=== PATIENT | female | born 1935 | race Caucasian/White ===

== ENCOUNTER → 2016-11-03 | Outpatient (CLI) | payer BC ==
[~2016-11-03] MED LIST: ACP20 PO; DILT240C75 PO; GABA-113 PO; LOSA100T33 PO; METO50TA16 PO; SIMV20TA2 PO
[2016-11-03 12:51] LABS: ESTIMATED AVERAGE GLUCOSE 140 mg/dl; HA1C FLAG Normal (Normal)
[2016-11-03 12:55] LABS: ALT/SGPT 29 U/L (12-78); AST/SGOT 15 U/L (15-37); BLOOD UREA NITROGEN 17 mg/dl (7-18); BUN/CREATININE RATIO 15.1 (10-20); CALCIUM 9.7 mg/dl (8.5-10.1); CARBON DIOXIDE 27 mmol/L (21-32); CHLORIDE 105 mmol/L (98-107); CHOLESTEROL 131 mg/dl (0-200); GLUCOSE 100 mg/dl (70-99); POTASSIUM 3.6 mmol/L (3.5-5.1); SODIUM 142 mmol/L (136-145)
[2016-11-03 13:06] LABS: ALB/GLOB RATIO 0.9 (0.9-2); ALKALINE PHOSPHATASE 82 U/L (45-117); CHOLESTEROL/HDL RATIO 3.4; HDL CHOLESTEROL 39 mg/dl; LDL CHOLESTEROL CALCULATED 65 mg/dl; TRIGLYCERIDES 135 mg/dl (0-150); VERY LOW DENSITY LIPOPROT CALC 27 mg/dl
[2016-11-03 14:31] LABS: RATIO 14.1 mcg/mg (0-30.0)
== END | disposition home or self-care (01) ==
LOC: C.LABBFT 08:14
PROVIDERS: ATTEND Internal Medicine
DX: E11.29 Type 2 diabetes mellitus with other diabetic kidney complication (principal)

== ENCOUNTER → 2017-01-29 | Outpatient (CLI) | payer BC ==
[~2017-01-29] MED LIST changes: +LOSA100T26 PO; -LOSA100T33 PO
[2017-01-29 17:38] LABS: BASO % 0.1 %; BASO ABS # 0.01 K/uL (0-0.2); COMPLETE YES; EOS % 3.3 %; HEMATOCRIT 40.9 % (37-47); IG% 0.1 %; LYMPH % 37.1 %; LYMPH ABS # 3.41 K/uL (1.2-3.4); MEAN CELL VOLUME 86.1 fL (80-100); MEAN CORPUSCULAR HEMOGLOBIN 28.8 pg (25-34); MEAN CORPUSCULAR HGB CONC 33.5 g/dl (32-36); MEAN PLATELET VOLUME 10.5 fL (7.4-10.4); NEUT % 50.4 %; PLATELET COUNT 251 K/uL (130-400); RED BLOOD COUNT 4.75 M/uL (4.2-5.4); WHITE BLOOD COUNT 9.19 K/uL (4.8-10.8)
[2017-01-29 17:52] LABS: FERRITIN 115.1 ng/ml (8.0-388.0)
== END | disposition home or self-care (01) ==
LOC: C.LABBFT 15:24
PROVIDERS: ATTEND Physician Assistant Medical
DX: L65.9 Nonscarring hair loss, unspecified (principal)

== ENCOUNTER → 2017-02-14 | Outpatient (CLI) | payer BC ==
--- NOTE | 2017-02-14 13:16 | MAMMOGRAPHY REPORT ---
BILATERAL DIGITAL SCREENING MAMMOGRAM WITH CAD: 02/14/2017 CLINICAL HISTORY: Routine screening. Patient has no complaints. TECHNIQUE: Current study was also evaluated with a Computer Aided Detection (CAD) system. Bilateral CC and MLO views were obtained. COMPARISON: Comparison is made to exams dated: 02/08/2016 mammogram, 02/05/2015 mammogram, 02/03/2014 m ammogram, 01/29/2013 mammogram, 01/24/2012 mammogram, and 01/23/2011 mammogram - [facility] enter. BREAST COMPOSITION: The tissue of both breasts is almost entirely fatty. FINDINGS: No suspicious masses, calcifications, or areas of architectural distortion are noted in ei ther breast. There has been no significant interval change compared to prior exams. Scattered bilater al benign-appearing calcifications are not significantly changed. IMPRESSION: ACR BI-RADS CATEGORY 2: BENIGN There is no mammographic evidence of malignancy. A 1 year screening mammogram is recommended. The pa tient will receive written notification of the results. Approximately 10% of breast cancers are not detected with mammography. A negative mammographic report should not delay biopsy if a clinically suggestive mass is present. Georgia Freed M.D. ah/:02/14/2017 12:36:13 Insurance Agency Owner: Kavita PAREDES(Kit)(), [facility] letter sent: Normal 1/2 BI-RADS Code: ACR BI-RADS Category 2: Benign
== END | disposition home or self-care (01) ==
LOC: C.MAMM 09:46
PROVIDERS: ATTEND Internal Medicine
DX: Z12.31 Encounter for screening mammogram for malignant neoplasm of breast (principal)

== ENCOUNTER → 2017-05-16 | Outpatient (CLI) | payer BC ==
[~2017-05-16] MED LIST changes: -LOSA100T26 PO; +LOSA100T33 PO
[2017-05-16 12:29] LABS: HEMATOCRIT 40.8 % (37-47); HEMOGLOBIN 13.5 g/dL (12.0-16.0); MEAN CELL VOLUME 86.8 fL (80-100); MEAN CORPUSCULAR HEMOGLOBIN 28.7 pg (25-34); MEAN CORPUSCULAR HGB CONC 33.1 g/dl (32-36); MEAN PLATELET VOLUME 10.3 fL (7.4-10.4); PLATELET COUNT 255 K/uL (130-400); RED CELL DISTRIBUTION WIDTH CV 14.4 % (11.5-14.5); RED CELL DISTRIBUTION WIDTH SD 45.6 fL (36.4-46.3); WHITE BLOOD COUNT 8.17 K/uL (4.8-10.8)
[2017-05-16 13:07] LABS: HEMOGLOBIN A1C 6.2 % (4.5-5.6)
[2017-05-16 14:11] LABS: ALBUMIN 3.4 gm/dl (3.4-5.0); ALT/SGPT 24 U/L (12-78); AST/SGOT 13 U/L (15-37); BLOOD UREA NITROGEN 21 mg/dl (7-18); CALCIUM 9.2 mg/dl (8.5-10.1); CARBON DIOXIDE 28 mmol/L (21-32); CHOLESTEROL 136 mg/dl (0-200); CREATININE 1.04 mg/dl (0.60-1.20); GLUCOSE 96 mg/dl (70-99); POTASSIUM 3.8 mmol/L (3.5-5.1); SODIUM 138 mmol/L (136-145); TOTAL PROTEIN 7.4 gm/dl (6.4-8.2)
[2017-05-16 14:31] LABS: ALKALINE PHOSPHATASE 75 U/L (45-117); LDL CHOLESTEROL CALCULATED 61 mg/dl
== END | disposition home or self-care (01) ==
LOC: C.LABBFT 08:17
PROVIDERS: ATTEND Internal Medicine
DX: E11.29 Type 2 diabetes mellitus with other diabetic kidney complication (principal)

== ENCOUNTER → 2017-08-20 | Outpatient (CLI) | payer BC | END | disposition home or self-care (01) | LOC: C.LABBFT 11:22 | PROVIDERS: ATTEND Nurse Practitioner | DX: R39.9 Unspecified symptoms and signs involving the genitourinary system (principal) ==

== ENCOUNTER → 2017-11-22 | Outpatient (CLI) | payer BC | END | disposition home or self-care (01) | LOC: C.LABSPEC 17:48 | PROVIDERS: ATTEND Obstetrics & Gynecology | DX: N95.0 Postmenopausal bleeding (principal); N84.0 Polyp of corpus uteri ==

== ENCOUNTER → 2017-11-28 | Outpatient (CLI) | payer BC ==
[2017-11-28 13:06] LABS: ALBUMIN 3.3 gm/dl (3.4-5.0); ALKALINE PHOSPHATASE 77 U/L (45-117); ALT/SGPT 26 U/L (12-78); AST/SGOT 15 U/L (15-37); BLOOD UREA NITROGEN 29 mg/dl (7-18); CALCIUM 8.8 mg/dl (8.5-10.1); CARBON DIOXIDE 27 mmol/L (21-32); CHOLESTEROL 200 mg/dl (0-200); CREATININE 1.12 mg/dl (0.60-1.20); GLUCOSE 101 mg/dl (70-99); LDL CHOLESTEROL CALCULATED 113 mg/dl; POTASSIUM 3.7 mmol/L (3.5-5.1); SODIUM 139 mmol/L (136-145); TOTAL PROTEIN 7.1 gm/dl (6.4-8.2)
[2017-11-28 13:14] LABS: HEMOGLOBIN A1C 6.4 % (4.5-5.6)
== END | disposition home or self-care (01) ==
LOC: C.LABBFT 09:15
PROVIDERS: ATTEND Internal Medicine
DX: E11.29 Type 2 diabetes mellitus with other diabetic kidney complication (principal)

== ENCOUNTER → 2017-12-07 | Outpatient (CLI) | payer BC ==
[2017-12-07 13:03] LABS: CREATININE RANDOM URINE 64.9 mg/dl
== END | disposition home or self-care (01) ==
LOC: C.LABBFT 09:29
PROVIDERS: ATTEND Internal Medicine
DX: E11.29 Type 2 diabetes mellitus with other diabetic kidney complication (principal)

== ENCOUNTER 2019-12-24 09:03 | Inpatient (IN) ==
--- NOTE | 2019-12-24 09:38 | Emergency Department Note ---
History of Present Illness General Chief complaint: Abnormal Labs/Diagnostic Testing Stated complaint: SENT BY DR Casie ARRIAGA ABNORMAL Time Seen by Provider: 12/24/19 09:09 Source: patient Mode of arrival: ambulatory Limitations: no limitations History of Present Illness This patient was sent over from the surgery center after presenting there for her cataract surgery and complaining that she has felt dizzy and has some shortness of breath off and on for couple days. She said a few days ago her heart rate was higher than normal and her blood pressure was lower than normal but she says she felt fine okay she has had some mild increase shortness of breath. 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 She is had no blood or melena stool no chest pain. No lower extremity pain or swelling she has gained about 6 pounds recently. Denies any focal numbness or weakness denies any fall or trauma or headache. No blood or melena in her stool. No fever or chills. No exposure to COVID and she was COVID negative on Sunday when tested for preop she has no history of thyroid disease. Home Medications Home Medications Medication Instructions Recorded Confirmed Type albuterol sulfate 90 mcg/actuation 1 puffs INH Q6H PRN #18 gm 01/03/19 12/24/19 Rx aerosol inhaler lancets #100 ea 01/03/19 09/25/19 Rx metoprolol tartrate 100 mg tablet 100 mg PO BID #180 tab 05/05/19 12/24/19 Rx alendronate 70 mg tablet 70 mg PO WEEKLY #12 tab 05/19/19 12/24/19 Rx atorvastatin 10 mg tablet 10 mg PO HS #90 tab 05/19/19 12/24/19 Rx blood sugar diagnostic #100 ea 08/29/19 09/25/19 Rx apixaban 5 mg tablet 5 mg PO BID #60 tab 09/25/19 12/24/19 Rx diltiazem HCl 240 mg PO QAM 11/27/19 12/24/19 History hydrochlorothiazide 25 mg PO QAM 11/27/19 12/24/19 History losartan 100 mg PO QAM 11/27/19 12/24/19 History rabeprazole 20 mg PO QAM 11/27/19 12/24/19 History gabapentin 300 mg capsule 300 mg PO TID #270 cap 12/24/19 Rx Allergies Allergy/AdvReac Type Severity Reaction Status Date / Time latex Allergy Mild REDNESS, Verified 12/24/19 09:30 RASH Sulfa (Sulfonamide AdvReac Intermediate MAKES HER Verified 12/24/19 09:30 Antibiotics) SICKER Past Med/Surg History Medical History (Updated 12/24/19 @ 15:16 by Ramesh Gregory MD) Controlled type 2 diabetes mellitus with microalbuminuria Deep vein thrombosis (02/2019) Feb 2019 after long car ride (provoked) Diverticulitis of colon GERD (gastroesophageal reflux disease) Greater trochanteric bursitis of right hip Hypercholesteremia Hypertension Lumbar spondylosis Osteoporosis Pulmonary embolism (02/2019) HISTORY OF Surgical History (Updated 12/24/19 @ 13:35 by Power Gonzalez) H/O cataract extraction left - Dr Collazo, 2019 H/O repair of rotator cuff LEFT History of appendectomy History of cardiac cath MORE THAN 5 YEARS AGO--WAS NEGATIVE ([facility]) History of cataract surgery LEFT History of cholecystectomy History of colonoscopy History of esophagogastroduodenoscopy (EGD) Family History Mother , age 42 from breast ca Breast cancer Son Deep vein thrombosis Father , age 52 from acute IA Myocardial infarction Asthma Other Coronary heart disease Denies family history of Ovarian cancer Prostate cancer Colorectal cancer Social History (Updated 12/24/19 @ 13:37 by Power Gonzalez) Smoking Status: Former smoker Age Started Using Tobacco: 23; Age Quit Using Tobacco: 50; packs per day: 1; Second Hand Exposure: No; Do You Dip or Chew Tobacco: No; Tobacco Cessation Education Requested by Patient: No Hx Alcohol Use: No Hx Substance Use: No Preferred Language: Syriac Communication Ability: Effective Visual Impairment: No Limitations Hearing Ability: Normal Audience Coordinator Required: No Beliefs That Will Affect Care: None marital status: marital status details: lives in [place] Current Living Situation: Spouse Current Living Situation Comment: LIVES WITH current occupational status: retired current occupation: worked at [employer] as a nurse How many Children do You have: 7 How many Children do You have Comment: 6 sons, 1 daughter Other Information That Helps Us Care for You: No Feels Safe at Home: Yes Safety Concerns: Feels Safe At This Time Seatbelt Use: always Sunscreen Use: Yes Review of Systems A total of 10 systems reviewed and were otherwise negative Physical Exam Vital Signs Vital Signs - 24 hr 12/24/19 09:07 12/24/19 09:22 12/24/19 09:31 Temperature 36.7 C Temperature Source Oral Pulse Rate 68 76 Pulse Rate from SpO2 Sensor 85 Respiratory Rate 18 15 Respiratory Effort / Characteristics Short of Breath Blood Pressure 135/79 131/87 Blood Pressure Mean 97 113 Blood Pressure Position Sitting Pulse Oximetry 95 94 92 Oxygen Delivery Method Room Air Room Air Room Air Sepsis Recent Fever Within 48 Hours No Sepsis New/Unexplained Change in Mental Status No Sepsis Action Taken by Nursing No Action Required 12/24/19 10:00 12/24/19 10:30 12/24/19 11:00 Temperature Temperature Source Pulse Rate 69 67 74 Pulse Rate from SpO2 Sensor 65 64 66 Respiratory Rate 21 13 20 Respiratory Effort / Characteristics Blood Pressure 156/83 H 136/82 161/89 H Blood Pressure Mean 108 94 103 Blood Pressure Position Pulse Oximetry 95 93 95 Oxygen Delivery Method Room Air Room Air Sepsis Recent Fever Within 48 Hours Sepsis New/Unexplained Change in Mental Status Sepsis Action Taken by Nursing 12/24/19 11:38 12/24/19 12:00 12/24/19 12:30 Temperature Temperature Source Pulse Rate 80 73 71 Pulse Rate from SpO2 Sensor Respiratory Rate 11 L 14 Respiratory Effort / Characteristics Blood Pressure Blood Pressure Mean Blood Pressure Position Pulse Oximetry Oxygen Delivery Method Sepsis Recent Fever Within 48 Hours Sepsis New/Unexplained Change in Mental Status Sepsis Action Taken by Nursing 12/24/19 13:00 12/24/19 13:01 12/24/19 13:30 Temperature Temperature Source Pulse Rate 79 73 85 Pulse Rate from SpO2 Sensor Respiratory Rate 23 13 16 Respiratory Effort / Characteristics Blood Pressure 145/82 H Blood Pressure Mean 95 Blood Pressure Position Pulse Oximetry 95 Oxygen Delivery Method Sepsis Recent Fever Within 48 Hours Sepsis New/Unexplained Change in Mental Status Sepsis Action Taken by Nursing 12/24/19 13:32 12/24/19 14:00 12/24/19 14:30 Temperature Temperature Source Pulse Rate 92 H 83 93 H Pulse Rate from SpO2 Sensor Respiratory Rate 16 21 13 Respiratory Effort / Characteristics Blood Pressure 171/82 H Blood Pressure Mean 100 Blood Pressure Position Pulse Oximetry Oxygen Delivery Method Sepsis Recent Fever Within 48 Hours Sepsis New/Unexplained Change in Mental Status Sepsis Action Taken by Nursing 12/24/19 14:31 Temperature Temperature Source Pulse Rate 103 H Pulse Rate from SpO2 Sensor Respiratory Rate 13 Respiratory Effort / Characteristics Blood Pressure 173/96 H Blood Pressure Mean 99 Blood Pressure Position Pulse Oximetry Oxygen Delivery Method Sepsis Recent Fever Within 48 Hours Sepsis New/Unexplained Change in Mental Status Sepsis Action Taken by Nursing General: Well developed well nourished not ill-appearing older female who appears mildly short of breath at times but in no acute distress. Normal speech HEENT: Normal cephalic atraumatic. Pupils are equal round and reactive to light. Extraocular movements are intact. Oropharynx is pink with moist mucous membranes. No swelling of the mouth lips or tongue. Neck: Supple with a midline trachea. No meningeal signs or stiffness, no JVD or bruits. No Stridor. Chest: Clear to auscultation bilaterally. No wheezes or rhonchi. No increased work of breathing. Heart: Regular rate and rhythm without murmurs or gallops. Abdomen: Soft nontender, nondistended without rebound guarding or rigidity. Extremities: No cyanosis clubbing or edema. No calf tenderness or assymetry Spine/Back. Non tender to palpation. No CVA tenderness Skin: Good turgor without rashes. Neurologic exam: Cranial nerves two through 12 are intact. Motor and sensation are intact and symmetrical throughout. Course Administered Medications Discontinued Medications Furosemide (Furosemide 40 Mg/4 Ml Vial) 20 mg IV NOW STA Stop: 12/24/19 14:43 Last Admin: 12/24/19 14:52 Dose: 20 mg Documented by: [id number] Furosemide (Furosemide 40 Mg/4 Ml Vial) Confirm Administered Dose 40 mg IV .STK- MED ONE Stop: 12/24/19 14:38 Last Admin: 12/24/19 14:52 Dose: Not Given Documented by: [id number] Ioversol (Optiray 320 125ml) 120 ml IV ONCE ONE Stop: 12/24/19 11:35 Last Admin: 12/24/19 11:34 Dose: 120 ml Documented by: [id number] Medical Decision Making Differential Diagnosis Arrhythmia, PE, CHF, cardiac disease, electrolyte or metabolic abnormality Medical Records Attestation: I reviewed the patient's medical records. Home Medications Current Medication List: was personally reviewed by tx Laboratory Data Attestation: I reviewed the patient's lab results. Result diagrams: 12/24/19 09:25 12/24/19 09:25 Lab Results 12/24/19 12/24/19 12/24/19 Range/Units 09:25 09:25 09:25 WBC 15.20 H (4.8-10.8) K/uL RBC 4.60 (4.2-5.4) M/uL Hgb 12.3 (12.0-16.0) g/dL Hct 38.3 (37-47) % MCV 83.3 (80-100) fL MCH 26.7 (25-34) pg MCHC 32.1 (32-36) g/dL RDW Std Deviation 46.4 H (36.4-46.3) fL RDW Coeff of Thomas 15.4 H (11.5-14.5) % Plt Count 383 (130-400) K/uL MPV 9.8 (7.4-10.4) fL Immature Gran % (Auto) 0.2 % Neut % (Auto) 77.7 % Lymph % (Auto) 17.0 % Braxton % (Auto) 5.0 % Eos % (Auto) 0.0 % Baso % (Auto) 0.1 % Neut # (Auto) 11.81 H (1.4-6.5) K/uL Lymph # (Auto) 2.59 (1.2-3.4) K/uL Braxton # (Auto) 0.76 H (0.11-0.59) K/uL Eos # (Auto) 0.00 (0-0.5) K/uL Baso # (Auto) 0.01 (0-0.2) K/uL Immature Gran # (Auto) 0.03 H (0.00-0.02) K/uL PT 11.1 (9.0-12.0) Seconds INR 1.1 (0.9-1.1) APTT 28.2 (21.0-31.0) Seconds PTT Ratio 1.0 Sodium 138 (136-145) mmol/L Potassium 4.3 (3.5-5.1) mmol/L Chloride 106 (98-107) mmol/L Carbon Dioxide 24 (21-32) mmol/L Anion Gap 8.0 (3-11) BUN 42 H (7-18) mg/dl Creatinine 1.48 H (0.6-1.2) mg/dl Est Cr Clr Drug Dosing 32.7 ml/min Est GFR ( Amer) 37.8 Est GFR (Non-Af Amer) 32.6 BUN/Creatinine Ratio 28.5 H (10-20) Glucose 127 H (70-99) mg/dl Calcium 9.4 (8.5-10.1) mg/dl Total Bilirubin 0.6 (0.2-1) mg/dl AST 11 L (15-37) U/L ALT 23 (12-78) U/L Alkaline Phosphatase 72 (45-117) U/L Troponin I < 0.015 (0-0.045) ng/ml NT-Pro-B Natriuret Pep 2274 H (0-1800) pg/ml Total Protein 7.4 (6.4-8.2) gm/dl Albumin 3.4 (3.4-5.0) gm/dl Globulin 4.0 (2.5-4.0) gm/dl Albumin/Globulin Ratio 0.9 (0.9-2) Lipase 145 (73-393) U/L Imaging Data Attestation: I personally reviewed and interpreted this imaging study as follows: Radiologist's Impression: XR chest 1V portable HISTORY: Atypical Chest Pain COMPARISON: None. FINDINGS: Cardiac silhouette is mildly enlarged. There is mild diffuse interstitial thickening. This is likely chronic. No pleural effusions. No pneumothorax. No focal lung consolidations to suggest pneumonia. No evidence for pulmonary edema. IMPRESSION: Cardiomegaly with mild diffuse interstitial thickening. This is likely chronic. ECG Data Attestation: I personally reviewed and interpreted this ECG as follows: Indication: + SOB/dyspnea Rate (beats per minute): 80 Rhythm: + atrial fibrillation ECG Intervals/blocks: + Right Bundle branch block, + Normal QRS and + Normal QT ECG [place]: + Normal ECG Findings: + Other (Nonspecific T wave abnormalities, nonspecific ST abnormality) Comparison ECG Date: from (12/24/19 820 AM (Pre-op EKG), no change) Change: no significant change Blood Pressure Blood Pressure Findings: Elevated blood pressure Blood Pressure Disposition: elevated BP felt to be situational MDM Narrative This patient comes in after being noted to be an apparent new onset A. fib in the surgery center. she was sent here she has had some mild dizziness and shortness of breath. She has a history of PE and is on a blood thinner. IV access established and blood work was obtained. EKG, chest x-ray, multiple blood testing was obtained. She was reassessed frequently. EKG does show what appears to be A. fib with rate controlled. When I compare to the one that was done preop there is no change however when I compare to the old one it is new. Chest x-ray shows some mild increased interstitial thickening she may have a degree of CHF. She has no acute electrolyte or metabolic abnormalities otherwise with the exception of a mildly elevated BUN and creatinine. She does have an elevated white count but no fever. CTA of the chest was obtained given her history of PE there is no evidence of PE. I do think she needs to be admitted/observed for further cardiac evaluation and work-up Continuous cardiac monitoring: An order was placed in the EMR. The patient was placed on a continuous monitor and storage bin tender and was noted to be in atrial fibrillation with a rate of 80 there is irregularity on the monitor. Impression & Plan Atrial fibrillation, new onset, Dizziness, SOB (shortness of breath), Acute renal insufficiency Discharge Plan Visit Data Chief Complaint: Abnormal Labs/Diagnostic Testing Stated Complaint: SENT BY DR Casie ARRIAGA ABNORMAL ED Provider: Ramesh Gregory Discharge Problem: Atrial fibrillation, new onset, Dizziness, SOB (shortness of breath), Acute renal insufficiency Patient Disposition: Admitted As Inpatient Discharge Instructions Interventions: ED Discharge Assessment Last Done: 12/24/19 14:57
[2019-12-24 09:45] LABS: Basophils # (auto) 0.01 K/uL (0-0.2); Basophils % (auto) 0.1 %; Hematocrit (blood only) 38.3 % (37-47); Hemoglobin 12.3 g/dL (12.0-16.0); Immature Granulocytes # (auto) 0.03 K/uL (0.00-0.02); Immature Granulocytes % (auto) 0.2 %; Lymphocytes # (auto) 2.59 K/uL (1.2-3.4); Mean Corpuscular Hemoglobin 26.7 pg (25-34); Mean Corpuscular Hgb Conc 32.1 g/dL (32-36); Mean Corpuscular Volume 83.3 fL (80-100); Mean Platelet Volume 9.8 fL (7.4-10.4); Monocytes # (auto) 0.76 K/uL (0.11-0.59); Neutrophils # (auto) 11.81 K/uL (1.4-6.5); Neutrophils % (auto) 77.7 %; Platelet Count 383 K/uL (130-400); RDW Coefficient of Variation 15.4 % (11.5-14.5); RDW Standard Deviation 46.4 fL (36.4-46.3)
[2019-12-24 10:00] LABS: INR 1.1 (0.9-1.1); Partial Thromboplastin Time 28.2 Seconds (21.0-31.0); Prothrombin Time 11.1 Seconds (9.0-12.0)
--- NOTE | 2019-12-24 10:00 | XRay Report ---
XR chest 1V portable HISTORY: Atypical Chest Pain COMPARISON: None. FINDINGS: Cardiac silhouette is mildly enlarged. There is mild diffuse interstitial thickening. This is likely chronic. No pleural effusions. No pneumothorax. No focal lung consolidations to suggest pne umonia. No evidence for pulmonary edema. IMPRESSION: Cardiomegaly with mild diffuse interstitial thickening. This is likely chronic. ACT 112: Negative or not required by law. Electronically signed by: Ross Luz M.D. 12/24/2019 9:58 AM
[2019-12-24 10:04] LABS: Alanine Aminotransferase 23 U/L (12-78); Albumin Level 3.4 gm/dl (3.4-5.0); Aspartate Aminotransferase 11 U/L (15-37); BUN Creatinine Ratio 28.5 (10-20); Blood Urea Nitrogen 42 mg/dl (7-18); Calcium 9.4 mg/dl (8.5-10.1); Carbon Dioxide 24 mmol/L (21-32); Chloride 106 mmol/L (98-107); Creatinine Clr Calc Pharmacy 32.7 ml/min; Est GFR (African American) 37.8; Est GFR (Non-African American) 32.6; Glucose 127 mg/dl (70-99); Lipase 145 U/L (73-393); Potassium 4.3 mmol/L (3.5-5.1); Sodium 138 mmol/L (136-145)
[2019-12-24 10:08] LABS: Albumin Globulin Ratio 0.9 (0.9-2); Alkaline Phosphatase 72 U/L (45-117); Bilirubin,Total 0.6 mg/dl (0.2-1); NT Pro B Type Natriuretic Pept 2274 pg/ml (0-1800); Total Protein 7.4 gm/dl (6.4-8.2); Troponin I < 0.015 ng/ml (0-0.045)
[2019-12-24] MEDS ORDERED: OPTIRAY 320 125ml IV ONE (11:34)
--- NOTE | 2019-12-24 11:58 | CT Scan Report ---
CT angio chest PE protocol CT DOSE: 930.41 mGy.cm HISTORY: Chest pain. Dyspnea. PE TECHNIQUE: Multiaxial CT images of the chest were performed following the intravenous administration of contrast to evaluate the pulmonary arteries. Maximal intensity projection images were also obtaine d. A dose lowering technique was utilized adhering to the principles of ALARA. COMPARISON STUDY: 02/19/2019 FINDINGS: The pulmonary vasculature enhances appropriately. There are no major filling defects. Thoracic aorta shows mild ectasia but is negative for aneurysm. Lungs demonstrate mild generalized interstitial prominence with no well-defined focal infiltrative pr ocess. There are focal atelectatic changes posterior aspect right pulmonary apex. There is underlying component of emphysematous change. IMPRESSION: 1. No evidence for pulmonary embolus. 2. Interstitial prominence primarily in the mid to lower lung regions suggesting nonspecific pneumoni tis. 3. ACT 112: Negative or not required by law. The above report was generated using voice recognition software. It may contain grammatical, syntax or spelling errors. Electronically signed by: iLang Ortiz M.D. 12/24/2019 11:56 AM
--- NOTE | 2019-12-24 13:21 | History & Physical Report ---
Date of Service December 24, 2019 Assessment & Plan (1) Atrial fibrillation: New-onset, perhaps 3-4 days ago based on her home HR readings (usually runs 50-60 BPM; then increased to 80s/90s a few days ago). Her rates are controlled, at least at rest, due to ongoing use of CCB and BB. She is also already on eliquis 5mg BID due to prior h/o DVT with PE in 2019. TSH wnl. Mag/K wnl. Obtain echo to r/o valvular disease, check EF, etc. Consider cardiology consult. Adjust CCB dose if more rate control needed. Will need to check HRs w/ walking before discharge. Troponin noted to be normal. (2) Acute CHF: Suspect volume overload in setting of new-onset a.fib. She has had notable weight gain recently. "pneumonitis" seen on CT chest today is likely edema. Recent COVID-19 testing negative. She has no symptoms of an infectious process. Lasix 20mg IV x 1 and follow response. Hold HCTZ. Suspect will need additional lasix tomorrow. Echo to check LV function. (3) Deep vein thrombosis: history of - 2019 eliquis BID (4) Pulmonary embolism: history of - 2019 eliquis BID (5) Controlled type 2 diabetes mellitus with microalbuminuria: 12/18/19 - HbA1C 6.8% diet controlled random glucose 127 today DM diet (6) Hypertension: cont all meds except HCTZ for now (7) Hypercholesteremia: cont statin (8) Morbid obesity with BMI of 40.0-44.9, adult: BMI 41 (9) Leukocytosis: suspect this is due to steroid injection she received for right hip bursitis on Sunday of this week no signs/symptoms of infectious process at this time follow (10) Greater trochanteric bursitis of right hip: s/p steroid injection on 12/22/[address] Person (11) DVT prophylaxis: eliquis if rates are controlled at rest & with activity tomorrow, and if volume status is acceptable, could consider d/c home tomorrow with outpatient cardiology f/u History of Present Illness Chief Complaint: new-onset a.fib; high HR; low BP Primary Care Provider: Rashad Parsons MD 84yo female with history of DVT and PE on eliquis who presented today for elective right cataract surgery by Dr Collazo at [facility]. Upon checking in at the surgical center she told the staff that she had noted "high" HRs over the last 3 days. Typically she runs about 50-60 BPM but had noted rates in the 80s and 90s at home. Her blood pressures were "low" - typically systolics run about 140, but had noted systolics in the low 100s over the last few days. She also reported to the staff at the surgical center that she has had dyspnea recently. While doing housework recently she was very short of breath. No orthopnea or PND. No LE edema. She has gained weight of late -- she has had 5-10 pounds in the last month. She noted worsening abdominal girth recently as well. Had negative COVID-19 testing on 12/19/19. No fevers or chills. Some cough - dry. Had palpitations several days ago but nothing since. Patient DID take her metoprolol and diltiazem this morning. Lastly, patient had steroid injection of right hip on SUNDAY of this week for bursitis by Dr Person. Allergies Allergy/AdvReac Type Severity Reaction Status Date / Time latex Allergy Mild REDNESS, Verified 12/24/19 09:30 RASH Sulfa (Sulfonamide AdvReac Intermediate MAKES HER Verified 12/24/19 09:30 Antibiotics) SICKER Home Medications Home Medications Medication Instructions Recorded Confirmed Type albuterol sulfate 90 mcg/actuation 1 puffs INH Q6H PRN #18 gm 01/03/19 12/24/19 Rx aerosol inhaler lancets #100 ea 01/03/19 09/25/19 Rx metoprolol tartrate 100 mg tablet 100 mg PO BID #180 tab 05/05/19 12/24/19 Rx alendronate 70 mg tablet 70 mg PO WEEKLY #12 tab 05/19/19 12/24/19 Rx atorvastatin 10 mg tablet 10 mg PO HS #90 tab 05/19/19 12/24/19 Rx blood sugar diagnostic #100 ea 08/29/19 09/25/19 Rx apixaban 5 mg tablet 5 mg PO BID #60 tab 09/25/19 12/24/19 Rx diltiazem HCl 240 mg PO QAM 11/27/19 12/24/19 History hydrochlorothiazide 25 mg PO QAM 11/27/19 12/24/19 History losartan 100 mg PO QAM 11/27/19 12/24/19 History rabeprazole 20 mg PO QAM 11/27/19 12/24/19 History gabapentin 300 mg capsule 300 mg PO TID #270 cap 12/24/19 Rx Past Med/Surg History Medical History (Updated 12/25/19 @ 00:03 by Power Gonzalez) Controlled type 2 diabetes mellitus with microalbuminuria Deep vein thrombosis (02/2019) Feb 2019 after long car ride (provoked) Diverticulitis of colon GERD (gastroesophageal reflux disease) Greater trochanteric bursitis of right hip Hypercholesteremia Hypertension Lumbar spondylosis Osteoporosis Pulmonary embolism (02/2019) HISTORY OF Surgical History (Updated 12/24/19 @ 13:35 by Power Gonzalez) H/O cataract extraction left - Dr Collazo, 2019 H/O repair of rotator cuff LEFT History of appendectomy History of cardiac cath MORE THAN 5 YEARS AGO--WAS NEGATIVE ([facility]) History of cataract surgery LEFT History of cholecystectomy History of colonoscopy History of esophagogastroduodenoscopy (EGD) Family History Mother , age 42 from breast ca Breast cancer Son Deep vein thrombosis Father , age 52 from acute [place] Myocardial infarction Asthma Other Coronary heart disease Denies family history of Ovarian cancer Prostate cancer Colorectal cancer Social History (Updated 12/24/19 @ 13:37 by Power Gonzalez) Smoking Status: Former smoker Age Started Using Tobacco: 23; Age Quit Using Tobacco: 50; packs per day: 1; Second Hand Exposure: No; Do You Dip or Chew Tobacco: No; Tobacco Cessation Education Requested by Patient: No Hx Alcohol Use: No Hx Substance Use: No Preferred Language: Indonesian Communication Ability: Effective Visual Impairment: No Limitations Hearing Ability: Normal Retail Administrative Assistant Required: No Beliefs That Will Affect Care: None marital status: marital status details: lives in [place] Current Living Situation: Spouse Current Living Situation Comment: LIVES WITH current occupational status: retired current occupation: worked at [employer] as a nurse How many Children do You have: 7 How many Children do You have Comment: 6 sons, 1 daughter Other Information That Helps Us Care for You: No Feels Safe at Home: Yes Safety Concerns: Feels Safe At This Time Seatbelt Use: always Sunscreen Use: Yes Review of Systems Constitutional: + weight gain; no fever, no chills and no anorexia Eyes: cataract extraction - Left - recent; improved vision w/ such Ear, Nose, Mouth, Throat: no sore throat no loss of taste or smell Respiratory: + cough; no sputum production Cardiovascular: no chest pain, no orthopnea, no paroxysmal nocturnal dyspnea and no edema Gastrointestinal: no abdominal pain, no vomiting and no diarrhea/loose stools Genitourinary: no dysuria Musculoskeletal: + back pain (chronic ) and + joint pain (hips, etc) Integumentary: no rash Neurologic: no loss of sensation Psychiatric: no depression Endocrine: diet-controlled DM -- 120s or less Hematologic / Lymphatic: no easy bleeding and no easy bruising Physical Exam Constitutional: + morbidly obese; no acute distress and no altered mental status Eyes: PERRL (lens implant L; cataract shadow R) ENMT: external ear and nose normal, oropharynx normal Neck: trachea midline, no thyromegaly Respiratory: no respiratory distress Auscultation: + diminished lung sounds (bases) and + rales (fine, bases); no wheezes Cardiovascular: Rate/Rhythm: regular rate and + irregularly irregular Heart Sounds: normal S1 and normal S2; no murmur Vessels: posterior tibial pulses present and dorsalis pedis pulses present; no JVD (difficult to assess due to neck size) Extremities: no edema Gastrointestinal (Abdomen): normal bowel sounds, soft, nontender, no hepatosplenomegaly Musculoskeletal: no cyanosis or clubbing, extremities motor strength 5/5 Skin: no rashes, warm and dry Neurologic: deep tendon reflexes 2+ bilaterally and moves all extremities Psychiatric: A+Ox3, euthymic affect Lymphatic: no cervical lymphadenopathy Results & Data Results & Data ([facility]) Vital Signs (Past 12 Hours) Vital Signs Temp Pulse Resp BP Pulse Ox 12/24/19 13:01 73 13 145/82 H 95 12/24/19 13:00 79 23 12/24/19 12:30 71 14 12/24/19 12:00 73 11 L 12/24/19 11:38 80 12/24/19 11:00 74 20 161/89 H 95 12/24/19 10:30 67 13 136/82 93 12/24/19 10:00 69 21 156/83 H 95 12/24/19 09:31 76 15 131/87 92 12/24/19 09:22 94 12/24/19 09:07 36.7 C 68 18 135/79 95 Laboratory Results Laboratory Results - last 24 hr 12/24/19 12/24/19 12/24/19 09:25 09:25 09:25 WBC 15.20 H RBC 4.60 Hgb 12.3 Hct 38.3 MCV 83.3 MCH 26.7 MCHC 32.1 RDW Std Deviation 46.4 H RDW Coeff of Thomas 15.4 H Plt Count 383 MPV 9.8 Immature Gran % (Auto) 0.2 Neut % (Auto) 77.7 Lymph % (Auto) 17.0 [place] % (Auto) 5.0 Eos % (Auto) 0.0 Baso % (Auto) 0.1 Neut # (Auto) 11.81 H Lymph # (Auto) 2.59 [place] # (Auto) 0.76 H Eos # (Auto) 0.00 Baso # (Auto) 0.01 Immature Gran # (Auto) 0.03 H PT 11.1 INR 1.1 APTT 28.2 PTT Ratio 1.0 Sodium 138 Potassium 4.3 Chloride 106 Carbon Dioxide 24 Anion Gap 8.0 BUN 42 H Creatinine 1.48 H Est Cr Clr Drug Dosing 32.7 Est GFR ( Amer) 37.8 Est GFR (Non-Af Amer) 32.6 BUN/Creatinine Ratio 28.5 H Glucose 127 H Calcium 9.4 Phosphorus Magnesium Total Bilirubin 0.6 AST 11 L ALT 23 Alkaline Phosphatase 72 Troponin I < 0.015 NT-Pro-B Natriuret Pep 2274 H Total Protein 7.4 Albumin 3.4 Globulin 4.0 Albumin/Globulin Ratio 0.9 Lipase 145 Specimen Hemolysis 12/24/19 22:09 WBC RBC Hgb Hct MCV MCH MCHC RDW Std Deviation RDW Coeff of Thomas Plt Count MPV Immature Gran % (Auto) Neut % (Auto) Lymph % (Auto) [place] % (Auto) Eos % (Auto) Baso % (Auto) Neut # (Auto) Lymph # (Auto) [place] # (Auto) Eos # (Auto) Baso # (Auto) Immature Gran # (Auto) PT INR APTT PTT Ratio Sodium Potassium Chloride Carbon Dioxide Anion Gap BUN Creatinine Est Cr Clr Drug Dosing Est GFR ( Amer) Est GFR (Non-Af Amer) BUN/Creatinine Ratio Glucose Calcium Phosphorus 4.3 Magnesium 2.0 Total Bilirubin AST ALT Alkaline Phosphatase Troponin I < 0.015 NT-Pro-B Natriuret Pep Total Protein Albumin Globulin Albumin/Globulin Ratio Lipase Specimen Hemolysis Diagnostic Findings 1. cxr - IMPRESSION: Cardiomegaly with mild diffuse interstitial thickening. This is likely chronic. 2. CTA chest - IMPRESSION: 1. No evidence for pulmonary embolus. 2. Interstitial prominence primarily in the mid to lower lung regions suggesting nonspecific pneumonitis. 3. EKG - my reading - a.fib, rate <100, RBBB; anterior T wave inversions Code Status & VTE Plan Code Status DNR/DNI VTE Prophylaxis Plan VTE Prophylaxis will be ordered: Yes PG Care Time/CCT Total # of Minutes Spent Total Time Spent with Patient: Total time spent is greater than 50% in coordination of care (as documented) at patient's floor/unit and/or counseling patient: Coding Level of Care Code 56631 OBS Care - Level 3 Diagnoses Atrial fibrillation I48.91 Atrial fibrillation type: unspecified Acute CHF I50.9 Deep vein thrombosis I82.442 Affected thrombotic vein of extremity: tibial Chronicity: acute DVT location: lower extremity Laterality: left Pulmonary embolism I26.99 Controlled type 2 diabetes mellitus with microalbuminuria E11.29; R80.9 Hypertension I10 Hypercholesteremia E78.00 Morbid obesity with BMI of 40.0-44.9, adult E66.01; Z68.41 Leukocytosis D72.829 Greater trochanteric bursitis of right hip M70.61 DVT prophylaxis Z29.9 (1) Deep vein thrombosis Affected thrombotic vein of extremity: tibial Chronicity: acute DVT location: lower extremity Laterality: left Qualified Code(s): I82.442 - Acute embolism and thrombosis of left tibial vein (2) Atrial fibrillation Atrial fibrillation type: unspecified Qualified Code(s): I48.91 - Unspecified atrial fibrillation
[2019-12-24] MEDS ORDERED: FUROSEMIDE 40 MG/4 ML VIAL IV ONE (14:37)
[2019-12-24] MEDS ORDERED: FUROSEMIDE 40 MG/4 ML VIAL IV STA (14:42)
[2019-12-24] MEDS ORDERED: ONDANSETRON INJ 2 MG/ML 2 ML VIAL IV PRN (15:24)
[2019-12-24] MEDS ORDERED: ALBUTEROL HFA 8 GM INHALER INH PRN (15:24)
[2019-12-24] MEDS: LOSARTAN POTASSIUM 50 MG TAB PO SCH (16:38)
[2019-12-24] MEDS: GABAPENTIN 300 MG CAP PO SCH ×2 (16:38→20:30)
[2019-12-24] MEDS: APIXABAN 5 MG TABLET PO SCH ×2 (16:39→20:30)
[2019-12-24] MEDS: METOPROLOL TARTRATE 100 MG TAB PO SCH (20:29)
[2019-12-24] MEDS: ATORVASTATIN 10 MG TAB PO SCH (20:30)
[2019-12-24 22:45] LABS: Phosphorus 4.3 mg/dl (2.5-4.9); Troponin I < 0.015 ng/ml (0-0.045)
--- NOTE | 2019-12-25 01:24 | Communication Note ---
Date of Service: December 25, 2019 Tamie Hunt was complaining of chest pain moving into her arm, it was partially reproducible on exam and ECG was reassuring. Will order troponins q6h
[2019-12-25 04:41] LABS: BUN Creatinine Ratio 33.5 (10-20); Blood Urea Nitrogen 42 mg/dl (7-18); Calcium 8.5 mg/dl (8.5-10.1); Carbon Dioxide 26 mmol/L (21-32); Chloride 107 mmol/L (98-107); Creatinine Clr Calc Pharmacy 38.4 ml/min; Est GFR (African American) 45.9; Est GFR (Non-African American) 39.6; Glucose 113 mg/dl (70-99); Potassium 3.9 mmol/L (3.5-5.1); Sodium 140 mmol/L (136-145)
[2019-12-25 04:46] LABS: Troponin I < 0.015 ng/ml (0-0.045)
--- NOTE | 2019-12-25 06:18 | Electrocardiogram Report ---
Test Reason : Blood Pressure : / mmHG Vent. Rate : 083 BPM Atrial Rate : 076 BPM P-R Int : 000 ms QRS Dur : 132 ms QT Int : 384 ms P-R-T Axes : 000 045 -16 degrees QTc Int : 451 ms Poor data quality, interpretation may be adversely affected Atrial fibrillation Non-specific intra-ventricular conduction block T wave abnormality, consider anterior ischemia Possible Septal infarct Abnormal ECG When compared with ECG of 20-MAY-2010 15:10, Atrial fibrillation has replaced Sinus rhythm QRS duration has increased Confirmed by Carlos A Carl ([id number]) on 12/25/2019 6:18:09 AM Referred By: REFERRED SELF Confirmed By:Carlos A Carl
--- NOTE | 2019-12-25 06:19 | Electrocardiogram Report ---
Test Reason : Blood Pressure : / mmHG Vent. Rate : 080 BPM Atrial Rate : 077 BPM P-R Int : 000 ms QRS Dur : 134 ms QT Int : 386 ms P-R-T Axes : 000 057 -04 degrees QTc Int : 445 ms Poor data quality, interpretation may be adversely affected Atrial fibrillation Right bundle branch block Nonspecific T wave abnormality Abnormal ECG When compared with ECG of 24-DEC-2019 08:21, Septal infarct is no longer Present Confirmed by Carlos A Carl ([id number]) on 12/25/2019 6:19:30 AM Referred By: REFERRED SELF Confirmed By:Carlos A Carl
[2019-12-25] MEDS: METOPROLOL TARTRATE 100 MG TAB PO SCH ×2 (08:35→20:11)
[2019-12-25] MEDS: PANTOprazole 40 MG TAB PO SCH (08:35)
[2019-12-25] MEDS: LOSARTAN POTASSIUM 50 MG TAB PO SCH (08:36)
[2019-12-25] MEDS: GABAPENTIN 300 MG CAP PO SCH ×3 (08:37→20:11)
[2019-12-25] MEDS ORDERED: dilTIAZem HCL 240 MG CAPCR PO SCH (09:00)
[2019-12-25] MEDS: APIXABAN 5 MG TABLET PO SCH ×2 (09:15→20:11)
[2019-12-25] MEDS ORDERED: PERFLUTREN LIPID MICROSPHERE (DEFINITY) IV ONE (10:22)
--- NOTE | 2019-12-25 11:56 | Medical Student Progress Note ---
Date of Service December 25, 2019 Assessment & Plan (1) Atrial fibrillation, new onset: - New onset occurred approx 3-4 days ago. normal home HR readings are in the 50-60 range and increased to 80-90. - Her rates are mostly controlled due to CC ela and BB. -continue current regimen of dilitiazem 240 mg and metoprolol tartrate 100mg. -She is already on Eliquis 5mg due to prior DVT/ PE - TSH wnl -mag wnl Obtain echo to r/o valvular disease, check EF (2) DVT prophylaxis: -Anticoagulated with 5mg Eliquis (3) Acute CHF: - CHF exacerbation likely secondary to AFib - Treated with IV lasix with significant improvement in symptoms -Hold HCTZ - Restrict fluid intake to 1500 ml a day - Echo performed to check EF - (4) Pulmonary embolism: -HX of PE 2018 -CTA did not show any evidence of PE --Anticoagulated with 5mg Eliquis Admission and Anticipated Discharge Date Admission Date: December 24, 2019 Supervising Attestation This is a medical student note. Subjective 84 year old female with hx of morbid obesity, DVT and PE on eloquis presented to ED with 3 days of tachycardia, increased SOB and hypotension. She has also gained 5-10 pounds over the last month. She noticed that she was getting more SOB when completing house hold chores over the last few days. She also noticed that her heart rate was elevated into the 90's which was a significant increase from her baseline of 60. She was scheduled for cataract surgery yesterday and her heart rate was elevated. She was sent to the ED and was found to be in afib. She was treated with IV lasix. This helped improve her symptoms of SOB. Today she states that she is feeling better. She has some SOB but this is not much different from her base line. She denies any chest pain, palpations, PND, lower extremity edema or dizziness. Review of Systems Review of Systems: All systems reviewed & are unremarkable except as noted in HPI & below Physical Exam Eyes: PERRL, conjunctivae normal, anicteric sclerae Respiratory: normal respiratory effort, lungs clear to auscultation Cardiovascular: Rate/Rhythm: + irregularly irregular Heart Sounds: normal S1 and normal S2; no murmur Vessels: dorsalis pedis pulses present; no JVD Extremities: no edema Gastrointestinal (Abdomen): normal bowel sounds, soft, nontender, no hepatosplenomegaly Skin: no rashes, warm and dry Neurologic: PERRL, EOMI, accommodation nl, no face palsy, no dysarthria CN's II-XI intact bilaterally Results & Data ([facility]) Vital Signs (Past 12 Hours) Vital Signs Temp Pulse Pulse Resp BP Pulse Ox 12/25/19 11:13 36.7 C 102 H 16 131/97 95 12/25/19 08:00 110 H 12/25/19 07:17 36.4 C L 103 H 16 146/93 H 90 12/25/19 03:37 36.5 C 74 16 125/78 93
--- NOTE | 2019-12-25 15:19 | XCELERA ---
[id number]
[2019-12-25] MEDS: dilTIAZem HCl 60 MG TAB PO SCH (20:11)
[2019-12-25] MEDS: ATORVASTATIN 10 MG TAB PO SCH (20:12)
--- NOTE | 2019-12-25 21:35 | Hospitalist Progress Note ---
Date of Service December 25, 2019 Assessment & Plan (1) Atrial fibrillation: New-onset, perhaps 3-4 days ago based on her home HR readings (usually runs 50-60 BPM; then increased to 80s/90s a few days ago). Her rates are controlled, at least at rest, due to ongoing use of CCB and BB. She is also already on eliquis 5mg BID due to prior h/o DVT with PE in 2019. Awaiting echocardiogram. Awaiting input from cardio. Troponin noted to be normal. (2) Acute CHF: Suspect volume overload in setting of new-onset a.fib. She has had notable weight gain recently. "pneumonitis" seen on CT chest today is likely edema. Recent COVID-19 testing negative. She has no symptoms of an infectious process. responded to lasix. Echo to check LV function. (3) Deep vein thrombosis: history of - 2019 eliquis BID (4) Pulmonary embolism: history of - 2019 eliquis BID (5) Controlled type 2 diabetes mellitus with microalbuminuria: 12/18/19 - HbA1C 6.8% diet controlled random glucose 127 today DM diet (6) Hypertension: cont all meds except HCTZ for now (7) Hypercholesteremia: cont statin (8) Morbid obesity with BMI of 40.0-44.9, adult: BMI 41 (9) Leukocytosis: suspect this is due to steroid injection she received for right hip bursitis on Sunday of this week no signs/symptoms of infectious process at this time follow (10) Greater trochanteric bursitis of right hip: s/p steroid injection on 12/22/[address] Person (11) DVT prophylaxis: eliquis will montor for another 24 hours. Admission and Anticipated Discharge Date Admission Date: December 24, 2019 Subjective Patient reports feeling slightly better. She is still short of breath. Review of Systems Review of Systems: All systems reviewed & are unremarkable except as noted in HPI & below Physical Exam Physical Exam: Constitutional: + morbidly obese; no acute distress and no altered mental status Eyes: PERRL (lens implant L; cataract shadow R) ENMT: external ear and nose normal, oropharynx normal Neck: trachea midline, no thyromegaly Respiratory: no respiratory distress Auscultation: + diminished lung sounds (bases) and + rales (fine, bases); no wheezes Cardiovascular: Rate/Rhythm: regular rate and + irregularly irregular Heart Sounds: normal S1 and normal S2; no murmur Vessels: posterior tibial pulses present and dorsalis pedis pulses present; no JVD (difficult to assess due to neck size) Extremities: no edema Gastrointestinal (Abdomen): normal bowel sounds, soft, nontender, no hepatosplenomegaly Musculoskeletal: no cyanosis or clubbing, extremities motor strength 5/5 Skin: no rashes, warm and dry Neurologic: deep tendon reflexes 2+ bilaterally and moves all extremities Psychiatric: A+Ox3, euthymic affect Lymphatic: no cervical lymphadenopathy Results & Data Results & Data ([facility]) Vital Signs (Past 12 Hours) Vital Signs Temp Pulse Pulse Pulse Resp BP Pulse Ox 12/25/19 19:56 36.4 C L 101 H 16 114/79 93 12/25/19 16:00 89 12/25/19 15:50 36.3 C L 76 18 110/76 91 12/25/19 11:13 36.7 C 102 H 16 131/97 95 PG Care Time/CCT Total # of Minutes Spent Total Time Spent with Patient: Total time spent is greater than 50% in coordination of care (as documented) at patient's floor/unit and/or counseling patient: Coding Level of Care Code 48824 Subseq Obs Care Lvl 3 Diagnoses Atrial fibrillation I48.91 Atrial fibrillation type: unspecified Acute CHF I50.9 Deep vein thrombosis I82.442 Affected thrombotic vein of extremity: tibial Chronicity: acute DVT location: lower extremity Laterality: left Pulmonary embolism I26.99 Controlled type 2 diabetes mellitus with microalbuminuria E11.29; R80.9 Hypertension I10 Hypercholesteremia E78.00 Morbid obesity with BMI of 40.0-44.9, adult E66.01; Z68.41 Leukocytosis D72.829 Greater trochanteric bursitis of right hip M70.61 DVT prophylaxis Z29.9 Time Spent (min) 35 (1) Deep vein thrombosis Affected thrombotic vein of extremity: tibial Chronicity: acute DVT location: lower extremity Laterality: left Qualified Code(s): I82.442 - Acute embolism and thrombosis of left tibial vein (2) Atrial fibrillation Atrial fibrillation type: unspecified Qualified Code(s): I48.91 - Unspecified atrial fibrillation
--- NOTE | 2019-12-25 22:00 | Cardiology Consultation ---
Date of Consultation December 25, 2019 Assessment & Plan (1) Atrial fibrillation: (2) Cardiomyopathy: (3) SOB (shortness of breath): (4) Hypertension: ASSESSMENT/PLAN: 1. Atrial fibrillation: We discussed the diagnosis. On telemetry, her heart rate tends to still be elevated. Will increase diltiazem to a total dose of 360 mg daily while giving short-acting diltiazem this evening. Continue beta- ela. She does not appear to be significantly symptomatic. Remain on anticoagulation for stroke risk reduction which she had been on chronically for DVT/ PE. Continue rate control strategy. 2. Cardiomyopathy: Mildly reduced LV systolic function with RV systolic dysfunction as well. Likely related to tachycardia. Rate control strategy as above. She does appear to be mildly hypervolemic but apparently has improved after initial diuresis according to records. Can repeat echo as an outpatient to reassess after adequate heart rate control. 3. Shortness of breath: Could be related to AFib with rapid ventricular response but she also was reportedly more hypervolemic on presentation, likely related to her atrial fibrillation with rapid ventricular response. Lab suggested azotemia after initial diuresis however (Lasix 20 mg IV). 4. Hypertension: Blood pressure has been normotensive to hypertensive. Diltiazem adjusted as above. 5. Disposition: Cardiology will continue to follow. Thank you for allowing me to participate in the care of your patient. Please c all for any other questions or concerns. Sincerely, Otilio Carl M.D. History of Present Illness Reason for Consultation: new onset Afib Requesting Physician: Star Horton Attending Physician: Star Horton History of Present Illness Ms. Hunt is a pleasant 84-year-old female with a history significant for type 2 diabetes, DVT/pulmonary embolism (2019) on anticoagulation therapy, hypertension, and dyslipidemia. She was admitted to [facility] on 12/24/2019 with newly diagnosed atrial fibrillation. For the past few weeks she has noted increased fatigue with intermittent dyspnea with exertion described as mild. She had not noted any palpitations, chest pain, syncope, or near-syncope. She denies bleeding such as melena, hematochezia, or hematuria. She denies a history of CHF, TIA, or stroke. She checks her blood pressure at home, including her pulse rate. Her pulse is typically 50-60 on her home cuff but she noted that it had been increased to 80- 90s over the past 4 days or so. When she presented to have her right cataract surgery, she was noted to be in atrial fibrillation and was referred here for further evaluation. She denies angina. She does have left axillary rib pain and left shoulder pain following rotator cuff surgery. This pain has been reproducible with movement of her left upper extremity. She denies shortness of breath at rest. She believes that she has gained 5-10 lb over the past month, stating that she has been "over eating. " She denies edema. She has been taking metoprolol 100 mg twice daily at home and diltiazem 240 mg daily. She did not take Eliquis yesterday morning in anticipation of cataract surgery but otherwise has been compliant. Review of systems: As above. Review of systems otherwise negative/ unremarkable. Family history: Mother with breast cancer. Father with PA at the age of 52. Social history: She quit smoking in the past. No alcohol. No drugs. Lives at home with her . She has 7 children. She was unaccompanied. Allergies Allergy/AdvReac Type Severity Reaction Status Date / Time latex Allergy Mild REDNESS, Verified 12/24/19 09:30 RASH Sulfa (Sulfonamide AdvReac Intermediate MAKES HER Verified 12/24/19 09:30 Antibiotics) SICKER Home Medications Home Medications Medication Instructions Recorded Confirmed Type albuterol sulfate 90 mcg/actuation 1 puffs INH Q6H PRN #18 gm 01/03/19 12/24/19 Rx aerosol inhaler lancets #100 ea 01/03/19 09/25/19 Rx metoprolol tartrate 100 mg tablet 100 mg PO BID #180 tab 05/05/19 12/24/19 Rx alendronate 70 mg tablet 70 mg PO WEEKLY #12 tab 05/19/19 12/24/19 Rx atorvastatin 10 mg tablet 10 mg PO HS #90 tab 05/19/19 12/24/19 Rx blood sugar diagnostic #100 ea 08/29/19 09/25/19 Rx apixaban 5 mg tablet 5 mg PO BID #60 tab 09/25/19 12/24/19 Rx diltiazem HCl 240 mg PO QAM 11/27/19 12/24/19 History hydrochlorothiazide 25 mg PO QAM 11/27/19 12/24/19 History losartan 100 mg PO QAM 11/27/19 12/24/19 History rabeprazole 20 mg PO QAM 11/27/19 12/24/19 History gabapentin 300 mg capsule 300 mg PO TID #270 cap 12/24/19 Rx Patient History Medical History (Updated 12/25/19 @ 21:52 by Carlos A Carl MD) Controlled type 2 diabetes mellitus with microalbuminuria Deep vein thrombosis (02/2019) Feb 2019 after long car ride (provoked) Diverticulitis of colon GERD (gastroesophageal reflux disease) Greater trochanteric bursitis of right hip Hypercholesteremia Hypertension Lumbar spondylosis Osteoporosis Pulmonary embolism (02/2019) HISTORY OF Surgical History H/O cataract extraction left - Dr Collazo, 2019 H/O repair of rotator cuff LEFT History of appendectomy History of cardiac cath MORE THAN 5 YEARS AGO--WAS NEGATIVE ([facility]) History of cataract surgery LEFT History of cholecystectomy History of colonoscopy History of esophagogastroduodenoscopy (EGD) Family History Mother , age 42 from breast ca Breast cancer Son Deep vein thrombosis Father , age 52 from acute PA Myocardial infarction Asthma Other Coronary heart disease Denies family history of Ovarian cancer Prostate cancer Colorectal cancer Social History (Updated 12/24/19 @ 13:37 by Power Gonzalez) Smoking Status: Former smoker Age Started Using Tobacco: 23; Age Quit Using Tobacco: 50; packs per day: 1; Second Hand Exposure: No; Do You Dip or Chew Tobacco: No; Tobacco Cessation Education Requested by Patient: No Hx Alcohol Use: No Hx Substance Use: No Preferred Language: Belarusian Communication Ability: Effective Visual Impairment: No Limitations Hearing Ability: Normal Molder Punch Required: No Beliefs That Will Affect Care: None marital status: marital status details: lives in [place] Current Living Situation: Spouse Current Living Situation Comment: LIVES WITH current occupational status: retired current occupation: worked at [employer] as a nurse How many Children do You have: 7 How many Children do You have Comment: 6 sons, 1 daughter Other Information That Helps Us Care for You: No Feels Safe at Home: Yes Safety Concerns: Feels Safe At This Time Seatbelt Use: always Sunscreen Use: Yes Physical Exam Physical Exam: Gen.: No acute distress. Alert and oriented. HEENT: Anicteric sclera. Neck: No appreciable JVD sitting upright. No bruits. Normal carotid upstrokes bilaterally. Cardiac: PMI was nonpalpable. No ventricular heave. Irregularly irregular. Normal S1-S2. No murmurs, rubs, or gallops. Pulmonary: Clear to auscultation bilaterally without wheezes, rales, or rhonchi. Abdomen: Soft, nontender, nondistended, with normoactive bowel sounds. No bruits noted. Extremities: 2+ radial pulses bilaterally. 2+ posterior tibialis pulses bilaterally. 1+ bilateral pedal edema. Otherwise, trace bilateral lower extremity edema. No cyanosis. Psychiatric: Affect appears appropriate. Chest: Left lateral axillary area is tender to palpation, reproducing her discomfort described in HPI. Results & Data ([facility]) Vital Signs (Past 12 Hours) Vital Signs Temp Pulse Pulse Pulse Resp BP Pulse Ox 12/25/19 19:56 36.4 C L 101 H 16 114/79 93 12/25/19 16:00 89 12/25/19 15:50 36.3 C L 76 18 110/76 91 12/25/19 11:13 36.7 C 102 H 16 131/97 95 Intake & Output 12/23/19 12/24/19 12/25/19 12/26/19 06:59 06:59 06:59 06:59 Intake Total 780 / 780 Balance 780 / 780 Weight 99.2 kg Laboratory Results Laboratory Results - last 24 hr 12/24/19 12/25/19 12/25/19 22:09 04:02 09:56 Sodium 140 Potassium 3.9 Chloride 107 Carbon Dioxide 26 Anion Gap 7.0 BUN 42 H Creatinine 1.26 H Est Cr Clr Drug Dosing 38.4 Est GFR ( Amer) 45.9 Est GFR (Non-Af Amer) 39.6 BUN/Creatinine Ratio 33.5 H Glucose 113 H Calcium 8.5 Phosphorus 4.3 Magnesium 2.0 Troponin I < 0.015 < 0.015 < 0.015 Specimen Hemolysis Diagnostic Findings Telemetry personally reviewed: Atrial fibrillation. Heart rate overall was rapid but has improved. Echo 12/25/2019: Mildly reduced LV systolic function. EF 45-50%. Mild global hypokinesis. Moderate LVH. Moderately reduced RV systolic function. Moderate left atrial dilation. No significant valvular abnormalities. Normal RVSP. ECG personally reviewed: ECG 12/24/2027 8:21 a.m.: AFib at 83 bpm. Nonspecific IVCB ECG 12/23/2028 5:00 p.m.: AFib 80 bpm. RBBB. Nonspecific T-wave abnormality. CTA chest 12/24/2019: No PE. Interstitial prominence suggesting nonspecific pneumonitis. Medications Administered Current Inpatient Medications Acetaminophen (Acetaminophen 325 Mg Tab) 650 mg PO Q4H PRN PRN Reason: Pain or Fever Stop: 01/23/20 15:23 Albuterol (Albuterol Hfa 8 Gm Inhaler) 1 puffs INH Q6H PRN PRN Reason: shortness of breath or wheezin Stop: 01/23/20 15:23 Apixaban (Apixaban 5 Mg Tablet) 5 mg PO BID [facility] Stop: 01/23/20 20:59 Last Admin: 12/25/19 20:11 Dose: 5 mg Documented by: Atorvastatin Calcium (Atorvastatin 10 Mg Tab) 10 mg PO HS [facility] Stop: 01/23/20 20:59 Last Admin: 12/25/19 20:12 Dose: 10 mg Documented by: Diltiazem HCl (Diltiazem Hcl 60 Mg Tab) 60 mg PO Q6H [facility] Stop: 12/26/19 18:59 Last Admin: 12/25/19 20:11 Dose: 60 mg Documented by: Diltiazem HCl (Diltiazem Hcl 180 Mg Capcr) 360 mg PO QAM [facility] Stop: 01/25/20 08:59 Gabapentin (Gabapentin 300 Mg Cap) 300 mg PO TID [facility] Stop: 01/23/20 15:23 Last Admin: 12/25/19 20:11 Dose: 300 mg Documented by: Losartan Potassium (Losartan Potassium 50 Mg Tab) 100 mg PO QAM [facility] Stop: 01/23/20 15:23 Last Admin: 12/25/19 08:36 Dose: 100 mg Documented by: Metoprolol Tartrate (Metoprolol Tartrate 100 Mg Tab) 100 mg PO BID [facility] Stop: 01/23/20 20:59 Last Admin: 12/25/19 20:11 Dose: 100 mg Documented by: Ondansetron HCl (Ondansetron Inj 2 Mg/Ml 2 Ml Vial) 4 mg IV Q6H PRN PRN Reason: Nausea Stop: 01/23/20 15:23 Pantoprazole Sodium (Pantoprazole 40 Mg Tab) 40 mg PO QAM [facility] Stop: 01/24/20 08:59 Last Admin: 12/25/19 08:35 Dose: 40 mg Documented by: PG Care Time/CCT Total # of Minutes Spent Total Time Spent with Patient: Total time spent is greater than 50% in coordination of care (as documented) at patient's floor/unit and/or counseling patient: Coding Level of Care Code 74649 Initial Inpt Care Lvl 3 Diagnoses Atrial fibrillation I48.91 Atrial fibrillation type: unspecified Cardiomyopathy I42.9 SOB (shortness of breath) R06.02 Hypertension I10 (1) Atrial fibrillation Atrial fibrillation type: unspecified Qualified Code(s): I48.91 - Unspecified atrial fibrillation
[2019-12-26] MEDS: dilTIAZem HCl 60 MG TAB PO SCH ×3 (01:01→13:13)
[2019-12-26 08:46] LABS: Hematocrit (blood only) 39.4 % (37-47); Hemoglobin 12.9 g/dL (12.0-16.0); Mean Corpuscular Hemoglobin 26.9 pg (25-34); Mean Corpuscular Hgb Conc 32.7 g/dL (32-36); Mean Corpuscular Volume 82.3 fL (80-100); Mean Platelet Volume 9.5 fL (7.4-10.4); Platelet Count 370 K/uL (130-400); RDW Coefficient of Variation 15.3 % (11.5-14.5); RDW Standard Deviation 45.8 fL (36.4-46.3); Red Blood Count 4.79 M/uL (4.2-5.4)
[2019-12-26] MEDS: GABAPENTIN 300 MG CAP PO SCH ×3 (09:09→21:06)
[2019-12-26] MEDS: METOPROLOL TARTRATE 100 MG TAB PO SCH ×2 (09:09→21:06)
[2019-12-26] MEDS: APIXABAN 5 MG TABLET PO SCH ×2 (09:10→21:05)
[2019-12-26] MEDS: dilTIAZem HCL 180 MG CAPCR PO SCH (09:10)
[2019-12-26] MEDS: LOSARTAN POTASSIUM 50 MG TAB PO SCH (09:10)
[2019-12-26] MEDS: PANTOprazole 40 MG TAB PO SCH (09:10)
[2019-12-26 09:11] LABS: BUN Creatinine Ratio 32.1 (10-20); Calcium 8.9 mg/dl (8.5-10.1); Creatinine Clr Calc Pharmacy 29.3 ml/min; Est GFR (African American) 33.2; Est GFR (Non-African American) 28.6; Potassium 3.6 mmol/L (3.5-5.1)
--- NOTE | 2019-12-26 10:52 | Cardiology Progress Note ---
Date of Service December 26, 2019 Assessment & Plan (1) Atrial fibrillation: (2) Cardiomyopathy: (3) SOB (shortness of breath): (4) Hypertension: ASSESSMENT/PLAN: 1. Atrial fibrillation: Heart rate better controlled on increased diltiazem. Continue diltiazem 360 mg daily. Continue beta-ela at home dose. She does not appear to be significantly symptomatic. Remain on anticoagulation for stroke risk reduction which she had been on chronically for DVT/ PE. Continue rate control strategy. 2. Cardiomyopathy: Mildly reduced LV systolic function with RV systolic dysfunction as well. Likely related to tachycardia. Rate control strategy as above. She appears euvolemic and labs would suggest azotemia. Would not give any further diuretics. Will repeat echo as an outpatient. 3. Shortness of breath: Could be related to AFib with rapid ventricular response but she also was reportedly more hypervolemic on presentation, likely related to her atrial fibrillation with rapid ventricular response. Monitor renal function closely as she has developed azotemia following 1 dose of Lasix 20 mg IV on admission. She is now asymptomatic. 4. Hypertension: Blood pressure acceptable. Continue current regimen. 5. Acute renal insufficiency: Possibly due to initial diuresis. As per primary service. 6. Disposition: Ffollow up with Cardiology as an outpatient in approximately 2 weeks. Cardiology office will help facilitate this appointment. Okay for discharge from a cardiology standpoint but will defer further renal evaluation to the primary service. Admission and Anticipated Discharge Date Admission Date: December 24, 2019 Subjective She denies chest pain, shortness of breath, syncope, near-syncope, palpitations, or bleeding. She tolerated adjustment in her diltiazem dose. On telemetry, her heart rate has improved. She has not yet ambulated in the hallway. Review of systems: As above. Physical Exam Physical Exam: Gen.: No acute distress. Alert and oriented. HEENT: Anicteric sclera. Neck: No appreciable JVD sitting upright. Cardiac: PMI was nonpalpable. No ventricular heave. Irregularly irregular with normal heart rate. Normal S1-S2. No murmurs, rubs, or gallops. Pulmonary: Clear to auscultation bilaterally without wheezes, rales, or rhonchi. Abdomen: Soft, nontender, nondistended, with normoactive bowel sounds. No bruits noted. Extremities: 2+ radial pulses bilaterally. 2+ posterior tibialis pulses bilaterally. Trace bilateral pedal edema. No cyanosis. Psychiatric: Affect appears appropriate. Results & Data ([facility]) Vital Signs (Past 12 Hours) Vital Signs Temp Pulse Pulse Pulse Resp BP Pulse Ox 12/26/19 07:51 36.4 C L 74 16 118/76 91 12/26/19 06:10 65 107/66 12/26/19 01:09 71 106/67 12/26/19 00:30 81 12/25/19 23:39 36.4 C L 64 18 99/67 L 90 Intake & Output 12/24/19 12/25/19 12/26/19 12/27/19 06:59 06:59 06:59 06:59 Intake Total 1120 / 1120 Output Total 575 / 575 Balance 545 / 545 Weight 99.2 kg 101.4 kg Laboratory Results Laboratory Results - last 24 hr 12/26/19 12/26/19 12/26/19 07:29 08:34 08:34 WBC 11.40 H RBC 4.79 Hgb 12.9 Hct 39.4 MCV 82.3 MCH 26.9 MCHC 32.7 RDW Std Deviation 45.8 RDW Coeff of Thomas 15.3 H Plt Count 370 MPV 9.5 Sodium 139 Potassium 3.6 Chloride 105 Carbon Dioxide 26 Anion Gap 8.0 BUN 53 H Creatinine 1.65 H D Est Cr Clr Drug Dosing 29.3 Est GFR ( Amer) 33.2 Est GFR (Non-Af Amer) 28.6 BUN/Creatinine Ratio 32.1 H Glucose 124 H POC Glucose 115 H Calcium 8.9 NT-Pro-B Natriuret Pep 936 Diagnostic Findings telemetry personally reviewed: Atrial fibrillation well controlled without significant pauses. Medications Administered Current Inpatient Medications Acetaminophen (Acetaminophen 325 Mg Tab) 650 mg PO Q4H PRN PRN Reason: Pain or Fever Stop: 01/23/20 15:23 Albuterol (Albuterol Hfa 8 Gm Inhaler) 1 puffs INH Q6H PRN PRN Reason: shortness of breath or wheezin Stop: 01/23/20 15:23 Apixaban (Apixaban 5 Mg Tablet) 5 mg PO BID [facility] Stop: 01/23/20 20:59 Last Admin: 12/26/19 09:10 Dose: 5 mg Documented by: Atorvastatin Calcium (Atorvastatin 10 Mg Tab) 10 mg PO HS [facility] Stop: 01/23/20 20:59 Last Admin: 12/25/19 20:12 Dose: 10 mg Documented by: Diltiazem HCl (Diltiazem Hcl 60 Mg Tab) 60 mg PO Q6H [facility] Stop: 12/26/19 18:59 Last Admin: 12/26/19 06:10 Dose: 60 mg Documented by: Diltiazem HCl (Diltiazem Hcl 180 Mg Capcr) 360 mg PO QAM [facility] Stop: 01/25/20 08:59 Last Admin: 12/26/19 09:10 Dose: 360 mg Documented by: Gabapentin (Gabapentin 300 Mg Cap) 300 mg PO TID [facility] Stop: 01/23/20 15:23 Last Admin: 12/26/19 09:09 Dose: 300 mg Documented by: Losartan Potassium (Losartan Potassium 50 Mg Tab) 100 mg PO QAM [facility] Stop: 01/23/20 15:23 Last Admin: 12/26/19 09:10 Dose: 100 mg Documented by: Metoprolol Tartrate (Metoprolol Tartrate 100 Mg Tab) 100 mg PO BID [facility] Stop: 01/23/20 20:59 Last Admin: 12/26/19 09:09 Dose: 100 mg Documented by: Ondansetron HCl (Ondansetron Inj 2 Mg/Ml 2 Ml Vial) 4 mg IV Q6H PRN PRN Reason: Nausea Stop: 01/23/20 15:23 Pantoprazole Sodium (Pantoprazole 40 Mg Tab) [facility] Stop: 01/24/20 08:59 Last Admin: 12/26/19 09:10 Dose: 40 mg Documented by: PG Care Time/CCT Total # of Minutes Spent Total Time Spent with Patient: Total time spent is greater than 50% in coordination of care (as documented) at patient's floor/unit and/or counseling patient: Coding Level of Care Code 97779 Subseq Hosp Care Lvl 3 Diagnoses Atrial fibrillation I48.91 Atrial fibrillation type: unspecified Cardiomyopathy I42.9 SOB (shortness of breath) R06.02 Hypertension I10 (1) Atrial fibrillation Atrial fibrillation type: unspecified Qualified Code(s): I48.91 - Unspecified atrial fibrillation
[2019-12-26] MEDS: ATORVASTATIN 10 MG TAB PO SCH (21:05)
[2019-12-26] MEDS: ACETAMINOPHEN 325 MG TAB PO PRN (22:35)
--- NOTE | 2019-12-27 06:09 | Hospitalist Progress Note ---
Date of Service December 26, 2019 Assessment & Plan (1) Atrial fibrillation: New-onset, perhaps 3-4 days ago based on her home HR readings (usually runs 50-60 BPM; then increased to 80s/90s a few days ago). Her rates are controlled, at least at rest, due to ongoing use of CCB and BB. Patient long acting cardizem was increased to 320 mg. Patient was still on the short acting cardizem yesterday which caused her to be somewhat bradcardic. This was stopped and will monitor her HR. She is also already on eliquis 5mg BID due to prior h/o DVT with PE in 2019. Echo did show decreased EF about 45% will need to f./u with HF clinic Troponin noted to be normal. (2) Acute CHF: Acutre systolic Congestive heart failure Suspect volume overload in setting of new-onset a.fib. She has had notable weight gain recently. "pneumonitis" seen on CT chest today is likely edema. Recent COVID-19 testing negative. She has no symptoms of an infectious process. responded to lasix. Echo to check LV function. (3) Deep vein thrombosis: history of - 2019 eliquis BID (4) Pulmonary embolism: history of - 2019 eliquis BID (5) Controlled type 2 diabetes mellitus with microalbuminuria: 12/18/19 - HbA1C 6.8% diet controlled DM diet (6) Hypertension: cont all meds except HCTZ for now (7) Hypercholesteremia: cont statin (8) Morbid obesity with BMI of 40.0-44.9, adult: BMI 41 (9) Leukocytosis: suspect this is due to steroid injection she received for right hip bursitis on Sunday of this week no signs/symptoms of infectious process at this time follow (10) Greater trochanteric bursitis of right hip: s/p steroid injection on 12/22/[address] Person (11) DVT prophylaxis: eliquis will montor for another 24 hours. (12) Acute kidney failure: creatinine increased to 1.6, may be due to intial diuretic. dispo: will monitor for another day. hoping creatinine improves and then patient can be discharged. Also anticipate her bradycardia should improve as well given short acting cardizem improves too Admission and Anticipated Discharge Date Admission Date: December 26, 2019 Subjective Patient is feelingbetter today. Sh reports her shortnes of breath has improved.She is asking for a wheel walker script. Review of Systems Review of Systems: All systems reviewed & are unremarkable except as noted in HPI & below Physical Exam Physical Exam: Constitutional: + morbidly obese; no acute distress and no altered mental status Eyes: PERRL (lens implant L; cataract shadow R) ENMT: external ear and nose normal, oropharynx normal Neck: trachea midline, no thyromegaly Respiratory: no respiratory distress Auscultation: improved breath sounds. no wheezes Cardiovascular: Rate/Rhythm: regular rate and + irregularly irregular Heart Sounds: normal S1 and normal S2; no murmur Vessels: posterior tibial pulses present and dorsalis pedis pulses present; no JVD (difficult to assess due to neck size) Extremities: no edema Gastrointestinal (Abdomen): normal bowel sounds, soft, nontender, no hepatosplenomegaly Musculoskeletal: no cyanosis or clubbing, extremities motor strength 5/5 Skin: no rashes, warm and dry Neurologic: deep tendon reflexes 2+ bilaterally and moves all extremities Psychiatric: A+Ox3, euthymic affect Lymphatic: no cervical lymphadenopathy Results & Data Results & Data ([facility]) Vital Signs (Past 12 Hours) Vital Signs Temp Pulse Pulse Resp BP Pulse Ox 12/27/19 04:00 36.5 C 77 18 101/54 L 91 12/27/19 02:28 56 L 12/26/19 23:55 36.3 C L 46 L 20 109/55 L 91 12/26/19 19:00 36.4 C L 57 L 18 110/60 94 PG Care Time/CCT Total # of Minutes Spent Total Time Spent with Patient: Total time spent is greater than 50% in coordination of care (as documented) at patient's floor/unit and/or counseling patient: Coding Level of Care Code 66817 Subseq Hosp Care Lvl 3 Diagnoses Atrial fibrillation I48.91 Atrial fibrillation type: unspecified Acute CHF I50.9 Deep vein thrombosis I82.442 Affected thrombotic vein of extremity: tibial Chronicity: acute DVT location: lower extremity Laterality: left Pulmonary embolism I26.99 Controlled type 2 diabetes mellitus with microalbuminuria E11.29; R80.9 Hypertension I10 Hypercholesteremia E78.00 Morbid obesity with BMI of 40.0-44.9, adult E66.01; Z68.41 Leukocytosis D72.829 Greater trochanteric bursitis of right hip M70.61 DVT prophylaxis Z29.9 Acute kidney failure N17.9 Time Spent (min) 35 (1) Atrial fibrillation Atrial fibrillation type: unspecified Qualified Code(s): I48.91 - Unspecified atrial fibrillation (2) Deep vein thrombosis Affected thrombotic vein of extremity: tibial Chronicity: acute DVT location: lower extremity Laterality: left Qualified Code(s): I82.442 - Acute embolism and thrombosis of left tibial vein
[2019-12-27 07:14] LABS: Creatinine Clr Calc Pharmacy 27.5 ml/min; Est GFR (African American) 30.7; Est GFR (Non-African American) 26.5
[2019-12-27] MEDS: dilTIAZem HCL 180 MG CAPCR PO SCH (08:38)
[2019-12-27] MEDS: METOPROLOL TARTRATE 100 MG TAB PO SCH (08:38)
[2019-12-27] MEDS: LOSARTAN POTASSIUM 50 MG TAB PO SCH (08:38)
[2019-12-27] MEDS: APIXABAN 5 MG TABLET PO SCH ×2 (08:38→20:04)
[2019-12-27] MEDS: GABAPENTIN 300 MG CAP PO SCH ×3 (08:39→20:04)
[2019-12-27] MEDS: PANTOprazole 40 MG TAB PO SCH (08:39)
--- NOTE | 2019-12-27 13:50 | Hospitalist Progress Note ---
Date of Service December 27, 2019 Assessment & Plan (1) Acute kidney failure: Creatinine increased to 1.6 on 12/25; may be due to intial diuretic. - Holding diuretic today. - Monitor (2) Atrial fibrillation: New-onset, perhaps 3-4 days ago based on her home HR readings (usually runs 50-60 BPM; then increased to 80s/90s a few days ago). Echo on 12/25/2019 showed EF 45%, thought tachycardia-related. - Continue diltiazem CD 360 mg PO daily & metoprolol 100 mg PO BID for rate control - On apixaban for anticoagulation (3) Acute CHF: Thought for acute systolic CHF initially, but possibly not related to ca rdiomyopathy and just fast heart rate. - Only required Lasix 20 mg IV x 1 dose, then became azotemic. - Discussed with cardiology on 12/26 who feel CHF unlikely and will not need CHF clinic. 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 - Continue anticoagulation (5) Controlled type 2 diabetes mellitus with microalbuminuria: HbA1C was 6.8% on 12/18/2019. Diet-controlled at home. - DM diet - Sliding scale insulin -> Sugars good in last 24 hours. (6) Hypertension: BP 135/90. Yesterday, BP as low as 95/65. - Lowered losartan to 50 mg - Continue calcium channel ela and beta-ela for rate-control - Hold HCTZ (7) Hypercholesteremia: - Cont statin (8) Leukocytosis: Suspect this is due to steroid injection she received for right hip bursitis on Sunday of this week. No signs/symptoms of infectious process at this time. - Follow (9) Greater trochanteric bursitis of right hip: S/p steroid injection on 12/22/[address] Person. (10) DVT prophylaxis: Eliquis for afib Admission and Anticipated Discharge Date Admission Date: December 26, 2019 Subjective Overall feels well. Still a little dyspneic on exertion compared to her baseline. Reports no fevers/chills, chest pain, shortness of breath at rest, abdominal pain, nausea, or vomiting. Physical Exam Constitutional: WD/WN, vitals as above Eyes: EOM intact bilaterally; no conjunctival abnormality ENMT: external ear and nose normal, oropharynx normal Neck: trachea midline, no thyromegaly normal visual inspection Respiratory: normal respiratory effort, lungs clear to auscultation no respiratory distress Cardiovascular: Rate/Rhythm: regular rate and + irregularly irregular Heart Sounds: normal S1 and normal S2 Vessels: no JVD Extremities: no edema Gastrointestinal (Abdomen): Inspection/Auscultation: abdomen normal to inspection; abdomen not distended Musculoskeletal: no cyanosis or clubbing, extremities motor strength 5/5 Skin: no rashes, warm and dry Neurologic: moves all extremities and awake Psychiatric: Orientation: alert, oriented to person and cooperative Results & Data Results & Data ([facility]) Vital Signs (Past 12 Hours) Vital Signs Temp Pulse Pulse Resp BP Pulse Ox 12/27/19 11:26 36.8 C 110 H 20 135/87 95 12/27/19 07:29 100 H 12/27/19 07:16 36.4 C L 83 18 118/64 91 12/27/19 04:00 36.5 C 77 18 101/54 L 91 12/27/19 02:28 56 L PG Care Time/CCT Total # of Minutes Spent Total Time Spent with Patient: Total time spent is greater than 50% in coordination of care (as documented) at patient's floor/unit and/or counseling patient: Coding Level of Care Code 60424 Subseq Hosp Care Lvl 2 Diagnoses Acute kidney failure N17.9 Atrial fibrillation I48.91 Atrial fibrillation type: unspecified Acute CHF I50.9 Deep vein thrombosis I82.442 Affected thrombotic vein of extremity: tibial Chronicity: acute DVT location: lower extremity Laterality: left Controlled type 2 diabetes mellitus with microalbuminuria E11.29; R80.9 Hypertension I10 Hypercholesteremia E78.00 Leukocytosis D72.829 Greater trochanteric bursitis of right hip M70.61 DVT prophylaxis Z29.9 (1) Atrial fibrillation Atrial fibrillation type: unspecified Qualified Code(s): I48.91 - Unspecified atrial fibrillation (2) Deep vein thrombosis Affected thrombotic vein of extremity: tibial Chronicity: acute DVT location: lower extremity Laterality: left Qualified Code(s): I82.442 - Acute embolism and thrombosis of left tibial vein
--- NOTE | 2019-12-27 17:04 | Cardiology Progress Note ---
Date of Service December 27, 2019 Assessment & Plan (1) Atrial fibrillation: (2) Cardiomyopathy: (3) SOB (shortness of breath): (4) Hypertension: ASSESSMENT/PLAN: 1. Atrial fibrillation: She is bradycardic today on current regimen and was tachycardic this morning after holding metoprolol last evening. Will reduce diltiazem to 300 mg daily (home dose was 240 mg), while reducing this evening's dose of metoprolol to 50 mg so as not to cause more significant bradycardia overnight. Tomorrow morning, will resume 100 mg twice daily of metoprolol. No specific symptoms from atrial fibrillation but a bit lightheaded today while bradycardic. Remain on anticoagulation for stroke risk reduction which she had been on chronically for DVT/ PE. Continue rate control strategy. 2. Cardiomyopathy: Mildly reduced LV systolic function with RV systolic dysfunction as well. Likely related to tachycardia. Rate control strategy as above. She appears euvolemic and labs would suggest azotemia. Would not give any further diuretics. Will repeat echo as an outpatient. 3. Shortness of breath: Resolved. Received 1 dose of Lasix 20 mg IV on presentation and now labs suggest azotemia since then. She does have edema but this may be related to her calcium channel ela versus venous insufficiency as she is not short of breath and labs suggest azotemia. 4. Hypertension: Mildly hypotensive at times. Losartan reduced. Reducing diltiazem as above. 5. Acute renal insufficiency: Possibly due to initial diuresis. As per primary service. 6. Disposition: Follow up with Cardiology as an outpatient in approximately 2 weeks. Cardiology office will help facilitate this appointment. Plan of care discussed with Dr. Gleason of the primary hospitalist service. Admission and Anticipated Discharge Date Admission Date: December 26, 2019 Subjective She denies shortness of breath, chest pain, syncope, near-syncope, palpitations, or worsening edema. She denies bleeding. She has been on a fluid restriction. She walked in the hallway with physical therapy and states that she did well. She has had some intermittent lightheadedness when standing up today however. Earlier this morning, on telemetry that she was tachycardic. When reviewing her med rec, her evening dose of metoprolol 100 mg was held due to a heart rate of 57 bpm. This morning, she received her medications and she is now currently bradycardic with heart rate in the 50s with 3.1 second pause earlier this afternoon. Review of systems: As above. Physical Exam Physical Exam: Gen.: No acute distress. Alert and oriented. HEENT: Anicteric sclera. Neck: No appreciable JVD sitting upright. Cardiac: PMI was nonpalpable. No ventricular heave. Irregularly irregular in the 50s. Normal S1-S2. No murmurs, rubs, or gallops. Pulmonary: Clear to auscultation bilaterally without wheezes, rales, or rhonchi. Abdomen: Soft, nontender, nondistended, with normoactive bowel sounds. No bruits noted. Extremities: 2+ radial pulses bilaterally. 2+ posterior tibialis pulses bilaterally. 1 + bilateral lower extremity edema. No cyanosis. Psychiatric: Affect appears appropriate. Results & Data ([facility]) Vital Signs (Past 12 Hours) Vital Signs Temp Pulse Pulse Resp BP Pulse Ox 12/27/19 15:24 36.4 C L 59 L 18 92/57 L 93 12/27/19 11:26 36.8 C 110 H 20 135/87 95 12/27/19 07:29 100 H 12/27/19 07:16 36.4 C L 83 18 118/64 91 Intake & Output 12/25/19 12/26/19 12/27/19 12/28/19 06:59 06:59 06:59 06:59 Intake Total 1120 / 1120 980 / 980 Output Total 575 / 575 600 / 600 Balance 545 / 545 380 / 380 Weight 99.2 kg 101.4 kg 101.3 kg Laboratory Results Laboratory Results - last 24 hr 12/26/19 12/27/19 12/27/19 20:50 06:08 07:26 Creatinine 1.76 H Est Cr Clr Drug Dosing 27.5 Est GFR ( Amer) 30.7 Est GFR (Non-Af Amer) 26.5 POC Glucose 131 H 118 H 12/27/19 12/27/19 11:45 16:38 Creatinine Est Cr Clr Drug Dosing Est GFR ( Amer) Est GFR (Non-Af Amer) POC Glucose 128 H 171 H Diagnostic Findings telemetry personally reviewed: Atrial fibrillation with rapid ventricular response during the morning hours and now bradycardic in the afternoon. Medications Administered Current Inpatient Medications Acetaminophen (Acetaminophen 325 Mg Tab) 650 mg PO Q4H PRN PRN Reason: Pain or Fever Stop: 01/23/20 15:23 Last Admin: 12/26/19 22:35 Dose: 650 mg Documented by: Albuterol (Albuterol Hfa 8 Gm Inhaler) 1 puffs INH Q6H PRN PRN Reason: shortness of breath or wheezin Stop: 01/23/20 15:23 Apixaban (Apixaban 5 Mg Tablet) 5 mg PO BID [facility] Stop: 01/23/20 20:59 Last Admin: 12/27/19 08:38 Dose: 5 mg Documented by: Atorvastatin Calcium (Atorvastatin 10 Mg Tab) 10 mg PO HS [facility] Stop: 01/23/20 20:59 Last Admin: 12/26/19 21:05 Dose: 10 mg Documented by: Diltiazem HCl (Diltiazem Hcl 180 Mg Capcr) 360 mg PO QAM [facility] Stop: 01/25/20 08:59 Last Admin: 12/27/19 08:38 Dose: 360 mg Documented by: Gabapentin (Gabapentin 300 Mg Cap) 300 mg PO TID [facility] Stop: 01/23/20 15:23 Last Admin: 12/27/19 14:45 Dose: 300 mg Documented by: Losartan Potassium (Losartan Potassium 50 Mg Tab) 50 mg PO QAM [facility] Stop: 01/26/20 08:59 Last Admin: 12/27/19 08:38 Dose: 50 mg Documented by: Metoprolol Tartrate (Metoprolol Tartrate 100 Mg Tab) 100 mg PO BID [facility] Stop: 01/23/20 20:59 Last Admin: 12/27/19 08:38 Dose: 100 mg Documented by: Ondansetron HCl (Ondansetron Inj 2 Mg/Ml 2 Ml Vial) 4 mg IV Q6H PRN PRN Reason: Nausea Stop: 01/23/20 15:23 Pantoprazole Sodium (Pantoprazole 40 Mg Tab) 40 mg PO QAM [facility] Stop: 01/24/20 08:59 Last Admin: 12/27/19 08:39 Dose: 40 mg Documented by: PG Care Time/CCT Total # of Minutes Spent Total Time Spent with Patient: Total time spent is greater than 50% in coordination of care (as documented) at patient's floor/unit and/or counseling patient: Coding Level of Care Code 04321 Subseq Hosp Care Lvl 3 Diagnoses Atrial fibrillation I48.91 Atrial fibrillation type: unspecified Cardiomyopathy I42.9 SOB (shortness of breath) R06.02 Hypertension I10 (1) Atrial fibrillation Atrial fibrillation type: unspecified Qualified Code(s): I48.91 - Unspecified atrial fibrillation
[2019-12-27] MEDS: ATORVASTATIN 10 MG TAB PO SCH (20:04)
[2019-12-27] MEDS ORDERED: METOPROLOL TARTRATE 50 MG TAB PO SCH (21:00)
[2019-12-28 06:37] LABS: Hematocrit (blood only) 37.4 % (37-47); Hemoglobin 12.2 g/dL (12.0-16.0); Mean Corpuscular Hemoglobin 27.1 pg (25-34); Mean Corpuscular Hgb Conc 32.6 g/dL (32-36); Mean Corpuscular Volume 82.9 fL (80-100); Mean Platelet Volume 9.8 fL (7.4-10.4); Platelet Count 337 K/uL (130-400); RDW Coefficient of Variation 15.3 % (11.5-14.5); Red Blood Count 4.51 M/uL (4.2-5.4); White Blood Count 10.41 K/uL (4.8-10.8)
[2019-12-28 07:16] LABS: BUN Creatinine Ratio 40.3 (10-20); Calcium 8.1 mg/dl (8.5-10.1); Creatinine Clr Calc Pharmacy 33.4 ml/min; Est GFR (African American) 38.8; Est GFR (Non-African American) 33.5; Magnesium 2.3 mg/dl (1.8-2.4); Potassium 3.8 mmol/L (3.5-5.1)
[2019-12-28] MEDS: LOSARTAN POTASSIUM 50 MG TAB PO SCH (08:24)
[2019-12-28] MEDS: dilTIAZem HCL 300 MG CAPCR PO SCH (08:24)
[2019-12-28] MEDS: APIXABAN 5 MG TABLET PO SCH ×2 (08:24→20:26)
[2019-12-28] MEDS: METOPROLOL TARTRATE 100 MG TAB PO SCH ×2 (08:25→20:26)
[2019-12-28] MEDS: GABAPENTIN 300 MG CAP PO SCH ×3 (08:25→20:26)
[2019-12-28] MEDS: PANTOprazole 40 MG TAB PO SCH (08:25)
--- NOTE | 2019-12-28 11:49 | Cardiology Progress Note ---
Date of Service December 28, 2019 Assessment & Plan (1) Atrial fibrillation: (2) Tachy-mynor syndrome: (3) Cardiomyopathy: (4) SOB (shortness of breath): (5) Hypertension: ASSESSMENT/PLAN: 1. 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 With a minor adjustment to her diltiazem on presentation, she became bradycardic yesterday with lightheadedness. With reduction in her rate-controlling medications, she is once again tachycardic. We discussed potential for pacemaker placement. She is agreeable with deemed appropriate by electrophysiology. Will request electrophysiology to see her tomorrow. Remain on anticoagulation for stroke risk reduction which she had been on chronically for DVT/ PE. Continue rate control strategy. 2. Cardiomyopathy: Mildly reduced LV systolic function with RV systolic dysfunction as well. Likely related to tachycardia. Rate control strategy as above. She appears euvolemic and labs suggested azotemia after Lasix 20 mg IV on presentation. Renal function improving. Will repeat echo as an outpatient 3. Shortness of breath: Resolved. Received 1 dose of Lasix 20 mg IV on presentation and now labs suggest azotemia since then. She does have edema but this may be related to her calcium channel ela versus venous insufficiency as she is not short of breath and labs suggest azotemia. 4. Hypertension: Losartan was reduced due to intermittent hypotension. Blood pressure appropriate. 5. Acute renal insufficiency: Possibly due to initial diuresis. As per primary service. Renal function improving. 6. Disposition: Request that electrophysiology evaluate her tomorrow for c onsideration of pacemaker for tachy-mynor syndrome. Plan of care discussed with Dr. Gleason primary hospitalist service. Admission and Anticipated Discharge Date Admission Date: December 26, 2019 Subjective She feels better today. Lightheadedness has resolved after her bradycardia improved. She denies syncope, palpitations, chest pain, shortness of breath, or bleeding. Review of systems: As above. Physical Exam Physical Exam: Gen.: No acute distress. Alert and oriented. HEENT: Anicteric sclera. Neck: No appreciable JVD sitting upright. Cardiac: PMI was nonpalpable. No ventricular heave. Irregularly irregular and mildly tachycardic. Normal S1-S2. No murmurs, rubs, or gallops. Pulmonary: Clear to auscultation bilaterally without wheezes, rales, or rhonchi. Abdomen: Soft, nontender, nondistended, with normoactive bowel sounds. No bruits noted. Extremities: 2+ radial pulses bilaterally. 2+ posterior tibialis pulses bilaterally. 1 + bilateral lower extremity edema. No cyanosis. Psychiatric: Affect appears appropriate. Results & Data ([facility]) Vital Signs (Past 12 Hours) Vital Signs Temp Pulse Pulse Resp BP Pulse Ox 12/28/19 11:14 36.3 C L 96 H 18 124/84 95 12/28/19 07:35 89 12/28/19 07:16 36.7 C 103 H 20 122/73 90 12/28/19 03:43 35.4 C L 78 19 116/74 91 12/28/19 01:41 57 L Intake & Output 12/26/19 12/27/19 12/28/19 12/29/19 06:59 06:59 06:59 06:59 Intake Total 1120 / 1120 980 / 980 440 / 440 Output Total 575 / 575 600 / 600 Balance 545 / 545 380 / 380 440 / 440 Weight 101.4 kg 101.3 kg 101.7 kg Laboratory Results Laboratory Results - last 24 hr 12/27/19 12/27/19 12/27/19 11:45 16:38 20:12 WBC RBC Hgb Hct MCV MCH MCHC RDW Std Deviation RDW Coeff of Thomas Plt Count MPV Sodium Potassium Chloride Carbon Dioxide Anion Gap BUN Creatinine Est Cr Clr Drug Dosing Est GFR ( Amer) Est GFR (Non-Af Amer) BUN/Creatinine Ratio Glucose POC Glucose 128 H 171 H 118 H Calcium Magnesium 12/28/19 12/28/19 12/28/19 05:53 05:53 07:26 WBC 10.41 RBC 4.51 Hgb 12.2 Hct 37.4 MCV 82.9 MCH 27.1 MCHC 32.6 RDW Std Deviation 46.0 RDW Coeff of Thomas 15.3 H Plt Count 337 MPV 9.8 Sodium 141 Potassium 3.8 Chloride 109 H Carbon Dioxide 23 Anion Gap 9.0 BUN 58 H Creatinine 1.45 H D Est Cr Clr Drug Dosing 33.4 Est GFR ( Amer) 38.8 Est GFR (Non-Af Amer) 33.5 BUN/Creatinine Ratio 40.3 H Glucose 96 POC Glucose 111 H Calcium 8.1 L Magnesium 2.3 12/28/19 11:38 WBC RBC Hgb Hct MCV MCH MCHC RDW Std Deviation RDW Coeff of Thomas Plt Count MPV Sodium Potassium Chloride Carbon Dioxide Anion Gap BUN Creatinine Est Cr Clr Drug Dosing Est GFR ( Amer) Est GFR (Non-Af Amer) BUN/Creatinine Ratio Glucose POC Glucose 106 H Calcium Magnesium Diagnostic Findings Telemetry personally reviewed: She was mostly bradycardic throughout the afternoon yesterday and after her medications were adjusted, she has been mostly tachycardic while in atrial fibrillation. Medications Administered Current Inpatient Medications Acetaminophen (Acetaminophen 325 Mg Tab) 650 mg PO Q4H PRN PRN Reason: Pain or Fever Stop: 01/23/20 15:23 Last Admin: 12/26/19 22:35 Dose: 650 mg Documented by: Albuterol (Albuterol Hfa 8 Gm Inhaler) 1 puffs INH Q6H PRN PRN Reason: shortness of breath or wheezin Stop: 01/23/20 15:23 Apixaban (Apixaban 5 Mg Tablet) 5 mg PO BID [facility] Stop: 01/23/20 20:59 Last Admin: 12/28/19 08:24 Dose: 5 mg Documented by: Atorvastatin Calcium (Atorvastatin 10 Mg Tab) 10 mg PO HS [facility] Stop: 01/23/20 20:59 Last Admin: 12/27/19 20:04 Dose: 10 mg Documented by: Diltiazem HCl (Diltiazem Hcl 300 Mg Capcr) 300 mg PO QAM [facility] Stop: 01/27/20 08:59 Last Admin: 12/28/19 08:24 Dose: 300 mg Documented by: Gabapentin (Gabapentin 300 Mg Cap) 300 mg PO TID [facility] Stop: 01/23/20 15:23 Last Admin: 12/28/19 08:25 Dose: 300 mg Documented by: Losartan Potassium (Losartan Potassium 50 Mg Tab) 50 mg PO QAM [facility] Stop: 01/26/20 08:59 Last Admin: 12/28/19 08:24 Dose: 50 mg Documented by: Metoprolol Tartrate (Metoprolol Tartrate 100 Mg Tab) 100 mg PO BID [facility] Stop: 01/23/20 20:59 Last Admin: 12/28/19 08:25 Dose: 100 mg Documented by: Ondansetron HCl (Ondansetron Inj 2 Mg/Ml 2 Ml Vial) 4 mg IV Q6H PRN PRN Reason: Nausea Stop: 01/23/20 15:23 Pantoprazole Sodium (Pantoprazole 40 Mg Tab) 40 mg PO QAM [facility] Stop: 01/24/20 08:59 Last Admin: 12/28/19 08:25 Dose: 40 mg Documented by: PG Care Time/CCT Total # of Minutes Spent Total Time Spent with Patient: Total time spent is greater than 50% in coordination of care (as documented) at patient's floor/unit and/or counseling patient: Coding Level of Care Code 58533 Subseq Hosp Care Lvl 3 Diagnoses Atrial fibrillation I48.91 Atrial fibrillation type: unspecified Tachy-mynor syndrome I49.5 Cardiomyopathy I42.9 SOB (shortness of breath) R06.02 Hypertension I10 (1) Atrial fibrillation Atrial fibrillation type: unspecified Qualified Code(s): I48.91 - Unspecified atrial fibrillation
--- NOTE | 2019-12-28 15:27 | Hospitalist Progress Note ---
Date of Service December 28, 2019 Assessment & Plan (1) Atrial fibrillation: New-onset, perhaps 3-4 days ago based on her home HR readings (usually runs 50-60 BPM; then increased to 80s/90s a few days ago). Echo on 12/25/2019 showed EF 45%, thought tachycardia-related. - Continue diltiazem & metoprolol - Now with tachy-mynor because she dropped to 50s with 3s pause and symptoms. Otherwise goes up to 90s. - EP consulted for tomorrow consideration of pacemaker. - On apixaban for anticoagulation (2) Acute kidney failure: Creatinine increased to 1.6 on 12/25; may be due to intial diuretic. - Holding diuretics - Monitor -> Improving today to 1.45. (3) Acute CHF: Thought for acute systolic CHF initially, but possibly not related to cardiomyopathy and just fast heart rate. - Only required Lasix 20 mg IV x 1 dose, then became azotemic. - Discussed with cardiology on 12/26 who feel CHF unlikely and will not need CHF clinic. 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 - Continue anticoagulation (5) Controlled type 2 diabetes mellitus with microalbuminuria: HbA1C was 6.8% on 12/18/2019. Diet-controlled at home. - DM diet - Sliding scale insulin -> Sugars satisfactory in last 24 hours. (6) Hypertension: BP 125/85. Yesterday, BP as low as 95/65. - Lowered losartan to 50 mg - Continue calcium channel ela and beta-ela for rate-control - Hold HCTZ (7) Hypercholesteremia: - Continue statin (8) Leukocytosis: Suspect this is due to steroid injection she received for right hip bursitis on Sunday of this week. No signs/symptoms of infectious process at this time. - Follow -> Improving (9) Greater trochanteric bursitis of right hip: S/p steroid injection on 12/22/[address] Person. (10) DVT prophylaxis: Eliquis for afib Admission and Anticipated Discharge Date Admission Date: December 26, 2019 Subjective Feels better today overall today with faster HR. Reports no fevers/chills, chest pain, shortness of breath, abdominal pain, nausea, or vomiting. Physical Exam Constitutional: WD/WN, vitals as above Eyes: EOM intact bilaterally; no conjunctival abnormality ENMT: external ear and nose normal, oropharynx normal Neck: trachea midline, no thyromegaly normal visual inspection Respiratory: normal respiratory effort, lungs clear to auscultation no respiratory distress Cardiovascular: Rate/Rhythm: regular rate and + irregularly irregular Heart Sounds: normal S1 and normal S2 Vessels: no JVD Extremities: no edema Gastrointestinal (Abdomen): Inspection/Auscultation: abdomen normal to inspection; abdomen not distended Musculoskeletal: no cyanosis or clubbing, extremities motor strength 5/5 Skin: no rashes, warm and dry Neurologic: moves all extremities and awake Psychiatric: Orientation: alert, oriented to person and cooperative Results & Data Results & Data ([facility]) Vital Signs (Past 12 Hours) Vital Signs Temp Pulse Pulse Resp BP Pulse Ox 12/28/19 11:14 36.3 C L 96 H 18 124/84 95 12/28/19 07:35 89 12/28/19 07:16 36.7 C 103 H 20 122/73 90 12/28/19 03:43 35.4 C L 78 19 116/74 91 PG Care Time/CCT Total # of Minutes Spent Total Time Spent with Patient: Total time spent is greater than 50% in coordination of care (as documented) at patient's floor/unit and/or counseling patient: Coding Level of Care Code 80240 Subseq Hosp Care Lvl 3 Diagnoses Atrial fibrillation I48.91 Atrial fibrillation type: unspecified Acute kidney failure N17.9 Acute CHF I50.9 Deep vein thrombosis I82.442 Affected thrombotic vein of extremity: tibial Chronicity: acute DVT location: lower extremity Laterality: left Controlled type 2 diabetes mellitus with microalbuminuria E11.29; R80.9 Hypertension I10 Hypercholesteremia E78.00 Leukocytosis D72.829 Greater trochanteric bursitis of right hip M70.61 DVT prophylaxis Z29.9 (1) Atrial fibrillation Atrial fibrillation type: unspecified Qualified Code(s): I48.91 - Unspecified atrial fibrillation (2) Deep vein thrombosis Affected thrombotic vein of extremity: tibial Chronicity: acute DVT location: lower extremity Laterality: left Qualified Code(s): I82.442 - Acute embolism and thrombosis of left tibial vein
[2019-12-28] MEDS: ATORVASTATIN 10 MG TAB PO SCH (20:26)
[2019-12-29 07:18] LABS: Hemoglobin 11.7 g/dL (12.0-16.0); Mean Corpuscular Hemoglobin 27.1 pg (25-34); Mean Corpuscular Hgb Conc 32.5 g/dL (32-36); Mean Corpuscular Volume 83.5 fL (80-100); Mean Platelet Volume 9.7 fL (7.4-10.4); Platelet Count 325 K/uL (130-400); RDW Coefficient of Variation 15.4 % (11.5-14.5); Red Blood Count 4.31 M/uL (4.2-5.4); White Blood Count 11.39 K/uL (4.8-10.8)
[2019-12-29 07:37] LABS: BUN Creatinine Ratio 36.9 (10-20); Calcium 8.2 mg/dl (8.5-10.1); Creatinine Clr Calc Pharmacy 37.5 ml/min; Est GFR (African American) 44.7; Est GFR (Non-African American) 38.5; Magnesium 2.3 mg/dl (1.8-2.4)
--- NOTE | 2019-12-29 09:14 | Cardiology Progress Note ---
Date of Service December 29, 2019 Assessment & Plan (1) Atrial fibrillation: I believe she does have tachybradycardia syndrome, however at the moment her heart rate is reasonably well controlled on her current medical regimen. It is a minor change from admission, perhaps addressing her other issues has improved her heart rate. At the moment I believe pacemaker implantation for tachybradycardia syndrome is optional but may simplify long-term management, especially in view of her history of slow heart rate on her current regimen for blood pressure control. We do not know the duration of the atrial fibrillation but it was probably long enough that we should not try conversion now. We probably will want to do that in the future however. We cannot do the pacemaker today as she took Eliquis last evening, I am going to tentatively schedule it for tomorrow afternoon however I want to review things tomorrow morning on her current medical regimen and will make a final decision. We may opt to leave her on her current regimen and not implant a pacemaker. 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 We may be able to control with medications or we may need a pacemaker plus medications. That is not clear as yet. (3) Cardiomyopathy: She has a mild cardiomyopathy, if we leave her on the metoprolol we may want to switch to metoprolol succinate although I would not do that just yet since we may still be adjusting her medications. Part of the reduction in her ejection fraction is likely the rapid heart rate on presentation and this may recover. (4) SOB (shortness of breath): She is currently not short of breath, she did receive diuresis although it is not clear if she was in heart failure but her shortness of breath is much improved and may have been related to her heart rate. (5) Hypertension: Over the last 24 hours her blood pressure has been quite well controlled, perhaps slightly low at times. She has not had symptoms of hypotension over the last 24 hours. Admission and Anticipated Discharge Date Admission Date: December 26, 2019 Subjective This is a 84-year-old woman who has a history of diabetes and pulmonary embolism in 2019 for which she was on anticoagulation. She also has hypertension and hyperlipidemia. She presented on December 24, 2019 in atrial fibrillation, she describes several weeks of fatigue and dyspnea on exertion but not palpitations. Her atrial fibrillation therefore is of unknown duration. Of note she had been off of her anticoagulation for short time due to cataract surgery. She tells me that she has a long history of a slow heart rate, probably medication related, but is not clear that she has had symptoms of it in the past. Echocardiography on December 25, 2019 showed a mildly reduced left ventricular ejection fraction of 45 to 50% in a global manner as well as concentric left ventricular hypertrophy. She did have moderate left atrial dilatation. On June 30, 2013 her LV function was normal. She is reported to be on diltiazem 240 mg daily at home as well as the Toprol tartrate 100 mg twice daily and Eliquis 5 mg twice daily. The initial approach was rate control, on diltiazem 240 mg daily her heart rate was fast (this was her home medication), on 360 mg daily she had pauses of about 3 seconds. She is now on Diltiazem CD 300 mg daily, Toprol tartrate 100 mg twice daily and apixaban 5 mg twice a day although that is on hold for possible pacemaker implantation. Today she is feeling better, she notes that when she walks around now she does not have the shortness of breath she had on presentation. He does not have lightheadedness or dizziness, and overall feels quite well. Physical Exam Physical Exam: Constitutional: Alert, cooperative and in no distress. HEENT: Unremarkable Neck: No jugular venous distention, carotid pulses are irregular but otherwise normal and equal bilaterally without bruits. Pulmonary: Clear to auscultation bilaterally. Cardiac: Irregular rhythm with no murmur, gallop or rub. Abdomen: Soft, nontender with normal bowel sounds. Extremities: No edema. Distal pulses intact. Neurologic: No focal findings. Gait is steady. Skin: No rash, ecchymoses or petechiae. Results & Data ([facility]) Vital Signs (Past 12 Hours) Vital Signs Temp Pulse Pulse Resp BP Pulse Ox 12/29/19 08:41 36.7 C 81 18 114/68 98 12/29/19 03:41 36.6 C 86 19 103/61 91 12/29/19 01:20 70 12/28/19 23:18 36.6 C 122 H 19 97/62 L 90 Laboratory Results CBC 12/29/19 Range/Units 06:52 WBC 11.39 H (4.8-10.8) K/uL RBC 4.31 (4.2-5.4) M/uL Hgb 11.7 L (12.0-16.0) g/dL Hct 36.0 L (37-47) % Plt Count 325 (130-400) K/uL Comprehensive Metabolic Panel 12/29/19 Range/Units 06:52 Sodium 142 (136-145) mmol/L Potassium 4.0 (3.5-5.1) mmol/L Chloride 111 H (98-107) mmol/L Carbon Dioxide 24 (21-32) mmol/L BUN 48 H (7-18) mg/dl Creatinine 1.29 H (0.6-1.2) mg/dl Glucose 100 H (70-99) mg/dl Calcium 8.2 L (8.5-10.1) mg/dl Intake and Output 12/28/19 12/29/19 12/29/19 22:59 06:59 14:59 Intake Total 240 / 1160 240 / 1160 Balance 240 / 1160 240 / 1160 Intake: Oral 240 / 1160 240 / 1160 Other: Weight 101.7 kg Diagnostic Findings Telemetry: Review of telemetry shows atrial fibrillation throughout. Rate over the last 24 hours has been relatively well controlled without significant bradycardia or tachycardia. PG Care Time/CCT Total # of Minutes Spent Total Time Spent with Patient: Total time spent is greater than 50% in coordination of care (as documented) at patient's floor/unit and/or counseling patient: Coding Level of Care Code 67374 Subseq Hosp Care Lvl 3 Diagnoses Atrial fibrillation I48.91 Atrial fibrillation type: unspecified Tachy-mynor syndrome I49.5 Cardiomyopathy I42.9 SOB (shortness of breath) R06.02 Hypertension I10 (1) Atrial fibrillation Atrial fibrillation type: unspecified Qualified Code(s): I48.91 - Unspecified atrial fibrillation
[2019-12-29] MEDS: LOSARTAN POTASSIUM 50 MG TAB PO SCH (10:05)
[2019-12-29] MEDS: dilTIAZem HCL 300 MG CAPCR PO SCH (10:05)
[2019-12-29] MEDS: GABAPENTIN 300 MG CAP PO SCH ×3 (10:06→20:08)
[2019-12-29] MEDS: METOPROLOL TARTRATE 100 MG TAB PO SCH ×2 (10:06→20:12)
[2019-12-29] MEDS: PANTOprazole 40 MG TAB PO SCH (10:06)
[2019-12-29] MEDS: ACETAMINOPHEN 325 MG TAB PO PRN (12:57)
--- NOTE | 2019-12-29 14:41 | Hospitalist Progress Note ---
Date of Service December 29, 2019 Assessment & Plan (1) Atrial fibrillation: New-onset, perhaps 3-4 days ago based on her home HR readings (usually runs 50-60 BPM; then increased to 80s/90s a few days ago). Echo on 12/25/2019 showed EF 45%, thought tachycardia-related. - Continue diltiazem & metoprolol - Now with possible tachy-mynor because she dropped to 50s with 3s pause and symptoms. Otherwise goes up to 90s. - EP consulted for consideration of pacemaker -> Plan to monitor another 24 hours and go from there. - Holding apixaban for anticoagulation in case we want pacemaker. (2) Acute kidney failure: Creatinine increased to 1.6 on 12/25; may be due to intial diuretic. - Holding diuretics - Monitor -> Improving today to 1.3. (3) Acute CHF: Thought for acute systolic CHF initially, but possibly not related to cardiomyopathy and just fast heart rate. - Only required Lasix 20 mg IV x 1 dose, then became azotemic. - Discussed with cardiology on 12/26 who feel CHF unlikely and will not need CHF clinic. - Over last few days with NO diuresis, she is still euvolemic. DO NOT think she had CHF. 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 - Continue anticoagulation as able (5) Controlled type 2 diabetes mellitus with microalbuminuria: HbA1C was 6.8% on 12/18/2019. Diet-controlled at home. - DM diet - Sliding scale insulin -> Sugars mildly high in last 24 hours. (6) Hypertension: BP 115/70. Yesterday, BP as low as 95/65 yesterday with current regimen. - Lowered losartan to 50 mg - Continue calcium channel ela and beta-ela for rate-control - Hold HCTZ (7) Hypercholesteremia: - Continue statin (8) Leukocytosis: Suspect this is due to steroid injection she received for right hip bursitis on Sunday of this week. No signs/symptoms of infectious process at this time. - Follow -> Improving (9) Greater trochanteric bursitis of right hip: S/p steroid injection on 12/22/[address] Person. (10) DVT prophylaxis: Eliquis for afib Admission and Anticipated Discharge Date Admission Date: December 26, 2019 Subjective Feels well today. No shortness of breath. No chest pain. Reports no fevers/chills, chest pain, shortness of breath, abdominal pain, nausea, or vomiting. Physical Exam Constitutional: WD/WN, vitals as above Eyes: EOM intact bilaterally; no conjunctival abnormality ENMT: external ear and nose normal, oropharynx normal Neck: trachea midline, no thyromegaly normal visual inspection Respiratory: normal respiratory effort, lungs clear to auscultation no respiratory distress Cardiovascular: Rate/Rhythm: regular rate and + irregularly irregular Heart Sounds: normal S1 and normal S2 Vessels: no JVD Extremities: no edema Gastrointestinal (Abdomen): Inspection/Auscultation: abdomen normal to inspection; abdomen not distended Musculoskeletal: no cyanosis or clubbing, extremities motor strength 5/5 Skin: no rashes, warm and dry Neurologic: moves all extremities and awake Psychiatric: Orientation: alert, oriented to person and cooperative Results & Data Results & Data ([facility]) Vital Signs (Past 12 Hours) Vital Signs Temp Pulse Resp BP Pulse Ox 12/29/19 08:41 36.7 C 81 18 114/68 98 12/29/19 03:41 36.6 C 86 19 103/61 91 PG Care Time/CCT Total # of Minutes Spent Total Time Spent with Patient: Total time spent is greater than 50% in coordination of care (as documented) at patient's floor/unit and/or counseling patient: Coding Level of Care Code 61413 Subseq Hosp Care Lvl 2 Diagnoses Atrial fibrillation I48.91 Atrial fibrillation type: unspecified Acute kidney failure N17.9 Acute CHF I50.9 Deep vein thrombosis I82.442 Affected thrombotic vein of extremity: tibial Chronicity: acute DVT location: lower extremity Laterality: left Controlled type 2 diabetes mellitus with microalbuminuria E11.29; R80.9 Hypertension I10 Hypercholesteremia E78.00 Leukocytosis D72.829 Greater trochanteric bursitis of right hip M70.61 DVT prophylaxis Z29.9 (1) Atrial fibrillation Atrial fibrillation type: unspecified Qualified Code(s): I48.91 - Unspecified atrial fibrillation (2) Deep vein thrombosis Affected thrombotic vein of extremity: tibial Chronicity: acute DVT location: lower extremity Laterality: left Qualified Code(s): I82.442 - Acute embolism and thrombosis of left tibial vein
[2019-12-29] MEDS: ATORVASTATIN 10 MG TAB PO SCH (20:09)
[2019-12-30 06:40] LABS: Hematocrit (blood only) 35.1 % (37-47); Hemoglobin 11.2 g/dL (12.0-16.0); Mean Corpuscular Hemoglobin 26.8 pg (25-34); Mean Corpuscular Hgb Conc 31.9 g/dL (32-36); Mean Platelet Volume 9.3 fL (7.4-10.4); Platelet Count 312 K/uL (130-400); RDW Coefficient of Variation 15.7 % (11.5-14.5); RDW Standard Deviation 47.6 fL (36.4-46.3); Red Blood Count 4.18 M/uL (4.2-5.4); White Blood Count 10.06 K/uL (4.8-10.8)
[2019-12-30 07:08] LABS: BUN Creatinine Ratio 29.9 (10-20); Calcium 8.2 mg/dl (8.5-10.1); Creatinine Clr Calc Pharmacy 35.1 ml/min; Est GFR (African American) 41.2; Est GFR (Non-African American) 35.5; Magnesium 2.2 mg/dl (1.8-2.4); Potassium 4.2 mmol/L (3.5-5.1)
[2019-12-30] MEDS: PANTOprazole 40 MG TAB PO SCH (08:20)
[2019-12-30] MEDS: LOSARTAN POTASSIUM 50 MG TAB PO SCH (08:21)
[2019-12-30] MEDS: GABAPENTIN 300 MG CAP PO SCH ×2 (08:21→13:48)
[2019-12-30] MEDS: dilTIAZem HCL 300 MG CAPCR PO SCH (08:21)
[2019-12-30] MEDS: METOPROLOL TARTRATE 100 MG TAB PO SCH (08:22)
--- NOTE | 2019-12-30 11:38 | Cardiology Progress Note ---
Date of Service December 30, 2019 Assessment & Plan (1) Atrial fibrillation: I believe she does have tachybradycardia syndrome, however at the moment her heart rate is quite well controlled on her current medical regimen. It is a minor change from admission, perhaps addressing her other issues has improved her heart rate. At the moment I believe pacemaker implantation for tachybradycardia syndrome is not clearly indicated although itmay simplify long- term management, especially in view of her history of slow heart rate on her outpatient regimen for blood pressure control. It is possible that when she converts to sinus rhythm (either spontaneously or if we perform cardioversion) that she will have symptomatic bradycardia but that has not been documented in the past and I hesitate to put in a pacemaker speculating that that will be the case. We do not know the duration of the atrial fibrillation on presentation but it seems it was at least a few days but the history is not clear. We were holding off on cardioversion in part because we thought she was off anticoagulation but it seems that perhaps she just missed 1 dose on further discussion today. My approach remains to see how she does over the next several weeks, she may spontaneously convert to sinus rhythm, if not I think we should perform cardioversion. Following cardioversion I would like to monitor her heart rate to see whether she does have indication for a pacemaker at that point (for sinus bradycardia). I am not going to implant a pacemaker today and I will restart her Eliquis. I will make sure that we have her scheduled for an office visit in 2 weeks and I told her to make sure she calls if she feels poorly either in atrial fibrillation or with conversion to sinus rhythm. It should be safe for her to go home, she had a minimal change in her cardiac medications. 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 We may be able to control with medications or we may need a pacemaker plus medications. That is not clear as yet. (3) Cardiomyopathy: She has a mild cardiomyopathy, if we leave her on the metoprolol we may want to switch to metoprolol succinate although I would not do that just yet since we may still be adjusting her medications. Part of the reduction in her e jection fraction is likely the rapid heart rate on presentation and this may recover. I will plan on repeating her echocardiogram as a limited study for left ventricular function once we have her back in sinus rhythm. (4) SOB (shortness of breath): She is currently not short of breath, she did receive diuresis although it is not clear if she was in heart failure but her shortness of breath is much improved and may have been related to her heart rate. (5) Hypertension: Over the last 24 hours her blood pressure has been quite well controlled, perhaps slightly low at times. She has possibly had symptoms when her blood pressure was especially low, that may become problematic because having a pacemaker in place will not alter our need for rate controlling medications and she may still have hypotension. The only option here would be to somehow eliminate rate controlling medications, that would require AV saul ablation and obviously makes things more complicated. We can address that in the future but we may want to keep it in mind and choosing what type of lead placement to use. We could also consider adding digoxin and cutting back on either the metoprolol or the diltiazem in the future. Admission and Anticipated Discharge Date Admission Date: December 26, 2019 Subjective This is a 84-year-old woman who has a history of diabetes and pulmonary embolism in 2019 for which she was on anticoagulation. She also has hypertension and hyperlipidemia. She presented on December 24, 2019 in atrial fibrillation, she describes several weeks of fatigue and dyspnea on exertion but not palpitations. Her atrial fibrillation therefore is of unknown duration. Of note she had been off of her anticoagulation for short time due to cataract surgery, I thought she had been off for some time however on further discussion today it appears she just missed 1 dose on the morning of cataract surgery which was the day she came into the emergency room and was started on intravenous heparin. She tells me that she has a long history of a slow heart rate, probably medication related, but is not clear that she has had symptoms of it in the past. It does not sound as though she ever wore a 24-hour monitor. Echocardiography on December 25, 2019 showed a mildly reduced left ventricular ejection fraction of 45 to 50% in a global manner as well as concentric left ventricular hypertrophy. She did have moderate left atrial dilatation. On June 30, 2013 her LV function was normal. She is reported to be on diltiazem 240 mg daily at home as well as the metoprolol tartrate 100 mg twice daily and Eliquis 5 mg twice daily. The initial approach was rate control, on diltiazem 240 mg daily her heart rate was fast (this was her home medication), on 360 mg daily she had pauses of about 3 seconds during atrial fibrillation. She is now on Diltiazem CD 300 mg daily, metoprolol tartrate 100 mg twice daily and apixaban 5 mg twice a day although that is on hold for possible pacemaker implantation. Yesterday she told me she was feeling better than she normally did at home, today she is not sure although she is feeling better than when she initially presented to the hospital. She tells me she still does not quite feel right. She has not been very active but has walked around the room without undue difficulty. She notes that her blood pressure has been a little bit low and when they told her it was low she noted she was not feeling quite right either in a nonspecific way. Physical Exam Physical Exam: Constitutional: Alert, cooperative and in no distress. HEENT: Unremarkable Neck: No jugular venous distention, carotid pulses are irregular but otherwise normal and equal bilaterally without bruits. Pulmonary: Clear to auscultation bilaterally. Cardiac: Irregular rhythm with no murmur, gallop or rub. Abdomen: Soft, nontender with normal bowel sounds. Extremities: No edema. Distal pulses intact. Neurologic: No focal findings. Gait is steady. Skin: No rash, ecchymoses or petechiae. Results & Data ([facility]) Vital Signs (Past 12 Hours) Vital Signs Temp Pulse Pulse Resp BP BP Pulse Ox 12/30/19 09:05 75 12/30/19 07:33 36.4 C L 102 H 20 133/79 93 12/30/19 04:40 36.6 C 82 18 124/72 91 12/29/19 23:47 121/67 117/72 12/29/19 23:45 36.7 C 75 20 87/53 L 94 Laboratory Results CBC 12/30/19 Range/Units 06:14 WBC 10.06 (4.8-10.8) K/uL RBC 4.18 L (4.2-5.4) M/uL Hgb 11.2 L (12.0-16.0) g/dL Hct 35.1 L (37-47) % Plt Count 312 (130-400) K/uL Comprehensive Metabolic Panel 12/30/19 Range/Units 06:14 Sodium 142 (136-145) mmol/L Potassium 4.2 (3.5-5.1) mmol/L Chloride 111 H (98-107) mmol/L Carbon Dioxide 25 (21-32) mmol/L BUN 41 H (7-18) mg/dl Creatinine 1.38 H (0.6-1.2) mg/dl Glucose 94 (70-99) mg/dl Calcium 8.2 L (8.5-10.1) mg/dl Intake and Output 12/29/19 12/30/19 12/30/19 22:59 06:59 14:59 Intake Total 670 / 910 0 / 0 Balance 670 / 670 0 Intake: Oral 670 / 910 0 Other: # Unmeasured Voids 1 Weight 101.8 kg Diagnostic Findings Review of telemetry: Her heart rate has been very well controlled over the last day, it will drop a little below 50 occasionally at night, it will go up a little over 100 occasionally during the day but this is appropriate and overall her heart rate seems well controlled on her current medications. PG Care Time/CCT Total # of Minutes Spent Total Time Spent with Patient: Total time spent is greater than 50% in coordination of care (as documented) at patient's floor/unit and/or counseling patient: Coding Level of Care Code 43392 Subseq Hosp Care Lvl 3 Diagnoses Atrial fibrillation I48.91 Atrial fibrillation type: unspecified Tachy-mynor syndrome I49.5 Cardiomyopathy I42.9 SOB (shortness of breath) R06.02 Hypertension I10 (1) Atrial fibrillation Atrial fibrillation type: unspecified Qualified Code(s): I48.91 - Unspecified atrial fibrillation
--- NOTE | 2019-12-30 18:17 | Discharge Summary ---
Date of Service December 30, 2019 Admission HPI Per Admitting Provider 84yo female with history of DVT and PE on eliquis who presented today for elective right cataract surgery by Dr Collazo at [facility]. Upon checking in at the surgical center she told the staff that she had noted "high" HRs over the last 3 days. Typically she runs about 50-60 BPM but had noted rates in the 80s and 90s at home. Her blood pressures were "low" - typically systolics run about 140, but had noted systolics in the low 100s over the last few days. She also reported to the staff at the surgical center that she has had dyspnea recently. While doing housework recently she was very short of breath. No orthopnea or PND. No LE edema. She has gained weight of late -- she has had 5-10 pounds in the last month. She noted worsening abdominal girth recently as well. Had negative COVID-19 testing on 12/19/19. No fevers or chills. Some cough - dry. Had palpitations several days ago but nothing since. Patient DID take her metoprolol and diltiazem this morning. Lastly, patient had steroid injection of right hip on SUNDAY of this week for bursitis by Dr Person. Principal Diagnosis New onset atrial fibrillation Discharge Exam Constitutional WD/WN, vitals as above Eyes EOM intact bilaterally; no conjunctival abnormality ENMT external ear and nose normal, oropharynx normal Neck trachea midline, no thyromegaly normal visual inspection Respiratory normal respiratory effort, lungs clear to auscultation no respiratory distress Cardiovascular Rate/Rhythm: regular rate and + irregularly irregular Heart Sounds: normal S1 and normal S2 Vessels: no JVD Extremities: no edema Gastrointestinal (Abdomen) Inspection/Auscultation: abdomen normal to inspection; abdomen not distended Musculoskeletal no cyanosis or clubbing, extremities motor strength 5/5 Skin no rashes, warm and dry Neurologic moves all extremities and awake Psychiatric Orientation: alert, oriented to person and cooperative Discharge Data Allergies Allergy/AdvReac Type Severity Reaction Status Date / Time latex Allergy Mild REDNESS, Verified 12/24/19 09:30 RASH Sulfa (Sulfonamide AdvReac Intermediate MAKES HER Verified 12/24/19 09:30 Antibiotics) SICKER Consultations 12/24/19 12:32 ED Decision to Admit Stat 12/25/19 09:40 Consult Cardiology Routine Ordered Studies 12/24/19 10:52 CT angio chest PE protocol Stat Hospital Course (1) Atrial fibrillation: New-onset, perhaps 3-4 days ago based on her home HR readings (usually runs 50-60 BPM; then increased to 80s/90s a few days ago). Echo on 12/25/2019 showed EF 45%, thought tachycardia-related. - Continue diltiazem CD 300 mg daily & metoprolol 100 mg PO BID - With some elements of tachy-mynor -> Plan for possible pacemaker eventually. - Will follow up with Dr. Casper as outpatient. - Restarted apixaban for anticoagulation (2) Acute kidney failure: Creatinine increased to 1.6 on 12/25; may be due to intial diuretic. - Holding diuretics - Monitor -> Improving today to 1.3. (3) Acute CHF: Thought for acute systolic CHF initially, but possibly not related to cardiomyopathy and just fast heart rate. - Only required Lasix 20 mg IV x 1 dose, then became azotemic. - Discussed with cardiology on 12/26 who feel CHF unlikely and will not need CHF clinic. - Over last few days with NO diuresis, she is still euvolemic. DO NOT think she had CHF. 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 - Continue anticoagulation (5) Controlled type 2 diabetes mellitus with microalbuminuria: HbA1C was 6.8% on 12/18/2019. Diet-controlled at home. - DM diet - Sliding scale insulin -> Sugars mildly high in last 24 hours. (6) Hypertension: BP 115/70. Yesterday, BP as low as 95/65 yesterday with current regimen. - Lowered losartan to 50 mg - Continue calcium channel ela and beta-ela for rate-control as above - Hold HCTZ on discharge. (7) Hypercholesteremia: - Continue statin (8) Leukocytosis: Suspect this is due to steroid injection she received for right hip bursitis on Sunday of this week. No signs/symptoms of infectious process at this time. - Follow -> Improving (9) Greater trochanteric bursitis of right hip: S/p steroid injection on 12/22/[address] Person. (10) DVT prophylaxis: Eliquis for afib Total Time Total Time Spent Total Time Spent (In Minutes): 35 Discharge Plan Discharge Items Patient Disposition: Home - Home Health Services Reason For Visit: NEW ONSET AFIB,ACUTE CHF Discharge Diagnosis: New onset atrial fibrillation Activity: Resume your previous activity Non-emergency contact: Primary Care Provider and Engraver Machine Call non-emergency contact if: your symptoms worsen Follow-up/Referrals: Gonsalo Casper MD [Physician] - 01/26/20 3:00 pm Rashad Parsons III, MD [Primary Care Provider] - Diet: Heart Healthy Addtl Attending Provider Instructions: You were admitted to the hospital with a fast heart rate called atrial fibrillation. This condition can cause your heart to run quite fast, and we did have some trouble finding a good medication regimen for you in the hospital. Ultimately, we did get a regimen that seems to keep your heart rate in a good range. Your blood pressure has been good here with just a few lower readings in the evenings. Please watch your heart rate and blood pressure at home. We did adjust your medications to help keep your blood pressure under control without going too low. 1) Please take the slightly higher dose of diltiazem. This is 300 mg in the mornings. First dose on 12/31/2019 in the morning. 2) Please take the LOWER dose of losartan. This is 25 mg. Please take this IN THE EVENING. First dose on 12/31/2019 in the evening. 3) Please stop the hydrochlorothiazide. 4) The metoprolol STAYS THE SAME and at the same dose. One tablet in the morning and one at night. Doing one in the morning and one at night will hopefully help keep your heart rate and blood pressure in good ranges. If you feel like your heart is going too fast or too slow (below 60 beats per minute or above 100 beats per minute) or if your blood pressure drops too low (below 90/50 or low, but with symptoms of dizziness or lightheadedness), please call Dr. Casper's office to adjust your medications. Pending Studies at Discharge: No Stand-Alone Forms: My Tessella, Smoking Cessation Medications and DC Order Prescriptions: New diltiazem HCl 300 mg capsule,extended release 24hr 300 mg PO DAILY Qty: 30 RF: 0 losartan 25 mg tablet 25 mg PO HS Qty: 30 RF: 0 Continued metoprolol tartrate 100 mg tablet 100 mg PO BID Qty: 180 RF: 3 (DME) OneTouch Ultra Blue Test Strip Strip See Dose Instructions .ROUTE .MEDSUPPLY Qty: 100 RF: 3 gabapentin 300 mg capsule 300 mg PO TID Qty: 270 RF: 3 albuterol sulfate [Proventil HFA] 90 mcg/actuation HFA aerosol inhaler 1 puffs INH Q6H PRN (Reason: shortness of breath or wheezing) Qty: 18 RF: 1 (DME) lancets [OneTouch UltraSoft Lancets] misc See Dose Instructions .ROUTE .MEDSUPPLY Qty: 100 RF: 5 atorvastatin 10 mg tablet 10 mg PO HS Qty: 90 RF: 3 alendronate 70 mg tablet 70 mg PO WEEKLY Qty: 12 RF: 3 Eliquis 5 mg tablet 5 mg PO BID Qty: 60 RF: 5 betamethasone acet,sod phos 6 mg/mL suspension 12 mg IA ONCE Qty: 2 RF: 0 rabeprazole 20 mg tablet,delayed release (DR/EC) 20 mg PO QAM RF: 0 Discontinued diltiazem HCl 240 mg capsule,extended release 24hr 240 mg PO QAM RF: 0 hydrochlorothiazide 25 mg tablet 25 mg PO QAM RF: 0 losartan 100 mg tablet 100 mg PO QAM RF: 0 Discharge Orders: Discharge Order (Routine); Ordered 12/30/19 Ordered By: Osorio Gleason Admission Data Admit Date/Time: 12/26/19 16:55 Attending Provider: Osorio Gleason Admit Provider: Power Gonzalez Primary Care Provider: Rashad Parsons III Other Providers: Carlos A Carl ; Osorio Gleason Other Interventions: Discharge Summary Assessment (RN) Last Done: 12/30/19 15:02 Coding Level of Care Code D/C Day Management >30 mins Diagnoses Atrial fibrillation I48.91 Atrial fibrillation type: unspecified Acute kidney failure N17.9 Acute CHF I50.9 Deep vein thrombosis I82.442 Affected thrombotic vein of extremity: tibial Chronicity: acute DVT location: lower extremity Laterality: left Controlled type 2 diabetes mellitus with microalbuminuria E11.29; R80.9 Hypertension I10 Hypercholesteremia E78.00 Leukocytosis D72.829 Greater trochanteric bursitis of right hip M70.61 DVT prophylaxis Z29.9
== END 2019-12-30 15:44 | disposition home or self-care (01) | DRG 291 ==
LOC: 2N 09:03 → ED 09:03 → SUATTDRO 13:58 → 2N 14:57 → SUATTDRO 12-26 16:55

== ENCOUNTER 2020-01-02 05:40 | Inpatient (IN) ==
[2020-01-02] MEDS ORDERED: ALBUT/IPRATROP 3MG/0.5MG NEB 3 ML VIAL INH STA (06:10)
[2020-01-02 06:19] LABS: Basophils # (auto) 0.03 K/uL (0-0.2); Basophils % (auto) 0.2 %; Eosinophils # (auto) 0.23 K/uL (0-0.5); Eosinophils % (auto) 1.5 %; Hematocrit (blood only) 36.2 % (37-47); Hemoglobin 11.4 g/dL (12.0-16.0); Immature Granulocytes # (auto) 0.05 K/uL (0.00-0.02); Immature Granulocytes % (auto) 0.3 %; Lymphocytes % (auto) 16.9 %; Mean Corpuscular Hemoglobin 27.1 pg (25-34); Mean Corpuscular Hgb Conc 31.5 g/dL (32-36); Mean Platelet Volume 9.6 fL (7.4-10.4); Monocytes # (auto) 1.53 K/uL (0.11-0.59); Neutrophils % (auto) 71.1 %; Platelet Count 298 K/uL (130-400); RDW Standard Deviation 49.8 fL (36.4-46.3); Red Blood Count 4.21 M/uL (4.2-5.4); White Blood Count 15.34 K/uL (4.8-10.8)
--- NOTE | 2020-01-02 06:30 | Emergency Department Note ---
Impression & Plan Hypoxia, CHF (congestive heart failure) ED Provider Note NAME: HAYDE DOVE AGE: 84 SEX: F ARRIVES VIA: Ambulance INFORMANT: [Patient] ED PROVIDER(S): Indira Ahumada DO CHIEF COMPLAINT: Shortness of breath PLAN: [facility] Condition: [Good] MEDICAL DECISION MAKING: This is an 84-year-old female patient who presents to the emergency department with increasing shortness of breath. The patient was just discharged from the hospital 3 days ago after an episode of atrial fibrillation. Tonight, she got up to go to the bathroom had a significantly hard time breathing. The patient has had difficulty sleeping since discharge and has been having intermittent episodes of epigastric pain and chest pain. Triage Nursing notes reviewed and agree them. [Prior medical records reviewed] Vital Signs: reviewed and remarkable for hypertension Differential diagnosis: CHF, pneumonia, PE, ER treatment provided: P.o. Tylenol IV Lasix Diagnostics interpreted by me: ECG: Normal sinus rhythm at a rate of 76 with a right bundle branch block. No ST segment elevation or signs of ischemia. No ectopy. Cardiac Monitoring: Normal sinus rhythm at a rate of 73 Laboratory studies: [See below] Imaging studies: As per my interpretation Chest x-ray: Cardiomegaly and mild congestive heart failure HPI: 84/F arrives for evaluation of shortness of breath. Patient was having difficulty sleeping throughout the night. She got up to go to the bathroom and noted that her breathing drastically worsened. She sat back down on the bed and could not catch her breath. She then had epigastric discomfort and chest pain. ROS: See above HPI for pertinent positives & negatives. A total of [10] systems reviewed and were otherwise negative. PAST MEDICAL HISTORY:[See Below] PAST SURGICAL HISTORY:[See Below] FAMILY HISTORY:[See Below] SOCIAL HISTORY:[See Below] HOME MEDICATIONS:See list ALLERGIES:See list VITALS:[See Below] PHYSICAL EXAMINATION: HEENT: Head - normocephalic and atraumatic Pupils are equal, round, and reactive to light. Extraocular eye muscles are intact, and sclera are anicteric. Nose - moist nasal mucosa without discharge. Mouth - moist buccal mucosa. Oropharynx is nonerythematous and there is no tonsillar exudate or edema noted. Neck: Supple; no JVD or cervical lymphadenopathy Heart: Regular rate and rhythm. There is a normal S1 and S2 with no murmurs, clicks, or gallops appreciated. Lungs: Diminished breath sounds at both bases with rales and wheezes. Abdomen: Soft, completely nontender, nondistended, with good bowel sounds. There are no palpable pulsatile masses or hepatosplenomegaly. There is no gua rding, rigidity, or rebound noted. Extremities: 2+ pitting edema . There are easily palpable peripheral pulses. Skin: Pale, warm and dry with good turgor and no rashes. ED COURSE: Times/Reassessments: 06: The patient was evaluated in room C9. A complete history and physical was performed. Laboratory studies were drawn as above. An order was placed for continuous cardiac monitoring. The patient was in a normal sinus rhythm at 78. A twelve-lead EKG was obtained. Previous electronic medical records were reviewed. A portable chest x-ray was performed. The patient complained of a headache and was given a gram of oral Tylenol. It was noted that the patient gained approximately 6 kg over the past 3 days. This in conjunction with the evidence of congestive heart failure on chest x-ray as well as the peripheral edema, the patient was given 40 mg of IV Lasix. [facility] and [facility] will evaluate for further management. Procedures: IV Lasix Oral Tylenol I have personally spent greater than 30 minutes of critical care time in the direct management of this patient. This includes bedside care, interpretation of diagnostic studies, and testing, discussion with consultants, patient, and family members, and other required patient management activities. This 30 minutes is in excess of all separately billable procedures. Indira Ahumada DO Past Med/Surg History Medical History (Updated 01/02/20 @ 08:20 by Indira Ahumada DO) Controlled type 2 diabetes mellitus with microalbuminuria Deep vein thrombosis (02/2019) Feb 2019 after long car ride (provoked) Diverticulitis of colon GERD (gastroesophageal reflux disease) Greater trochanteric bursitis of right hip Hypercholesteremia Hypertension Lumbar spondylosis Osteoporosis Pulmonary embolism (02/2019) HISTORY OF Surgical History H/O cataract extraction left - Dr Collazo, 2019 H/O repair of rotator cuff LEFT History of appendectomy History of cardiac cath MORE THAN 5 YEARS AGO--WAS NEGATIVE ([facility]) History of cataract surgery LEFT History of cholecystectomy History of colonoscopy History of esophagogastroduodenoscopy (EGD) Family History Mother , age 42 from breast ca Breast cancer Son Deep vein thrombosis Father , age 52 from acute NM Myocardial infarction Asthma Other Coronary heart disease Denies family history of Ovarian cancer Prostate cancer Colorectal cancer Social History (Updated 12/24/19 @ 13:37 by Power Gonzalez) Smoking Status: Former smoker Age Started Using Tobacco: 23; Age Quit Using Tobacco: 50; packs per day: 1; Second Hand Exposure: No; Hx Alcohol Use: No Hx Substance Use: No Preferred Language: Portuguese Communication Ability: Effective Visual Impairment: No Limitations Hearing Ability: Normal Linoleum Printer Required: No Beliefs That Will Affect Care: None marital status: marital status details: lives in [place] Current Living Situation: Spouse Current Living Situation Comment: LIVES WITH current occupational status: retired current occupation: worked at [employer] as a nurse How many Children do You have: 7 How many Children do You have Comment: 6 sons, 1 daughter Feels Safe at Home: Yes Seatbelt Use: always Sunscreen Use: Yes Allergies Allergies Allergy/AdvReac Type Severity Reaction Status Date / Time latex Allergy Mild REDNESS, Verified 01/02/20 06:17 RASH Sulfa (Sulfonamide AdvReac Intermediate MAKES HER Verified 01/02/20 06:17 Antibiotics) SICKER Home Meds Home Medications Medication Instructions Recorded Confirmed rabeprazole 20 mg PO QAM 11/27/19 01/02/20 Previous Rx's Medication Instructions Recorded albuterol sulfate 90 mcg/actuation 1 puffs INH Q6H PRN #18 gm 01/03/19 aerosol inhaler lancets #100 ea 01/03/19 metoprolol tartrate 100 mg tablet 100 mg PO BID #180 tab 05/05/19 alendronate 70 mg tablet 70 mg PO WEEKLY #12 tab 05/19/19 atorvastatin 10 mg tablet 10 mg PO HS #90 tab 05/19/19 blood sugar diagnostic #100 ea 08/29/19 apixaban 5 mg tablet 5 mg PO BID #60 tab 09/25/19 gabapentin 300 mg capsule 300 mg PO TID #270 cap 12/24/19 diltiazem HCl 300 mg PO DAILY #30 cap 12/30/19 losartan 25 mg PO HS #30 tab 12/30/19 Results & Data (ED) Vital Signs Vital Signs - 24 hr 01/02/20 05:47 01/02/20 06:23 01/02/20 07:00 Temperature 36.8 C Temperature Source Oral Pulse Rate 74 72 Pulse Rate [Apical] 73 Pulse Rate from SpO2 Sensor 72 Respiratory Rate 22 20 18 Respiratory Effort / Characteristics Non-Labored Spontaneous Non-Labored Spontaneous Respiratory Pattern Regular Blood Pressure 188/78 H Blood Pressure Mean 114 Blood Pressure Position Sitting Pulse Oximetry 95 95 94 Oxygen Delivery Method Nasal Cannula Nasal Cannula Nasal Cannula Oxygen Flow Rate 3 3 3 Fraction of Inspired Oxygen 95 Sepsis Recent Fever Within 48 Hours No Sepsis New/Unexplained Change in Mental Status N/A Sepsis Action Taken by Nursing No Action Required 01/02/20 07:30 01/02/20 07:34 01/02/20 07:48 Temperature Temperature Source Pulse Rate 77 78 Pulse Rate [Apical] Pulse Rate from SpO2 Sensor 77 77 Respiratory Rate 19 16 Respiratory Effort / Characteristics Respiratory Pattern Blood Pressure 156/71 H Blood Pressure Mean 103 Blood Pressure Position Pulse Oximetry 95 94 94 Oxygen Delivery Method Nasal Cannula Nasal Cannula Nasal Cannula Oxygen Flow Rate 3 3 3 Fraction of Inspired Oxygen Sepsis Recent Fever Within 48 Hours Sepsis New/Unexplained Change in Mental Status Sepsis Action Taken by Nursing Laboratory Data Result diagrams: 01/02/20 05:55 01/02/20 05:55 Lab Results 01/02/20 01/02/20 01/02/20 Range/Units 05:55 05:55 05:55 WBC 15.34 H (4.8-10.8) K/uL RBC 4.21 (4.2-5.4) M/uL Hgb 11.4 L (12.0-16.0) g/dL Hct 36.2 L (37-47) % MCV 86.0 (80-100) fL MCH 27.1 (25-34) pg MCHC 31.5 L (32-36) g/dL RDW Std Deviation 49.8 H (36.4-46.3) fL RDW Coeff of Thomas 16.0 H (11.5-14.5) % Plt Count 298 (130-400) K/uL MPV 9.6 (7.4-10.4) fL Immature Gran % (Auto) 0.3 % Neut % (Auto) 71.1 % Lymph % (Auto) 16.9 % Schoolcraft % (Auto) 10.0 % Eos % (Auto) 1.5 % Baso % (Auto) 0.2 % Neut # (Auto) 10.90 H (1.4-6.5) K/uL Lymph # (Auto) 2.60 (1.2-3.4) K/uL Schoolcraft # (Auto) 1.53 H (0.11-0.59) K/uL Eos # (Auto) 0.23 (0-0.5) K/uL Baso # (Auto) 0.03 (0-0.2) K/uL Immature Gran # (Auto) 0.05 H (0.00-0.02) K/uL PT Cancelled INR Cancelled APTT Cancelled PTT Ratio Cancelled Sodium 142 (136-145) mmol/L Potassium 4.8 (3.5-5.1) mmol/L Chloride 111 H (98-107) mmol/L Carbon Dioxide 26 (21-32) mmol/L Anion Gap 5.0 (3-11) BUN 22 H (7-18) mg/dl Creatinine 1.26 H (0.6-1.2) mg/dl Est Cr Clr Drug Dosing 39.5 ml/min Est GFR ( Amer) 45.9 Est GFR (Non-Af Amer) 39.6 BUN/Creatinine Ratio 17.6 (10-20) Glucose 115 H (70-99) mg/dl Calcium 8.8 (8.5-10.1) mg/dl Total Bilirubin 0.6 (0.2-1) mg/dl AST 18 (15-37) U/L ALT 33 (12-78) U/L Alkaline Phosphatase 88 (45-117) U/L Troponin I < 0.015 (0-0.045) ng/ml Total Protein 6.9 (6.4-8.2) gm/dl Albumin 3.0 L (3.4-5.0) gm/dl Globulin 3.9 (2.5-4.0) gm/dl Albumin/Globulin Ratio 0.8 L (0.9-2) Procalcitonin 01/02/20 01/02/20 Range/Units 05:55 07:02 WBC (4.8-10.8) K/uL RBC (4.2-5.4) M/uL Hgb (12.0-16.0) g/dL Hct (37-47) % MCV (80-100) fL MCH (25-34) pg MCHC (32-36) g/dL RDW Std Deviation (36.4-46.3) fL RDW Coeff of Thomas (11.5-14.5) % Plt Count (130-400) K/uL MPV (7.4-10.4) fL Immature Gran % (Auto) % Neut % (Auto) % Lymph % (Auto) % Schoolcraft % (Auto) % Eos % (Auto) % Baso % (Auto) % Neut # (Auto) (1.4-6.5) K/uL Lymph # (Auto) (1.2-3.4) K/uL Schoolcraft # (Auto) (0.11-0.59) K/uL Eos # (Auto) (0-0.5) K/uL Baso # (Auto) (0-0.2) K/uL Immature Gran # (Auto) (0.00-0.02) K/uL PT Cancelled INR Cancelled APTT Cancelled PTT Ratio Cancelled Sodium (136-145) mmol/L Potassium (3.5-5.1) mmol/L Chloride (98-107) mmol/L Carbon Dioxide (21-32) mmol/L Anion Gap (3-11) BUN (7-18) mg/dl Creatinine (0.6-1.2) mg/dl Est Cr Clr Drug Dosing ml/min Est GFR ( Amer) Est GFR (Non-Af Amer) BUN/Creatinine Ratio (10-20) Glucose (70-99) mg/dl Calcium (8.5-10.1) mg/dl Total Bilirubin (0.2-1) mg/dl AST (15-37) U/L ALT (12-78) U/L Alkaline Phosphatase (45-117) U/L Troponin I (0-0.045) ng/ml Total Protein (6.4-8.2) gm/dl Albumin (3.4-5.0) gm/dl Globulin (2.5-4.0) gm/dl Albumin/Globulin Ratio (0.9-2) Procalcitonin Cancelled Administered Medications Discontinued Medications Acetaminophen (Acetaminophen 500 Mg Tab) 1,000 mg PO NOW STA Stop: 01/02/20 07:05 Last Admin: 01/02/20 07:22 Dose: 1,000 mg Documented by: [id number] Albuterol (Albut/Ipratrop 3mg/0.5mg Neb 3 Ml Vial) 3 ml INH NOW STA Stop: 01/02/20 06:11 Last Admin: 01/02/20 06:20 Dose: 3 ml Documented by: [id number] Furosemide (Furosemide 40 Mg/4 Ml Vial) 40 mg IV NOW STA Stop: 01/02/20 07:23 Last Admin: 01/02/20 07:32 Dose: 40 mg Documented by: [id number] Discharge Plan Visit Data Chief Complaint: Shortness of Breath/Dyspnea Stated Complaint: Shortness of Breath ED Provider: Indira Ahumaad Discharge Problem: Hypoxia, CHF (congestive heart failure) Forms Stand Alone Forms: [facility] Prescriptions Prescriptions: No Action metoprolol tartrate 100 mg tablet 100 mg PO BID Qty: 180 RF: 3 (DME) OneTouch Ultra Blue Test Strip Strip See Dose Instructions .ROUTE .MEDSUPPLY Qty: 100 RF: 3 gabapentin 300 mg capsule 300 mg PO TID Qty: 270 RF: 3 albuterol sulfate [Proventil HFA] 90 mcg/actuation HFA aerosol inhaler 1 puffs INH Q6H PRN (Reason: shortness of breath or wheezing) Qty: 18 RF: 1 (DME) lancets [OneTouch UltraSoft Lancets] misc See Dose Instructions .ROUTE .MEDSUPPLY Qty: 100 RF: 5 atorvastatin 10 mg tablet 10 mg PO HS Qty: 90 RF: 3 alendronate 70 mg tablet 70 mg PO WEEKLY Qty: 12 RF: 3 Eliquis 5 mg tablet 5 mg PO BID Qty: 60 RF: 5 rabeprazole 20 mg tablet,delayed release (DR/EC) 20 mg PO QAM RF: 0 diltiazem HCl 300 mg capsule,extended release 24hr 300 mg PO DAILY Qty: 30 RF: 0 losartan 25 mg tablet 25 mg PO HS Qty: 30 RF: 0 Discharge Problem: CHF (congestive heart failure) Qualifiers: Heart failure type: unspecified Heart failure chronicity: acute Qualified Code(s): I50.9 - Heart failure, unspecified
[2020-01-02 06:36] LABS: Alanine Aminotransferase 33 U/L (12-78); Aspartate Aminotransferase 18 U/L (15-37); BUN Creatinine Ratio 17.6 (10-20); Blood Urea Nitrogen 22 mg/dl (7-18); Calcium 8.8 mg/dl (8.5-10.1); Carbon Dioxide 26 mmol/L (21-32); Chloride 111 mmol/L (98-107); Creatinine Clr Calc Pharmacy 39.5 ml/min; Est GFR (African American) 45.9; Est GFR (Non-African American) 39.6; Glucose 115 mg/dl (70-99); Potassium 4.8 mmol/L (3.5-5.1); Sodium 142 mmol/L (136-145)
[2020-01-02 06:40] LABS: Albumin Globulin Ratio 0.8 (0.9-2); Alkaline Phosphatase 88 U/L (45-117); Bilirubin,Total 0.6 mg/dl (0.2-1); Globulin 3.9 gm/dl (2.5-4.0); Total Protein 6.9 gm/dl (6.4-8.2); Troponin I < 0.015 ng/ml (0-0.045)
[2020-01-02] MEDS ORDERED: ACETAMINOPHEN 500 MG TAB PO STA (07:04)
[2020-01-02] MEDS ORDERED: FUROSEMIDE 40 MG/4 ML VIAL IV STA (07:22)
--- NOTE | 2020-01-02 07:54 | XRay Report ---
XR chest 1V portable CLINICAL HISTORY: Dyspnea COMPARISON STUDY: 12/24/2019 FINDINGS: The heart is enlarged. There is radiographic evidence of mild pulmonary vascular congestion /fluid overload. There is no lobar consolidation.[ IMPRESSION: Cardiomegaly and radiographic evidence of mild pulmonary vascular congestion/fluid overlo ad. ACT 112: Negative or not required by law. Electronically signed by: Artem Bang M.D. 01/02/2020 7:53 AM
[2020-01-02 08:42] LABS: Partial Thromboplastin Ratio 1.1; Partial Thromboplastin Time 30.5 Seconds (21.0-31.0); Prothrombin Time 10.7 Seconds (9.0-12.0)
[2020-01-02] MEDS: GABAPENTIN 300 MG CAP PO SCH ×3 (09:38→21:49)
[2020-01-02] MEDS: PANTOprazole 40 MG TAB PO SCH (09:38)
[2020-01-02] MEDS: APIXABAN 5 MG TABLET PO SCH ×2 (09:38→21:49)
[2020-01-02 12:52] LABS: Appearance Urine Clear (Clear); Bilirubin Urine Negative (Negative); Blood Urine Negative (Negative); Color Urine Yellow; Glucose Urine UA Negative (Negative); Ketones Urine Negative (Negative); Leukocyte Esterase Urine Negative (Negative); Nitrite Urine Negative (Negative); Protein Urine Negative (Negative); Urobilinogen Urine Negative (Negative)
--- NOTE | 2020-01-02 14:51 | Electrocardiogram Report ---
Test Reason : Blood Pressure : / mmHG Vent. Rate : 076 BPM Atrial Rate : 076 BPM P-R Int : 162 ms QRS Dur : 140 ms QT Int : 452 ms P-R-T Axes : 067 062 028 degrees QTc Int : 508 ms Poor data quality, interpretation may be adversely affected Normal sinus rhythm Right bundle branch block Abnormal ECG When compared with ECG of 24-DEC-2019 22:28, Sinus rhythm has replaced Atrial fibrillation Confirmed by Richard Dubois ([id number]) on 01/02/2020 2:51:41 PM Referred By: REFERRED SELF Confirmed By:Richard Dubois
[2020-01-02] MEDS ORDERED: ACETAMINOPHEN 500 MG TAB PO PRN (21:32)
--- NOTE | 2020-01-02 21:45 | Hospitalist Progress Note ---
Date of Service January 02, 2020 Assessment & Plan (1) CHF (congestive heart failure): Acute Systolic CHF It appears this is likely the main cause as she has been off diuretics. - Patient received one dose of IV lasix, will monitor. -Will likely need to monitor her weight at home clsoer, her diet, and place on oral lasix. (2) Cardiomyopathy: As stated above (3) Morbid obesity with BMI of 40.0-44.9, adult: recommend lifestyle changes (4) Hypertension: will hold alyce inhibitor and diltiazem in acute CHF. will restart likely tomorrow (5) Hypercholesteremia: resyme home meds (6) Controlled type 2 diabetes mellitus with microalbuminuria: HbA1C was 6.8% on 12/18/2019. Diet-controlled at home. - DM diet - Sliding scale insulin -> Sugars mildly high in last 24 hours. (7) Atrial fibrillation: New-onset, perhaps 3-4 days ago based on her home HR readings (usually runs 50-60 BPM; then increased to 80s/90s a few days ago). Echo on 12/25/2019 showed EF 45%, thought tachycardia-related. - Continue diltiazem CD 300 mg daily & metoprolol 100 mg PO BID - With some elements of tachy-mynor -> Plan for possible pacemaker eventually. - Will follow up with Dr. Casper as outpatient. - Restarted apixaban for anticoagulation (8) Leukocytosis: May be reactive - Follow -> Improving (9) DVT prophylaxis: Deep vein thrombosis: History of DVT and PE in 2019. - Continue anticoagulation Admission and Anticipated Discharge Date Admission Date: January 02, 2020 Subjective 84yo female with history of DVT and PE on eliquis who was recently discharged for new onset atrial fibrillation. There was question in the last admission if patient was having CHF, however due to developing azotemia, and not requiring diuretics for a few days, it was determined that diuretics were held. She reports that he weight has increased abot 1- punds since discharge. reports that this AM she felt SOB when she was lying in bed. Due to her SOB, she decided to come back to the ER. Patient did not take her BP meds this AM. Review of Systems Review of Systems: Constitutional: + weight gain; no fever, no chills and no anorexia Eyes: cataract extraction - Left - recent; improved vision w/ such Ear, Nose, Mouth, Throat: no sore throat no loss of taste or smell Respiratory: no sputum production Cardiovascular: no chest pain, no orthopnea, no paroxysmal nocturnal dyspnea and no edema Gastrointestinal: no abdominal pain, no vomiting and no diarrhea/loose stools Genitourinary: no dysuria Musculoskeletal: + back pain (chronic ) and + joint pain (hips, etc) Integumentary: no rash Neurologic: no loss of sensation Psychiatric: no depression Endocrine: diet-controlled DM -- 120s or less Hematologic / Lymphatic: no easy bleeding and no easy bruising Physical Exam Physical Exam: Constitutional: + morbidly obese; no acute distress and no altered mental status Eyes: PERRL (lens implant L; cataract shadow R) ENMT: external ear and nose normal, oropharynx normal Neck: trachea midline, no thyromegaly Respiratory: no respiratory distress Auscultation: + diminished lung sounds (bases) and + rales (fine, bases); no wheezes Cardiovascular: Rate/Rhythm: regular rate Heart Sounds: normal S1 and normal S2; no murmur Vessels: posterior tibial pulses present and dorsalis pedis pulses present; no JVD (difficult to assess due to neck size) Extremities: no edema Gastrointestinal (Abdomen): normal bowel sounds, soft, nontender, no hepatosplenomegaly Musculoskeletal: no cyanosis or clubbing, extremities motor strength 5/5 Skin: no rashes, warm and dry Neurologic: deep tendon reflexes 2+ bilaterally and moves all extremities Psychiatric: A+Ox3, euthymic affect Lymphatic: no cervical lymphadenopathy Results & Data Results & Data ([facility]) Vital Signs (Past 12 Hours) Vital Signs Temp Pulse Resp BP Pulse Ox 01/02/20 19:50 36.6 C 74 20 163/85 H 91 01/02/20 15:44 36.6 C 66 18 149/84 H 91 PG Care Time/CCT Total # of Minutes Spent Total Time Spent with Patient: Total time spent is greater than 50% in coordination of care (as documented) at patient's floor/unit and/or counseling patient: Coding Level of Care Code 66910 Subseq Hosp Care Lvl 3 Diagnoses CHF (congestive heart failure) I50.9 Heart failure chronicity: acute Heart failure type: unspecified Cardiomyopathy I42.9 Morbid obesity with BMI of 40.0-44.9, adult E66.01; Z68.41 Hypertension I10 Hypercholesteremia E78.00 Controlled type 2 diabetes mellitus with microalbuminuria E11.29; R80.9 Atrial fibrillation I48.91 Atrial fibrillation type: unspecified Leukocytosis D72.829 DVT prophylaxis Z29.9 Time Spent (min) 50 (1) CHF (congestive heart failure) Heart failure chronicity: acute Heart failure type: unspecified Qualified Code(s): I50.9 - Heart failure, unspecified (2) Atrial fibrillation Atrial fibrillation type: unspecified Qualified Code(s): I48.91 - Unspecified atrial fibrillation
[2020-01-02] MEDS: ATORVASTATIN 10 MG TAB PO SCH (21:49)
[2020-01-03] MEDS: APIXABAN 5 MG TABLET PO SCH ×2 (09:10→20:34)
[2020-01-03] MEDS: PANTOprazole 40 MG TAB PO SCH (09:10)
[2020-01-03] MEDS: GABAPENTIN 300 MG CAP PO SCH ×3 (09:10→20:35)
[2020-01-03 10:51] LABS: Hematocrit (blood only) 35.2 % (37-47); Hemoglobin 11.3 g/dL (12.0-16.0); Mean Corpuscular Hemoglobin 27.8 pg (25-34); Mean Corpuscular Hgb Conc 32.1 g/dL (32-36); Mean Corpuscular Volume 86.5 fL (80-100); Mean Platelet Volume 9.7 fL (7.4-10.4); Platelet Count 263 K/uL (130-400); RDW Coefficient of Variation 15.8 % (11.5-14.5); RDW Standard Deviation 49.6 fL (36.4-46.3); Red Blood Count 4.07 M/uL (4.2-5.4); White Blood Count 7.03 K/uL (4.8-10.8)
[2020-01-03] MEDS ORDERED: ALENDRONATE SODIUM 70 MG TAB PO ONE (11:00)
[2020-01-03 11:13] LABS: BUN Creatinine Ratio 17.7 (10-20); Calcium 8.7 mg/dl (8.5-10.1); Creatinine Clr Calc Pharmacy 38.7 ml/min; Est GFR (African American) 45.9; Est GFR (Non-African American) 39.6
[2020-01-03] MEDS ORDERED: METOPROLOL TARTRATE 100 MG TAB PO ONE (12:00)
[2020-01-03] MEDS: dilTIAZem HCL 300 MG CAPCR PO SCH (12:18)
--- NOTE | 2020-01-03 12:19 | Cardiology Consultation ---
Date of Consultation January 03, 2020 Assessment & Plan (1) Atrial fibrillation, new onset: She presented with atrial fibrillation last admission, the duration was not clear but evidently she has paroxysmal atrial fibrillation since she converted spontaneously to sinus rhythm, possibly being in it for around a week although that is not clear. She really was not aware of the rhythm either when it started or ended. She may have had at other times. Currently her rate is good in sinus rhythm on her current regimen, at the time of discharge last visit on her current regimen during atrial fibrillation her rate was adequately controlled. I would continue these medications. (2) SOB (shortness of breath): She presented in what seems to be congestive heart failure, her weight was elevated, she does have some kidney disease and her diuretics were held. She will probably need a diuretic and she does drink a lot of water. I do not think further evaluation is necessary however I do want to get an echocardiogram. (3) Cardiomyopathy: She had a mild cardiomyopathy on evaluation when she was in atrial fibrillation. I had intended to repeat that at some point, now that she is in sinus rhythm I would like to do that and I will order a limited echo. We should make sure that her ejection fraction has improved or at least stabilized, hopefully it has not decreased. (4) Anticoagulant long-term use: She was on Eliquis for history of DVT, that will work as well with the same dose for atrial fibrillation and she should continue it. History of Present Illness Reason for Consultation: Shortness of breath Attending Physician: Star Horton History of Present Illness This is an 84-year-old woman who has a history of diabetes mellitus, dyslipidemia and long-term anticoagulation due to DVT and pulmonary embolism in 2019. She presented December 24, 2019 with atrial fibrillation of uncertain duration, she was having some difficulty with fatigue and dyspnea on exertion however her presentation was prompted by having cataract surgery which was canceled when she was observed to be in atrial fibrillation. She had missed 1 dose of Eliquis on the morning of admission. We had evaluated her for possible pacemaker implantation due to the fact that she clearly has sick sinus syndrome, with heart rates quite low and pauses of 3 seconds when she was on metoprolol 100 mg twice a day and diltiazem 360 mg daily, at home she was on metoprolol 100 mg twice a day and diltiazem 240 mg daily but presented with a somewhat rapid heart rate during atrial fibrillation. With 360 mg of diltiazem being too much and 240 mg being too little she was treated with metoprolol 100 mg twice a day and diltiazem 300 mg daily. For several days in the hospital this seemed to give appropriate heart rate control. She was discharged with anticipation of seeing her in the office in several weeks to see whether cardioversion would be necessary. She presents now having woken up at night being very short of breath. She believes she converted back to sinus rhythm on the second day after going home although it is not clear, she does not have palpitations but she tells me that she felt well that day and she did come in in sinus rhythm here. She has not had lightheadedness or dizziness, she had no presyncope and has noted she does not get palpitations. She feels better now after initial diuresis. Allergies Allergy/AdvReac Type Severity Reaction Status Date / Time latex Allergy Mild REDNESS, Verified 01/02/20 06:17 RASH Sulfa (Sulfonamide AdvReac Intermediate MAKES HER Verified 01/02/20 06:17 Antibiotics) SICKER Home Medications Home Medications Medication Instructions Recorded Confirmed Type albuterol sulfate 90 mcg/actuation 1 puffs INH Q6H PRN #18 gm 01/03/19 01/02/20 Rx aerosol inhaler lancets #100 ea 01/03/19 09/25/19 Rx metoprolol tartrate 100 mg tablet 100 mg PO BID #180 tab 05/05/19 01/02/20 Rx alendronate 70 mg tablet 70 mg PO WEEKLY #12 tab 05/19/19 01/02/20 Rx atorvastatin 10 mg tablet 10 mg PO HS #90 tab 05/19/19 01/02/20 Rx blood sugar diagnostic #100 ea 08/29/19 09/25/19 Rx apixaban 5 mg tablet 5 mg PO BID #60 tab 09/25/19 01/02/20 Rx rabeprazole 20 mg PO QAM 11/27/19 01/02/20 History gabapentin 300 mg capsule 300 mg PO TID #270 cap 12/24/19 01/02/20 Rx diltiazem HCl 300 mg PO DAILY #30 cap 12/30/19 01/02/20 Rx losartan 25 mg PO HS #30 tab 12/30/19 01/02/20 Rx Patient History Medical History Controlled type 2 diabetes mellitus with microalbuminuria Deep vein thrombosis (02/2019) Feb 2019 after long car ride (provoked) Diverticulitis of colon GERD (gastroesophageal reflux disease) Greater trochanteric bursitis of right hip Hypercholesteremia Hypertension Lumbar spondylosis Osteoporosis Pulmonary embolism (02/2019) HISTORY OF Surgical History H/O cataract extraction left - Dr Collazo, 2019 H/O repair of rotator cuff LEFT History of appendectomy History of cardiac cath MORE THAN 5 YEARS AGO--WAS NEGATIVE ([facility]) History of cataract surgery LEFT History of cholecystectomy History of colonoscopy History of esophagogastroduodenoscopy (EGD) Family History Mother , age 42 from breast ca Breast cancer Son Deep vein thrombosis Father , age 52 from acute [place] Myocardial infarction Asthma Other Coronary heart disease Denies family history of Ovarian cancer Prostate cancer Colorectal cancer Social History Smoking Status: Former smoker Age Started Using Tobacco: 23; Age Quit Using Tobacco: 50; packs per day: 1; Second Hand Exposure: No; Do You Dip or Chew Tobacco: No; Tobacco Cessation Education Requested by Patient: No Hx Alcohol Use: No Hx Substance Use: No Preferred Language: [place]rugu[place] Communication Ability: Effective Visual Impairment: No Limitations Hearing Ability: Normal [employer] Required: No Beliefs That Will Affect Care: None marital status: marital status details: lives in [place] Current Living Situation: Spouse Current Living Situation Comment: LIVES WITH current occupational status: retired current occupation: worked at [employer] as a nurse How many Children do You have: 7 How many Children do You have Comment: 6 sons, 1 daughter Other Information That Helps Us Care for You: No Feels Safe at Home: Yes Safety Concerns: Feels Safe At This Time Seatbelt Use: always Sunscreen Use: Yes Review of Systems Review of Systems: All systems reviewed & are unremarkable except as noted in HPI & below Physical Exam Physical Exam: Constitutional: Alert, cooperative and in no distress. HEENT: Unremarkable Neck: No jugular venous distention, carotid pulses are normal and equal bilaterally without bruits. Pulmonary: Clear to auscultation bilaterally. Cardiac: Regular rhythm with no murmur, gallop or rub. Abdomen: Soft, nontender with normal bowel sounds. Extremities: No edema. Distal pulses intact. Neurologic: No focal findings. Gait is steady. Skin: No rash, ecchymoses or petechiae. Results & Data ([facility]) Vital Signs (Past 12 Hours) Vital Signs Temp Pulse Pulse Resp BP Pulse Ox 01/03/20 10:45 36.9 C 96 H 19 130/61 91 01/03/20 08:12 79 01/03/20 07:13 36.6 C 83 18 163/84 H 90 01/03/20 03:45 74 01/03/20 03:28 36.8 C 92 H 18 123/68 91 Laboratory Results CBC 01/03/20 Range/Units 10:40 WBC 7.03 (4.8-10.8) K/uL RBC 4.07 L (4.2-5.4) M/uL Hgb 11.3 L (12.0-16.0) g/dL Hct 35.2 L (37-47) % Plt Count 263 (130-400) K/uL Comprehensive Metabolic Panel 01/03/20 01/03/20 Range/Units 10:40 11:29 Sodium 139 (136-145) mmol/L Potassium 3.7 D (3.5-5.1) mmol/L Chloride 107 (98-107) mmol/L Carbon Dioxide 28 (21-32) mmol/L BUN 22 H (7-18) mg/dl Creatinine 1.26 H (0.6-1.2) mg/dl Glucose 241 H (70-99) mg/dl Calcium 8.7 (8.5-10.1) mg/dl Intake and Output 01/02/20 01/03/20 01/03/20 22:59 06:59 14:59 Intake Total 540 / 740 200 / 740 Output Total 700 / 1100 400 / 1100 Balance -160 / -360 -200 / -360 Intake: Oral 540 / 740 200 / 740 Output: Urine 700 / 1100 400 / 1100 Other: Weight 102.9 kg Diagnostic Findings Telemetry: Sinus rhythm rate typically 70-80, no atrial fibrillation PG Care Time/CCT Total # of Minutes Spent Total Time Spent with Patient: Total time spent is greater than 50% in coordination of care (as documented) at patient's floor/unit and/or counseling patient: Coding Level of Care Code 53740 Initial Inpt Care Lvl 3 Diagnoses Atrial fibrillation, new onset I48.91 SOB (shortness of breath) R06.02 Cardiomyopathy I42.9 Anticoagulant long-term use Z79.01
[2020-01-03] MEDS: POTASSIUM CHLORIDE 20 MEQ TABCR PO SCH ×2 (12:27→20:35)
[2020-01-03] MEDS ORDERED: FUROSEMIDE 40 MG in SYRINGE 0 ML IV ONE (12:30)
[2020-01-03] MEDS: ATORVASTATIN 10 MG TAB PO SCH (20:34)
--- NOTE | 2020-01-03 22:07 | Hospitalist Progress Note ---
Date of Service January 03, 2020 Assessment & Plan (1) CHF (congestive heart failure): Acute Systolic CHF It appears this is likely the main cause as she has been off diuretics. - Patient received one dose of IV lasix, will monitor. -Will likely need to monitor her weight at home, it is not quite at her baseline from discharge. Once she is home will place on oral lasix. - (2) Cardiomyopathy: As stated above (3) Morbid obesity with BMI of 40.0-44.9, adult: recommend lifestyle changes (4) Hypertension: will hold alyce inhibitor and diltiazem in acute CHF. will restart likely tomorrow (5) Hypercholesteremia: resyme home meds (6) Controlled type 2 diabetes mellitus with microalbuminuria: HbA1C was 6.8% on 12/18/2019. Diet-controlled at home. - DM diet - Sliding scale insulin -> Sugars mildly high in last 24 hours. (7) Atrial fibrillation: New-onset, perhaps 3-4 days ago based on her home HR readings (usually runs 50-60 BPM; then increased to 80s/90s a few days ago). Echo on 12/25/2019 showed EF 45%, thought tachycardia-related. - Continue diltiazem CD 300 mg daily & metoprolol 100 mg PO BID - With some elements of tachy-mynor -> Plan for possible pacemaker eventually. - Will follow up with Dr. Casper as outpatient. - Restarted apixaban for anticoagulation (8) Leukocytosis: May be reactive - Follow -> Improving (9) DVT prophylaxis: Deep vein thrombosis: History of DVT and PE in 2019. - Continue anticoagulation (10) Hypokalemia: low normal, will replace as given another dose of lasix. Admission and Anticipated Discharge Date Admission Date: January 02, 2020 Subjective 84 yo female reports feeling better. She has no new complaints. Her breathing has improved, but she is not at baseline. Review of Systems Review of Systems: All systems reviewed & are unremarkable except as noted in HPI & below Physical Exam Physical Exam: Constitutional: + morbidly obese; no acute distress and no altered mental status Eyes: PERRL (lens implant L; cataract shadow R) ENMT: external ear and nose normal, oropharynx normal Neck: trachea midline, no thyromegaly Respiratory: no respiratory distress Auscultation: + diminished lung sounds (bases) and + rales (fine, bases); no wheezes Cardiovascular: Rate/Rhythm: regular rate Heart Sounds: normal S1 and normal S2; no murmur Vessels: posterior tibial pulses present and dorsalis pedis pulses present; no JVD (difficult to assess due to neck size) Extremities: no edema Gastrointestinal (Abdomen): normal bowel sounds, soft, nontender, no hepatosplenomegaly Musculoskeletal: no cyanosis or clubbing, extremities motor strength 5/5 Skin: no rashes, warm and dry Neurologic: deep tendon reflexes 2+ bilaterally and moves all extremities Psychiatric: A+Ox3, euthymic affect Lymphatic: no cervical lymphadenopathy Results & Data Results & Data ([facility]) Vital Signs (Past 12 Hours) Vital Signs Temp Pulse Pulse Pulse Resp BP Pulse Ox 01/03/20 19:07 36.8 C 61 17 145/79 H 91 01/03/20 15:39 36.5 C 64 19 143/80 H 93 01/03/20 14:51 65 01/03/20 10:45 36.9 C 96 H 19 130/61 91 PG Care Time/CCT Total # of Minutes Spent Total Time Spent with Patient: Total time spent is greater than 50% in coordination of care (as documented) at patient's floor/unit and/or counseling patient: Coding Level of Care Code 09551 Subseq Hosp Care Lvl 3 Diagnoses CHF (congestive heart failure) I50.9 Heart failure chronicity: acute Heart failure type: unspecified Cardiomyopathy I42.9 Morbid obesity with BMI of 40.0-44.9, adult E66.01; Z68.41 Hypertension I10 Hypercholesteremia E78.00 Controlled type 2 diabetes mellitus with microalbuminuria E11.29; R80.9 Atrial fibrillation I48.91 Atrial fibrillation type: unspecified Leukocytosis D72.829 DVT prophylaxis Z29.9 Hypokalemia E87.6 Time Spent (min) 35 (1) CHF (congestive heart failure) Heart failure chronicity: acute Heart failure type: unspecified Qualified Code(s): I50.9 - Heart failure, unspecified (2) Atrial fibrillation Atrial fibrillation type: unspecified Qualified Code(s): I48.91 - Unspecified atrial fibrillation
[2020-01-04] MEDS: PANTOprazole 40 MG TAB PO SCH (08:44)
[2020-01-04] MEDS: APIXABAN 5 MG TABLET PO SCH ×2 (08:44→20:42)
[2020-01-04] MEDS: dilTIAZem HCL 300 MG CAPCR PO SCH (08:44)
[2020-01-04] MEDS: POTASSIUM CHLORIDE 20 MEQ TABCR PO SCH (08:44)
[2020-01-04] MEDS: GABAPENTIN 300 MG CAP PO SCH ×3 (08:44→20:42)
[2020-01-04 08:52] LABS: BUN Creatinine Ratio 20.6 (10-20); Calcium 8.7 mg/dl (8.5-10.1); Creatinine Clr Calc Pharmacy 41.9 ml/min; Est GFR (African American) 50.8; Est GFR (Non-African American) 43.8; Potassium 4.6 mmol/L (3.5-5.1)
--- NOTE | 2020-01-04 10:35 | XCELERA ---
[id number]
[2020-01-04] MEDS ORDERED: FUROSEMIDE 40 MG in SYRINGE 0 ML IV ONE ×2 (13:30→13:45)
--- NOTE | 2020-01-04 14:39 | Cardiology Progress Note ---
Date of Service January 04, 2020 Assessment & Plan (1) Atrial fibrillation, new onset: She presented with atrial fibrillation last admission, the duration was not clear but evidently she has paroxysmal atrial fibrillation since she converted spontaneously to sinus rhythm, possibly being in it for around a week although that is not clear. She really was not aware of the rhythm either when it started or ended. She may have had it at other times. Currently her rate is good in sinus rhythm on her current regimen, at the time of discharge last visit on her current regimen during atrial fibrillation her rate was adequately controlled. I would continue these medications. (2) SOB (shortness of breath): She presented in what seems to be congestive heart failure, her weight was elevated, she does have some kidney disease and her diuretics were held. She will probably need a diuretic and she does drink a lot of water. I do not think further evaluation is necessary, it does not represent worsening of her left ventricular function although she could have some diastolic dysfunction. (3) Cardiomyopathy: She had a mild cardiomyopathy on evaluation when she was in atrial fibrillation. I had intended to repeat that at some point, now that she is in sinus rhythm her left ventricular function is measured as normal. I would continue her current medical regimen but not adjusted for left ventricular dysfunction observed in the past. (4) Anticoagulant long-term use: She was on Eliquis for history of DVT, that will work as well with the same dose for atrial fibrillation and she should continue it. Admission and Anticipated Discharge Date Admission Date: January 02, 2020 Subjective She is feeling much better today, no significant shortness of breath. No palpitations. Physical Exam Physical Exam: Constitutional: Alert, cooperative and in no distress. HEENT: Unremarkable Neck: No jugular venous distention, carotid pulses are normal and equal bilaterally without bruits. Pulmonary: Clear to auscultation bilaterally. Cardiac: Regular rhythm with no murmur, gallop or rub. Abdomen: Soft, nontender with normal bowel sounds. Extremities: No edema. Distal pulses intact. Neurologic: No focal findings. Gait is steady. Skin: No rash, ecchymoses or petechiae. Results & Data ([facility]) Vital Signs (Past 12 Hours) Vital Signs Temp Pulse Pulse Resp BP Pulse Ox 01/04/20 12:08 36.5 C 60 18 163/76 H 94 01/04/20 07:55 36.4 C L 66 16 164/72 H 92 01/04/20 07:54 54 L 01/04/20 03:53 36.4 C L 58 L 146/34 H 96 Laboratory Results Comprehensive Metabolic Panel 01/04/20 Range/Units 07:36 Sodium 141 (136-145) mmol/L Potassium 4.6 D (3.5-5.1) mmol/L Chloride 105 (98-107) mmol/L Carbon Dioxide 32 (21-32) mmol/L BUN 24 H (7-18) mg/dl Creatinine 1.16 (0.6-1.2) mg/dl Glucose 92 (70-99) mg/dl Calcium 8.7 (8.5-10.1) mg/dl Intake and Output 01/03/20 01/04/20 01/04/20 22:59 06:59 14:59 Intake Total 360 / 1290 200 / 1290 Output Total 999 Balance -640 / -710 -200 / -710 Intake: Oral 360 / 1290 200 / 1290 Output: Urine 999 Other: Weight 102.1 kg Diagnostic Findings Telemetry: Sinus rhythm, rate 50-60, PVCs PG Care Time/CCT Total # of Minutes Spent Total Time Spent with Patient: Total time spent is greater than 50% in coordination of care (as documented) at patient's floor/unit and/or counseling patient: Coding Level of Care Code 01338 Subseq Hosp Care Lvl 2 Diagnoses Atrial fibrillation, new onset I48.91 SOB (shortness of breath) R06.02 Cardiomyopathy I42.9 Anticoagulant long-term use Z79.01
[2020-01-04] MEDS ORDERED: POLYETHYLENE (MIRALAX) 17 GM PACK PO PRN (15:01)
[2020-01-04] MEDS: ATORVASTATIN 10 MG TAB PO SCH (20:42)
--- NOTE | 2020-01-04 22:42 | Hospitalist Progress Note ---
Date of Service January 04, 2020 Assessment & Plan (1) CHF (congestive heart failure): Acute Systolic CHF It appears this is likely the main cause as she has been off diuretics. - Patient has required a dose of lasix each day. Will given an additonal dose of lasix, she is not quite at her dry weight as of yet. -Will likely need to monitor her weight at home, it is not quite at her baseline from discharge. Once she is home will place on oral lasix. - (2) Cardiomyopathy: As stated above (3) Morbid obesity with BMI of 40.0-44.9, adult: recommend lifestyle changes (4) Hypertension: restarted her diltiazem. (5) Hypercholesteremia: resyme home meds (6) Controlled type 2 diabetes mellitus with microalbuminuria: HbA1C was 6.8% on 12/18/2019. Diet-controlled at home. - DM diet - Sliding scale insulin -> Sugars mildly high in last 24 hours. (7) Atrial fibrillation: New-onset, perhaps 3-4 days ago based on her home HR readings (usually runs 50-60 BPM; then increased to 80s/90s a few days ago). Echo on 12/25/2019 showed EF 45%, thought tachycardia-related. - Continue diltiazem CD 300 mg daily & metoprolol 100 mg PO BID - With some elements of tachy-mynor -> Plan for possible pacemaker eventually. - Will follow up with Dr. Casper as outpatient. - Restarted apixaban for anticoagulation (8) Leukocytosis: May be reactive - Follow -> Improving (9) DVT prophylaxis: Deep vein thrombosis: History of DVT and PE in 2019. - Continue anticoagulation (10) Hypokalemia: low normal, will replace as given another dose of lasix. Admission and Anticipated Discharge Date Admission Date: January 02, 2020 Subjective 84 YO female reports feeling better. She is not quite at baseline as of yet. She reports she does not wear oxygen at night. Overnight, she has been having hypoxic events and required 2 liter nasal cannula overnight. Review of Systems Review of Systems: Constitutional: + weight gain on admssion, this is improving; no fever, no chills and no anorexia Eyes: cataract extraction - Left - recent; improved vision w/ such Ear, Nose, Mouth, Throat: no sore throat no loss of taste or smell Respiratory: no sputum production Cardiovascular: no chest pain, no orthopnea, no paroxysmal nocturnal dyspnea and no edema Gastrointestinal: no abdominal pain, no vomiting and no diarrhea/loose stools Genitourinary: no dysuria Musculoskeletal: + back pain (chronic ) and + joint pain (hips, etc) Integumentary: no rash Neurologic: no loss of sensation Psychiatric: no depression Endocrine: diet-controlled DM -- 120s or less Hematologic / Lymphatic: no easy bleeding and no easy bruising Physical Exam Physical Exam: Constitutional: + morbidly obese; no acute distress and no altered mental status Eyes: PERRL (lens implant L; cataract shadow R) ENMT: external ear and nose normal, oropharynx normal Neck: trachea midline, no thyromegaly Respiratory: no respiratory distress Auscultation: + diminished lung sounds (bases) and + rales (fine, bases); no wheezes Cardiovascular: Rate/Rhythm: regular rate Heart Sounds: normal S1 and normal S2; no murmur Vessels: posterior tibial pulses present and dorsalis pedis pulses present; no JVD (difficult to assess due to neck size) Extremities: no edema Gastrointestinal (Abdomen): normal bowel sounds, soft, nontender, no hepatosplenomegaly Musculoskeletal: no cyanosis or clubbing, extremities motor strength 5/5 Skin: no rashes, warm and dry Neurologic: deep tendon reflexes 2+ bilaterally and moves all extremities Psychiatric: A+Ox3, euthymic affect Lymphatic: no cervical lymphadenopathy Results & Data Results & Data ([facility]) Vital Signs (Past 12 Hours) Vital Signs Temp Pulse Pulse Pulse Resp BP Pulse Ox 01/04/20 21:12 75 01/04/20 19:52 36.7 C 66 18 137/78 92 01/04/20 16:14 36.7 C 65 18 138/76 90 01/04/20 14:58 57 L 01/04/20 12:08 36.5 C 60 18 163/76 H 94 Pulse Ox 01/04/20 21:12 94 01/04/20 19:52 01/04/20 16:14 01/04/20 14:58 01/04/20 12:08 PG Care Time/CCT Total # of Minutes Spent Total Time Spent with Patient: Total time spent is greater than 50% in coordination of care (as documented) at patient's floor/unit and/or counseling patient: Coding Level of Care Code 97290 Subseq Hosp Care Lvl 2 Diagnoses CHF (congestive heart failure) I50.9 Heart failure chronicity: acute Heart failure type: unspecified Cardiomyopathy I42.9 Morbid obesity with BMI of 40.0-44.9, adult E66.01; Z68.41 Hypertension I10 Hypercholesteremia E78.00 Controlled type 2 diabetes mellitus with microalbuminuria E11.29; R80.9 Atrial fibrillation I48.91 Atrial fibrillation type: unspecified Leukocytosis D72.829 DVT prophylaxis Z29.9 Hypokalemia E87.6 Time Spent (min) 25 (1) CHF (congestive heart failure) Heart failure chronicity: acute Heart failure type: unspecified Qualified Code(s): I50.9 - Heart failure, unspecified (2) Atrial fibrillation Atrial fibrillation type: unspecified Qualified Code(s): I48.91 - Unspecified atrial fibrillation
[2020-01-05] MEDS: dilTIAZem HCL 300 MG CAPCR PO SCH (08:16)
[2020-01-05] MEDS: PANTOprazole 40 MG TAB PO SCH (08:16)
[2020-01-05] MEDS: APIXABAN 5 MG TABLET PO SCH (08:16)
[2020-01-05] MEDS: GABAPENTIN 300 MG CAP PO SCH ×2 (08:16→14:42)
--- NOTE | 2020-01-05 09:46 | Heart Failure Consultation ---
Date of Consultation January 05, 2020 Assessment & Plan (1) Acute diastolic (congestive) heart failure: Patient has been referred to the heart failure program by the hospitalist service. Patient presented with weight gain and shortness of breath. She is feeling improved symptomatically. She has been treated with IV Lasix and has had a good response. She is net negative 2.3 L and weight is down more than 10 lb. She is sitting at the bedside today and has no complaints. She has been in sin us rhythm with adequate rate control since admission. Kidney function has improved with diuretics. Patient was previously on HCTZ which was stopped and is likely the cause of her current decompensation. We discussed the nature of heart failure and the goals of the program. She is agreeable to participation. Will plan to follow at least for the transition phase (30 days) and determine if she would benefit from further involvement pending her clinical course. Would recommend discharge on oral diuretics, Lasix 40 mg daily to start. Plan to repeat BMP/magnesium later this week. Follow up has been established for 01/07 at 1400. Patient aware. - Daily standing weights. Notify heart failure program of 2+ lb weight gain overnight or 5+ lb in 1 week. Dry weight 222 lb for now. - Low sodium diet, less than 2,000 mg daily. - Follow up 01/07 as scheduled with labs prior. - Care coordination following. History of Present Illness Attending Physician: Star Horton Allergies Allergy/AdvReac Type Severity Reaction Status Date / Time latex Allergy Mild REDNESS, Verified 01/02/20 06:17 RASH Sulfa (Sulfonamide AdvReac Intermediate MAKES HER Verified 01/02/20 06:17 Antibiotics) SICKER Home Medications Home Medications Medication Instructions Recorded Confirmed Type albuterol sulfate 90 mcg/actuation 1 puffs INH Q6H PRN #18 gm 01/03/19 01/02/20 Rx aerosol inhaler lancets #100 ea 01/03/19 09/25/19 Rx metoprolol tartrate 100 mg tablet 100 mg PO BID #180 tab 05/05/19 01/02/20 Rx alendronate 70 mg tablet 70 mg PO WEEKLY #12 tab 05/19/19 01/02/20 Rx atorvastatin 10 mg tablet 10 mg PO HS #90 tab 05/19/19 01/02/20 Rx blood sugar diagnostic #100 ea 08/29/19 09/25/19 Rx apixaban 5 mg tablet 5 mg PO BID #60 tab 09/25/19 01/02/20 Rx rabeprazole 20 mg PO QAM 11/27/19 01/02/20 History gabapentin 300 mg capsule 300 mg PO TID #270 cap 12/24/19 01/02/20 Rx diltiazem HCl 300 mg PO DAILY #30 cap 12/30/19 01/02/20 Rx losartan 25 mg PO HS #30 tab 12/30/19 01/02/20 Rx Patient History Medical History Controlled type 2 diabetes mellitus with microalbuminuria Deep vein thrombosis (02/2019) Feb 2019 after long car ride (provoked) Diverticulitis of colon GERD (gastroesophageal reflux disease) Greater trochanteric bursitis of right hip Hypercholesteremia Hypertension Lumbar spondylosis Osteoporosis Pulmonary embolism (02/2019) HISTORY OF Surgical History H/O cataract extraction left - Dr Collazo, 2019 H/O repair of rotator cuff LEFT History of appendectomy History of cardiac cath MORE THAN 5 YEARS AGO--WAS NEGATIVE ([facility]) History of cataract surgery LEFT History of cholecystectomy History of colonoscopy History of esophagogastroduodenoscopy (EGD) Family History Mother , age 42 from breast ca Breast cancer Son Deep vein thrombosis Father , age 52 from acute [place] Myocardial infarction Asthma Other Coronary heart disease Denies family history of Ovarian cancer Prostate cancer Colorectal cancer Social History Smoking Status: Former smoker Age Started Using Tobacco: 23; Age Quit Using Tobacco: 50; packs per day: 1; Second Hand Exposure: No; Do You Dip or Chew Tobacco: No; Tobacco Cessation Education Requested by Patient: No Hx Alcohol Use: No Hx Substance Use: No Preferred Language: Spanish Communication Ability: Effective Visual Impairment: No Limitations Hearing Ability: Normal 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 Beliefs That Will Affect Care: None marital status: marital status details: lives in [place] Current Living Situation: Spouse Current Living Situation Comment: LIVES WITH current occupational status: retired current occupation: worked at [employer] as a nurse How many Children do You have: 7 How many Children do You have Comment: 6 sons, 1 daughter Other Information That Helps Us Care for You: No Feels Safe at Home: Yes Safety Concerns: Feels Safe At This Time Seatbelt Use: always Sunscreen Use: Yes Results & Data ([facility]) Vital Signs (Past 12 Hours) Vital Signs Temp Pulse Pulse Pulse Pulse Resp BP 01/05/20 08:00 73 01/05/20 07:08 97.7 F 61 16 01/05/20 03:53 61 01/05/20 02:39 97.9 F 71 16 01/05/20 00:00 58 L 01/04/20 23:20 68 67 01/04/20 23:07 97.7 F 70 16 128/69 01/04/20 22:30 65 BP Pulse Ox Pulse Ox Pulse Ox 01/05/20 08:00 01/05/20 07:08 144/76 H 91 01/05/20 03:53 97 01/05/20 02:39 152/81 H 95 01/05/20 00:00 01/04/20 23:20 92 75 L 01/04/20 23:07 91 01/04/20 22:30 88 L Coding Level of Care Code None Diagnoses Acute diastolic (congestive) heart failure I50.31
[2020-01-05 10:52] LABS: BUN Creatinine Ratio 22.4 (10-20); Calcium 8.6 mg/dl (8.5-10.1); Creatinine Clr Calc Pharmacy 43.1 ml/min; Est GFR (Non-African American) 45.7; Potassium 3.8 mmol/L (3.5-5.1)
[2020-01-05] MEDS ORDERED: FUROSEMIDE 40 MG TAB PO ONE (13:41)
--- NOTE | 2020-01-08 13:33 | History & Physical Report ---
Date of Service January 02, 2020 Assessment & Plan (1) CHF (congestive heart failure): Acute Systolic CHF It appears this is likely the main cause as she has been off diuretics. - Patient received one dose of IV lasix, will monitor. -Will likely need to monitor her weight at home clsoer, her diet, and place on oral lasix. (2) Cardiomyopathy: As stated above (3) Morbid obesity with BMI of 40.0-44.9, adult: recommend lifestyle changes (4) Hypertension: WILL HOLD her diltiazem as she is in CHF (5) Hypercholesteremia: resume home meds (6) Controlled type 2 diabetes mellitus with microalbuminuria: HbA1C was 6.8% on 12/18/2019. Diet-controlled at home. - DM diet - Sliding scale insulin -> Sugars mildly high in last 24 hours. (7) Atrial fibrillation: New-onset, perhaps 3-4 days ago based on her home HR readings (usually runs 50-60 BPM; then increased to 80s/90s a few days ago). Echo on 12/25/2019 showed EF 45%, thought tachycardia-related. - Continue diltiazem CD 300 mg daily & metoprolol 100 mg PO BID - With some elements of tachy-mynor -> Plan for possible pacemaker eventually. - Will follow up with Dr. Casper as outpatient. - Restarted apixaban for anticoagulation (8) Leukocytosis: May be reactive - willmonitor (9) DVT prophylaxis: Deep vein thrombosis: History of DVT and PE in 2019. - Continue anticoagulation (10) Hypokalemia: low normal, will replace as given another dose of lasix. Admission and Anticipated Discharge Date Admission Date: January 02, 2020 History of Present Illness . Chief Complaint: SOB Primary Care Provider: Rashad Parsons MD 84yo female with history of DVT and PE on eliquis who was recently discharged for new onset atrial fibrillation. There was question in the last admission if patient was having CHF, however due to developing azotemia, and not requiring diuretics for a few days, it was determined that diuretics were held. She reports that he weight has increased abot 1- punds since discharge. reports that this AM she felt SOB when she was lying in bed. Due to her SOB, she decided to come back to the ER. Patient did not take her BP meds this AM. Allergies Allergy/AdvReac Type Severity Reaction Status Date / Time latex Allergy Mild REDNESS, Verified 01/08/20 13:12 RASH Sulfa (Sulfonamide AdvReac Intermediate MAKES HER Verified 01/08/20 13:12 Antibiotics) SICKER Home Medications Home Medications Medication Instructions Recorded Confirmed Type albuterol sulfate 90 mcg/actuation 1 puffs INH Q6H PRN #18 gm 01/03/19 01/08/20 Rx aerosol inhaler lancets #100 ea 01/03/19 01/08/20 Rx alendronate 70 mg tablet 70 mg PO WEEKLY #12 tab 05/19/19 01/08/20 Rx atorvastatin 10 mg tablet 10 mg PO HS #90 tab 05/19/19 01/08/20 Rx blood sugar diagnostic #100 ea 08/29/19 01/08/20 Rx apixaban 5 mg tablet 5 mg PO BID #60 tab 09/25/19 01/08/20 Rx rabeprazole 20 mg PO QAM 11/27/19 01/08/20 History gabapentin 300 mg capsule 300 mg PO TID #270 cap 12/24/19 01/08/20 Rx diltiazem HCl 300 mg PO DAILY #30 cap 12/30/19 01/08/20 Rx losartan 25 mg PO HS #30 tab 12/30/19 01/08/20 Rx furosemide 40 mg PO DAILY #30 tab 01/05/20 01/08/20 Rx metoprolol tartrate 100 mg PO HS #30 tab 01/05/20 01/08/20 Rx Past Med/Surg History Medical History Controlled type 2 diabetes mellitus with microalbuminuria Deep vein thrombosis (02/2019) Feb 2019 after long car ride (provoked) Diverticulitis of colon GERD (gastroesophageal reflux disease) Greater trochanteric bursitis of right hip Hypercholesteremia Hypertension Hypoxia Lumbar spondylosis Osteoporosis Pulmonary embolism (02/2019) HISTORY OF Surgical History H/O cataract extraction left - Dr Collazo, 2019 H/O repair of rotator cuff LEFT History of appendectomy History of cardiac cath MORE THAN 5 YEARS AGO--WAS NEGATIVE ([facility]) History of cataract surgery LEFT History of cholecystectomy History of colonoscopy History of esophagogastroduodenoscopy (EGD) Family History Mother , age 42 from breast ca Breast cancer Son Deep vein thrombosis Father , age 52 from acute [place] Myocardial infarction Asthma Other Coronary heart disease Denies family history of Ovarian cancer Prostate cancer Colorectal cancer Social History Smoking Status: Former smoker Age Started Using Tobacco: 23; Age Quit Using Tobacco: 50; packs per day: 1; Second Hand Exposure: No; Hx Alcohol Use: No Hx Substance Use: No Preferred Language: Lithuanian Communication Ability: Effective Visual Impairment: No Limitations Hearing Ability: Normal Law Professor Required: No Beliefs That Will Affect Care: None marital status: marital status details: lives in [place] Current Living Situation: Spouse Current Living Situation Comment: LIVES WITH current occupational status: 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 Children do You have: 7 How many Children do You have Comment: 6 sons, 1 daughter Feels Safe at Home: Yes Seatbelt Use: always Sunscreen Use: Yes Review of Systems Review of Systems: Constitutional: + weight gain,no fever, no chills and no anorexia Eyes: cataract extraction - Left - recent; improved vision w/ such Ear, Nose, Mouth, Throat: no sore throat no loss of taste or smell Respiratory: no sputum production Cardiovascular: no chest pain, no orthopnea, no paroxysmal nocturnal dyspnea and no edema Gastrointestinal: no abdominal pain, no vomiting and no diarrhea/loose stools Genitourinary: no dysuria Musculoskeletal: + back pain (chronic ) and + joint pain (hips, etc) Integumentary: no rash Neurologic: no loss of sensation Psychiatric: no depression Endocrine: diet-controlled DM -- 120s or less Hematologic / Lymphatic: no easy bleeding and no easy bruising Physical Exam Physical Exam: Constitutional: + morbidly obese; no acute distress and no altered mental status Eyes: PERRL (lens implant L; cataract shadow R) ENMT: external ear and nose normal, oropharynx normal Neck: trachea midline, no thyromegaly Respiratory: no respiratory distress Auscultation: + diminished lung sounds (bases) and + rales (fine, bases); no wheezes Cardiovascular: Rate/Rhythm: regular rate Heart Sounds: normal S1 and normal S2; no murmur Vessels: posterior tibial pulses present and dorsalis pedis pulses present; no JVD (difficult to assess due to neck size) Extremities: no edema Gastrointestinal (Abdomen): normal bowel sounds, soft, nontender, no hepatosp lenomegaly Musculoskeletal: no cyanosis or clubbing, extremities motor strength 5/5 Skin: no rashes, warm and dry Neurologic: deep tendon reflexes 2+ bilaterally and moves all extremities Psychiatric: A+Ox3, euthymic affect Lymphatic: no cervical lymphadenopathy PG Care Time/CCT Total # of Minutes Spent Total Time Spent with Patient: Total time spent is greater than 50% in coordination of care (as documented) at patient's floor/unit and/or counseling patient: Coding Level of Care Code 24925 Initial Inpt Care Lvl 3 Diagnoses CHF (congestive heart failure) I50.9 Heart failure chronicity: acute Heart failure type: unspecified Cardiomyopathy I42.9 Morbid obesity with BMI of 40.0-44.9, adult E66.01; Z68.41 Hypertension I10 Hypercholesteremia E78.00 Controlled type 2 diabetes mellitus with microalbuminuria E11.29; R80.9 Atrial fibrillation I48.91 Atrial fibrillation type: unspecified Leukocytosis D72.829 DVT prophylaxis Z29.9 Hypokalemia E87.6 Time Spent (min) 50 (1) CHF (congestive heart failure) Heart failure chronicity: acute Heart failure type: unspecified Qualified Code(s): I50.9 - Heart failure, unspecified (2) Atrial fibrillation Atrial fibrillation type: unspecified Qualified Code(s): I48.91 - Unspecified atrial fibrillation
--- NOTE | 2020-01-08 13:36 | Discharge Summary ---
Date of Service January 05, 2020 Admission HPI Per Admitting Provider 84yo female with history of DVT and PE on eliquis who was recently discharged for new onset atrial fibrillation. There was question in the last admission if patient was having CHF, however due to developing azotemia, and not requiring diuretics for a few days, it was determined that diuretics were held. She reports that he weight has increased abot 1- punds since discharge. Sh reports that this AM she felt SOB when she was lying in bed. Due to her SOB, she decided to come back to the ER. Patient did not take her BP meds this AM. Principal Diagnosis Acute diastolic CHF Discharge Exam Constitutional: + morbidly obese; no acute distress and no altered mental status Eyes: PERRL (lens implant L; cataract shadow R) ENMT: external ear and nose normal, oropharynx normal Neck: trachea midline, no thyromegaly Respiratory: no respiratory distress Auscultation: + diminished lung sounds (bases) and + rales (fine, bases); no wheezes Cardiovascular: Rate/Rhythm: regular rate Heart Sounds: normal S1 and normal S2; no murmur Vessels: posterior tibial pulses present and dorsalis pedis pulses present; no JVD (difficult to assess due to neck size) Extremities: no edema Gastrointestinal (Abdomen): normal bowel sounds, soft, nontender, no hepatosplenomegaly Musculoskeletal: no cyanosis or clubbing, extremities motor strength 5/5 Skin: no rashes, warm and dry Neurologic: deep tendon reflexes 2+ bilaterally and moves all extremities Psychiatric: A+Ox3, euthymic affect Lymphatic: no cervical lymphadenopath Discharge Data Allergies Allergy/AdvReac Type Severity Reaction Status Date / Time latex Allergy Mild REDNESS, Verified 01/08/20 13:12 RASH Sulfa (Sulfonamide AdvReac Intermediate MAKES HER Verified 01/08/20 13:12 Antibiotics) SICKER Consultations 01/02/20 08:14 ED Decision to Admit Stat 01/03/20 12:10 Consult Cardiology Routine Hospital Course (1) CHF (congestive heart failure): Acute Diastolic CHF Echo improved. Creatinine function improved on diuretics It appears this is likely the main cause as she has been off diuretics. - Patient has required a dose of lasix each day. Will need to fu with CHF clinic -Will need to monitor her weight at home, will place on oral lasix for discharge. - (2) Cardiomyopathy: As stated above (3) Morbid obesity with BMI of 40.0-44.9, adult: recommend lifestyle changes (4) Hypertension: restarted her diltiazem. (5) Hypercholesteremia: resyme home meds (6) Controlled type 2 diabetes mellitus with microalbuminuria: HbA1C was 6.8% on 12/18/2019. Diet-controlled at home. - DM diet - Sliding scale insulin -> Sugars mildly high in last 24 hours. (7) Atrial fibrillation: New-onset, perhaps 3-4 days ago based on her home HR readings (usually runs 50-60 BPM; then increased to 80s/90s a few days ago). Echo on 12/25/2019 showed EF 45%, thought tachycardia-related. - Continue diltiazem CD 300 mg daily & metoprolol 100 mg PO BID - With some elements of tachy-mynor -> Plan for possible pacemaker eventually. - Will follow up with Dr. Casper as outpatient. - Restarted apixaban for anticoagulation (8) Leukocytosis: May be reactive - Follow -> Improving CKD Stage 3 will monitor as outpatient (9) DVT prophylaxis: Deep vein thrombosis: History of DVT and PE in 2019. - Continue anticoagulation (10) Hypokalemia: replaced Total Time Total Time Spent Total Time Spent (In Minutes): 32 Total Time Includes: Examination of the Patient, Discharge Planning and Medication Reconciliation Discharge Plan Discharge Items Patient Disposition: Home - Self-Care Reason For Visit: PULMONARY EDEMA,POSSIBLE CHF Discharge Diagnosis: Diastolic CHF Activity: Resume your previous activity Non-emergency contact: Primary Care Provider Call non-emergency contact if: you have any medication questions Follow-up/Referrals: Rashad Parsons III, MD [Primary Care Provider] - 01/08/20 1:30 pm Regina Alexander PA-C [Physician Munitions Factory Worker] - 01/08/20 2:00 pm (Congestive Heart Failure Program Appointment Information Early follow up is essential to managing your heart failure. An appointment has been scheduled for you with the [facility] within 7 days of discharge. Anticipate this visit to be 30-60 minutes long. Please expect a orthodontic band maker phone call from one of our nurses approximately 48 hours from discharge. They will also be placing an order for lab work to be completed 1-2 days prior to your heart failure follow up appointment. Please be sure to have this done so we can go over the results when you come in. Office Location The cardiology office building is located in front of the hospital at [address] Bring the following with you to your follow-up doctor appointments: Please bring your daily weight log any discharge paperwork all of your medication bottles with you to this visit. ) Diet: Low Sodium (2gm) Addtl Attending Provider Instructions: You will be starting on furosemide which si adiuretic. And we will check your blood work in about 5-7 days to reassess Addtl Screw Machine Adjuster Automatic Provider Instructions: Call your Primary Care doctor if any of the following symptoms or problems start or get worse: * Shortness of breath or difficulty breathing * Wake up at night short of breath * Chest pain * Cough * Swelling of your hands, feet, or legs * More fatigued or tired with your normal activity * Palpitations - sudden fast heart beats WEIGHT * Weigh yourself every morning after using the bathroom. * Use the same scale. * Wear the same amount of clothing. * Write your weight down on a chart. * Call your Primary Care doctor if you gain more than 2-3 pounds in 1-2 days. MEDICATIONS * Use this discharge instruction sheet for medication instructions. * Take your medications at the time your doctor ordered. * Do not skip a dose of your medicines. * If you miss a dose of medicine, take it as soon as possible, but DO NOT DOUBLE A DOSE. * Read your medicine information when you get home. * Know all of the side effects of your medicine. If in doubt, ask your pharmacist * Call your Primary Care doctor's office if you have any side effects. * Be sure all of your doctors know what medicine and herbs you take (including cold, flu, and herbal medicine). Take the following with you to your follow-up doctor appointments: * Weight Chart * Medication List * List of questions Do not drink excessive alcohol, beer or wine. Pending Studies at Discharge: No Stand-Alone Forms: [employer], Smoking Cessation Medications and DC Order Prescriptions: New metoprolol tartrate 100 mg tablet 100 mg PO HS Qty: 30 RF: 0 furosemide 40 mg tablet 40 mg PO DAILY Qty: 30 RF: 0 Continued (DME) OneTouch Ultra Blue Test Strip Strip See Dose Instructions .ROUTE .MEDSUPPLY Qty: 100 RF: 3 gabapentin 300 mg capsule 300 mg PO TID Qty: 270 RF: 3 albuterol sulfate [Proventil HFA] 90 mcg/actuation HFA aerosol inhaler 1 puffs INH Q6H PRN (Reason: shortness of breath or wheezing) Qty: 18 RF: 1 (DME) lancets [OneTouch UltraSoft Lancets] misc See Dose Instructions .ROUTE .MEDSUPPLY Qty: 100 RF: 5 atorvastatin 10 mg tablet 10 mg PO HS Qty: 90 RF: 3 alendronate 70 mg tablet 70 mg PO WEEKLY Qty: 12 RF: 3 Eliquis 5 mg tablet 5 mg PO BID Qty: 60 RF: 5 rabeprazole 20 mg tablet,delayed release (DR/EC) 20 mg PO QAM RF: 0 diltiazem HCl 300 mg capsule,extended release 24hr 300 mg PO DAILY Qty: 30 RF: 0 losartan 25 mg tablet 25 mg PO HS Qty: 30 RF: 0 Discontinued metoprolol tartrate 100 mg tablet 100 mg PO BID Qty: 180 RF: 3 Discharge Orders: Discharge Order (Routine); Ordered 01/05/20 Ordered By: Star Stratton/Other Patient Handouts: Heart Failure Meds, What Is Heart Failure, Heart Failure Signs of Flare-Up, Heart Failure: Tracking Your Weight, Using Oxygen Safely, Metoprolol tablets, Furosemide tablets Admission Data Admit Date/Time: 01/02/20 07:58 Attending Provider: Star Horton Admit Provider: Star Horton Primary Care Provider: Rashad Parsons III Other Providers: Gonsalo Casper Other Interventions: Discharge Summary Assessment (RN) Last Done: 01/05/20 14:34 Coding Level of Care Code D/C Day Management >30 mins Diagnoses CHF (congestive heart failure) I50.9 Heart failure chronicity: acute Heart failure type: unspecified Cardiomyopathy I42.9 Morbid obesity with BMI of 40.0-44.9, adult E66.01; Z68.41 Hypertension I10 Hypercholesteremia E78.00 Controlled type 2 diabetes mellitus with microalbuminuria E11.29; R80.9 Atrial fibrillation I48.91 Atrial fibrillation type: unspecified Leukocytosis D72.829 DVT prophylaxis Z29.9 Hypokalemia E87.6 Time Spent (min) 32
== END 2020-01-05 15:30 | disposition home or self-care (01) | DRG 291 ==
LOC: ED 05:40 → 2S 07:58

== ENCOUNTER 2021-01-24 06:27 | Observation (INO) ==
[2021-01-24] MEDS ORDERED: LIDOCAINE 1% LOCAL 20 ML VIAL ONE (06:56)
[2021-01-24] MEDS ORDERED: WATER, STERILE FOR INJ 10 ML VIAL ONE (06:57)
[2021-01-24] MEDS ORDERED: VANCOMYCIN HCL 1000MG/20ML VIAL ONE (06:57)
--- NOTE | 2021-01-24 07:59 | History & Physical Bridge Note ---
Date of Service January 24, 2021 History & Physical Bridge Note I have examined the patient, reviewed the History & Physical and in the interval since the performance of the History & Physical I have noted the following changes of clinical significance: no changes noted.
--- NOTE | 2021-01-24 07:59 | Pre Anesthesia Assessment ---
Date of Service January 24, 2021 Pre Sedation Assessment Vital Signs Temp Pulse Resp BP Pulse Ox 01/24/21 06:53 36.9 C 52 L 20 165/58 H 92 Cardiovascular RRR, no murmur, no edema Respiratory normal respiratory effort, lungs clear to auscultation Pre-Sedation Airway Assessment Smoking Status: Former smoker Hx Sleep Apnea: No Short, Thick Neck: Yes Thyromental Distance: > or= 3.5 Finger Breadths Oral Cavity: + Dentures Mallampati Class: II ASA: ASA3 NPO Status Date of Last Intake of Fluids: 01/24/21 Time of Last Intake of Fluids: 06:00 Date of Last Intake of Solid Food: 01/23/21 Time of Last Intake of Solid Foods: 18:30 Procedure Planning Contraindications for Sedation: none Current Medications Reviewed: Yes Notes The planned sedation has been discussed with the patient. Informed Consent was obtained. I have identified the patient, determined the appropriateness of sedation and have assessed the patient immediately prior to the procedure. All medicine(s) and interventions are by my order.
[2021-01-24] MEDS ORDERED: fentaNYL citrate 100 MCG/2 ML VIAL ONE (08:04)
[2021-01-24] MEDS ORDERED: MIDAZOLAM HCL 5 MG/ML 1 ML VIAL ONE (08:04)
[2021-01-24] MEDS ORDERED: BACITRACIN OINT 0.9 GM PKT ONE (08:35)
--- NOTE | 2021-01-24 09:32 | Electrophysiology Report ---
Date of Service January 24, 2021 Electrophysiology Procedure Electrophysiology Procedure Report Preoperative diagnosis: Sick sinus syndrome Postoperative diagnosis: Same Procedure: Dual-chamber pacemaker implantation Surgeon: Gonsalo Casper MD Estimated blood loss: 20 cc Complications: None Disposition: [place] recovery Procedure details: After obtaining informed consent for the procedure, the patient was brought to the laboratory and prepped and draped in the standard s terile manner. The left prepectoral region was anesthetized with 1% lidocaine local anesthetic and left axillary venipuncture was performed by percutaneous technique and a guidewire placed through the left subclavian vein into the superior vena cava. The area was further infiltrated with 1% lidocaine local anesthetic and a 5 cm incision was made parallel to the left clavicle and 2 cm below it and carried down to the anterior pectoralis fascia. A pacemaker pocket was formed by blunt dissection anterior to the pectoralis fascia and a vancomycin-soaked sponge was placed in the pocket. An 8 [place] Medtronic lead introducer was placed over the guidewire into the left subclavian vein, the dilator and guidewire were removed and a bipolar active fixation steroid tipped ventricular lead was advanced through the introducer into the superior vena cava. A guidewire was placed through the introducer and the introducer was stripped from the lead and guidewire. Another 8 [place] Medtronic lead introducer was placed over the guidewire into the left subclavian vein, the dilator and guidewire were removed and a bipolar active fixation steroid tipped atrial lead was advanced through the introducer into the superior vena cava. A guidewire was placed back through the introducer and the introducer was stripped from the lead and guidewire. Using a curved stylette the ventricular lead was advanced through the right ventricular outflow tract into the pulmonary artery and then using a straight stylette was positioned in the right ventricular apex. Measurements were not good in the apex therefore the lead was moved to the mid interventricular septum. The screw was extended fixing the lead in position. Pacing and sensing thresholds were evaluated in bipolar configuration and are recorded on the implant data sheet. Diaphragmatic pacing was evaluated at maximum output as noted on the data sheet. Using a curved stylette the atrial lead was positioned in the region of the atrial appendage and the screw extended fixing the lead in position. Pacing and sensing thresholds were evaluated in bipolar configuration and are recorded on the implant data sheet. Diaphragmatic pacing was evaluated at maximum output as noted on the data sheet. Once the leads were in position they were attached to the anterior pectoralis fascia using 2 sutures of 2-0 silk around each lead collar. The vancomycin s oaked sponge was removed from the pocket, hemostasis was obtained, the pacemaker was attached to the leads and placed in the pocket with the leads coiled beneath it. The incision was closed with a running double subcutaneous closure of 3-0 Vicryl absorbable suture, followed by running subcuticular skin closure of 4-0 Vicryl absorbable suture. Bacitracin ointment was placed on the incision and a dressing applied. [facility] Electrophysiology codes Indication for Procedure (1) Tachy-mynor syndrome: Pacing Procedure 1: Pacin Insert/Replace Pacer A & V PG Moderate Sedation Codes Moderate Sedation Codes Procedure 1: Sedation/Anesthesia: 17048 Mod Sedation by the same physician;Init15 Min Child Age 5 & Up Procedure 2: Sedation/Anesthesia: 37005 Mod Sedation by the same physician; Ea [id number] Minutes
[2021-01-24] MEDS ORDERED: ACETAMINOPHEN W/CODEINE #3 1 TAB PO PRN (09:56)
[2021-01-24] MEDS ORDERED: ACETAMINOPHEN W/CODEINE #3 1 TAB ONE (10:12)
--- NOTE | 2021-01-24 11:41 | Post Anesthesia Assessment ---
Date of Service January 24, 2021 Post Sedation Assessment Vital Signs Temp Pulse Resp BP Pulse Ox 01/24/21 11:30 60 20 132/71 93 01/24/21 11:15 60 20 127/64 93 01/24/21 11:00 60 20 123/82 93 01/24/21 10:55 60 20 129/76 93 01/24/21 10:40 60 20 141/74 H 93 01/24/21 10:25 60 20 155/71 H 90 01/24/21 10:10 60 20 168/80 H 90 01/24/21 09:55 60 20 154/83 H 90 01/24/21 09:40 60 20 166/81 H 88 L 01/24/21 06:53 36.9 C 52 L 20 165/58 H 92 Recovery Score Activity: Moves 4 extremities Respiration: Deep Breath/Cough Circulation: +/-20% PreAnes Value Consciousness: Fully Awake Oxygen Saturation: O2 needed for >90% Post Anesthesia Score: 9 Discharge Sedation Level of Care: Fast Track Phase II Post Sedation Plan On clinical assessment, the patient appears to have tolerated the sedation without complications. Patient is recovering as anticipated. Patient will continue to be monitored by nursing and may be discharged when sedation discharge criteria are met per below protocol. Upon Completions of procedure up to 15 minutes continue every 5 minute vital signs and the P.A.R. score; then discharge to a Phase I or Fast Track to Phase II per the following guidelines: * Discharge Patient to appropriate Phase II area if PAR is 8 or greater or return to pre- procedure baseline. The post - procedure orders will be as dir ected. * If PAR score is less than 8 or not return to pre-procedure baseline then patient will follow Phase I monitoring till PAR is reached for Phase II. The Phase I may be done in procedure room or may call to secure a Phase I area. * If naloxone or flumazenil are used for reversal, hold in Phase I for continued monitoring from when last reversal dose was given for a minimum of 60 minutes or longer pending the nurse and/or physician discretion of patient condition before discharge to Phase II. Please call the Sedation Physician to re-evaluate and complete post-note for discharge to Phase II area. Do NOT discharge from procedure sedation or Phase 1 until post- sedation evaluation note is complete by procedure /sedation MD Sedation Discharge Instructions to be given to the patient at discharge to home.
--- NOTE | 2021-01-24 14:08 | XRay Report ---
XR chest 2V PA/lateral CLINICAL HISTORY: Pacemaker insertion. COMPARISON STUDY: Chest CT December 23, 2020. Chest radiograph January 02, 2020. FINDINGS: There is no pneumothorax following placement of a dual-lead left subclavian pacemaker. Lead tips project over the expected location of the right atrial appendage and the right ventricle. Cardi omegaly is unchanged. There is no evidence for pulmonary edema. Minimal left basilar opacity favors a telectasis. IMPRESSION: No pneumothorax following placement of a dual-lead left subclavian pacemaker. ACT 112: Negative or not required by law. Electronically signed by: Travis Strauss M.D. 01/24/2021 2:06 PM
--- NOTE | 2021-01-24 14:49 | XCELERA ---
[id number] \\[id number]
[2021-01-24] MEDS: GABAPENTIN 300 MG CAP PO SCH ×2 (15:47→20:11)
--- NOTE | 2021-01-24 15:55 | Electrocardiogram Report ---
Test Reason : Blood Pressure : / mmHG Vent. Rate : 060 BPM Atrial Rate : 060 BPM P-R Int : 194 ms QRS Dur : 130 ms QT Int : 486 ms P-R-T Axes : 100 037 009 degrees QTc Int : 486 ms Atrial-paced rhythm Right bundle branch block Abnormal ECG When compared with ECG of 02-JAN-2020 05:47, Electronic atrial pacemaker has replaced Sinus rhythm Confirmed by Richard Dubois ([id number]) on 01/24/2021 3:54:29 PM Referred By: Gonsalo Casper Confirmed By:Richard Dubois
[2021-01-24] MEDS: ALBUTEROL HFA 8 GM INHALER INH SCH (16:30)
[2021-01-24] MEDS: METOPROLOL TARTRATE 100 MG TAB PO SCH (20:10)
[2021-01-24] MEDS ORDERED: ATORVASTATIN 10 MG TAB PO SCH (21:00)
[2021-01-25] MEDS: ALBUTEROL HFA 8 GM INHALER INH SCH ×3 (00:42→10:35)
[2021-01-25] MEDS: GABAPENTIN 300 MG CAP PO SCH (08:16)
[2021-01-25] MEDS: METOPROLOL TARTRATE 100 MG TAB PO SCH (08:17)
[2021-01-25] MEDS ORDERED: LOSARTAN POTASSIUM 25 MG TAB PO SCH (09:00)
[2021-01-25] MEDS ORDERED: FUROSEMIDE 40 MG TAB PO SCH (09:00)
[2021-01-25] MEDS ORDERED: dilTIAZem HCL 300 MG CAPCR PO SCH (09:00)
[2021-01-25] MEDS ORDERED: PANTOprazole 40 MG TAB PO SCH (09:00)
--- NOTE | 2021-01-25 09:37 | XCELERA ---
[id number] \\[id number]
--- NOTE | 2021-01-25 10:23 | Cardiology Progress Note ---
Date of Service January 25, 2021 Assessment & Plan (1) Status post placement of cardiac pacemaker: Plan: Postop day #1, the patient is doing well, no symptoms to suggest pericarditis, no change in minor pericardial effusion which may be normal or not. Lead position is good and she has no pneumothorax. She is stable for discharge. Admission and Anticipated Discharge Date Admission Date: January 24, 2021 Subjective She is feeling well today, she had some chest discomfort in the midsternal location following her pacemaker so we did an echo postoperatively which showed a small pericardial effusion which could have been normal but could have been a small leak from a perforation although during the procedure there was no evidence of perforation but it could be missed. I therefore kept her overnight, this morning she has no more chest discomfort (only minor incisional discomfort) and her echocardiogram does not show any increase in her effusion. She has no other complaints such as shortness of breath. Physical Exam Physical Exam: The incision is clean dry, no significant bleeding, no ecchymosis. Expected tenderness. Lungs are clear Cardiac rhythm is regular with no rub Results & Data ([facility]) Vital Signs (Past 12 Hours) Vital Signs Temp Pulse Resp BP Pulse Ox 01/25/21 07:20 36.7 C 60 18 146/75 H 91 01/25/21 07:19 67 16 91 01/25/21 03:33 36.8 C 60 18 129/80 96 01/24/21 23:04 36.6 C 59 L 18 120/67 93 Laboratory Results Intake and Output 01/24/21 01/25/21 01/25/21 22:59 06:59 14:59 Intake Total 250 / 250 Balance 250 / 250 Intake: Oral 250 / 250 Other: # Unmeasured Voids 1 Diagnostic Findings Telemetry: Atrial pacing appropriately Postop electrocardiogram: Appropriate atrial pacing, no ST elevation Chest x-ray: Good lead position, no pneumothorax Pacemaker evaluation: Excellent function. PG Care Time/CCT Total # of Minutes Spent Total Time Spent with Patient: Total time spent is greater than 50% in coordination of care (as documented) at patient's floor/unit and/or counseling patient: Coding Level of Care Code 24375 Post Operative Follow-Up Diagnoses Status post placement of cardiac pacemaker Z95.0 CPT Codes Dual Lead Pacemaker System - 32788 ([id number])
== END 2021-01-25 11:38 | disposition home or self-care (01) ==
LOC: 2S 06:27 → EP 06:27

== ENCOUNTER 2022-03-24 18:16 | Inpatient (IN) ==
[2022-03-24] MEDS ORDERED: ALBUT/IPRATROP 3MG/0.5MG NEB 3 ML VIAL INH STA (18:42)
[2022-03-24] MEDS ORDERED: dexAMETHasone**PF** 10 MG/ML VIAL IV ONE (18:44)
--- NOTE | 2022-03-24 18:46 | Emergency Department Note ---
Impression & Plan COVID-19, CHF (congestive heart failure), Hypoxia, Hypomagnesemia ED Provider Note Provider: Ramesh Carreon MD DATE OF SERVICE: 03/24/2022 CHIEF COMPLAINT: Shortness of breath HISTORY OF PRESENT ILLNESS: Patient is a 86-year-old female history of atrial fibrillation, type 2 diabetes, anemia, CHF, and hypertension presenting here today due to cough and worsening shortness of breath the last 2 to 3 days. Had an EGD and colonoscopy on Sunday she states went well. The next day developed worsening shortness of breath and cough. Daughter has been sick and tested positive for COVID at home of the patient herself has not taken a COVID test. Denies significant chest pain or fainting or falls. Patient states decreased intake and appetite. Denies significant leg swelling. Patient states she had a difficult therapeutic rehab due to worsening shortness of breath. REVIEW OF SYSTEMS: A total of 10 review of systems was obtained and negative except as stated above in the HPI. PAST MEDICAL HISTORY: As noted above MEDICATIONS: Reviewed her medications includes Eliquis SOCIAL HISTORY: Lives at home with , distant former smoker PHYSICAL EXAM: GENERAL: alert and oriented in no acute distress on stretcher Head: normocephalic and atraumatic EYES: No injection, discharge or icterus. NECK: Trachea midline. LUNGS: Airway patent. No retractions with mild tachypnea. Some scattered rhonchi in the lungs with faint wheezing. HEART: Regular rate and rhythm. No chest wall tenderness ABDOMEN: Soft and non-tender, without guarding or rebound. SKIN: Acyanotic, warm, dry, without rashes EXTREMITIES: Without swelling, tenderness or deformity NEUROLOGICAL: No focal deficits. No aphasia. No facial droop or slurred speech. EK bpm sinus rhythm with occasional PVC. No acute ST segment elevation with nonspecific anterior T wave changes and a right bundle branch block. QTc 471. CONTINUOUS CARDIAC MONITORING: was ordered and showed a heart rate of 70s-90s bpm in normal sinus rhythm Patient's laboratory studies and imaging reviewed. Differential includes Reactive airway disease, pneumonia, pneumothorax, COPD, CHF, infections, cardiac ischemia, pulmonary embolism, musculoskeletal, gastrointestinal, as well as other pathologies. IMPRESSION/MEDICAL DECISION MAKING: Patient with recent COVID exposure. Previously vaccinated. Hypoxia now not normally on oxygen during the day. Basic blood work and chest x-ray obtained. Low suspicion for VTE/PE given her anticoagulated status with Eliquis and she states compliance. EKG and troponin sent but seems atypical for acute ACS believe pulmonary primary. Question some component of pneumonia/COPD/COVID contributing. Given DuoNeb and some steroid initially to help. Oxygen supplementation given. Blood work fairly reassuring. Chest x-ray per radiology questions some slight pulmonary edema. On Lasix at home does appear horribly overloaded given a small amount of additional Lasix. COVID test is positive. Again this is likely the etiology. Discussed with her and her son at bedside and hospitalist contacted further care here at the hospital. Minimal improvement after nebulizer. Given some IV magnesium supplementation as this level is somewhat low on testing here. Patient had a coughing fit and rachel aturated and increased her to 6 L nasal cannula oxygen. Mucinex ordered. Still with some hypoxia and later increased oxygen to a mask at 8L. DIAGNOSIS: Hypoxia, COVID-19, CHF DISPOSITION: Hospitalist will evaluate Patient was agreeable with this plan. Critical Care I have personally spent 31 minutes of critical care time in the direct management of this patient. This includes bedside care, interpretation of diagnostic studies, and testing, discussion with consultants, patient, and family members, and other required patient management activities. These 31 berenice tito is in excess of all separately billable procedures. Past Med/Surg History Medical History Anemia Arthritis Atrial fibrillation [place] [facility] [place] Borderline diabetes Congestive heart failure Deep vein thrombosis (02/2019) Feb 2019 after long car ride (provoked) GERD (gastroesophageal reflux disease) Hx of diverticulitis of colon Hypercholesteremia Hypertension Lumbar spondylosis Osteoporosis Pulmonary embolism (02/2019) 2019 after dvt>reason for eliquis Urinary leakage Surgical History H/O repair of rotator cuff LEFT History of appendectomy History of cardiac cath MORE THAN 7 YEARS AGO--WAS NEGATIVE ([facility]) History of cataract surgery LEFT/RT History of cholecystectomy History of colonoscopy History of esophagogastroduodenoscopy (EGD) History of permanent cardiac pacemaker placement done 01/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 Denton/Neocutis History of tooth extraction Family History Mother , age 42 from breast ca Breast cancer Son Deep vein thrombosis Father , age 52 from acute [place] Myocardial infarction Asthma Other Coronary heart disease No family history of adverse response to anesthesia Denies family history of Ovarian cancer Prostate cancer Colorectal cancer Social History Smoking Status: Never smoker Tobacco Type: Cigarettes Age Started Using Tobacco: 23; Age Quit Using Tobacco: 50; packs per day: 1; Second Hand Exposure: No; Hx Alcohol Use: No Hx Substance Use: No Preferred Language: Syriac Communication Ability: Effective Visual Impairment: No Limitations Hearing Ability: Hard of Hearing Envelope Press Operator Required: No Beliefs That Will Affect Care: None marital status: marital status details: lives in [place] Current Living Situation: Spouse Current Living Situation Comment: LIVES WITH current occupational status: retired current occupation: worked at [employer] as a nurse How many Children do You have: 7 How many Children do You have Comment: 6 sons, 1 daughter Feels Safe at Home: Yes Childhood Exposure to Second-Hand Smoke: No Dental Care, Regularly: No Physical Activity Frequency: Does not Exercise Seatbelt Use: always Sunscreen Use: Yes Assistive Devices: Denture - Upper, Denture - Lower, Glasses and Walker Allergies Allergies Allergy/AdvReac Type Severity Reaction Status Date / Time latex Allergy Mild REDNESS, Verified 03/24/22 20:15 RASH Sulfa (Sulfonamide AdvReac Intermediate MAKES HER Verified 03/24/22 20:15 Antibiotics) SICKER Home Meds Home Medications Medication Instructions Recorded Confirmed furosemide 40 mg tablet 40 mg PO DAILY 03/24/22 03/24/22 Previous Rx's Medication Instructions Recorded lancets (OneTouch UltraSoft #100 ea 01/03/19 Lancets) blood sugar diagnostic (OneTouch #100 ea 08/29/19 Ultra Blue Test Strip) Abbie Ricks #1 ea 01/21/20 metoprolol tartrate 100 mg tablet 100 mg PO BID #180 tabs 04/11/21 gabapentin 300 mg capsule 300 mg PO TID #270 caps 05/30/21 potassium chloride 10 mEq 10 meq PO DAILY #90 tabs 08/10/21 tablet,extended release rabeprazole 20 mg tablet,delayed 20 mg PO QAM #90 tabs 08/30/21 release atorvastatin 10 mg tablet 10 mg PO HS #90 tabs 12/14/21 losartan 25 mg tablet 25 mg PO DAILY #90 tabs 12/26/21 apixaban 5 mg tablet (Eliquis) 5 mg PO BID #60 tabs 01/03/22 albuterol sulfate 90 mcg/actuation 1 inh inhalation QID #18 grams 01/09/22 aerosol inhaler (Ventolin HFA) diltiazem HCl 300 mg 300 mg PO DAILY #90 caps 01/23/22 capsule,extended release 24 hr Results & Data (ED) Vital Signs Vital Signs - 24 hr 03/24/22 18:20 03/24/22 18:20 03/24/22 18:20 Temperature 37.0 C Temperature Source Oral Pulse Rate 84 Pulse Rate [Apical] Respiratory Rate 28 H Respiratory Effort / Characteristics Short of Breath Short of Breath Respiratory Depth Deep Respiratory Pattern Tachypnea Blood Pressure [Right Arm] Blood Pressure Mean [Right Arm] Pulse Oximetry 99 Oxygen Delivery Method Nasal Cannula Nasal Cannula Nasal Cannula Oxygen Flow Rate 4 4 Sepsis Recent Fever Within 48 Hours Yes Sepsis New/Unexplained Change in Mental Status No Sepsis Action Taken by Nursing No Action Required 03/24/22 18:28 03/24/22 19:06 03/24/22 19:06 Temperature Temperature Source Pulse Rate Pulse Rate [Apical] 82 Respiratory Rate 28 H Respiratory Effort / Characteristics Respiratory Depth Respiratory Pattern Blood Pressure [Right Arm] 185/68 H Blood Pressure Mean [Right Arm] 107 Pulse Oximetry 97 98 Oxygen Delivery Method Nasal Cannula Nasal Cannula Nasal Cannula Oxygen Flow Rate 4 4 4 Sepsis Recent Fever Within 48 Hours Sepsis New/Unexplained Change in Mental Status Sepsis Action Taken by Nursing 03/24/22 20:24 Temperature Temperature Source Pulse Rate Pulse Rate [Apical] 82 Respiratory Rate 28 H Respiratory Effort / Characteristics Short of Breath Respiratory Depth Respiratory Pattern Blood Pressure [Right Arm] 157/56 H Blood Pressure Mean [Right Arm] 89 Pulse Oximetry 92 Oxygen Delivery Method Oxymask Oxygen Flow Rate 8 Sepsis Recent Fever Within 48 Hours Sepsis New/Unexplained Change in Mental Status Sepsis Action Taken by Nursing Laboratory Data Result diagrams: 03/24/22 18:35 03/24/22 18:35 Lab Results 03/24/22 03/24/22 03/24/22 Range/Units 18:35 18:35 18:35 WBC 10.53 (4.8-10.8) K/ul RBC 4.07 (3.93-5.22) M/uL Hgb 8.8 L (12.0-16.0) g/dl Hct 29.9 L (34.1-44.9) % MCV 73.5 L (80.0-100.0) fL MCH 21.6 L (25.0-34.0) pg MCHC 29.4 L (32.0-36.0) g/dL RDW Std Deviation 48.3 H (36.4-46.3) fL RDW Coeff of Thomas 18.3 H (11.5-14.5) % Plt Count 257 (130-400) K/uL MPV 10.3 (9.4-12.3) fL Immature Gran % (Auto) 0.3 % Neut % (Auto) 62.3 % Lymph % (Auto) 21.1 % Gooding % (Auto) 14.5 % Eos % (Auto) 1.5 % Baso % (Auto) 0.3 % Neut # (Auto) 6.56 H (1.4-6.5) K/uL Lymph # (Auto) 2.22 (1.2-3.4) K/uL Gooding # (Auto) 1.53 H (0.24-0.82) K/uL Eos # (Auto) 0.16 (0-0.50) K/uL Baso # (Auto) 0.03 (0-0.2) K/uL Immature Gran # (Auto) 0.03 H (0.00-0.02) K/uL Absolute Nucleated RBC 0.03 H (0-0) K/uL Nucleated RBC % (auto) 0.3 % ESR (0-30) mm/hr PT 10.9 (9.0-12.0) Seconds INR 1.0 (0.9-1.1) Sodium 137 (136-145) mmol/L Potassium 4.1 (3.5-5.1) mmol/L Chloride 100 (98-107) mmol/L Carbon Dioxide 30 (21-32) mmol/L Anion Gap 7 (3-11) BUN 22 (6-23) mg/dl Creatinine 1.32 H (0.6-1.2) mg/dl Est Cr Clr Drug Dosing Not Reportable Est GFR ( Amer) 42.8 ml/min Est GFR (Non-Af Amer) 37.0 ml/min BUN/Creatinine Ratio 16.7 (10-20) Glucose 99 (70-99(Fasting)) mg/dl Calcium 8.6 (8.5-10.1) mg/dl Magnesium 1.6 L (1.7-2.4) mg/dl Total Bilirubin 0.6 (0.2-1.0) mg/dl AST 12 L (13-39) U/L ALT 8 (7-52) U/L Alkaline Phosphatase 80 (34-104) U/L Troponin I High Sens 15.0 H (0-14) pg/ml C-Reactive Protein (0-0.5) mg/dl Total Protein 7.2 (6.0-8.3) gm/dl Albumin 3.7 (3.4-5.0) gm/dl Globulin 3.5 (2.5-4.0) gm/dl Albumin/Globulin Ratio 1.1 (0.9-2) Procalcitonin (0-0.5) ng/ml SARS-CoV-2, RNA, NAAT (NEGATIVE) 03/24/22 03/24/22 03/24/22 Range/Units 18:35 18:35 18:35 WBC (4.8-10.8) K/ul RBC (3.93-5.22) M/uL Hgb (12.0-16.0) g/dl Hct (34.1-44.9) % MCV (80.0-100.0) fL MCH (25.0-34.0) pg MCHC (32.0-36.0) g/dL RDW Std Deviation (36.4-46.3) fL RDW Coeff of Thomas (11.5-14.5) % Plt Count (130-400) K/uL MPV (9.4-12.3) fL Immature Gran % (Auto) % Neut % (Auto) % Lymph % (Auto) % Gooding % (Auto) % Eos % (Auto) % Baso % (Auto) % Neut # (Auto) (1.4-6.5) K/uL Lymph # (Auto) (1.2-3.4) K/uL Gooding # (Auto) (0.24-0.82) K/uL Eos # (Auto) (0-0.50) K/uL Baso # (Auto) (0-0.2) K/uL Immature Gran # (Auto) (0.00-0.02) K/uL Absolute Nucleated RBC (0-0) K/uL Nucleated RBC % (auto) % ESR 98 H (0-30) mm/hr PT (9.0-12.0) Seconds INR (0.9-1.1) Sodium (136-145) mmol/L Potassium (3.5-5.1) mmol/L Chloride (98-107) mmol/L Carbon Dioxide (21-32) mmol/L Anion Gap (3-11) BUN (6-23) mg/dl Creatinine (0.6-1.2) mg/dl Est Cr Clr Drug Dosing Est GFR ( Amer) ml/min Est GFR (Non-Af Amer) ml/min BUN/Creatinine Ratio (10-20) Glucose (70-99(Fasting)) mg/dl Calcium (8.5-10.1) mg/dl Magnesium (1.7-2.4) mg/dl Total Bilirubin (0.2-1.0) mg/dl AST (13-39) U/L ALT (7-52) U/L Alkaline Phosphatase (34-104) U/L Troponin I High Sens (0-14) pg/ml C-Reactive Protein 4.21 H (0-0.5) mg/dl Total Protein (6.0-8.3) gm/dl Albumin (3.4-5.0) gm/dl Globulin (2.5-4.0) gm/dl Albumin/Globulin Ratio (0.9-2) Procalcitonin 0.11 (0-0.5) ng/ml SARS-CoV-2, RNA, NAAT (NEGATIVE) 03/24/22 Range/Units 18:45 WBC (4.8-10.8) K/ul RBC (3.93-5.22) M/uL Hgb (12.0-16.0) g/dl Hct (34.1-44.9) % MCV (80.0-100.0) fL MCH (25.0-34.0) pg MCHC (32.0-36.0) g/dL RDW Std Deviation (36.4-46.3) fL RDW Coeff of Thomas (11.5-14.5) % Plt Count (130-400) K/uL MPV (9.4-12.3) fL Immature Gran % (Auto) % Neut % (Auto) % Lymph % (Auto) % Gooding % (Auto) % Eos % (Auto) % Baso % (Auto) % Neut # (Auto) (1.4-6.5) K/uL Lymph # (Auto) (1.2-3.4) K/uL Gooding # (Auto) (0.24-0.82) K/uL Eos # (Auto) (0-0.50) K/uL Baso # (Auto) (0-0.2) K/uL Immature Gran # (Auto) (0.00-0.02) K/uL Absolute Nucleated RBC (0-0) K/uL Nucleated RBC % (auto) % ESR (0-30) mm/hr PT (9.0-12.0) Seconds INR (0.9-1.1) Sodium (136-145) mmol/L Potassium (3.5-5.1) mmol/L Chloride (98-107) mmol/L Carbon Dioxide (21-32) mmol/L Anion Gap (3-11) BUN (6-23) mg/dl Creatinine (0.6-1.2) mg/dl Est Cr Clr Drug Dosing Est GFR ( Amer) ml/min Est GFR (Non-Af Amer) ml/min BUN/Creatinine Ratio (10-20) Glucose (70-99(Fasting)) mg/dl Calcium (8.5-10.1) mg/dl Magnesium (1.7-2.4) mg/dl Total Bilirubin (0.2-1.0) mg/dl AST (13-39) U/L ALT (7-52) U/L Alkaline Phosphatase (34-104) U/L Troponin I High Sens (0-14) pg/ml C-Reactive Protein (0-0.5) mg/dl Total Protein (6.0-8.3) gm/dl Albumin (3.4-5.0) gm/dl Globulin (2.5-4.0) gm/dl Albumin/Globulin Ratio (0.9-2) Procalcitonin (0-0.5) ng/ml SARS-CoV-2, RNA, NAAT POSITIVE A* (NEGATIVE) Administered Medications Discontinued Medications Albuterol (Albut/Ipratrop 3mg/0.5mg Neb 3 Ml Vial) 3 ml INH NOW STA Stop: 03/24/22 18:43 Last Admin: 03/24/22 19:10 Dose: 3 ml Documented By: ANA CRISTINA Dexamethasone Sodium Phosphate (DexamethasonePf 10 Mg/Ml Vial) 6 mg IV NOW ONE Stop: 03/24/22 18:45 Last Admin: 03/24/22 19:10 Dose: 6 mg Documented By: ANA CRISTINA Furosemide (Furosemide Inj 20 Mg/2 Ml Vial) 20 mg IV ONE ONE Stop: 03/24/22 19:38 Last Admin: 03/24/22 19:54 Dose: 20 mg Documented By: ANA CRISTINA Guaifenesin (Guaifenesin 600 Mg Tabcr) 1,200 mg PO Q12 STA Stop: 03/24/22 20:11 Last Admin: 03/24/22 20:22 Dose: 1,200 mg Documented By: ANA CRISTINA Magnesium Sulfate/Dextrose (Magnesium Sulfate / D5w) 1 gm in 100 mls @ 200 mls/hr IV Q30M ROCIO Stop: 03/24/22 20:35 Last Infusion: 03/24/22 20:57 Dose: 0 mls/hr Documented By: ANA CRISTINA Admin: 03/24/22 20:21 Dose: 200 mls/hr Documented By: ANA CRISTINA Infusion: 03/24/22 20:21 Dose: 200 mls/hr Documented By: ANA CRISTINA Admin: 03/24/22 19:53 Dose: 200 mls/hr Documented By: ANA CRISTINA Imaging Data Radiologist's Impression: Chest X-Ray 03/24/22 18:42 XR chest 1V portable CLINICAL HISTORY: Dyspnea TECHNIQUE: Single frontal radiograph of the chest was obtained. Comparison: Comparison is made to chest radiograph 01/24/2021 FINDINGS: Dual lead pacemaker is seen. Cardiomegaly is noted. Prominence and cephalization of the vasculature is seen. No evidence of pleural effusion or pneumothorax. IMPRESSION: Cardiomegaly and mild pulmonary edema. ACT 112: Negative or not required by law. Electronically signed by: Akash Poe M.D. 03/24/2022 7:34 PM Discharge Plan Visit Data Chief Complaint: Shortness of Breath/Dyspnea Stated Complaint: breathing difficutly, covid exposure ED Provider: Ramesh Carreon Discharge Problem: COVID-19, CHF (congestive heart failure), Hypoxia, Hypomagnesemia Patient Disposition: Being Evaluated by Hospitalist Forms Stand Alone Forms: My [facility] Prescriptions Prescriptions: No Action (DME) OneTouch Ultra Blue Test Strip Strip See Dose Instructions .ROUTE .MEDSUPPLY Qty: 100 3RF Rx Instructions: check glucose once daily as directed (DME) Wheeled Walker Misc See Rx Instructions .ROUTE .MEDSUPPLY Qty: 1 0RF Rx Instructions: As directed Rollator 4 wheels with brakes and seat metoprolol tartrate 100 mg tablet 100 mg PO BID Qty: 180 3RF gabapentin 300 mg capsule 300 mg PO TID Qty: 270 3RF rabeprazole 20 mg tablet,delayed release (DR/EC) 20 mg PO QAM Qty: 90 3RF atorvastatin 10 mg tablet 10 mg PO HS Qty: 90 3RF Label Comments: qam losartan 25 mg tablet 25 mg PO DAILY Qty: 90 3RF Label Comments: qpm Eliquis 5 mg tablet 5 mg PO BID Qty: 60 11RF albuterol sulfate [Ventolin HFA] 90 mcg/actuation HFA aerosol inhaler 1 inh inhalation QID Qty: 18 2RF diltiazem HCl 300 mg capsule,extended release 24hr 300 mg PO DAILY Qty: 90 3RF (DME) lancets [OneTouch UltraSoft Lancets] misc See Dose Instructions .ROUTE .MEDSUPPLY Qty: 100 5RF Dose Instruction: As directed Rx Instructions: use to check blood glucose once daily as directed potassium chloride 10 mEq tablet extended release 10 meq PO DAILY Qty: 90 3RF Label Comments: qam furosemide 40 mg tablet 40 mg PO DAILY Label Comments: qam Rx Instructions: 40 mg orally take 1 tablet daily and can take 1 additional tablet as needed for shortness of breath; Referrals Referrals: Rosio Deutsch CRNP [Primary Care Provider] -
[2022-03-24 19:06] LABS: Basophils # (auto) 0.03 K/uL (0-0.2); Basophils % (auto) 0.3 %; Eosinophils # (auto) 0.16 K/uL (0-0.50); Eosinophils % (auto) 1.5 %; Hematocrit (blood only) 29.9 % (34.1-44.9); Hemoglobin 8.8 g/dl (12.0-16.0); Immature Granulocytes # (auto) 0.03 K/uL (0.00-0.02); Immature Granulocytes % (auto) 0.3 %; Lymphocytes # (auto) 2.22 K/uL (1.2-3.4); Lymphocytes % (auto) 21.1 %; Mean Corpuscular Hemoglobin 21.6 pg (25.0-34.0); Mean Corpuscular Hgb Conc 29.4 g/dL (32.0-36.0); Mean Corpuscular Volume 73.5 fL (80.0-100.0); Mean Platelet Volume 10.3 fL (9.4-12.3); Monocytes # (auto) 1.53 K/uL (0.24-0.82); Monocytes % (auto) 14.5 %; Neutrophils # (auto) 6.56 K/uL (1.4-6.5); Neutrophils % (auto) 62.3 %; Nucleated RBC # (auto) 0.03 K/uL (0-0); Nucleated RBC % (auto) 0.3 %; Platelet Count 257 K/uL (130-400); RDW Coefficient of Variation 18.3 % (11.5-14.5); RDW Standard Deviation 48.3 fL (36.4-46.3); Red Blood Count 4.07 M/uL (3.93-5.22); White Blood Count 10.53 K/ul (4.8-10.8)
[2022-03-24 19:16] LABS: Prothrombin Time 10.9 Seconds (9.0-12.0)
[2022-03-24 19:22] LABS: Alanine Aminotransferase 8 U/L (7-52); Albumin Globulin Ratio 1.1 (0.9-2); Albumin Level 3.7 gm/dl (3.4-5.0); Alkaline Phosphatase 80 U/L (34-104); Anion Gap 7 (3-11); Aspartate Aminotransferase 12 U/L (13-39); BUN Creatinine Ratio 16.7 (10-20); Bilirubin,Total 0.6 mg/dl (0.2-1.0); Blood Urea Nitrogen 22 mg/dl (6-23); Calcium 8.6 mg/dl (8.5-10.1); Carbon Dioxide 30 mmol/L (21-32); Chloride 100 mmol/L (98-107); Est GFR (African American) 42.8 ml/min; Globulin 3.5 gm/dl (2.5-4.0); Glucose 99 mg/dl (70-99(Fasting)); Magnesium 1.6 mg/dl (1.7-2.4); Potassium 4.1 mmol/L (3.5-5.1); Sodium 137 mmol/L (136-145); Total Protein 7.2 gm/dl (6.0-8.3)
--- NOTE | 2022-03-24 19:36 | XRay Report ---
XR chest 1V portable CLINICAL HISTORY: Dyspnea TECHNIQUE: Single frontal radiograph of the chest was obtained. Comparison: Comparison is made to chest radiograph 01/24/2021 FINDINGS: Dual lead pacemaker is seen. Cardiomegaly is noted. Prominence and cephalization of the vasculature i s seen. No evidence of pleural effusion or pneumothorax. IMPRESSION: Cardiomegaly and mild pulmonary edema. ACT 112: Negative or not required by law. Electronically signed by: Akash Poe M.D. 03/24/2022 7:34 PM
[2022-03-24] MEDS ORDERED: FUROSEMIDE INJ 20 MG/2 ML VIAL IV ONE (19:37)
[2022-03-24] MEDS: MAGNESIUM SULFATE / D5W 1 GM/100 ML BAG IV SCH ×2 (19:53→20:21)
--- NOTE | 2022-03-24 20:03 | History & Physical Report ---
Date of Service March 24, 2022 Assessment & Plan (1) COVID-19: Plan: - Day #3 of symptoms, fever/chills, shortness of breath, cough at home. - Known sick contacts within the family that she has been around. - CXR: Cardiomegaly and mild pulmonary edema. - W/o leukocytosis, procal, ESR, CRP pending. - Fully vaccinated. - Given her oxygen requirement, she would qualify for dexamethasone and remdesivir, however given her DEVON, will hold off on remdesivir and treat with dexamethasone alone. Should her renal function improved, could offer remdesivir later on during hospitalization. - Isolation precautions. - Supportive care: DuoNebs, incentive spirometry ordered. Tylenol for pain and fevers. Mucinex. (2) Acute renal insufficiency: Plan: - Cr 1.32, baseline < 1.2. - Suspect DEVON is more so related to being volume depleted in setting of COVID illness rather than volume overloaded per her report of stable weights at home, decreased intake. - Hold off on further IV diuresis, will hold morning diuretic. - Renally dose meds, avoid NSAIDs/nephrotoxins. (3) CHF (congestive heart failure): Plan: - Echo 01/2021: Left ventricular systolic function normal, no WMA, moderate LVH, EF 60-65%. - NUCLEAR RADIOLOGIST--> Lasix 40 mg daily, with additional 40 gm dose on Mondays for 80 mg total. No missed doses. - Patient weighs herself daily, has not gained any weight over the past week. Reports decreased oral intake due to not feeling well for the past few days. - Chest x-ray indicative of pulmonary edema, however on presentation patient ap pears euvolemic if not hypovolemic, given her increased creatinine, suspect she may be slightly volume depleted - Holding a.m. dose of Lasix tomorrow, will give gentle IVF x 1 L overnight. (4) Hypomagnesemia: Plan: - 1.6, repleted with 2 gm in ED. (5) Anemia: Plan: - Hgb 8.8, down from 9.5 on 02/08. - PCP has been tracking this, patient has not had any dark BMs or bright red blood per rectum with bowel movements. - Iron studies 02/07: ferritin 6.4 (L), iron 27 (L) - Full iron studies with a.m. labs. - EGD/colonoscopy 03/21: * A single 4 mm sessile polyp removed, multiple small and large mouth diverticula in sigmoid and descending colon, nonbleeding internal hemorrhoids. * Normal esophagus, few large inflammatory pedunculated polyps with no bleeding or stigmata of recent bleeding found in gastric body, biopsies taken, duodenal bulb and second portion duodenum normal, biopsies taken. - Continue to monitor. (6) Controlled type 2 diabetes mellitus with microalbuminuria: Plan: - Diet/lifestyle controlled. - A1c 7% 01/31/22. - DM diet. (7) Atrial fibrillation: Plan: - Continue Eliquis, metoprolol, diltiazem. 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 (8) Hypertension: Plan: - Hold losartan for DEVON, continuing diltiazem and metoprolol as above for a fib. Plan - Admit to med telemetry with isolation precautions. - SCDs, Eliquis for VTE ppx. -DNR/DNI History of Present Illness Chief Complaint: Shortness of breath, cough, chills x3 days Primary Care Provider: JUSTINE Dao Tamie Hunt is an 86-year-old female with a past medical history significant for A. fib, heart failure, DM 2, hypertension, hyperlipidemia, anemia, and osteoporosis who is presenting today with shortness of breath. On 03/21 she had EGD and colonoscopy on 03/21 for her downtrending hemoglobin, states that she had a procedure well without complications. That night when she got home she had a sore throat which she attributed to the procedure, however the next day she developed fever and chills, shortness of breath, and cough. Her daughter, who she had close contact with tested positive for COVID recently. Patient herself is fully vaccinated against COVID-19. She has had decreased oral intake over the last few days and has been chronically fatigued and just generally weak. No chest pain or palpitations. She has been compliant with all her medications. She does wear 1 L of oxygen at night, otherwise does not require oxygen at home. Family member checked her oxygen prior to arrival in the ED and states it was as low as 82% on room air. Upon presentation, vital signs within normal limits she is with an SPO2 >95% on 4 L NC, unsure how saturations were upon arrival prior to oxygen. She is COVID- positive. Lab significant for hemoglobin of 8.8, slightly down from 9.51-month ago. Creatinine is mildly up at 1.32, baseline seems to be 11.1. Mag mildly low 1.6, trop minimally elevated at 15. Chest x-ray showed cardiomegaly and mild pulmonary edema, no superimposed pneumonia. In the ED she received breathing treatment, IV steroids, 20 mg of Lasix, Mucinex and 2 g magnesium. Currently feeling slightly better but then prior to arrival. Allergies Allergy/AdvReac Type Severity Reaction Status Date / Time latex Allergy Mild REDNESS, Verified 03/24/22 20:15 RASH Sulfa (Sulfonamide AdvReac Intermediate MAKES HER Verified 03/24/22 20:15 Antibiotics) SICKER Home Medications Medication Instructions Recorded Confirmed Type lancets (AgendizeTouch UltraSoft #100 ea 01/03/19 02/08/22 Rx Lancets) blood sugar diagnostic (OneTouch #100 ea 08/29/19 02/08/22 Rx Ultra Blue Test Strip) Wheeled Walker #1 ea 01/21/20 02/08/22 Rx metoprolol tartrate 100 mg tablet 100 mg PO BID #180 tabs 04/11/21 03/24/22 Rx gabapentin 300 mg capsule 300 mg PO TID #270 caps 05/30/21 03/24/22 Rx potassium chloride 10 mEq 10 meq PO DAILY #90 tabs 08/10/21 03/24/22 Rx tablet,extended release rabeprazole 20 mg tablet,delayed 20 mg PO QAM #90 tabs 08/30/21 03/24/22 Rx release atorvastatin 10 mg tablet 10 mg PO HS #90 tabs 12/14/21 03/24/22 Rx losartan 25 mg tablet 25 mg PO DAILY #90 tabs 12/26/21 03/24/22 Rx apixaban 5 mg tablet (Eliquis) 5 mg PO BID #60 tabs 01/03/22 03/24/22 Rx albuterol sulfate 90 mcg/actuation 1 inh inhalation QID #18 grams 01/09/22 03/24/22 Rx aerosol inhaler (Ventolin HFA) diltiazem HCl 300 mg 300 mg PO DAILY #90 caps 01/23/22 03/24/22 Rx capsule,extended release 24 hr furosemide 40 mg tablet 40 mg PO DAILY 03/24/22 03/24/22 History Past Med/Surg History Medical History Anemia Arthritis Atrial fibrillation FOLLOWED BY [facility] [place] CARDS Borderline diabetes Congestive heart failure Deep vein thrombosis (02/2019) Feb 2019 after long car ride (provoked) GERD (gastroesophageal reflux disease) Hx of diverticulitis of colon Hypercholesteremia Hypertension Lumbar spondylosis Osteoporosis Pulmonary embolism (02/2019) 2019 after dvt>reason for eliquis Urinary leakage Surgical History H/O repair of rotator cuff LEFT History of appendectomy History of cardiac cath MORE THAN 7 YEARS AGO--WAS NEGATIVE ([facility]) History of cataract surgery LEFT/RT History of cholecystectomy History of colonoscopy History of esophagogastroduodenoscopy (EGD) History of permanent cardiac pacemaker placement done 01/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 Denton/Datameer device History of tooth extraction Family History Mother , age 42 from breast ca Breast cancer Son Deep vein thrombosis Father , age 52 from acute [place] Myocardial infarction Asthma Other Coronary heart disease No family history of adverse response to anesthesia Denies family history of Ovarian cancer Prostate cancer Colorectal cancer Social History Smoking Status: Former smoker Tobacco Type: Cigarettes Age Started Using Tobacco: 23; Age Quit Using Tobacco: 50; packs per day: 1; Smoking End Date: ; Second Hand Exposure: No; Tobacco Cessation Education Requested by Patient: No Hx Alcohol Use: No Hx Substance Use: No Preferred Language: Sinhala Communication Ability: Effective Visual Impairment: No Limitations Hearing Ability: Hard of Hearing Geriatric Assistant Required: No Beliefs That Will Affect Care: None marital status: marital status details: lives in [place] Current Living Situation: Spouse Current Living Situation Comment: Lives in a home w/ current occupational status: retired current occupation: worked at [employer] as a nurse How many Children do You have: 7 How many Children do You have Comment: 6 sons, 1 daughter Other Information That Helps Us Care for You: No Feels Safe at Home: Yes Safety Concerns: Feels Safe At This Time Childhood Exposure to Second-Hand Smoke: No Dental Care, Regularly: No Physical Activity Frequency: Does not Exercise Seatbelt Use: always Sunscreen Use: Yes Assistive Devices: Denture - Upper, Denture - Lower, Glasses and Walker Review of Systems Review of Systems: All systems reviewed & are unremarkable except as noted in HPI & below Physical Exam Physical Exam: General: awake, alert, no apparent distress Head: Normocephalic, atraumatic ENT: PERRL, EOMI, no pharyngeal exudate, mucous membranes moist Chest: scattered wheezes heard throughout Cardiac: Regular rate and rhythm, no murmur, no JVD, normal peripheral pulses, good capillary refill Abdominal: NABS x 4 quadrants, soft, nontender to palpation, no rebound, guarding or tenderness Extremities: Normal inspection, no peripheral edema or erythema, calfs nontender to palpation Psych: Normal mood and affect Neuro: AAO x 3, strength intact bilaterally and rated 5/5, no motor deficits, speech is clear, no peripheral sensory deficits Skin: no rash or erythema Results & Data Results & Data ([facility]) Vital Signs (Past 12 Hours) Vital Signs Temp Pulse Pulse Resp BP Pulse Ox O2 Del Method 03/24/22 19:06 98 Nasal Cannula 03/24/22 19:06 Nasal Cannula 03/24/22 18:28 82 28 H 185/68 H 97 Nasal Cannula 03/24/22 18:20 Nasal Cannula 03/24/22 18:20 37.0 C 84 28 H 99 Nasal Cannula 03/24/22 18:20 Nasal Cannula O2 Flow Rate 03/24/22 19:06 4 03/24/22 19:06 4 03/24/22 18:28 4 03/24/22 18:20 4 03/24/22 18:20 4 03/24/22 18:20 Laboratory Results Abnormal lab results 03/24/22 03/24/22 03/24/22 Range/Units 18:35 18:35 18:35 Hgb 8.8 L (12.0-16.0) g/dl Hct 29.9 L (34.1-44.9) % MCV 73.5 L (80.0-100.0) fL MCH 21.6 L (25.0-34.0) pg MCHC 29.4 L (32.0-36.0) g/dL RDW Std Deviation 48.3 H (36.4-46.3) fL RDW Coeff of Thomas 18.3 H (11.5-14.5) % Neut # (Auto) 6.56 H (1.4-6.5) K/uL [place] # (Auto) 1.53 H (0.24-0.82) K/uL Immature Gran # (Auto) 0.03 H (0.00-0.02) K/uL Absolute Nucleated RBC 0.03 H (0-0) K/uL ESR 98 H (0-30) mm/hr Creatinine 1.32 H (0.6-1.2) mg/dl Magnesium 1.6 L (1.7-2.4) mg/dl AST 12 L (13-39) U/L Troponin I High Sens 15.0 H (0-14) pg/ml SARS-CoV-2, RNA, NAAT (NEGATIVE) 03/24/22 Range/Units 18:45 Hgb (12.0-16.0) g/dl Hct (34.1-44.9) % MCV (80.0-100.0) fL MCH (25.0-34.0) pg MCHC (32.0-36.0) g/dL RDW Std Deviation (36.4-46.3) fL RDW Coeff of Thomas (11.5-14.5) % Neut # (Auto) (1.4-6.5) K/uL [place] # (Auto) (0.24-0.82) K/uL Immature Gran # (Auto) (0.00-0.02) K/uL Absolute Nucleated RBC (0-0) K/uL ESR (0-30) mm/hr Creatinine (0.6-1.2) mg/dl Magnesium (1.7-2.4) mg/dl AST (13-39) U/L Troponin I High Sens (0-14) pg/ml SARS-CoV-2, RNA, NAAT POSITIVE A* (NEGATIVE) Diagnostic Findings Chest X-Ray 03/24/22 18:42 XR chest 1V portable CLINICAL HISTORY: Dyspnea TECHNIQUE: Single frontal radiograph of the chest was obtained. Comparison: Comparison is made to chest radiograph 01/24/2021 FINDINGS: Dual lead pacemaker is seen. Cardiomegaly is noted. Prominence and cephalization of the vasculature is seen. No evidence of pleural effusion or pneumothorax. IMPRESSION: Cardiomegaly and mild pulmonary edema. ACT 112: Negative or not required by law. Electronically signed by: Akash Poe M.D. 03/24/2022 7:34 PM Code Status & VTE Plan Code Status DNR/DNI. Supervising Physician Co-Signing Physician Notes Attending addendum: I have physically seen this patient, have supervised the ROSA's activities, and agree with the H&P unless as otherwise noted. Assessment and Plan: COVID-19 infection with hypoxia- Dexamethasone 6 mg IV every morning Albuterol HFA 2 puffs 4 times daily, every 2 hours as needed Guaifenesin extended release 12 mg p.o. twice daily Incentive spirometry DuoNebs every 4 hours as needed Nasal cannula oxygen, titrate to keep pulse ox 92-94% Unable to prescribe Remdesivir at this time due to renal insufficiency, if renal function improves, may be a candidate within the next day or 2, as this is day 3 of symptoms. Acute kidney injury- Creatinine 1.32 upon mission, with baseline 1.12 Hold diuretics, reassess laboratories in a.m. Atrial fibrillation/hypertension/CHF/status post pacer- Continue Eliquis, metoprolol and diltiazem Hold diuretics as noted and monitor DEVON Remaining orders and notations as noted PG Care Time/CCT Total # of Minutes Spent Total Time Spent with Patient: Total time spent is greater than 50% in coordination of care (as documented) at patient's floor/unit and/or counseling patient: Coding Level of Care Code 71660 Initial Inpt Care Lvl 3 Diagnoses COVID-19 U07.1 Acute renal insufficiency N28.9 CHF (congestive heart failure) I50.9 Hypomagnesemia E83.42 Anemia D64.9 Controlled type 2 diabetes mellitus with microalbuminuria E11.29; R80.9 Atrial fibrillation I48.91 Atrial fibrillation type: unspecified Hypertension I10 (1) Atrial fibrillation Atrial fibrillation type: unspecified Qualified Code(s): I48.91 - Unspecified atrial fibrillation
[2022-03-24] MEDS ORDERED: guaiFENesin 600 MG TABCR PO STA (20:10)
[2022-03-24 22:30] LABS: Appearance Urine Clear (Clear); Bilirubin Urine Negative (Negative); Blood Urine Negative (Negative); Color Urine Yellow; Glucose Urine UA Negative (Negative); Ketones Urine Negative (Negative); Leukocyte Esterase Urine Negative (Negative); Nitrite Urine Negative (Negative); Protein Urine Negative (Negative); Specific Gravity Urine 1.007 (1.000-1.030); Urobilinogen Urine Negative (Negative)
[2022-03-24] MEDS ORDERED: ALBUTEROL HFA 8 GM INHALER INH SCH (23:14)
[2022-03-24] MEDS ORDERED: ALBUT/IPRATROP 3MG/0.5MG NEB 3 ML VIAL NEB PRN (23:14)
[2022-03-24] MEDS ORDERED: ONDANSETRON INJ 2 MG/ML 2 ML VIAL IV PRN (23:14)
[2022-03-24] MEDS ORDERED: POLYETHYLENE (MIRALAX) 17 GM PACK PO PRN (23:14)
[2022-03-24] MEDS ORDERED: ACETAMINOPHEN 325 MG TAB PO PRN (23:14)
[2022-03-24] MEDS ORDERED: LACTATED RINGER'S 1,000 ML IV SCH (23:14)
[2022-03-24] MEDS ORDERED: ALUMINUM/MAGNESIUM SUSP 30 ML UDC PO PRN (23:14)
[2022-03-25] MEDS: ALBUT/IPRATROP 3MG/0.5MG NEB 3 ML VIAL INH SCH ×4 (00:20→19:50)
[2022-03-25] MEDS: guaiFENesin 600 MG TABCR PO SCH ×3 (01:28→20:27)
[2022-03-25] MEDS: METOPROLOL TARTRATE 100 MG TAB PO SCH ×3 (01:28→20:27)
[2022-03-25] MEDS: GABAPENTIN 300 MG CAP PO SCH ×4 (01:28→20:27)
[2022-03-25] MEDS: ATORVASTATIN 10 MG TAB PO SCH ×2 (01:29→20:27)
[2022-03-25] MEDS: APIXABAN 5 MG TABLET PO SCH (01:29)
[2022-03-25 05:01] LABS: Basophils # (auto) 0.01 K/uL (0-0.2); Basophils % (auto) 0.1 %; Hematocrit (blood only) 27.2 % (34.1-44.9); Hemoglobin 7.9 g/dl (12.0-16.0); Immature Granulocytes # (auto) 0.04 K/uL (0.00-0.02); Immature Granulocytes % (auto) 0.5 %; Lymphocytes # (auto) 0.95 K/uL (1.2-3.4); Lymphocytes % (auto) 12.5 %; Mean Corpuscular Hemoglobin 21.6 pg (25.0-34.0); Mean Corpuscular Volume 74.5 fL (80.0-100.0); Mean Platelet Volume 9.8 fL (9.4-12.3); Monocytes # (auto) 0.19 K/uL (0.24-0.82); Monocytes % (auto) 2.5 %; Neutrophils # (auto) 6.39 K/uL (1.4-6.5); Neutrophils % (auto) 84.4 %; Platelet Count 241 K/uL (130-400); RDW Coefficient of Variation 18.3 % (11.5-14.5); RDW Standard Deviation 48.6 fL (36.4-46.3); Red Blood Count 3.65 M/uL (3.93-5.22); White Blood Count 7.58 K/ul (4.8-10.8)
[2022-03-25 05:20] LABS: Anion Gap 9 (3-11); BUN Creatinine Ratio 17.1 (10-20); Blood Urea Nitrogen 24 mg/dl (6-23); Calcium 7.9 mg/dl (8.5-10.1); Carbon Dioxide 29 mmol/L (21-32); Chloride 100 mmol/L (98-107); Est GFR (African American) 39.9 ml/min; Est GFR (Non-African American) 34.4 ml/min; Glucose 295 mg/dl (70-99(Fasting)); Potassium 4.2 mmol/L (3.5-5.1); Sodium 138 mmol/L (136-145)
[2022-03-25 05:21] LABS: Iron < 10 mcg/dl (35-150); Ovalocytes 1+; Unsaturated Iron Binding Cap 397 mcg/dl (155-355)
--- NOTE | 2022-03-25 06:27 | Communication Note ---
Date of Service: March 25, 2022 6AM: Notified by nursing of downtrending Hb to 7.8. Nursing noticed blood clots on bedsheet and puddles of blood on floor (bleeding from IV line site). Will check H/H at noon.
[2022-03-25] MEDS ORDERED: PHARMACY GLYCEMIC MGMT CONSULT PRN (07:45)
--- NOTE | 2022-03-25 08:04 | Electrocardiogram Report ---
Test Reason : Blood Pressure : / mmHG Vent. Rate : 081 BPM Atrial Rate : 081 BPM P-R Int : 156 ms QRS Dur : 132 ms QT Int : 406 ms P-R-T Axes : 043 036 015 degrees QTc Int : 471 ms Sinus rhythm with occasional Premature ventricular complexes Right bundle branch block Abnormal ECG When compared with ECG of 24-JAN-2021 09:36, Sinus rhythm has replaced Electronic atrial pacemaker Confirmed by Manuel Graf ([id number]) on 03/25/2022 8:04:24 AM Referred By: REFERRED SELF Confirmed By:Manuel Graf
[2022-03-25] MEDS ORDERED: GLUCOSE 10 TAB/TUBE PO PRN (08:30)
[2022-03-25] MEDS ORDERED: CARBOHYDRATES FOR HYPOGLYCEMIA PO PRN (08:30)
[2022-03-25] MEDS ORDERED: DEXTROSE 50% 50 ML SYRINGE IV PRN (08:30)
[2022-03-25] MEDS ORDERED: GLUCOSE 40% GEL 15 GM TUBE PO PRN (08:30)
[2022-03-25] MEDS ORDERED: GLUCAGON FOR INJ 1 MG VIAL IM PRN (08:30)
[2022-03-25] MEDS: dexAMETHasone 6 MG in SYRINGE 0 ML IV SCH (08:50)
[2022-03-25] MEDS: dilTIAZem HCL 300 MG CAPCR PO SCH (08:54)
[2022-03-25] MEDS: POTASSIUM CHLORIDE 10 MEQ TABCR PO SCH (08:54)
[2022-03-25] MEDS ORDERED: PANTOprazole 40 MG TAB PO SCH (09:00)
[2022-03-25] MEDS ORDERED: INSULIN HUMAN NPH SC ONE (09:00)
[2022-03-25] MEDS: PANTOprazole 40 MG in SYRINGE 0 ML IV SCH ×2 (09:19→20:27)
[2022-03-25] MEDS: INSULIN ASPART PER UNIT SC SCH ×4 (09:29→20:48)
--- NOTE | 2022-03-25 11:01 | Pharmacy Report ---
Pharmacy Glycemic Short Note 2 - Date of Service March 25, 2022 - Glycemic Short BSG Results (Last 24 hours): 03/24/22 03/25/22 03/25/22 18:35 04:41 09:15 Glucose 99 295 H POC Glucose 190 H OUTPATIENT ANTIDIABETIC REGIMEN: * Diet controlled * A1c = 7% (01/31/22) ASSESSMENT: * 86 yo female with past medical history significant for A. fib, heart failure, DM 2, hypertension, hyperlipidemia, anemia, and osteoporosis. Presented with shortness of breath. Tested positive for SARs-CoV-2. Started on dexamethasone 6 mg IV q24h. * BSG of 295 mg/dl at time of pharmacy consultation. Will start weight based NPH to combat steroid induced hyperglycemia and novolog per CF/CR. PLAN FOR INPATIENT GLYCEMIC CONTROL: * Basal insulin * NPH 32 units SQ qAM (to be given with dexamethasone) * Bolus insulin * NovoLog per scale ACHS or Q6hrs while NPO * Goal Range: Low 110 mg/dL - High 140 mg/dL * Correction Factor: 25 mg/dL/unit * Nutritional / Prandial insulin per carb ratio of 1 unit per 8 grams CHO consumed
[2022-03-25 12:28] LABS: Hematocrit (blood only) 26.8 % (34.1-44.9); Hemoglobin 7.9 g/dl (12.0-16.0)
[2022-03-25 12:41] LABS: Partial Thromboplastin Ratio 1.1; Partial Thromboplastin Time 29.5 Seconds (21.0-31.0); Prothrombin Time 10.9 Seconds (9.0-12.0)
--- NOTE | 2022-03-25 14:51 | Hospitalist Progress Note ---
Date of Service March 25, 2022 Assessment & Plan (1) COVID-19: Plan: - Day #3 of symptoms on admission, fever/chills, shortness of breath, cough at home. - Known sick contacts within the family that she has been around. - CXR: Cardiomegaly and mild pulmonary edema. - W/o leukocytosis, procal, ESR, CRP pending. - Fully vaccinated. - Continue dexamethasone due to O2 requirement - Isolation precautions. - Supportive care: DuoNebs, incentive spirometry ordered. Tylenol for pain and fevers. Mucinex. (2) Acute renal insufficiency: Plan: ruled out (3) CHF (congestive heart failure): Plan: - Echo 01/2021: Left ventricular systolic function normal, no WMA, moderate LVH, EF 60-65%. - CITY SANITARIAN--> Lasix 40 mg daily, with additional 40 gm dose on Mondays for 80 mg total. No missed doses. - Patient weighs herself daily, has not gained any weight over the past week. Reports decreased oral intake due to not feeling well for the past few days. - Stop IV fluids, will reassess tomorrow need for ongoing IV fluids (4) Hypomagnesemia: Plan: - 1.6, repleted with 2 gm in ED. Repeat level 2.0. (5) Anemia: Plan: - Hgb 8.8, down from 9.5 on 02/08. - PCP has been tracking this, patient has not had any dark BMs or bright red blood per rectum with bowel movements. - Undetectable iron levels on repeat labs - start Venofer 300mg daily (approx 950mg iron deficit based on Hgb 7.9). - EGD/colonoscopy 03/21: * A single 4 mm sessile polyp removed, multiple small and large mouth diverticula in sigmoid and descending colon, nonbleeding internal hemorrhoids. * Normal esophagus, few large inflammatory pedunculated polyps with no bleeding or stigmata of recent bleeding found in gastric body, biopsies taken, duodenal bulb and second portion duodenum normal, biopsies taken. - Continue to monitor. (6) Controlled type 2 diabetes mellitus with microalbuminuria: Plan: - Diet/lifestyle controlled. - A1c 7% 01/31/22. - DM diet. Will consult pharmacy for glycemic control in setting of current dexamethasone use (7) Atrial fibrillation: Plan: - Currently in NSR - Holding Eliquis due to acute on chronic anemia Eliquis - Continue metoprolol, diltiazem. 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 (8) Hypertension: Plan: - Continuing diltiazem and metoprolol as above for a fib. - Holding Losartan Plan - Continued admission to med telemetry with isolation precautions. - SCDs, Eliquis (on hold as above) for VTE ppx. -DNR/DNI Admission and Anticipated Discharge Date Admission Date: March 24, 2022 Subjective No shortness of breath, chest pain, dizziness with current anemia. No melena or bright red blood in stool. She pulled out her IV this morning and significant blood loss noted and with puddles of blood on the floor. She reports being off Eliquis off for 4 days prior to colonoscopy on . Restarted on . Benign polyps removed from colon (sessile) and biopsies taken from stomach at that time. EGD and colonoscopy performed due to iron deficiency anemia. Updated her daughter in law, Alexus ( of her son Joshua), by request from patient. Review of Systems Review of Systems: All systems reviewed & are unremarkable except as noted in Subjective Physical Exam Constitutional: WD/WN, vitals as above Eyes: + anicteric sclerae; normal pupil size ENMT: external ear and nose normal, oropharynx normal Neck: trachea midline, no thyromegaly Respiratory: normal respiratory effort, lungs clear to auscultation Cardiovascular: Rate/Rhythm: regular rate and regular rhythm Heart Sounds: no murmur Extremities: normal capillary refill and + pedal edema (1+ pretibial pitting); no calf tenderness Gastrointestinal (Abdomen): normal bowel sounds, soft, nontender, no hepatosplenomegaly Musculoskeletal: no cyanosis or clubbing, extremities motor strength 5/5 Skin: no rashes, warm and dry Neurologic: moves all extremities and awake; not confused Psychiatric: A+Ox3, euthymic affect Results & Data Results & Data ([facility]) Vital Signs (Past 12 Hours) Vital Signs Temp Pulse Pulse Resp BP Pulse Ox O2 Del Method 03/25/22 12:36 36.5 C 60 20 140/54 L 90 Room Air 03/25/22 12:35 60 18 91 Nasal Cannula 03/25/22 09:40 95 Nasal Cannula 03/25/22 07:00 64 11/12/22 07:50 98 Oxymask 03/25/22 07:48 Oxymask 03/25/22 07:48 36.5 C 65 22 144/76 H 95 Nasal Cannula 03/25/22 07:56 64 18 94 Oxymask 03/25/22 03:08 36.6 C 89 18 132/72 94 Oxymask O2 Flow Rate 03/25/22 12:36 03/25/22 12:35 2 03/25/22 09:40 6 03/25/22 07:00 03/25/22 07:50 8 03/25/22 07:48 6 03/25/22 07:48 6 03/25/22 07:56 8 03/25/22 03:08 8 PG Care Time/CCT Total # of Minutes Spent Total Time Spent with Patient: Total time spent is greater than 50% in coordination of care (as documented) at patient's floor/unit and/or counseling patient: Coding Level of Care Code 88109 Subseq Hosp Care Lvl 2 Diagnoses COVID-19 U07.1 Acute renal insufficiency N28.9 CHF (congestive heart failure) I50.9 Hypomagnesemia E83.42 Anemia D64.9 Controlled type 2 diabetes mellitus with microalbuminuria E11.29; R80.9 Atrial fibrillation I48.91 Atrial fibrillation type: unspecified Hypertension I10 (1) Atrial fibrillation Atrial fibrillation type: unspecified Qualified Code(s): I48.91 - Unspecified atrial fibrillation
[2022-03-25] MEDS ORDERED: IRON SUCROSE 300 MG in SODIUM CHLORIDE 0.9% 250 ML IV ONE (15:15)
[2022-03-26] MEDS: ALBUT/IPRATROP 3MG/0.5MG NEB 3 ML VIAL INH SCH ×2 (00:47→07:25)
[2022-03-26 06:17] LABS: Basophils # (auto) 0.01 K/uL (0-0.2); Basophils % (auto) 0.1 %; Hematocrit (blood only) 28.2 % (34.1-44.9); Hemoglobin 8.4 g/dl (12.0-16.0); Immature Granulocytes # (auto) 0.11 K/uL (0.00-0.02); Immature Granulocytes % (auto) 0.7 %; Lymphocytes # (auto) 1.48 K/uL (1.2-3.4); Lymphocytes % (auto) 9.5 %; Mean Corpuscular Hemoglobin 22.2 pg (25.0-34.0); Mean Corpuscular Hgb Conc 29.8 g/dL (32.0-36.0); Mean Corpuscular Volume 74.4 fL (80.0-100.0); Mean Platelet Volume 9.8 fL (9.4-12.3); Monocytes # (auto) 1.29 K/uL (0.24-0.82); Monocytes % (auto) 8.3 %; Neutrophils # (auto) 12.62 K/uL (1.4-6.5); Neutrophils % (auto) 81.4 %; Nucleated RBC # (auto) 0.02 K/uL (0-0); Nucleated RBC % (auto) 0.1 %; Platelet Count 265 K/uL (130-400); RDW Coefficient of Variation 18.4 % (11.5-14.5); RDW Standard Deviation 49.1 fL (36.4-46.3); Red Blood Count 3.79 M/uL (3.93-5.22); White Blood Count 15.51 K/ul (4.8-10.8)
[2022-03-26 06:55] LABS: BUN Creatinine Ratio 27.9 (10-20); Calcium 8.2 mg/dl (8.5-10.1); Creatinine Clr Calc Pharmacy 46.6 ml/min; Est GFR (African American) 57.1 ml/min; Est GFR (Non-African American) 49.3 ml/min; Potassium 4.6 mmol/L (3.5-5.1)
[2022-03-26] MEDS: guaiFENesin 600 MG TABCR PO SCH ×2 (08:07→20:13)
[2022-03-26] MEDS: GABAPENTIN 300 MG CAP PO SCH ×3 (08:07→20:11)
[2022-03-26] MEDS: METOPROLOL TARTRATE 100 MG TAB PO SCH ×2 (08:07→20:13)
[2022-03-26] MEDS: POTASSIUM CHLORIDE 10 MEQ TABCR PO SCH (08:08)
[2022-03-26] MEDS: dilTIAZem HCL 300 MG CAPCR PO SCH (08:08)
[2022-03-26] MEDS: PANTOprazole 40 MG in SYRINGE 0 ML IV SCH (08:45)
[2022-03-26] MEDS: dexAMETHasone 6 MG in SYRINGE 0 ML IV SCH (08:46)
[2022-03-26] MEDS: INSULIN ASPART PER UNIT SC SCH ×4 (08:58→20:07)
[2022-03-26] MEDS: INSULIN HUMAN NPH SC SCH (08:58)
[2022-03-26] MEDS: FUROSEMIDE 40 MG TAB PO SCH (11:47)
[2022-03-26] MEDS: LOSARTAN POTASSIUM 25 MG TAB PO SCH (11:47)
[2022-03-26] MEDS: IRON SUCROSE 300 MG in SODIUM CHLORIDE 0.9% 250 ML IV SCH (11:47)
--- NOTE | 2022-03-26 12:20 | Hospitalist Progress Note ---
Date of Service March 26, 2022 Assessment & Plan (1) COVID-19: Plan: - Day #3 of symptoms on admission, fever/chills, shortness of breath, cough at home. - Known sick contacts within the family that she has been around. - CXR: Cardiomegaly and mild pulmonary edema. - W/o leukocytosis, procal, ESR 98, CRP 4.21. - Fully vaccinated - Continue dexamethasone 6mg IV daily for 10 days due to O2 requirement - Isolation precautions. - Supportive care: DuoNebs, incentive spirometry ordered. Tylenol for pain and fevers. Mucinex. (2) CHF (congestive heart failure): Plan: - Echo 01/2021: Left ventricular systolic function normal, no WMA, moderate LVH, EF 60-65%. - Patient weighs herself daily, has not gained any weight over the past week. Reports decreased oral intake due to not feeling well for the past few days. - Restarted on losartan and lasix (3) Anemia: Plan: - Hgb 8.4, down from 9.5 on 02/08. Acute decrease possibly due to bleeding from IV site on [03/24-03/25] - Undetectable iron levels on repeat labs - continue Venofer 300mg daily for 3 days (approx 950mg iron deficit based on Hgb 7.9). - EGD/colonoscopy 03/21: * A single 4 mm sessile polyp removed, multiple small and large mouth diverticula in sigmoid and descending colon, nonbleeding internal hemorrhoids. * Normal esophagus, few large inflammatory pedunculated polyps with no bleeding or stigmata of recent bleeding found in gastric body, biopsies taken, duodenal bulb and second portion duodenum normal, biopsies taken. FOB negative (4) Hypomagnesemia: Plan: - 1.6, repleted with 2 gm in ED. Repeat level 2.0. (5) Controlled type 2 diabetes mellitus with microalbuminuria: Plan: - Diet/lifestyle controlled. - A1c 7% 01/31/22. - DM diet. 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 - Restart on losartan and Lasix Plan - Continued admission to med telemetry with isolation precautions. - SCDs, Eliquis for VTE ppx. -DNR/DNI Admission and Anticipated Discharge Date Admission Date: March 24, 2022 Subjective No shortness of breath, chest pain, dizziness with current anemia. No melena or bright red blood in stool. Improving shortness of breath on exertion. Review of Systems Review of Systems: All systems reviewed & are unremarkable except as noted in Subjective Physical Exam Constitutional: WD/WN, vitals as above Eyes: + anicteric sclerae; normal pupil size ENMT: external ear and nose normal, oropharynx normal Neck: trachea midline, no thyromegaly Respiratory: normal respiratory effort, lungs clear to auscultation Cardiovascular: Rate/Rhythm: regular rate and regular rhythm Heart Sounds: no murmur Extremities: normal capillary refill and + pedal edema (1+ pretibial pitting); no calf tenderness Gastrointestinal (Abdomen): normal bowel sounds, soft, nontender, no hepatosplenomegaly Musculoskeletal: no cyanosis or clubbing, extremities motor strength 5/5 Skin: no rashes, warm and dry Neurologic: moves all extremities and awake; not confused Psychiatric: A+Ox3, euthymic affect Results & Data Results & Data ([facility]) Vital Signs (Past 12 Hours) Vital Signs Temp Pulse Pulse Pulse Resp BP BP 03/26/22 11:45 36.5 C 63 22 145/69 H 03/26/22 08:02 03/26/22 08:02 36.8 C 92 H 22 182/78 H 161/73 H 03/26/22 07:25 61 2 L 03/26/22 07:00 62 03/26/22 03:24 37 C 75 18 170/76 H 03/26/22 01:37 60 03/26/22 00:47 61 20 Pulse Ox O2 Del Method O2 Flow Rate 03/26/22 11:45 95 Nasal Cannula 2 03/26/22 08:02 Nasal Cannula 2 03/26/22 08:02 93 Nasal Cannula 2 03/26/22 07:25 94 Nasal Cannula 4 03/26/22 07:00 03/26/22 03:24 90 Nasal Cannula 2 03/26/22 01:37 03/26/22 00:47 93 Nasal Cannula 2 PG Care Time/CCT Total # of Minutes Spent Total Time Spent with Patient: Total time spent is greater than 50% in coordination of care (as documented) at patient's floor/unit and/or counseling patient: Coding Level of Care Code 44225 Subseq Hosp Care Lvl 2 Diagnoses COVID-19 U07.1 CHF (congestive heart failure) I50.9 Anemia D64.9 Hypomagnesemia E83.42 Controlled type 2 diabetes mellitus with microalbuminuria E11.29; R80.9 Atrial fibrillation I48.91 Atrial fibrillation type: unspecified Hypertension I10 (1) Atrial fibrillation Atrial fibrillation type: unspecified Qualified Code(s): I48.91 - Unspecified atrial fibrillation
[2022-03-26] MEDS: APIXABAN 5 MG TABLET PO SCH (20:11)
[2022-03-26] MEDS: PANTOprazole 40 MG TAB PO SCH (20:12)
[2022-03-26] MEDS: ATORVASTATIN 10 MG TAB PO SCH (20:13)
[2022-03-27 07:58] LABS: Basophils # (auto) 0.01 K/uL (0-0.2); Basophils % (auto) 0.1 %; Hematocrit (blood only) 29.9 % (34.1-44.9); Hemoglobin 8.8 g/dl (12.0-16.0); Immature Granulocytes # (auto) 0.25 K/uL (0.00-0.02); Immature Granulocytes % (auto) 1.7 %; Lymphocytes # (auto) 1.44 K/uL (1.2-3.4); Mean Corpuscular Hemoglobin 21.8 pg (25.0-34.0); Mean Corpuscular Hgb Conc 29.4 g/dL (32.0-36.0); Monocytes # (auto) 0.87 K/uL (0.24-0.82); Monocytes % (auto) 6.1 %; Neutrophils # (auto) 11.76 K/uL (1.4-6.5); Neutrophils % (auto) 82.1 %; Nucleated RBC # (auto) 0.07 K/uL (0-0); Nucleated RBC % (auto) 0.5 %; Platelet Count 304 K/uL (130-400); RDW Coefficient of Variation 18.7 % (11.5-14.5); Red Blood Count 4.04 M/uL (3.93-5.22); White Blood Count 14.33 K/ul (4.8-10.8)
[2022-03-27] MEDS: IRON SUCROSE 300 MG in SODIUM CHLORIDE 0.9% 250 ML IV SCH (08:01)
[2022-03-27] MEDS: PANTOprazole 40 MG TAB PO SCH ×2 (08:06→21:51)
[2022-03-27] MEDS: METOPROLOL TARTRATE 100 MG TAB PO SCH ×2 (08:06→21:52)
[2022-03-27] MEDS: dilTIAZem HCL 300 MG CAPCR PO SCH (08:11)
[2022-03-27] MEDS: POTASSIUM CHLORIDE 10 MEQ TABCR PO SCH (08:11)
[2022-03-27] MEDS: FUROSEMIDE 40 MG TAB PO SCH (08:12)
[2022-03-27] MEDS: APIXABAN 5 MG TABLET PO SCH ×2 (08:12→21:54)
[2022-03-27] MEDS: dexAMETHasone 6 MG in SYRINGE 0 ML IV SCH (08:12)
[2022-03-27] MEDS: LOSARTAN POTASSIUM 25 MG TAB PO SCH (08:13)
[2022-03-27] MEDS: GABAPENTIN 300 MG CAP PO SCH ×3 (08:13→21:54)
[2022-03-27] MEDS: guaiFENesin 600 MG TABCR PO SCH ×2 (08:13→21:53)
[2022-03-27] MEDS: INSULIN ASPART PER UNIT SC SCH ×4 (08:31→21:46)
[2022-03-27] MEDS: INSULIN HUMAN NPH SC SCH (08:32)
[2022-03-27 08:35] LABS: BUN Creatinine Ratio 29.4 (10-20); Calcium 8.7 mg/dl (8.5-10.1); Creatinine Clr Calc Pharmacy 40.7 ml/min; Est GFR (African American) 48.5 ml/min; Est GFR (Non-African American) 41.9 ml/min; Magnesium 2.1 mg/dl (1.7-2.4); Potassium 4.2 mmol/L (3.5-5.1)
[2022-03-27] MEDS: ALBUTEROL HFA 8 GM INHALER INH SCH ×2 (14:58→20:17)
--- NOTE | 2022-03-27 17:07 | Hospitalist Progress Note ---
Date of Service March 27, 2022 Assessment & Plan (1) COVID-19: Plan: - Day #3 of symptoms on admission, fever/chills, shortness of breath, cough at home. - Known sick contacts within the family that she has been around. - CXR: Cardiomegaly and mild pulmonary edema. - W/o leukocytosis, procal, ESR 98, CRP 4.21. - Fully vaccinated - Continue dexamethasone 6mg IV daily for 10 days due to O2 requirement - Isolation precautions. - Supportive care: DuoNebs PRN, incentive spirometry ordered. Tylenol for pain and fevers. Mucinex. (2) CHF (congestive heart failure): Plan: - Echo 01/2021: Left ventricular systolic function normal, no WMA, moderate LVH, EF 60-65%. - Patient weighs herself daily, has not gained any weight over the past week. Reports decreased oral intake due to not feeling well for the past few days. - Continue losartan and lasix (3) Anemia: Plan: - Hgb 8.8, down from 9.5 on 02/08. Acute decrease possibly due to bleeding from IV site on [03/24-03/25] - Undetectable iron levels on repeat labs - continue Venofer 300mg daily for 3 days (approx 950mg iron deficit based on Hgb 7.9) -- last dose today - EGD/colonoscopy 03/21: * A single 4 mm sessile polyp removed, multiple small and large mouth diverticula in sigmoid and descending colon, nonbleeding internal hemorrhoids. * Normal esophagus, few large inflammatory pedunculated polyps with no bleeding or stigmata of recent bleeding found in gastric body, biopsies taken, duodenal bulb and second portion duodenum normal, biopsies taken. FOB negative (4) Hypomagnesemia: Plan: - 1.6, repleted with 2 gm in ED. Repeat level 2.0. (5) Controlled type 2 diabetes mellitus with microalbuminuria: Plan: - Diet/lifestyle controlled. - A1c 7% 01/31/22. - DM diet. 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 - Continue on losartan and Lasix Plan - Continued admission to med telemetry with isolation precautions. - SCDs, Eliquis for VTE ppx. -DNR/DNI Admission and Anticipated Discharge Date Admission Date: March 24, 2022 Anticipated date of discharge: 03/28/22 Subjective Stable shortness of breath. Discussed stable oxygen requirement. 2 step today with 0LPM O2 at rest and 1LPM O2 on exertion. No melena or bright red blood in stool. No chest pain or dizziness. Review of Systems Review of Systems: All systems reviewed & are unremarkable except as noted in Subjective Physical Exam Constitutional: WD/WN, vitals as above Eyes: + anicteric sclerae; normal pupil size ENMT: external ear and nose normal, oropharynx normal Neck: trachea midline, no thyromegaly Respiratory: normal respiratory effort, lungs clear to auscultation Cardiovascular: Rate/Rhythm: regular rate and regular rhythm Heart Sounds: no murmur Extremities: normal capillary refill and + pedal edema (1+ pretibial pitting); no calf tenderness Gastrointestinal (Abdomen): normal bowel sounds, soft, nontender, no hepatosplenomegaly Musculoskeletal: no cyanosis or clubbing, extremities motor strength 5/5 Skin: no rashes, warm and dry Neurologic: moves all extremities and awake; not confused Psychiatric: A+Ox3, euthymic affect Results & Data Results & Data ([facility]) Vital Signs (Past 12 Hours) Vital Signs Temp Pulse Pulse Pulse Pulse Pulse Resp 03/27/22 15:02 62 65 59 L 60 03/27/22 14:59 61 16 03/27/22 14:51 36.4 C L 60 16 03/27/22 08:10 36.6 C 61 17 03/27/22 07:56 Resp Resp Resp Resp BP BP Pulse Ox 03/27/22 15:02 18 18 18 18 03/27/22 14:59 95 03/27/22 14:51 155/68 H 95 03/27/22 08:10 171/74 H 97 03/27/22 07:56 Pulse Ox Pulse Ox Pulse Ox Pulse Ox O2 Del Method O2 Flow Rate O2 Flow Rate 03/27/22 15:02 93 86 L 94 93 1 03/27/22 14:59 Nasal Cannula 1 03/27/22 14:51 Nasal Cannula 2 03/27/22 08:10 Nasal Cannula 2 03/27/22 07:56 Nasal Cannula 2 PG Care Time/CCT Total # of Minutes Spent Total Time Spent with Patient: Total time spent is greater than 50% in coordination of care (as documented) at patient's floor/unit and/or counseling patient: Coding Level of Care Code 35699 Subseq Hosp Care Lvl 1 Diagnoses COVID-19 U07.1 CHF (congestive heart failure) I50.9 Anemia D64.9 Hypomagnesemia E83.42 Controlled type 2 diabetes mellitus with microalbuminuria E11.29; R80.9 Atrial fibrillation I48.91 Atrial fibrillation type: unspecified Hypertension I10 (1) Atrial fibrillation Atrial fibrillation type: unspecified Qualified Code(s): I48.91 - Unspecified atrial fibrillation
[2022-03-27] MEDS: ATORVASTATIN 10 MG TAB PO SCH (21:53)
[2022-03-28] MEDS: ALBUTEROL HFA 8 GM INHALER INH SCH ×2 (07:14→10:24)
[2022-03-28] MEDS: dexAMETHasone 6 MG in SYRINGE 0 ML IV SCH (08:49)
[2022-03-28] MEDS: FUROSEMIDE 40 MG TAB PO SCH (08:49)
[2022-03-28] MEDS: PANTOprazole 40 MG TAB PO SCH (08:49)
[2022-03-28] MEDS: APIXABAN 5 MG TABLET PO SCH (08:49)
[2022-03-28] MEDS: INSULIN ASPART PER UNIT SC SCH ×2 (08:50→12:35)
[2022-03-28] MEDS: POTASSIUM CHLORIDE 10 MEQ TABCR PO SCH (08:50)
[2022-03-28] MEDS: guaiFENesin 600 MG TABCR PO SCH (08:50)
[2022-03-28] MEDS: INSULIN HUMAN NPH SC SCH (08:50)
[2022-03-28] MEDS: METOPROLOL TARTRATE 100 MG TAB PO SCH (08:50)
[2022-03-28] MEDS: dilTIAZem HCL 300 MG CAPCR PO SCH (08:50)
[2022-03-28] MEDS: LOSARTAN POTASSIUM 25 MG TAB PO SCH (08:50)
[2022-03-28] MEDS: GABAPENTIN 300 MG CAP PO SCH ×2 (08:50→13:17)
[2022-03-28] MEDS: IRON SUCROSE 300 MG in SODIUM CHLORIDE 0.9% 250 ML IV SCH (08:51)
[2022-03-28 09:43] LABS: Basophils # (auto) 0.02 K/uL (0-0.2); Basophils % (auto) 0.1 %; Hemoglobin 9.6 g/dl (12.0-16.0); Immature Granulocytes # (auto) 0.26 K/uL (0.00-0.02); Immature Granulocytes % (auto) 1.8 %; Lymphocytes # (auto) 1.57 K/uL (1.2-3.4); Lymphocytes % (auto) 10.6 %; Mean Corpuscular Hemoglobin 21.7 pg (25.0-34.0); Mean Corpuscular Hgb Conc 29.1 g/dL (32.0-36.0); Mean Corpuscular Volume 74.7 fL (80.0-100.0); Mean Platelet Volume 9.9 fL (9.4-12.3); Monocytes # (auto) 1.37 K/uL (0.24-0.82); Monocytes % (auto) 9.3 %; Neutrophils # (auto) 11.56 K/uL (1.4-6.5); Neutrophils % (auto) 78.2 %; Nucleated RBC # (auto) 0.14 K/uL (0-0); Nucleated RBC % (auto) 0.9 %; Platelet Count 315 K/uL (130-400); RDW Standard Deviation 48.6 fL (36.4-46.3); Red Blood Count 4.42 M/uL (3.93-5.22); White Blood Count 14.78 K/ul (4.8-10.8)
[2022-03-28 09:48] LABS: Creatinine Clr Calc Pharmacy 41.8 ml/min; Est GFR (African American) 50.1 ml/min; Est GFR (Non-African American) 43.2 ml/min; Potassium 4.1 mmol/L (3.5-5.1)
--- NOTE | 2022-03-28 12:32 | Discharge Summary ---
Date of Service March 28, 2022 Admission HPI Per Admitting Provider Tamie Hunt is an 86-year-old female with a past medical history significant for A. fib, heart failure, DM 2, hypertension, hyperlipidemia, anemia, and osteoporosis who is presenting today with shortness of breath. On 03/21 she had EGD and colonoscopy on 03/21 for her downtrending hemoglobin, states that she had a procedure well without complications. That night when she got home she had a sore throat which she attributed to the procedure, however the next day she developed fever and chills, shortness of breath, and cough. Her daughter, who she had close contact with tested positive for COVID recently. Patient herself is fully vaccinated against COVID-19. She has had decreased oral intake over the last few days and has been chronically fatigued and just generally weak. No chest pain or palpitations. She has been compliant with all her medications. She does wear 1 L of oxygen at night, otherwise does not require oxygen at home. Family member checked her oxygen prior to arrival in the ED and states it was as low as 82% on room air. Upon presentation, vital signs within normal limits she is with an SPO2 >95% on 4 L NC, unsure how saturations were upon arrival prior to oxygen. She is COVID-positive. Lab significant for hemoglobin of 8.8, slightly down from 9.51- month ago. Creatinine is mildly up at 1.32, baseline seems to be 11.1. Mag mildly low 1.6, trop minimally elevated at 15. Chest x-ray showed cardiomegaly and mild pulmonary edema, no superimposed pneumonia. In the ED she received breathing treatment, IV steroids, 20 mg of Lasix, Mucinex and 2 g magnesium. Currently feeling slightly better but then prior to arrival. Principal Diagnosis COVID-19 Iron deficiency anemia Discharge Exam Constitutional: WD/WN, vitals as above Eyes: + anicteric sclerae; normal pupil size ENMT: external ear and nose normal, oropharynx normal Neck: trachea midline, no thyromegaly Respiratory: normal respiratory effort, lungs clear to auscultation Cardiovascular: Rate/Rhythm: regular rate and regular rhythm Heart Sounds: no murmur Extremities: normal capillary refill and + pedal edema (1+ pretibial pitting); no calf tenderness Gastrointestinal (Abdomen): normal bowel sounds, soft, nontender, no hepatosplenomegaly Musculoskeletal: no cyanosis or clubbing, extremities motor strength 5/5 Skin: no rashes, warm and dry Neurologic: moves all extremities and awake; not confused Psychiatric: A+Ox3, euthymic affect Discharge Data Allergies Allergy/AdvReac Type Severity Reaction Status Date / Time latex Allergy Mild REDNESS, Verified 03/24/22 20:15 RASH Sulfa (Sulfonamide AdvReac Intermediate MAKES HER Verified 03/24/22 20:15 Antibiotics) SICKER Consultations 03/24/22 19:52 ED Decision to Admit Stat Hospital Course (1) COVID-19: Tamie Hunt is an 86 year old female admitted to [facility] from March 24 to 2021 due to shortness of breath. She was diagnosed with COVID-19 pneumonia. This was treated with dexamethasone. She required insulin to cover steroid-induced hyperglycemia. She will continue on insulin NPH (20 units) while on dexamethasone as prescribed below. Given subjective help from albuterol inhaler she was advised to continue this as needed. She has previously diagnosed iron deficiency anemia and due to worsening hemoglobin during her inpatient stay she was treated with intravenous iron. She received iron sucrose (Venofer) 300 mg x 4. This should be adequate to replenish her stores. Consider B12 and folate levels to make sure these are not contributing towards her anemia. Consider repeat iron studies in 4-8 weeks to see if she requires ongoing intravenous vs. oral iron supplementation. On discharge she is still requiring 1LPM Oxygen on exertion only which was prescribed. Please follow up in clinic to see if she continues to need this. She was advised to continue to isolate per current CDC guidelines. (2) CHF (congestive heart failure): (3) Anemia: (4) Hypomagnesemia: (5) Controlled type 2 diabetes mellitus with microalbuminuria: (6) Atrial fibrillation: (7) Hypertension: Total Time Total Time Spent Total Time Spent (In Minutes): 35 Discharge Plan Discharge Items Patient Disposition: Home - Self-Care Reason For Visit: COVID Discharge Diagnosis: COVID Iron deficiency anemia Activity: Resume your previous activity Non-emergency contact: Primary Care Provider Call non-emergency contact if: you have any medication questions and your symptoms worsen Follow-up/Referrals: Rosio Deutsch CRNP [Primary Care Provider] - 04/10/22 1:00 pm Diet: Carb Consistent or DM2 Addtl Attending Provider Instructions: You were admitted to [facility] from March 24 to 2021 due to shortness of breath. You were diagnosed with COVID-19 pneumonia. This was treated with dexamethasone. You required insulin to cover high glucose levels due to the steroid. Please continue on dexamethasone 6 mg daily for the next 5 days in addition to insulin to cover for high glucose levels. Please take both in the morning and only take the insulin while you are on dexamethasone. If your morning glucose levels are less than 80 please discontinue the insulin. Continue to use albuterol as needed for shortness of breath, wheezing or cough. Please continue to use dextromethorphan for cough suppressant as needed and guaifenesin for expectorant as needed. You also noted to have an iron deficiency anemia and due to worsening hemoglobin during your inpatient stay you were treated with intravenous iron. You received iron sucrose (venofer) 300 mg x 4. This should have replenished you stores and no oral iron is currently required. Please follow-up with your primary care physician for ongoing management of this. Consider B12 and folate levels to make sure these are not contributing towards your iron deficiency anemia. Oxygen prescribed on discharge as he was still requiring 1 L O2 on exertion. Please follow-up with your primary care physician for discontinuation of this as you improved. Please continue to isolate per CDC guidelines: https://www.cdc.gov/coronavirus/2019-ncov/your-health/isolation.html Pending Studies at Discharge: No Stand-Alone Forms: My [facility], Smoking Cessation Medications and DC Order Prescriptions: New dexamethasone 6 mg tablet 6 mg PO DAILY 5 Days Qty: 5 0RF Novolin N Flexpen 100 unit/mL (3 mL) insulin pen 20 unit subcut BID 5 Days Qty: 2 0RF Continued (DME) OneTouch Ultra Blue Test Strip Strip See Dose Instructions .ROUTE .MEDSUPPLY Qty: 100 3RF Rx Instructions: check glucose once daily as directed (DME) Wheeled Walker Misc See Rx Instructions .ROUTE .MEDSUPPLY Qty: 1 0RF Rx Instructions: As directed Rollator 4 wheels with brakes and seat metoprolol tartrate 100 mg tablet 100 mg PO BID Qty: 180 3RF gabapentin 300 mg capsule 300 mg PO TID Qty: 270 3RF rabeprazole 20 mg tablet,delayed release (DR/EC) 20 mg PO QAM Qty: 90 3RF atorvastatin 10 mg tablet 10 mg PO HS Qty: 90 3RF Label Comments: qam losartan 25 mg tablet 25 mg PO DAILY Qty: 90 3RF Label Comments: qpm Eliquis 5 mg tablet 5 mg PO BID Qty: 60 11RF albuterol sulfate [Ventolin HFA] 90 mcg/actuation HFA aerosol inhaler 1 inh inhalation QID Qty: 18 2RF diltiazem HCl 300 mg capsule,extended release 24hr 300 mg PO DAILY Qty: 90 3RF (DME) lancets [OneTouch UltraSoft Lancets] misc See Dose Instructions .ROUTE .MEDSUPPLY Qty: 100 5RF Dose Instruction: As directed Rx Instructions: use to check blood glucose once daily as directed potassium chloride 10 mEq tablet extended release 10 meq PO DAILY Qty: 90 3RF Label Comments: qam furosemide 40 mg tablet 40 mg PO DAILY Label Comments: qam Rx Instructions: 40 mg orally take 1 tablet daily and can take 1 additional tablet as needed for shortness of breath; Discharge Orders: Discharge Order (Routine); Ordered 03/28/22 Ordered By: Power Boyce Admission Data Admit Date/Time: 03/24/22 20:23 Attending Provider: Power Boyce Admit Provider: Dagoberto Santo Primary Care Provider: Rosio Deutsch Other Providers: Dagoberto Santo Other Interventions: Discharge Summary Assessment (RN) Last Done: 03/28/22 12:46 Coding Level of Care Code D/C DAY MANAGEMENT >30 MINS Diagnoses COVID-19 U07.1 CHF (congestive heart failure) I50.9 Anemia D64.9 Hypomagnesemia E83.42 Controlled type 2 diabetes mellitus with microalbuminuria E11.29; R80.9 Atrial fibrillation I48.91 Atrial fibrillation type: unspecified Hypertension I10
== END 2022-03-28 14:33 | disposition home or self-care (01) | DRG 177 ==
LOC: ED 18:16 → 2N 20:23 → SUATTDRO 20:23 → 2N 22:25

== ENCOUNTER 2022-07-07 15:12 | Inpatient (IN) ==
[2022-07-07] MEDS ORDERED: ALBUT/IPRATROP 3MG/0.5MG NEB 3 ML VIAL NEB STA (16:00)
[2022-07-07] MEDS ORDERED: dexAMETHasone**PF** 10 MG/ML VIAL IV ONE (16:00)
[2022-07-07] MEDS ORDERED: guaiFENesin 600 MG TABCR PO STA (16:02)
[2022-07-07 16:25] LABS: Basophils # (auto) 0.02 K/uL (0-0.2); Basophils % (auto) 0.3 %; Eosinophils # (auto) 0.16 K/uL (0-0.50); Hematocrit (blood only) 38.2 % (37.0-47.0); Hemoglobin 11.8 g/dl (12.0-16.0); Immature Granulocytes # (auto) 0.01 K/uL (0.01-0.20); Immature Granulocytes % (auto) 0.1 %; Lymphocytes # (auto) 1.82 K/uL (1.2-3.4); Lymphocytes % (auto) 22.9 %; Mean Corpuscular Hemoglobin 26.2 pg (25.0-34.0); Mean Corpuscular Hgb Conc 30.9 g/dL (32.0-36.0); Mean Corpuscular Volume 84.9 fL (80.0-100.0); Mean Platelet Volume 10.3 fL (9.4-12.4); Monocytes # (auto) 0.79 K/uL (0.11-0.59); Monocytes % (auto) 9.9 %; Neutrophils # (auto) 5.14 K/uL (1.40-6.50); Neutrophils % (auto) 64.8 %; Platelet Count 274 K/uL (130-400); RDW Coefficient of Variation 17.4 % (11.5-14.5); RDW Standard Deviation 54.4 fL (36.4-46.3); White Blood Count 7.94 K/ul (4.8-10.8)
--- NOTE | 2022-07-07 16:27 | Electrocardiogram Report ---
Test Reason : Blood Pressure : / mmHG Vent. Rate : 076 BPM Atrial Rate : 084 BPM P-R Int : 000 ms QRS Dur : 138 ms QT Int : 452 ms P-R-T Axes : 000 041 002 degrees QTc Int : 508 ms Suspect unspecified pacemaker failure Atrial fibrillation with occasional ventricular-paced complexes Right bundle branch block Abnormal ECG When compared with ECG of 05-APR-2022 10:21, Electronic ventricular pacemaker has replaced Atrial fibrillation Vent. rate has decreased BY 49 BPM Confirmed by Cali Celis ([id number]) on 07/07/2022 4:27:00 PM Referred By: Confirmed By:Brian Celis
--- NOTE | 2022-07-07 16:37 | XRay Report ---
XR chest 1V portable CLINICAL HISTORY: Shortness of breath. COMPARISON STUDY: Chest CT December 24, 2019 and chest radiograph April 05, 2022. FINDINGS: Left subclavian pacer is in place. Cardiomegaly is unchanged. There is no pneumothorax. No definite pleural effusion. Apparent hazy left basilar opacity is likely artifactual. Right hilar prom inence remains unchanged. Interstitial thickening is unchanged or slightly increased since prior exam . IMPRESSION: Cardiomegaly. Mild interstitial thickening. This is likely chronic. However, mild pulmo nary edema or an infectious process could appear similar. ACT 112: Negative or not required by law. Electronically signed by: Travis Strauss M.D. 07/07/2022 4:36 PM
--- NOTE | 2022-07-07 16:42 | XRay Report ---
XR tibia fibula RT 2V CLINICAL HISTORY: pain fall COMPARISON: None FINDINGS: No proximal right tibial or fibular fracture is noted. There is mild medial ankle mortise widening. Note is made of an acute oblique mildly displaced fracture through the distal shaft of the right fibula. Fracture is displaced approximately 4 mm. No definite acute distal right tibial fractur e is present. IMPRESSION: 1. Acute oblique mildly displaced distal diaphyseal right fibular fracture. 2. Medial ankle mortise widening. 3. No proximal right tibial or fibular fracture. ACT 112: Negative or not required by law. Electronically signed by: Travis Strauss M.D. 07/07/2022 4:39 PM
[2022-07-07 16:56] LABS: Potassium 3.8 mmol/L (3.5-5.1)
[2022-07-07 17:19] LABS: INR 1.1 (0.9-1.1); Prothrombin Time 12.1 Seconds (9.0-12.0)
[2022-07-07 17:22] LABS: Influenza A virus by PCR Negative (Neg); Influenza B virus by PCR Negative (Neg); RSV by PCR Negative (Neg); SARS CoV2 RNA(COVID-19) Ceph NEGATIVE (Negative)
[2022-07-07 17:28] LABS: Albumin Globulin Ratio 1.3 (0.9-2); BUN Creatinine Ratio 19.3 (10-20); Bilirubin,Total 1.2 mg/dl (0.2-1.0); Calcium 9.1 mg/dl (8.5-10.1); Est GFR (African American) 53.6 ml/min; Est GFR (Non-African American) 46.3 ml/min; Magnesium 1.7 mg/dl (1.7-2.4); Phosphorus 4.5 mg/dl (2.5-4.9)
[2022-07-07] MEDS ORDERED: FUROSEMIDE 40 MG/4 ML VIAL IV STA (18:47)
--- NOTE | 2022-07-07 19:33 | Emergency Department Note ---
Impression & Plan Hypervolemia, Dyspnea on minimal exertion, Closed fracture of distal end of right fibula ED Provider Note NAME: HAYDE DOVE AGE: 87 SEX: F ARRIVES VIA: Ambulance INFORMANT: Patient ED PROVIDER(S): Vijay Hankins MD CHIEF COMPLAINT: SOB, referred. PLAN: Disposition: Admit MEDICAL DECISION MAKING: The patient is a pleasant 87-year-old woman with a past medical history of atrial fibrillation on Eliquis, CHF/cardiomyopathy, type 2 diabetes, hypertension, hyperlipidemia who presents to the emergency department referred from urgent care for evaluation of worsening shortness of breath with cough in the setting of the patient being seen by her PCP approximately 10 days ago with similar symptoms suspected to be related to hypervolemia and so Lasix was incr eased. The patient denies having any improvement in her symptoms and went to urgent care today. After being seen there she was referred to emergency department for her respiratory symptoms but upon getting into her vehicle she slipped off of the front seat following to the ground with her right leg caught underneath her and was subsequently brought back into urgent care where she was splinted and sent to the ED via EMS. On arrival the patient is uncomfortable in no acute stress, afebrile with stable vital signs. She has intermittent wheezes bilaterally and diminished breath sounds of bilateral lower lung liu. She appears hypervolemic with 1+ bilateral lower extremity edema. She has increased edema of the right lower leg and ankle with tenderness on the lateral and medial aspects of the right lower leg. Distal PMS intact. EKG demonstrates atrial fibrillation without overt acute ischemia. Chest x-ray demonstrates mild interstitial thickening with suspected mild pulmonary edema. WBC and platelets within the limits. H/H similar to prior values. Chemistry without metabolic acidosis. Electrolytes and LFTs without significant abnormality. High-sensitivity troponin within normal limits. BNP 480, similar to prior values. Lipase not elevated. Procalcitonin is not elevated. COVID- 19, influenza and RSV PCR's were negative. Given the patient's worsening respiratory symptoms now with distal fibular fracture with ankle mortise widening where she will need to remain nonweightbearing she did agree with plan for admission for further management. IV Lasix administered with subsequent diuresis. Dexamethasone, duoneb, and guaifenesin for component of bronchospasm. Case was discussed with Dr. Pedro, Orthopedic surgery on-call. Appreciate recommendations. Agrees that patient should be splinted and remain nonweightbearing. Case was discussed with Dr. Person, [facility] hospitalist, who will evaluate the patient for admission. Triage Nursing notes reviewed and agree them. Prior/outside medical records reviewed Vital Signs: reviewed Differential diagnosis: Reactive airway disease, pneumonia, pneumothorax, COPD, CHF, infections, cardiac ischemia, pulmonary embolism, musculoskeletal, gastrointestinal, as well as other pathologies. ER treatment provided: See below. Diagnostics interpreted by me: ECG: Atrial fibrillation with occasional ventricular paced complexes, 76 bpm, no overt ST elevation or depression, QTc 508, QRS 138 Cardiac Monitoring: An order for continuous cardiac monitoring was placed and demonstrated Atrial fibrillation with occasional ventricular paced complexes, 76 bpm. Laboratory studies: See below Imaging studies: See below Consultation(s): Dr. Pedro, Orthopedic surgery on-call. Dr. Person, [facility] hospitalist. HPI: The patient is a pleasant 87-year-old woman with a past medical history of atrial fibrillation on Eliquis, CHF/cardiomyopathy, type 2 diabetes, hy pertension, hyperlipidemia who presents to the emergency department referred from urgent care for evaluation of worsening shortness of breath with cough in the setting of the patient being seen by her PCP approximately 10 days ago with similar symptoms suspected to be related to hypervolemia and so Lasix was increased. The patient denies having any improvement in her symptoms and went to urgent care today. After being seen there she was referred to emergency department for her respiratory symptoms but upon getting into her vehicle she slipped off of the front seat following to the ground with her right leg caught underneath her and was subsequently brought back into urgent care where she was splinted and sent to the ED via EMS. ROS: See above HPI for pertinent positives & negatives. A total of 10 systems reviewed and were otherwise negative. VITALS:See Below PHYSICAL EXAMINATION: GENERAL: Awake, alert, uncomfortable-appearing, in no distress HENT: Normocephalic, atraumatic. Oropharynx unremarkable. EYES: Normal conjunctiva. Sclera non-icteric. NECK: Supple. No nuchal rigidity. FROM. No JVD. RESPIRATORY: Intermittent wheezes bilaterally and diminished breath sounds of bilateral lower lung liu. CARDIAC: Regular rate, irregular rhythm. Extremities warm and well perfused. Pulses equal. ABDOMEN: Soft, non-distended. No tenderness to palpation. No rebound or guarding. No masses. RECTAL: Deferred. MUSCULOSKELETAL: Chest examination reveals no tenderness. The back is symmetrical on inspection without obvious abnormality. There is no CVA tenderness to palpation. No joint edema. LOWER EXTREMITIES: 1+ bilateral lower extremity edema. She has increased edema of the right lower leg and ankle with tenderness on the lateral and medial aspects of the right lower leg. Mild contusion of the medial malleolus present. Distal PMS intact. NEURO: Normal sensorium. No sensory or motor deficits noted. SKIN: No rash or jaundice noted. ED COURSE: Procedures: Splint Care: After the ortho glass splint was placed by the foundation stage teacher, I examined the splint and confirmed proper application/placement/position. Neurovascular status was intact both proximal and distal to the splinted area. Vijay Hankins MD Past Med/Surg History Medical History (Updated 07/08/22 @ 03:32 by Vijay Hankins MD) Anemia Anticoagulant long-term use Arthritis Atrial fibrillation FOLLOWED BY [facility] CARDS Borderline diabetes Congestive heart failure Deep vein thrombosis (02/2019) Feb 2019 after long car ride (provoked) DVT prophylaxis GERD (gastroesophageal reflux disease) Hx of diverticulitis of colon Hypercholesteremia Hypertension Hypokalemia Leukocytosis Lumbar spondylosis Morbid obesity with BMI of 40.0-44.9, adult Osteoporosis Pulmonary embolism (02/2019) 2019 after dvt>reason for eliquis SOB (shortness of breath) Urinary leakage Surgical History H/O repair of rotator cuff LEFT History of appendectomy History of cardiac cath MORE THAN 7 YEARS AGO--WAS NEGATIVE ([facility]) History of cataract surgery LEFT/RT History of cholecystectomy History of colonoscopy History of esophagogastroduodenoscopy (EGD) History of permanent cardiac pacemaker placement done 01/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 Denton/[employer] device History of tooth extraction Status post placement of cardiac pacemaker Family History Mother , age 42 from breast ca Breast cancer Son Deep vein thrombosis Father , age 52 from acute ID Myocardial infarction Asthma Other Coronary heart disease No family history of adverse response to anesthesia Denies family history of Ovarian cancer Prostate cancer Colorectal cancer Social History Smoking Status: Former smoker Tobacco Type: Cigarettes Age Started Using Tobacco: 23; Age Quit Using Tobacco: 50; packs per day: 1; Second Hand Exposure: No; Do You Dip or Chew Tobacco: No; Tobacco Cessation Education Requested by Patient: No Hx Alcohol Use: No Hx Substance Use: No Preferred Language: Martiniquais Communication Ability: Effective Visual Impairment: No Limitations Hearing Ability: Hard of Hearing Coagulating Bath Operator Required: No Beliefs That Will Affect Care: None marital status: marital status details: lives in [place] Current Living Situation: Spouse Current Living Situation Comment: Lives at home with . current occupational status: retired current occupation: worked at [employer] as a nurse How many Children do You have: 7 How many Children do You have Comment: 6 sons, 1 daughter Other Information That Helps Us Care for You: No Feels Safe at Home: Yes Safety Concerns: Feels Safe At This Time Childhood Exposure to Second-Hand Smoke: No Dental Care, Regularly: No Physical Activity Frequency: Does not Exercise Seatbelt Use: always Sunscreen Use: Yes Assistive Devices: Denture - Upper, Denture - Lower, Glasses, Oxygen - at Night and Walker Assistive Devices Comment: Uses walker for long distance. Allergies Allergies Allergy/AdvReac Type Severity Reaction Status Date / Time latex Allergy Intermediate REDNESS, Verified 07/07/22 16:30 RASH Sulfa (Sulfonamide AdvReac Intermediate MAKES HER Verified 07/07/22 16:30 Antibiotics) SICKER Home Meds Home Medications Medication Instructions Recorded Confirmed furosemide 40 mg tablet 40 mg PO DAILY 06/08/22 07/07/22 furosemide 20 mg tablet (Lasix) 20 mg PO Q OTHER DAY 07/07/22 07/07/22 Previous Rx's Medication Instructions Recorded lancets (OneTouch UltraSoft #100 ea 01/03/19 Lancets) blood sugar diagnostic (OneTouch #100 ea 08/29/19 Ultra Blue Test Strip) Vestaed Walker #1 ea 01/21/20 potassium chloride 10 mEq 10 meq PO DAILY #90 tabs 08/10/21 tablet,extended release rabeprazole 20 mg tablet,delayed 20 mg PO QAM #90 tabs 08/30/21 release atorvastatin 10 mg tablet 10 mg PO HS #90 tabs 12/14/21 losartan 25 mg tablet 25 mg PO DAILY #90 tabs 12/26/21 albuterol sulfate 90 mcg/actuation 1 inh inhalation QID #18 grams 01/09/22 aerosol inhaler (Ventolin HFA) diltiazem HCl 300 mg 300 mg PO DAILY #90 caps 01/23/22 capsule,extended release 24 hr apixaban 5 mg tablet (Eliquis) 5 mg PO BID #60 tabs 04/10/22 metoprolol tartrate 100 mg tablet 100 mg PO BID #180 tabs 05/01/22 gabapentin 300 mg capsule 300 mg PO TID #270 caps 05/29/22 Results & Data (ED) Vital Signs Vital Signs - 24 hr 07/07/22 15:25 07/07/22 15:25 07/07/22 15:25 Temperature 36.7 C Temperature Source Oral Pulse Rate 79 Pulse Rhythm Regular Pulse Strength Normal Respiratory Rate 17 Respiratory Effort / Characteristics Labored Labored Respiratory Depth Normal Respiratory Pattern Regular Blood Pressure 114/75 Blood Pressure [Right Arm] Blood Pressure Mean 88 Blood Pressure Mean [Right Arm] Pulse Oximetry 94 Oxygen Delivery Method Nasal Cannula Nasal Cannula Oxygen Flow Rate 2 2 Sepsis Recent Fever Within 48 Hours No Sepsis New/Unexplained Change in Mental Status N/A Sepsis Action Taken by Nursing No Action Required 07/07/22 16:33 07/07/22 16:31 07/07/22 17:24 Temperature Temperature Source Pulse Rate 65 70 Pulse Rhythm Regular Pulse Strength Respiratory Rate 17 24 Respiratory Effort / Characteristics Respiratory Depth Normal Respiratory Pattern Blood Pressure Blood Pressure [Right Arm] 138/84 Blood Pressure Mean Blood Pressure Mean [Right Arm] 102 Pulse Oximetry 96 97 Oxygen Delivery Method Nasal Cannula Nasal Cannula Oxygen Flow Rate 3 3 Sepsis Recent Fever Within 48 Hours Sepsis New/Unexplained Change in Mental Status Sepsis Action Taken by Nursing Laboratory Data 07/07/22 15:49 07/07/22 15:49 Lab Results 07/07/22 07/07/22 07/07/22 Range/Units 15:49 15:49 15:49 WBC 7.94 (4.8-10.8) K/ul RBC 4.50 (4.20-5.40) M/uL Hgb 11.8 L (12.0-16.0) g/dl Hct 38.2 (37.0-47.0) % MCV 84.9 (80.0-100.0) fL MCH 26.2 (25.0-34.0) pg MCHC 30.9 L (32.0-36.0) g/dL RDW Std Deviation 54.4 H (36.4-46.3) fL RDW Coeff of Thomas 17.4 H (11.5-14.5) % Plt Count 274 (130-400) K/uL MPV 10.3 (9.4-12.4) fL Immature Gran % (Auto) 0.1 % Neut % (Auto) 64.8 % Lymph % (Auto) 22.9 % Carver % (Auto) 9.9 % Eos % (Auto) 2.0 % Baso % (Auto) 0.3 % Neut # (Auto) 5.14 (1.40-6.50) K/uL Lymph # (Auto) 1.82 (1.2-3.4) K/uL Carver # (Auto) 0.79 H (0.11-0.59) K/uL Eos # (Auto) 0.16 (0-0.50) K/uL Baso # (Auto) 0.02 (0-0.2) K/uL Immature Gran # (Auto) 0.01 (0.01-0.20) K/uL PT (9.0-12.0) Seconds INR (0.9-1.1) Sodium 140 (136-145) mmol/L Potassium 3.8 (3.5-5.1) mmol/L Chloride 103 (98-107) mmol/L Carbon Dioxide 29 (21-32) mmol/L Anion Gap 8 (3-11) BUN 21 (6-23) mg/dl Creatinine 1.09 (0.6-1.2) mg/dl Est Cr Clr Drug Dosing 44.0 ml/min Est GFR ( Amer) 53.6 ml/min Est GFR (Non-Af Amer) 46.3 ml/min BUN/Creatinine Ratio 19.3 (10-20) Glucose 95 (70-99(Fasting)) mg/dl Calcium 9.1 (8.5-10.1) mg/dl Phosphorus 4.5 (2.5-4.9) mg/dl Magnesium 1.7 (1.7-2.4) mg/dl Total Bilirubin 1.2 H (0.2-1.0) mg/dl AST 13 (13-39) U/L ALT 14 (7-52) U/L Alkaline Phosphatase 74 (34-104) U/L Troponin I High Sens 8.0 (0-14) pg/ml B-Natriuretic Peptide 487 H (0-100) pg/ml Total Protein 7.0 (6.0-8.3) gm/dl Albumin 4.0 (3.4-5.0) gm/dl Globulin 3.0 (2.5-4.0) gm/dl Albumin/Globulin Ratio 1.3 (0.9-2) Lipase 23 (11-82) U/L Procalcitonin (0-0.5) ng/ml 07/07/22 07/07/22 Range/Units 15:49 16:21 WBC (4.8-10.8) K/ul RBC (4.20-5.40) M/uL Hgb (12.0-16.0) g/dl Hct (37.0-47.0) % MCV (80.0-100.0) fL MCH (25.0-34.0) pg MCHC (32.0-36.0) g/dL RDW Std Deviation (36.4-46.3) fL RDW Coeff of Thomas (11.5-14.5) % Plt Count (130-400) K/uL MPV (9.4-12.4) fL Immature Gran % (Auto) % Neut % (Auto) % Lymph % (Auto) % Carver % (Auto) % Eos % (Auto) % Baso % (Auto) % Neut # (Auto) (1.40-6.50) K/uL Lymph # (Auto) (1.2-3.4) K/uL Carver # (Auto) (0.11-0.59) K/uL Eos # (Auto) (0-0.50) K/uL Baso # (Auto) (0-0.2) K/uL Immature Gran # (Auto) (0.01-0.20) K/uL PT 12.1 H (9.0-12.0) Seconds INR 1.1 (0.9-1.1) Sodium (136-145) mmol/L Potassium (3.5-5.1) mmol/L Chloride (98-107) mmol/L Carbon Dioxide (21-32) mmol/L Anion Gap (3-11) BUN (6-23) mg/dl Creatinine (0.6-1.2) mg/dl Est Cr Clr Drug Dosing ml/min Est GFR ( Amer) ml/min Est GFR (Non-Af Amer) ml/min BUN/Creatinine Ratio (10-20) Glucose (70-99(Fasting)) mg/dl Calcium (8.5-10.1) mg/dl Phosphorus (2.5-4.9) mg/dl Magnesium (1.7-2.4) mg/dl Total Bilirubin (0.2-1.0) mg/dl AST (13-39) U/L ALT (7-52) U/L Alkaline Phosphatase (34-104) U/L Troponin I High Sens (0-14) pg/ml B-Natriuretic Peptide (0-100) pg/ml Total Protein (6.0-8.3) gm/dl Albumin (3.4-5.0) gm/dl Globulin (2.5-4.0) gm/dl Albumin/Globulin Ratio (0.9-2) Lipase (11-82) U/L Procalcitonin 0.05 (0-0.5) ng/ml Administered Medications Acetaminophen (Acetaminophen 325 Mg Tab) 650 mg PO Q4H PRN PRN Reason: pain/fever Stop: 08/06/22 21:45 Last Admin: 07/07/22 23:33 Dose: 650 mg Documented By: BRI Albuterol (Albuterol Hfa 8 Gm Inhaler) 1 puffs INH QIDR [facility] Stop: 08/06/22 21:45 Last Admin: 07/07/22 23:07 Dose: Not Given Documented By: MARCEL Atorvastatin Calcium (Atorvastatin 10 Mg Tab) 10 mg PO HS [facility] Stop: 08/06/22 21:45 Last Admin: 07/07/22 22:34 Dose: 10 mg Documented By: BRI Gabapentin (Gabapentin 300 Mg Cap) 300 mg PO TID [facility] Stop: 08/06/22 21:45 Last Admin: 07/07/22 22:35 Dose: 300 mg Documented By: BRI Guaifenesin (Guaifenesin 600 Mg Tabcr) 600 mg PO Q12 ROCIO Stop: 08/06/22 21:45 Last Admin: 07/07/22 22:35 Dose: 600 mg Documented By: BRI Metoprolol Tartrate (Metoprolol Tartrate 100 Mg Tab) 100 mg PO BID ROCIO Stop: 08/06/22 21:45 Last Admin: 07/07/22 22:35 Dose: 100 mg Documented By: BRI Discontinued Medications Albuterol (Albut/Ipratrop 3mg/0.5mg Neb 3 Ml Vial) 3 ml NEB NOW STA; Protocol Stop: 07/07/22 16:01 Last Admin: 07/07/22 16:32 Dose: 3 ml Documented By: NAELK Dexamethasone Sodium Phosphate (DexamethasonePf 10 Mg/Ml Vial) 10 mg IV NOW ONE Stop: 07/07/22 16:01 Last Admin: 07/07/22 16:28 Dose: 10 mg Documented By: NAELK Furosemide (Furosemide 40 Mg/4 Ml Vial) 60 mg IV NOW STA Stop: 07/07/22 18:48 Last Admin: 07/07/22 19:23 Dose: 60 mg Documented By: ARMANDO Guaifenesin (Guaifenesin 600 Mg Tabcr) 600 mg PO NOW STA Stop: 07/07/22 16:03 Last Admin: 07/07/22 16:28 Dose: 600 mg Documented By: NAELK Acetaminophen (Ofirmev) 1,000 mg in 100 mls @ 400 mls/hr IV NOW STA Stop: 07/07/22 20:28 Last Infusion: 07/07/22 21:29 Dose: 0 mls/hr Documented By: Admin: 07/07/22 20:36 Dose: 400 mls/hr Documented By: CGK Morphine Sulfate (Morphine Sulfate 2 Mg/Ml Carp) 2 mg IV NOW STA Stop: 07/07/22 20:15 Last Admin: 07/07/22 20:34 Dose: 2 mg Documented By: CGK Imaging Data Radiologist's Impression: Chest X-Ray 07/07/22 16:00 XR chest 1V portable CLINICAL HISTORY: Shortness of breath. COMPARISON STUDY: Chest CT December 24, 2019 and chest radiograph April 05, 2022. FINDINGS: Left subclavian pacer is in place. Cardiomegaly is unchanged. There is no pneumothorax. No definite pleural effusion. Apparent hazy left basilar opacity is likely artifactual. Right hilar prominence remains unchanged. Interstitial thickening is unchanged or slightly increased since prior exam. IMPRESSION: Cardiomegaly. Mild interstitial thickening. This is likely chronic. However, mild pulmonary edema or an infectious process could appear similar. ACT 112: Negative or not required by law. Electronically signed by: Travis Strauss M.D. 07/07/2022 4:36 PM Tibia/Fibula X-Ray 07/07/22 16:00 XR tibia fibula RT 2V CLINICAL HISTORY: pain fall COMPARISON: None FINDINGS: No proximal right tibial or fibular fracture is noted. There is mild medial ankle mortise widening. Note is made of an acute oblique mildly displaced fracture through the distal shaft of the right fibula. Fracture is displaced approximately 4 mm. No definite acute distal right tibial fracture is present. IMPRESSION: 1. Acute oblique mildly displaced distal diaphyseal right fibular fracture. 2. Medial ankle mortise widening. 3. No proximal right tibial or fibular fracture. ACT 112: Negative or not required by law. Electronically signed by: Travis Strauss M.D. 07/07/2022 4:39 PM Discharge Plan Visit Data Chief Complaint: Shortness of Breath/Dyspnea Stated Complaint: SOB, FALL, LEG PAIN ED Provider: Vijay Hankins Discharge Problem: Hypervolemia, Dyspnea on minimal exertion, Closed fracture of distal end of right fibula Patient Disposition: Admitted As Inpatient Discharge Instructions Interventions: ED Discharge Assessment Last Done: 07/07/22 21:25
--- NOTE | 2022-07-07 20:13 | History & Physical Report ---
Date of Service July 07, 2022 Assessment & Plan (1) SOB (shortness of breath): Plan: 87-year-old female with history of hypertension, hyperlipidemia, atrial fibrillation/prior VTE on chronic anticoagulation with apixaban presenting with persistent shortness of breath, cough and congestion. Patient with adequate saturation presently on 2 L nasal cannula. Of note, patient does not typically use oxygen during the day. Most likely multifactorialsuspect some degree of volume overload. Patient with history of chronic diastolic heart failure and mild cardiomyopathy. Last echocardiogram performed in January 2021 which revealed normal left ventricu lar function, EF 60 to 65%, no regional wall motion abnormalities. Patient's lungs sound coarse on exam. X-ray with suggestion of pulmonary edema. Elevated BNP = 487. Patient administered 60 mg IV Lasix in the ER and has urinated several times since. We will continue diuresis with Lasix 40 mg IV daily Monitor intake and output, daily standing weights Repeat chemistry in the morning to assess electrolytes and renal function Continue supplemental oxygen as needed for goal saturation greater than 92% Possibly some component of bronchitis as well given patient's recent report of flulike symptoms and now with cough productive of green sputum. Do not suspect pneumonia. Patient with normal WBC count = 7.94, normal procalcitonin = 0.05. No infiltrates noted on chest x-ray. Mucinex 600 mg p.o. every 12 Albuterol HFA as needed (2) Ankle fracture: Plan: Patient sustained a fall out of her vehicle earlier today resulting in fracture of the right ankle. Patient with acute oblique mildly displaced distal diaphyseal right fibular fracture, medial ankle mortise widening. No proximal right tibial or fibular fracture. Ankle was splinted in the ER. Repeat imagingankle mortise widening appears resolved. No formal read on the repeat imaging as of yet. Maintain ankle splint Continue fall precautions Consult orthopedic surgery PT/OT evaluationright ankle nonweightbearing until further instruction from orthopedics Pain control with Tylenol, Oxy IR as needed MiraLAX and Colace as needed for bowel regimen -Patient lives in a single-story home with her . She reports that she ambulates with a walker at baseline. She has a ramp entering the home. (3) Atrial fibrillation: Plan: Rate controlled atrial fibrillation. Patient anticoagulated with apixaban 5 mg p.o. twice daily. 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 twice daily Continue apixaban 5 mg p.o. twice daily Continue diltiazem 300 mg p.o. daily (4) Type 2 diabetes mellitus with chronic kidney disease: Plan: Diet controlled diabetes Monitor blood glucose Consistent carb diet (5) Hypercholesteremia: Plan: Chronic. Stable. Continue atorvastatin 10 mg p.o. nightly (6) Hypertension: Plan: Blood pressure well controlled Continue metoprolol 100 mg p.o. twice daily Continue losartan 25 mg p.o. daily Continue diltiazem 300 mg p.o. daily Continue to monitor F/E/Ndiuresis with Lasix 40 mg IV daily, monitor renal function electrolytes, consistent carb diet as tolerated Prophylaxiscontinue home apixaban 5 mg p.o. twice daily, Protonix 40 mg p.o. daily CodeDNR/DNI per discussion with patient Dispositionadmit to medical History of Present Illness Chief Complaint: Cough, congestion, shortness of breath Ankle fracture Primary Care Provider: JUSTINE Dao Tamie Hunt is an 87-year-old female presenting with ongoing cough, congestion and shortness of breath as well as a new right ankle fracture sustained today. 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 Patient was first seen by her PCP on 06/08/2022 with complaint of dyspnea. At that time dyspnea thought to be secondary to patient's underlying atrial fibrillation and chronic diastolic heart failure. Her Lasix was increased to 60 mg every other day alternating with 40 mg every other day. She was ordered an outpatient echocardiogram and told to follow-up in 2 weeks. Patient was seen again by her PCP on 06/27/2022. During that visit she reported feeling improved in regards to her dyspnea. She did complain of flulike symptoms during that visit to include sinus drainage, body aches and nausea. She had a rapid flu and COVID performed which were both negative. Supportive care was recommended. Patient presents to the ER this evening with complaint of persistent and progressive shortness of breath, cough productive for green sputum and ongoing nasal congestion. She was seen at urgent care for these complaints and was instructed to come to the ER. She was getting into her vehicle when she slid out of the seat and her right leg got caught underneath her resulting in a right ankle fracture. Patient presently with ongoing cough and shortness of breath. She is currently on 4 L nasal cannula saturating 94%. Of note, she does not typically wear oxygen during the day she does however use 2 L at night. She denies fever, chills, chest pain, palpitations. Denies abdominal pain, nausea, vomiting, diarrhea, constipation. Her weight has been stable. She has chronic orthopnea and edema which she reports is largely unchanged. During the fall, she denies loss of consciousness or head trauma. No incontinence or seizure activity. In the ER, she is afebrile, mildly tachycardic otherwise hemodynamically stable. No acute distress ER course: Dexamethasone 10 mg IV Guaifenesin 60 mg p.o. Albuterol 3 mL neb Lasix 60 mg IV Morphine 2 mg IV Acetaminophen 1 g p.o. Allergies Allergy/AdvReac Type Severity Reaction Status Date / Time latex Allergy Intermediate REDNESS, Verified 07/07/22 16:30 RASH Sulfa (Sulfonamide AdvReac Intermediate MAKES HER Verified 07/07/22 16:30 Antibiotics) SICKER Home Medications Medication Instructions Recorded Confirmed Type lancets (OneTouch UltraSoft #100 ea 01/03/19 06/27/22 Rx Lancets) blood sugar diagnostic (OneTouch #100 ea 08/29/19 06/27/22 Rx Ultra Blue Test Strip) Wheeled Walker #1 ea 01/21/20 06/27/22 Rx potassium chloride 10 mEq 10 meq PO DAILY #90 tabs 08/10/21 07/07/22 Rx tablet,extended release rabeprazole 20 mg tablet,delayed 20 mg PO QAM #90 tabs 08/30/21 07/07/22 Rx release atorvastatin 10 mg tablet 10 mg PO HS #90 tabs 12/14/21 07/07/22 Rx losartan 25 mg tablet 25 mg PO DAILY #90 tabs 12/26/21 07/07/22 Rx albuterol sulfate 90 mcg/actuation 1 inh inhalation QID #18 grams 01/09/22 07/07/22 Rx aerosol inhaler (Ventolin HFA) diltiazem HCl 300 mg 300 mg PO DAILY #90 caps 01/23/22 07/07/22 Rx capsule,extended release 24 hr apixaban 5 mg tablet (Eliquis) 5 mg PO BID #60 tabs 04/10/22 07/07/22 Rx metoprolol tartrate 100 mg tablet 100 mg PO BID #180 tabs 05/01/22 07/07/22 Rx gabapentin 300 mg capsule 300 mg PO TID #270 caps 05/29/22 07/07/22 Rx furosemide 40 mg tablet 40 mg PO DAILY 06/08/22 07/07/22 History furosemide 20 mg tablet (Lasix) 20 mg PO Q OTHER DAY 07/07/22 07/07/22 History Past Med/Surg History Medical History (Updated 07/07/22 @ 22:44 by Birgit Person DO) Anemia Anticoagulant long-term use Arthritis Atrial fibrillation FOLLOW[place] [facility] [place] Borderline diabetes Congestive heart failure Deep vein thrombosis (02/2019) Feb 2019 after long car ride (provoked) DVT prophylaxis GERD (gastroesophageal reflux disease) Hx of diverticulitis of colon Hypercholesteremia Hypertension Hypokalemia Leukocytosis Lumbar spondylosis Morbid obesity with BMI of 40.0-44.9, adult Osteoporosis Pulmonary embolism (02/2019) 2019 after dvt>reason for eliquis SOB (shortness of breath) Urinary leakage Surgical History H/O repair of rotator cuff LEFT History of appendectomy History of cardiac cath MORE THAN 7 YEARS AGO--WAS NEGATIVE ([facility]) History of cataract surgery LEFT/RT History of cholecystectomy History of colonoscopy History of esophagogastroduodenoscopy (EGD) History of permanent cardiac pacemaker placement done 01/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 [place]/[employer] device History of tooth extraction Status post placement of cardiac pacemaker Family History Mother , age 42 from breast ca Breast cancer Son Deep vein thrombosis Father , age 52 from acute [place] Myocardial infarction Asthma Other Coronary heart disease No family history of adverse response to anesthesia Denies family history of Ovarian cancer Prostate cancer Colorectal cancer Social History Smoking Status: Former smoker Tobacco Type: Cigarettes Age Started Using Tobacco: 23; Age Quit Using Tobacco: 50; packs per day: 1; Second Hand Exposure: No; Do You Dip or Chew Tobacco: No; Tobacco Cessation Education Requested by Patient: No Hx Alcohol Use: No Hx Substance Use: No Preferred Language: Serbian Communication Ability: Effective Visual Impairment: No Limitations Hearing Ability: Hard of Hearing Features Reporter Required: No Beliefs That Will Affect Care: None marital status: marital status details: lives in [place] Current Living Situation: Spouse Current Living Situation Comment: Lives at home with . current occupational status: retired current occupation: worked at [employer] as a nurse How many Children do You have: 7 How many Children do You have Comment: 6 sons, 1 daughter Other Information That Helps Us Care for You: No Feels Safe at Home: Yes Safety Concerns: Feels Safe At This Time Childhood Exposure to Second-Hand Smoke: No Dental Care, Regularly: No Physical Activity Frequency: Does not Exercise Seatbelt Use: always Sunscreen Use: Yes Assistive Devices: Denture - Upper, Denture - Lower, Glasses, Oxygen - at Night and Walker Assistive Devices Comment: Uses walker for long distance. Review of Systems Review of Systems: All systems reviewed & are unremarkable except as noted in HPI & below Physical Exam Physical Exam: General: patient resting comfortably, NAD, non-toxic in appearance, AA&O x 4 Skin: warm, dry, intact, no rashes or lesions HEENT: NC/AT, PERRL, EOMI, anicteric sclera, conjunctiva without injection, external ear normal to inspection and nontender, nares patent, moist mucus membranes, dentition intact, no oropharyngeal lesions, neck supple, trachea midline, no LAD, no thyromegaly, no JVD Heart: +S1/S2, irregularly irregular, no m/r/g Lungs: equal air entry bilaterally, coarse breath sounds anteriorly with scattered end expiratory wheezing, moist cough Abd: +BS, soft, NT/ND, no masses/organomegaly/ascites Ext: warm, 2+ pulses in UE/LE bilaterally, no clubbing/cyanosis, 2+ pitting edema to the knee bilaterally Neuro: nonfocal, patient AA&O x 4, speech intact, no facial droop, moving all extremities on command with equal strength 5/5 Results & Data Results & Data ([facility]) Vital Signs (Past 12 Hours) Vital Signs Temp Pulse Resp BP BP Pulse Ox O2 Del Method 07/07/22 17:24 24 138/84 97 Nasal Cannula 07/07/22 16:31 70 07/07/22 16:33 65 17 96 Nasal Cannula 07/07/22 15:25 Nasal Cannula 07/07/22 15:25 36.7 C 79 17 114/75 94 Nasal Cannula O2 Flow Rate 07/07/22 17:24 3 07/07/22 16:31 07/07/22 16:33 3 07/07/22 15:25 2 07/07/22 15:25 2 Laboratory Results Laboratory Results WBC 7.94 K/ul (4.8-10.8) 07/07/22 15:49 RBC 4.50 M/uL (4.20-5.40) 07/07/22 15:49 Hgb 11.8 g/dl (12.0-16.0) L 07/07/22 15:49 Hct 38.2 % (37.0-47.0) 07/07/22 15:49 MCV 84.9 fL (80.0-100.0) 07/07/22 15:49 MCH 26.2 pg (25.0-34.0) 07/07/22 15:49 MCHC 30.9 g/dL (32.0-36.0) L 07/07/22 15:49 RDW Std Deviation 54.4 fL (36.4-46.3) H 07/07/22 15:49 RDW Coeff of Thomas 17.4 % (11.5-14.5) H 07/07/22 15:49 Plt Count 274 K/uL (130-400) 07/07/22 15:49 MPV 10.3 fL (9.4-12.4) 07/07/22 15:49 Immature Gran % (Auto) 0.1 % 07/07/22 15:49 Neut % (Auto) 64.8 % 07/07/22 15:49 Lymph % (Auto) 22.9 % 07/07/22 15:49 [place] % (Auto) 9.9 % 07/07/22 15:49 Eos % (Auto) 2.0 % 07/07/22 15:49 Baso % (Auto) 0.3 % 07/07/22 15:49 Neut # (Auto) 5.14 K/uL (1.40-6.50) 07/07/22 15:49 Lymph # (Auto) 1.82 K/uL (1.2-3.4) 07/07/22 15:49 [place] # (Auto) 0.79 K/uL (0.11-0.59) H 07/07/22 15:49 Eos # (Auto) 0.16 K/uL (0-0.50) 07/07/22 15:49 Baso # (Auto) 0.02 K/uL (0-0.2) 07/07/22 15:49 Immature Gran # (Auto) 0.01 K/uL (0.01-0.20) 07/07/22 15:49 PT 12.1 Seconds (9.0-12.0) H 07/07/22 16:21 INR 1.1 (0.9-1.1) 07/07/22 16:21 Sodium 140 mmol/L (136-145) 07/07/22 15:49 Potassium 3.8 mmol/L (3.5-5.1) 07/07/22 15:49 Chloride 103 mmol/L (98-107) 07/07/22 15:49 Carbon Dioxide 29 mmol/L (21-32) 07/07/22 15:49 Anion Gap 8 (3-11) 07/07/22 15:49 BUN 21 mg/dl (6-23) 07/07/22 15:49 Creatinine 1.09 mg/dl (0.6-1.2) 07/07/22 15:49 Est Cr Clr Drug Dosing 44.0 ml/min 07/07/22 15:49 Est GFR ( Amer) 53.6 ml/min 07/07/22 15:49 Est GFR (Non-Af Amer) 46.3 ml/min 07/07/22 15:49 BUN/Creatinine Ratio 19.3 (10-20) 07/07/22 15:49 Glucose 95 mg/dl (70-99(Fasting)) 07/07/22 15:49 Calcium 9.1 mg/dl (8.5-10.1) 07/07/22 15:49 Phosphorus 4.5 mg/dl (2.5-4.9) 07/07/22 15:49 Magnesium 1.7 mg/dl (1.7-2.4) 07/07/22 15:49 Total Bilirubin 1.2 mg/dl (0.2-1.0) H 07/07/22 15:49 AST 13 U/L (13-39) 07/07/22 15:49 ALT 14 U/L (7-52) 07/07/22 15:49 Alkaline Phosphatase 74 U/L (34-104) 07/07/22 15:49 Troponin I High Sens 8.0 pg/ml (0-14) 07/07/22 15:49 B-Natriuretic Peptide 487 pg/ml (0-100) H 07/07/22 15:49 Total Protein 7.0 gm/dl (6.0-8.3) 07/07/22 15:49 Albumin 4.0 gm/dl (3.4-5.0) 07/07/22 15:49 Globulin 3.0 gm/dl (2.5-4.0) 07/07/22 15:49 Albumin/Globulin Ratio 1.3 (0.9-2) 07/07/22 15:49 Lipase 23 U/L (11-82) 07/07/22 15:49 Procalcitonin 0.05 ng/ml (0-0.5) 07/07/22 15:49 SARS-CoV-2 (PCR) NEGATIVE (Negative) 07/07/22 Unknown Influenza Type A (PCR) Negative (Neg) 07/07/22 Unknown Influenza Type B (PCR) Negative (Neg) 07/07/22 Unknown RSV (RT-PCR) Negative (Neg) 07/07/22 Unknown Impressions Chest X-Ray 07/07/22 16:00 XR chest 1V portable CLINICAL HISTORY: Shortness of breath. COMPARISON STUDY: Chest CT December 24, 2019 and chest radiograph April 05, 2022. FINDINGS: Left subclavian pacer is in place. Cardiomegaly is unchanged. There is no pneumothorax. No definite pleural effusion. Apparent hazy left basilar opacity is likely artifactual. Right hilar prominence remains unchanged. Interstitial thickening is unchanged or slightly increased since prior exam. IMPRESSION: Cardiomegaly. Mild interstitial thickening. This is likely chronic. However, mild pulmonary edema or an infectious process could appear similar. ACT 112: Negative or not required by law. Electronically signed by: Travis Strauss M.D. 07/07/2022 4:36 PM Tibia/Fibula X-Ray 07/07/22 16:00 XR tibia fibula RT 2V CLINICAL HISTORY: pain fall COMPARISON: None FINDINGS: No proximal right tibial or fibular fracture is noted. There is mild medial ankle mortise widening. Note is made of an acute oblique mildly displaced fracture through the distal shaft of the right fibula. Fracture is displaced approximately 4 mm. No definite acute distal right tibial fracture is present. IMPRESSION: 1. Acute oblique mildly displaced distal diaphyseal right fibular fracture. 2. Medial ankle mortise widening. 3. No proximal right tibial or fibular fracture. ACT 112: Negative or not required by law. Electronically signed by: Travis Strauss M.D. 07/07/2022 4:39 PM ECG Additional Comments: DICTATED BY:Cali Celis MD Test Reason : Blood Pressure : / mmHG Vent. Rate : 076 BPM Atrial Rate : 084 BPM P-R Int : 000 ms QRS Dur : 138 ms QT Int : 452 ms P-R-T Axes : 000 041 002 degrees QTc Int : 508 ms Suspect unspecified pacemaker failure Atrial fibrillation with occasional ventricular-paced complexes Right bundle branch block Abnormal ECG When compared with ECG of 05-APR-2022 10:21, Electronic ventricular pacemaker has replaced Atrial fibrillation Vent. rate has decreased BY 49 BPM Confirmed by Cali Celis ([id number]) on 07/07/2022 4:27:00 PM Referred By: Confirmed By:Brian Celis Code Status & VTE Plan VTE Prophylaxis Plan VTE Prophylaxis will be ordered: Yes PG Care Time/CCT Total # of Minutes Spent Total Time Spent with Patient: Total time spent is greater than 50% in coordination of care (as documented) at patient's floor/unit and/or counseling patient: Coding Level of Care Code 37845 INT INP/OBS CARE 3/75MIN Diagnoses SOB (shortness of breath) R06.02 Ankle fracture S82.899A Atrial fibrillation I48.91 Atrial fibrillation type: unspecified Type 2 diabetes mellitus with chronic kidney disease E11.22 Hypercholesteremia E78.00 Hypertension I10 (3) Atrial fibrillation Atrial fibrillation type: unspecified Qualified Code(s): I48.91 - Unspecified atrial fibrillation
[2022-07-07] MEDS ORDERED: ACETAMINOPHEN 1,000 MG/100 ML VIAL IV STA (20:14)
[2022-07-07] MEDS ORDERED: MoRPHine SULFATE 2 MG/ML CARP IV STA (20:14)
[2022-07-07] MEDS ORDERED: POLYETHYLENE (MIRALAX) 17 GM PACK PO PRN (21:46)
[2022-07-07] MEDS ORDERED: DEXTROSE 50% 50 ML SYRINGE IV PRN (21:46)
[2022-07-07] MEDS ORDERED: GLUCOSE 40% GEL 15 GM TUBE PO PRN (21:46)
[2022-07-07] MEDS ORDERED: GLUCOSE 10 TAB/TUBE PO PRN (21:46)
[2022-07-07] MEDS ORDERED: CARBOHYDRATES FOR HYPOGLYCEMIA PO PRN (21:46)
[2022-07-07] MEDS ORDERED: GLUCAGON FOR INJ 1 MG VIAL SQ PRN (21:46)
[2022-07-07] MEDS: ATORVASTATIN 10 MG TAB PO SCH (22:34)
[2022-07-07] MEDS: guaiFENesin 600 MG TABCR PO SCH (22:35)
[2022-07-07] MEDS: GABAPENTIN 300 MG CAP PO SCH (22:35)
[2022-07-07] MEDS: METOPROLOL TARTRATE 100 MG TAB PO SCH (22:35)
[2022-07-07] MEDS: ALBUTEROL HFA 8 GM INHALER INH SCH (23:07)
[2022-07-07] MEDS: ACETAMINOPHEN 325 MG TAB PO PRN (23:33)
--- NOTE | 2022-07-08 07:40 | XRay Report ---
XR ankle RT min 3V routine CLINICAL HISTORY: eval fx, s/p splint COMPARISON STUDY: Right lower leg 07/07/2022. FINDINGS: Overlying splint material obscures fine bony detail. There is improved anatomic alignment i n the mildly displaced oblique distal fibular fracture. There is also mildly displaced posterior mall eolus fracture. The ankle mortise appears intact. IMPRESSION: Slight improved anatomic alignment within the right distal fibular and posterior malleol i fractures. ACT 112: Negative or not required by law. Electronically signed by: Ross Luz M.D. 07/08/2022 7:39 AM
[2022-07-08] MEDS: APIXABAN 5 MG TABLET PO SCH ×2 (08:05→20:33)
[2022-07-08] MEDS: METOPROLOL TARTRATE 100 MG TAB PO SCH ×2 (08:05→20:35)
[2022-07-08] MEDS: dilTIAZem HCL 300 MG CAPCR PO SCH (08:05)
[2022-07-08] MEDS: ACETAMINOPHEN 325 MG TAB PO PRN ×2 (08:06→18:34)
[2022-07-08] MEDS: PANTOprazole 40 MG TAB PO SCH (08:06)
[2022-07-08] MEDS: guaiFENesin 600 MG TABCR PO SCH ×2 (08:06→20:35)
[2022-07-08] MEDS: GABAPENTIN 300 MG CAP PO SCH ×3 (08:06→20:34)
[2022-07-08] MEDS: LOSARTAN POTASSIUM 25 MG TAB PO SCH (08:07)
[2022-07-08] MEDS: FUROSEMIDE 40 MG/4 ML VIAL IV SCH (08:07)
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
[2022-07-08 08:52] LABS: Hematocrit (blood only) 36.9 % (37.0-47.0); Hemoglobin 11.8 g/dl (12.0-16.0); Mean Corpuscular Hemoglobin 26.5 pg (25.0-34.0); Mean Corpuscular Volume 82.9 fL (80.0-100.0); Mean Platelet Volume 9.7 fL (9.4-12.4); Platelet Count 282 K/uL (130-400); RDW Coefficient of Variation 17.2 % (11.5-14.5); RDW Standard Deviation 51.7 fL (36.4-46.3); Red Blood Count 4.45 M/uL (4.20-5.40); White Blood Count 6.59 K/ul (4.8-10.8)
[2022-07-08 09:09] LABS: BUN Creatinine Ratio 21.1 (10-20); Creatinine Clr Calc Pharmacy 42.9 ml/min; Est GFR (African American) 53.6 ml/min; Est GFR (Non-African American) 46.3 ml/min; Potassium 3.7 mmol/L (3.5-5.1)
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
[2022-07-08] MEDS: DOCUSATE SODIUM 100 MG CAP PO PRN (16:30)
[2022-07-08] MEDS: ALBUTEROL HFA 8 GM INHALER INH SCH ×2 (19:14→20:27)
[2022-07-08] MEDS: ATORVASTATIN 10 MG TAB PO SCH (20:34)
[2022-07-09] MEDS: ALBUTEROL HFA 8 GM INHALER INH SCH ×4 (07:09→19:46)
[2022-07-09 08:25] LABS: Hematocrit (blood only) 36.4 % (37.0-47.0); Hemoglobin 11.5 g/dl (12.0-16.0); Mean Corpuscular Hemoglobin 26.6 pg (25.0-34.0); Mean Corpuscular Hgb Conc 31.6 g/dL (32.0-36.0); Mean Corpuscular Volume 84.1 fL (80.0-100.0); Mean Platelet Volume 9.6 fL (9.4-12.4); Platelet Count 303 K/uL (130-400); RDW Coefficient of Variation 17.4 % (11.5-14.5); RDW Standard Deviation 54.2 fL (36.4-46.3); Red Blood Count 4.33 M/uL (4.20-5.40); White Blood Count 11.93 K/ul (4.8-10.8)
[2022-07-09 08:42] LABS: BUN Creatinine Ratio 30.2 (10-20); Calcium 9.3 mg/dl (8.5-10.1); Creatinine Clr Calc Pharmacy 43.9 ml/min; Est GFR (African American) 55.4 ml/min; Est GFR (Non-African American) 47.8 ml/min; Potassium 3.6 mmol/L (3.5-5.1)
[2022-07-09] MEDS: LOSARTAN POTASSIUM 25 MG TAB PO SCH (10:08)
[2022-07-09] MEDS: APIXABAN 5 MG TABLET PO SCH ×2 (10:08→20:27)
[2022-07-09] MEDS: dilTIAZem HCL 300 MG CAPCR PO SCH (10:08)
[2022-07-09] MEDS: PANTOprazole 40 MG TAB PO SCH (10:08)
[2022-07-09] MEDS: guaiFENesin 600 MG TABCR PO SCH ×2 (10:09→20:28)
[2022-07-09] MEDS: GABAPENTIN 300 MG CAP PO SCH ×3 (10:09→20:27)
[2022-07-09] MEDS: METOPROLOL TARTRATE 100 MG TAB PO SCH ×2 (10:09→20:34)
[2022-07-09] MEDS: FUROSEMIDE 40 MG/4 ML VIAL IV SCH (10:09)
--- NOTE | 2022-07-09 12:28 | Orthopedic Progress Note ---
Date of Service July 09, 2022 Assessment & Plan (1) Ankle fracture: Plan: Right ankle fracture, distal fibula fracture (Whipple B) and posterior malleolar fracture, minimally displaced. Discussed treatment options and as the fractures are minimally displaced and mortise is intact recommend conservative treatment with close monitoring. If the fractures were to displace surgery would still be an option. Continue in splint for now and would transition to cast or high tide cam boot as long as fractures do not displace. Continue ice and elevation. NWB RLE. PT/OT recommend rehab D/c planning. Continue care per primary service. Follow up in [address] Pedro's office for x-rays 3 views right ankle in splint. Admission and Anticipated Discharge Date Admission Date: July 07, 2022 Subjective Right ankle pain Physical Exam Physical Exam: RLE: Splint in place. Wiggling toes. BCR < 2 sec. Sensation to light touch is intact. Calf is soft and non-tender. Results & Data ([facility]) Vital Signs (Past 12 Hours) Vital Signs Temp Pulse Resp BP Pulse Ox Pulse Ox Pulse Ox 07/09/22 10:00 07/09/22 10:55 93 95 07/09/22 10:50 86 18 93 07/09/22 07:40 36.3 C L 89 18 145/85 H 92 07/09/22 07:11 88 16 92 07/09/22 06:03 88 95 07/09/22 05:49 89 16 93 Pulse Ox O2 Del Method O2 Flow Rate O2 Flow Rate O2 Flow Rate O2 Flow Rate 07/09/22 10:00 Nasal Cannula 2 07/09/22 10:55 90 2 2 2 07/09/22 10:50 Nasal Cannula 2 07/09/22 07:40 Nasal Cannula 2 07/09/22 07:11 Nasal Cannula 2 07/09/22 06:03 Nasal Cannula 2 07/09/22 05:49 Nasal Cannula 2 Laboratory Results 07/09/22 07/09/22 07/09/22 Range/Units 08:13 07:54 07:54 WBC 11.93 H (4.8-10.8) K/ul RBC 4.33 (4.20-5.40) M/uL Hgb 11.5 L (12.0-16.0) g/dl Hct 36.4 L (37.0-47.0) % MCV 84.1 (80.0-100.0) fL MCH 26.6 (25.0-34.0) pg MCHC 31.6 L (32.0-36.0) g/dL RDW Std Deviation 54.2 H (36.4-46.3) fL RDW Coeff of Thomas 17.4 H (11.5-14.5) % Plt Count 303 (130-400) K/uL MPV 9.6 (9.4-12.4) fL Sodium 142 (136-145) mmol/L Potassium 3.6 (3.5-5.1) mmol/L Chloride 105 (98-107) mmol/L Carbon Dioxide 31 (21-32) mmol/L Anion Gap 6 (3-11) BUN 32 H (6-23) mg/dl Creatinine 1.06 (0.6-1.2) mg/dl Est Cr Clr Drug Dosing 43.9 ml/min Est GFR ( Amer) 55.4 ml/min Est GFR (Non-Af Amer) 47.8 ml/min BUN/Creatinine Ratio 30.2 H (10-20) Glucose 135 H (70-99(Fasting)) mg/dl POC Glucose 135 H (70-99) mg/dl Calcium 9.3 (8.5-10.1) mg/dl 07/08/22 07/08/22 07/08/22 Range/Units 20:08 17:21 12:40 WBC (4.8-10.8) K/ul RBC (4.20-5.40) M/uL Hgb (12.0-16.0) g/dl Hct (37.0-47.0) % MCV (80.0-100.0) fL MCH (25.0-34.0) pg MCHC (32.0-36.0) g/dL RDW Std Deviation (36.4-46.3) fL RDW Coeff of Thomas (11.5-14.5) % Plt Count (130-400) K/uL MPV (9.4-12.4) fL Sodium (136-145) mmol/L Potassium (3.5-5.1) mmol/L Chloride (98-107) mmol/L Carbon Dioxide (21-32) mmol/L Anion Gap (3-11) BUN (6-23) mg/dl Creatinine (0.6-1.2) mg/dl Est Cr Clr Drug Dosing ml/min Est GFR ( Amer) ml/min Est GFR (Non-Af Amer) ml/min BUN/Creatinine Ratio (10-20) Glucose (70-99(Fasting)) mg/dl POC Glucose 183 H 138 H 159 H (70-99) mg/dl Calcium (8.5-10.1) mg/dl
--- NOTE | 2022-07-09 18:21 | Hospitalist Progress Note ---
Date of Service July 09, 2022 Assessment & Plan (1) SOB (shortness of breath): Plan: 87-year-old female with history of hypertension, hyperlipidemia, atrial fibrillation/prior VTE on chronic anticoagulation with apixaban presenting with persistent shortness of breath, cough and congestion. Patient with adequate saturation presently on 2 L nasal cannula. Of note, patient does not typically use oxygen during the day. Most likely multifactorialsuspect some degree of volume overload. Patient with history of chronic diastolic heart failure and mild cardiomyopathy. Last echocardiogram performed in January 2021 which revealed normal left ventricu lar function, EF 60 to 65%, no regional wall motion abnormalities. Patient's lungs sound coarse on exam. X-ray with suggestion of pulmonary edema. Elevated BNP = 487. Patient administered 60 mg IV Lasix in the ER and has urinated several times since. We will continue diuresis with Lasix 40 mg IV daily Monitor intake and output, daily standing weights Repeat chemistry in the morning to assess electrolytes and renal function Continue supplemental oxygen as needed for goal saturation greater than 92% Possibly some component of bronchitis as well given patient's recent report of flulike symptoms and now with cough productive of green sputum. Do not suspect pneumonia. Patient with normal WBC count = 7.94, normal procalcitonin = 0.05. No infiltrates noted on chest x-ray. Mucinex 600 mg p.o. every 12 Albuterol HFA as needed 07/08-continue with bronchodilators along with IV diuretics with Lasix Respiratory effort improving with diuretic therapy Patient also advised to use incentive spirometry Continue oxygen supplementation and keep sats over 90 based on pulse oximetry monitoring 07/09-patient reports increasing cough and subjective worsening of shortness of breath White count elevated at 11.9 today We will start. Empiric antibiotic therapy with azithromycin and ceftriaxone Continue incentive spirometry and bronchodilators as needed along with Mucinex Patient will continue her on right lower extremity splint as the fracture seems to be nondisplaced Continue nonweightbearing right lower extremity along with PT OT support Plan discussed with patient in detail (2) Ankle fracture: Plan: Patient sustained a fall out of her vehicle earlier today resulting in fracture of the right ankle. Patient with acute oblique mildly displaced distal diaphyseal right fibular fracture, medial ankle mortise widening. No proximal right tibial or fibular fracture. Ankle was splinted in the ER. Repeat imagi ngankle mortise widening appears resolved. No formal read on the repeat imaging as of yet. Maintain ankle splint Continue fall precautions Consult orthopedic surgery PT/OT evaluationright ankle nonweightbearing until further instruction from orthopedics Pain control with Tylenol, Oxy IR as needed MiraLAX and Colace as needed for bowel regimen -Patient lives in a single-story home with her . She reports that she ambulates with a walker at baseline. She has a ramp entering the home. (3) Atrial fibrillation: Plan: Rate controlled atrial fibrillation. Patient anticoagulated with apixaban 5 mg p.o. twice daily. 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 twice daily Continue apixaban 5 mg p.o. twice daily Continue diltiazem 300 mg p.o. daily (4) Type 2 diabetes mellitus with chronic kidney disease: Plan: Diet controlled diabetes Monitor blood glucose Consistent carb diet (5) Hypercholesteremia: Plan: Chronic. Stable. Continue atorvastatin 10 mg p.o. nightly (6) Hypertension: Plan: Blood pressure well controlled Continue metoprolol 100 mg p.o. twice daily Continue losartan 25 mg p.o. daily Continue diltiazem 300 mg p.o. daily Continue to monitor Admission and Anticipated Discharge Date Admission Date: July 07, 2022 Subjective Patient reports improvement in pain in her right ankle with the splint Patient however has increasing cough and has subjective worsening of her shortness of breath Minimal expectoration reported Physical Exam Physical Exam: Head and ENT no thyroid enlargement trachea midline Cardiovascular S1-S2 are normal no S3 Lungs bilateral air entry fair with rhonchi heard at bases Abdomen soft nondistended positive bowel sounds no rebound tenderness Extremity shows trace edema patient's right ankle in splint Neurologically no focal deficits Skin shows no rash no cyanosis Results & Data Results & Data ([facility]) Vital Signs (Past 12 Hours) Vital Signs Temp Pulse Resp BP Pulse Ox Pulse Ox Pulse Ox 07/09/22 15:40 36.4 C L 86 16 121/81 93 07/09/22 14:34 80 16 07/09/22 10:00 07/09/22 10:55 93 95 07/09/22 10:50 86 18 93 07/09/22 07:40 36.3 C L 89 18 145/85 H 92 07/09/22 07:11 88 16 92 Pulse Ox O2 Del Method O2 Flow Rate O2 Flow Rate O2 Flow Rate O2 Flow Rate 07/09/22 15:40 Room Air 07/09/22 14:34 Room Air 07/09/22 10:00 Nasal Cannula 2 07/09/22 10:55 90 2 2 2 07/09/22 10:50 Nasal Cannula 2 07/09/22 07:40 Nasal Cannula 2 07/09/22 07:11 Nasal Cannula 2 Laboratory Results Short CBC 07/09/22 Range/Units 07:54 WBC 11.93 H (4.8-10.8) K/ul Hgb 11.5 L (12.0-16.0) g/dl Hct 36.4 L (37.0-47.0) % Plt Count 303 (130-400) K/uL BMP 07/09/22 07:54 Sodium 142 Potassium 3.6 Chloride 105 Carbon Dioxide 31 BUN 32 H Creatinine 1.06 Glucose 135 H Calcium 9.3 PG Care Time/CCT Total # of Minutes Spent Total Time Spent with Patient: Total time spent is greater than 50% in coordination of care (as documented) at patient's floor/unit and/or counseling patient: Coding Level of Care Code 84921 SUB INP/OBS CARE 2MIN Diagnoses SOB (shortness of breath) R06.02 Ankle fracture S82.899A Atrial fibrillation I48.91 Atrial fibrillation type: unspecified Type 2 diabetes mellitus with chronic kidney disease E11.22 Hypercholesteremia E78.00 Hypertension I10 (3) Atrial fibrillation Atrial fibrillation type: unspecified Qualified Code(s): I48.91 - Unspecified atrial fibrillation
[2022-07-09] MEDS: cefTRIAXone SODIUM 2,000 MG in DEXTROSE 5% 50 ML IV SCH (19:55)
[2022-07-09] MEDS: ATORVASTATIN 10 MG TAB PO SCH (20:28)
[2022-07-09] MEDS: ACETAMINOPHEN 325 MG TAB PO PRN (20:37)
[2022-07-09] MEDS ORDERED: NURSING DECISION MEDICATION PRN (22:33)
[2022-07-09] MEDS ORDERED: COUGH DROP (SUGAR FREE) LOZ 24 LOZ/1 BOX BUCCAL PRN (22:45)
[2022-07-10] MEDS: BENZONATATE 100 MG CAPSULE PO PRN (00:53)
[2022-07-10] MEDS: ALBUTEROL HFA 8 GM INHALER INH SCH ×4 (07:07→19:45)
[2022-07-10] MEDS: METOPROLOL TARTRATE 100 MG TAB PO SCH ×2 (07:42→19:59)
[2022-07-10] MEDS: PANTOprazole 40 MG TAB PO SCH (07:43)
[2022-07-10] MEDS: GABAPENTIN 300 MG CAP PO SCH ×3 (07:43→19:51)
[2022-07-10] MEDS: guaiFENesin 600 MG TABCR PO SCH ×2 (07:43→19:52)
[2022-07-10] MEDS: LOSARTAN POTASSIUM 25 MG TAB PO SCH (07:43)
[2022-07-10] MEDS: dilTIAZem HCL 300 MG CAPCR PO SCH (07:43)
[2022-07-10] MEDS: APIXABAN 5 MG TABLET PO SCH ×2 (07:44→19:50)
[2022-07-10] MEDS: FUROSEMIDE 40 MG/4 ML VIAL IV SCH (07:44)
--- NOTE | 2022-07-10 07:45 | Hospitalist Progress Note ---
Date of Service July 10, 2022 Assessment & Plan (1) SOB (shortness of breath): Plan: 87-year-old female with history of hypertension, hyperlipidemia, atrial fibrillation/prior VTE on chronic anticoagulation with apixaban presenting with persistent shortness of breath, cough and congestion. Most likely multifactorialInitially suspect some degree of volume overload was diuresed and now appears dry. - Treating for pneumonia with azithromycin and ceftriaxone; plan to get CT today as follow up to prior CXR Continue supplemental oxygen as needed for goal saturation greater than 92% Mucinex 600 mg p.o. every 12 Albuterol HFA as needed (2) Ankle fracture: Plan: Patient sustained a fall out of her vehicle earlier today resulting in fracture of the right ankle. Patient with acute oblique mildly displaced distal diaphyseal right fibular fracture, medial ankle mortise widening. No proximal right tibial or fibular fracture. Ankle was splinted in the ER. Repeat imagi ngankle mortise widening appears resolved. Maintain ankle splint Continue fall precautions Consult orthopedic surgery and recommend conservative management PT/OT evaluationright ankle nonweightbearing until further instruction from orthopedics Pain control with Tylenol, Oxy IR as needed MiraLAX and Colace as needed for bowel regimen -Patient lives in a single-story home with her . She reports that she ambulates with a walker at baseline. She has a ramp entering the home. (3) Pneumonia: Plan: - Antibiotics as per above (4) Chronic diastolic (congestive) heart failure: Plan: - Initially appeared hypervolemic; now dry on exam - Plan to transition to home Lasix dosing; 40mg daily with additional 20mg every other day - Daily weights, continue to monitor I/Os (5) Atrial fibrillation: Plan: Rate controlled atrial fibrillation. Patient anticoagulated with apixaban 5 mg p.o. twice daily. 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 twice daily Continue apixaban 5 mg p.o. twice daily Continue diltiazem 300 mg p.o. daily (6) Type 2 diabetes mellitus with chronic kidney disease: Plan: Diet controlled diabetes Monitor blood glucose Consistent carb diet (7) Hypercholesteremia: Plan: Chronic. Stable. Continue atorvastatin 10 mg p.o. nightly (8) Hypertension: Plan: Blood pressure well controlled Continue metoprolol 100 mg p.o. twice daily Continue losartan 25 mg p.o. daily Continue diltiazem 300 mg p.o. daily Continue to monitor Admission and Anticipated Discharge Date Admission Date: July 07, 2022 Supervising Physician Co-Signing Physician Notes I personally examined the patient and verified all gonzalez points of history and exam, discussed case, and agree with decision making with Dr Milton Cough and shortness of breath ongoing. Nothing new or worse, just not getting better. Vitals noted, in general she is awake and alert pleasant no distress, but does appear fatigued and has a few coughing fits during our conversation. Breathing unlabored no accessory muscle use. Neuro without focal deficits. CT scan ordered and reviewed, CBC, basic metabolic panel reviewed. Community-acquired pneumoniaon Zithromax/Rocephincontinue. Acute on chronic HFpEFappears to have resolvedbump in creatinine from diuresis, reduced to home dosing and follow (may even need to hold for a daybut follow tomorrow's labs first). Outlined expected course of slow recovery with pneumonia, outlined high probability of needing rehab due to ankle fracture. Otherwise as above Subjective Tamie states that her cough is worse this morning. Productive cough of green sputum. Continues to have sinus pressure. Denies dyspnea, chest pain. Review of Systems Review of Systems: As per above Physical Exam Physical Exam: Constitutional: well-appearing, no acute distress HEENT: NCAT, no conjunctival injection CV: regular rhythm, no murmur appreciated, extremities well-perfused, trace LE edema Resp: Rales with expiratory, no increased work of breathing GI: soft, nondistended, nontender, BS normoactive MSK: no gross deformities appreciated Skin: warm, dry, no rash appreciated Neuro: alert, oriented, no focal neurologic deficit appreciated Results & Data Results & Data ([facility]) Vital Signs (Past 12 Hours) Vital Signs Temp Pulse Resp BP Pulse Ox O2 Del Method O2 Flow Rate 07/10/22 07:32 91 Nasal Cannula 4 07/10/22 07:29 36.5 C 98 H 20 158/90 H 87 L Nasal Cannula 4 07/10/22 07:07 89 16 94 Nasal Cannula 2 07/09/22 20:30 Nasal Cannula 2 07/09/22 20:33 36.5 C 89 16 148/82 H Nasal Cannula 2 07/09/22 20:07 86 16 93 Room Air Resident Activity Tracking Resident Involvement: Resident Care Provided Care Provided: Adult Hospital Medicine (5) Atrial fibrillation Atrial fibrillation type: unspecified Qualified Code(s): I48.91 - Unspecified atrial fibrillation
[2022-07-10 07:52] LABS: Hematocrit (blood only) 38.4 % (37.0-47.0); Hemoglobin 11.8 g/dl (12.0-16.0); Mean Corpuscular Hemoglobin 26.2 pg (25.0-34.0); Mean Corpuscular Hgb Conc 30.7 g/dL (32.0-36.0); Mean Corpuscular Volume 85.3 fL (80.0-100.0); Mean Platelet Volume 9.7 fL (9.4-12.4); Platelet Count 287 K/uL (130-400); RDW Coefficient of Variation 17.4 % (11.5-14.5); RDW Standard Deviation 54.2 fL (36.4-46.3); White Blood Count 11.59 K/ul (4.8-10.8)
[2022-07-10] MEDS: AZITHROMYCIN 500 MG in DEXTROSE 5% 250 ML IV SCH (07:55)
[2022-07-10 08:05] LABS: BUN Creatinine Ratio 28.1 (10-20); Creatinine Clr Calc Pharmacy 33.5 ml/min; Est GFR (Non-African American) 34.5 ml/min; Potassium 3.5 mmol/L (3.5-5.1)
[2022-07-10] MEDS: DOCUSATE SODIUM 100 MG CAP PO PRN (08:23)
--- NOTE | 2022-07-10 09:15 | Orthopedic Progress Note ---
Date of Service July 10, 2022 Assessment & Plan (1) Ankle fracture: Plan: Right ankle fracture, distal fibula fracture (Whipple B) and posterior malleolar fracture, minimally displaced. We will continue with conservative treatment with close monitoring. Discussed with patient if the fractures were to displace surgery would still be an option. Continue in splint for now and would transition to cast or high tide cam boot as long as fractures do not displace. Continue ice and elevation. NWB RLE with walker, patient reports she has a walker at home. PT/OT recommend rehab D/c planning. Continue care per primary service. Follow up in [address] Pedro's office for x-rays 3 views right ankle in splint and consider transition as stated above at that time . Present on Admission?: Yes Admission and Anticipated Discharge Date Admission Date: July 07, 2022 Subjective Patient is an 87-year-old female who is being followed status post a closed reduction of right ankle fracture placed in a splint. She is being seen this morning sitting upright in the bedside chair just finishing breakfast. She states her ankle is feeling better. She states her pain is more of an aching and rates as 23/10. She states she is having more coughing spells and coughed all night. She states when she gets this she does feel short of breath. She denies any short of breath at this time or bring any production up at this time. She denies any numbness in her toes. Review of Systems Review of Systems: please refer to HPI Physical Exam Physical Exam: General:. Patient is alert and oriented x3 pleasant and conversive no acute distress Musculoskeletal and integumentary: Splint is in place over right lower ex tremity. Patient is able to flex and extend knee and wiggle toes. Toes are normal in color and temperature. Capillary refills less than 2 seconds. Right lower extremity is neurovascularly intact. Results & Data ([facility]) Vital Signs (Past 12 Hours) Vital Signs Temp Pulse Resp BP Pulse Ox O2 Del Method O2 Flow Rate 07/10/22 08:16 Nasal Cannula 4 07/10/22 07:32 91 Nasal Cannula 4 07/10/22 07:29 36.5 C 98 H 20 158/90 H 87 L Nasal Cannula 4 07/10/22 07:07 89 16 94 Nasal Cannula 2
[2022-07-10] MEDS ORDERED: FUROSEMIDE 20 MG TAB PO SCH (14:45)
--- NOTE | 2022-07-10 15:59 | CT Scan Report ---
CT chest diagnostic wo con CT DOSE: 608.85 mGycm CLINICAL HISTORY: 87 years-old Female with F/u pneumonia. Acute cough with shortness of breath TECHNIQUE: Multiaxial CT images of the chest were performed without contrast. A dose lowering techni que was utilized adhering to the principles of ALARA. COMPARISON: CTA chest 12/24/2019 FINDINGS: Cardiomegaly with left subclavian pacer. No pericardial effusion. Moderate to extensive cor onary artery calcifications. Atherosclerosis of the aorta without aneurysm. Dilated pulmonary artery, 3.1 cm. Multinodular thyroid with nodules measuring up to 1.5 cm on the left. Borderline enlarged me diastinal lymph nodes measure up to 1.1 cm, favored to be reactive. No pneumothorax or pleural effusion. Mild to moderate pulmonary emphysema. 2.4 cm irregular opacity w ithin the right upper lobe on image 56 is stable from the prior study. There are additional tree-in-b ud and nodular consolidative opacities of the right upper lobe as seen on image 72 series 4. Bronchia l wall thickening with mild mucous plugging. Subsegmental consolidation within the lateral segment ri ght middle lobe. Scattered bilateral solid pulmonary nodules measure up to 4 mm, most of which are st able from the prior study. There is near complete consolidation with collapse of the left lower lobe. No obstructing endobronchial mass identified. Cholecystectomy. No acute process of the imaged upper abdomen. Unremarkable soft tissues. No acute fr acture. Degenerative changes of the shoulders and spine. IMPRESSION: 1. Near complete collapse of the left lower lobe. No obstructing endobronchial lesion identified. Fin dings could be correlated with follow-up bronchoscopy. 2. Emphysema with bronchitis and mild mucous plugging. 3. Irregular 2.4 cm nodular area of consolidation within the subpleural right upper lobe is similar t o the 2020 exam favoring scarring. 4. Additional scattered low suspicion solid pulmonary nodules measuring up to 4 mm, likely infectious or inflammatory. Most of these nodules are also stable from the 2020 exam. 5. Mild mediastinal lymphadenopathy, likely reactive. 6. Cardiomegaly. ACT 112: Negative or not required by law. Electronically signed by: Edgar Muñiz M.D. 07/10/2022 3:57 PM
[2022-07-10] MEDS: cefTRIAXone SODIUM 2,000 MG in DEXTROSE 5% 50 ML IV SCH (18:27)
--- NOTE | 2022-07-10 19:43 | Billing Data ---
Date of Service July 10, 2022 Coding Level of Care Code 26667 SUB INP/OBS CARE MIN
[2022-07-10] MEDS: ATORVASTATIN 10 MG TAB PO SCH (19:51)
[2022-07-10] MEDS: ACETAMINOPHEN 325 MG TAB PO PRN (20:03)
[2022-07-11] MEDS: ALBUTEROL HFA 8 GM INHALER INH SCH ×4 (07:13→19:49)
[2022-07-11 08:01] LABS: Basophils # (auto) 0.02 K/uL (0-0.2); Basophils % (auto) 0.2 %; Eosinophils # (auto) 0.07 K/uL (0-0.50); Eosinophils % (auto) 0.7 %; Hematocrit (blood only) 37.9 % (37.0-47.0); Hemoglobin 11.7 g/dl (12.0-16.0); Immature Granulocytes # (auto) 0.03 K/uL (0.01-0.20); Immature Granulocytes % (auto) 0.3 %; Lymphocytes # (auto) 2.78 K/uL (1.2-3.4); Mean Corpuscular Hemoglobin 26.1 pg (25.0-34.0); Mean Corpuscular Hgb Conc 30.9 g/dL (32.0-36.0); Mean Corpuscular Volume 84.6 fL (80.0-100.0); Mean Platelet Volume 9.7 fL (9.4-12.4); Monocytes # (auto) 1.03 K/uL (0.11-0.59); Monocytes % (auto) 10.7 %; Neutrophils # (auto) 5.67 K/uL (1.40-6.50); Neutrophils % (auto) 59.1 %; Platelet Count 292 K/uL (130-400); RDW Coefficient of Variation 17.2 % (11.5-14.5); RDW Standard Deviation 53.4 fL (36.4-46.3); Red Blood Count 4.48 M/uL (4.20-5.40)
[2022-07-11 08:07] LABS: Albumin Globulin Ratio 1.2 (0.9-2); Albumin Level 3.8 gm/dl (3.4-5.0); BUN Creatinine Ratio 29.9 (10-20); Bilirubin,Total 0.7 mg/dl (0.2-1.0); Calcium 8.9 mg/dl (8.5-10.1); Creatinine Clr Calc Pharmacy 36.7 ml/min; Est GFR (African American) 44.6 ml/min; Est GFR (Non-African American) 38.5 ml/min; Globulin 3.1 gm/dl (2.5-4.0); Potassium 3.7 mmol/L (3.5-5.1); Total Protein 6.9 gm/dl (6.0-8.3)
[2022-07-11] MEDS: APIXABAN 5 MG TABLET PO SCH ×2 (08:38→19:38)
[2022-07-11] MEDS: PANTOprazole 40 MG TAB PO SCH (08:38)
[2022-07-11] MEDS: LOSARTAN POTASSIUM 25 MG TAB PO SCH (08:38)
[2022-07-11] MEDS: METOPROLOL TARTRATE 100 MG TAB PO SCH ×2 (08:38→19:40)
[2022-07-11] MEDS: GABAPENTIN 300 MG CAP PO SCH ×3 (08:38→19:39)
[2022-07-11] MEDS: dilTIAZem HCL 300 MG CAPCR PO SCH (08:38)
[2022-07-11] MEDS: guaiFENesin 600 MG TABCR PO SCH ×2 (08:38→19:40)
[2022-07-11] MEDS ORDERED: FUROSEMIDE 40 MG TAB PO SCH (09:00)
--- NOTE | 2022-07-11 09:36 | Orthopedic Progress Note ---
Date of Service July 11, 2022 Assessment & Plan (1) Ankle fracture: Plan: Right ankle fracture, distal fibula fracture (Whipple B) and posterior malleolar fracture, minimally displaced. Continue with conservative treatment and monitoring of the fracture with imag ing. Discussed with patient if the fractures were to displace surgery would still be an option. Continue in splint for now and would transition to cast or high tide cam boot as long as fractures do not displace. Continue ice and elevation. NWB RLE with walker, patient reports she has a walker at home. PT/OT recommend rehab D/c planning. Continue care per primary service. She is scheduled in [address] Pedro's office for repeat imaging and possible transition to a cast/boot. Admission and Anticipated Discharge Date Admission Date: July 07, 2022 Subjective Patient is being followed for right ankle fracture. She is seen bedside this morning. She is sitting upright in bedside chair. She is in good spirits. She states she continues to have coughing spells but feels that slightly better this AM. She denies any shortness of breath or chest pain at this time. She states she has more pressure in the right lower extremity. She states she has some peck pain and rates this as 1-2. She denies any paresthesia in the toes. She offers no concerns. She denies any calf pain at this time. Review of Systems Review of Systems: Please refer to HPI Physical Exam Physical Exam: General: Patient is alert and oriented x3 pleasant and conversive no acute distress sitting up bedside chair Musculoskeletal and integumentary: Splint is in place over right lower extremity elevated on subsequent pillow. No irritation visible from distal proximal splint. Patient is able to flex and extend knee and wiggle toes. Toes are normal in color and temperature. Capillary refills less than 2 seconds. Right lower extremity is neurovascularly intact. Results & Data ([facility]) Vital Signs (Past 12 Hours) Vital Signs Temp Pulse Resp BP Pulse Ox O2 Del Method O2 Flow Rate 07/11/22 07:35 36.6 C 94 H 18 140/93 95 Nasal Cannula 07/11/22 07:14 90 20 96 Nasal Cannula 4
[2022-07-11] MEDS: AZITHROMYCIN 500 MG in DEXTROSE 5% 250 ML IV SCH (09:50)
[2022-07-11] MEDS: BENZONATATE 100 MG CAPSULE PO PRN ×2 (10:04→18:04)
--- NOTE | 2022-07-11 10:10 | Hospitalist Progress Note ---
Date of Service July 11, 2022 Assessment & Plan (1) SOB (shortness of breath): Plan: 87-year-old female with history of hypertension, hyperlipidemia, atrial fibrillation/prior VTE on chronic anticoagulation with apixaban presenting with persistent shortness of breath, cough and congestion. Most likely multifactorialInitially suspect some degree of volume overload was diuresed and now appears dry. - Treating for pneumonia with azithromycin and ceftriaxone; CT without signs of pulmonary edema, did show consolidation. Day 2 of antibiotics. Continue supplemental oxygen as needed for goal saturation greater than 92% Mucinex 600 mg p.o. every 12 Albuterol HFA as needed (2) Ankle fracture: Plan: Patient sustained a fall out of her vehicle earlier today resulting in fracture of the right ankle. Patient with acute oblique mildly displaced distal diaphyseal right fibular fracture, medial ankle mortise widening. No proximal right tibial or fibular fracture. Ankle was splinted in the ER. Repeat imagingankle mortise widening appears resolved. Maintain ankle splint Continue fall precautions Consult orthopedic surgery and recommend conservative management PT/OT evaluationright ankle nonweightbearing until further instruction from orthopedics Pain control with Tylenol, Oxy IR as needed MiraLAX and Colace as needed for bowel regimen -Patient lives in a single-story home with her . She reports that she ambulates with a walker at baseline. She has a ramp entering the home. (3) Pneumonia: Plan: - Antibiotics as per above (4) Chronic diastolic (congestive) heart failure: Plan: - Initially appeared hypervolemic; now dry on exam - Plan to transition to home Lasix dosing tomorrow; 40mg daily with additional 20mg every other day - repeat echo without any significant changes from prior - Daily weights, continue to monitor I/Os (5) Atrial fibrillation: Plan: Rate controlled atrial fibrillation. Patient anticoagulated with apixaban 5 mg p.o. twice daily. 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 twice daily Continue apixaban 5 mg p.o. twice daily Continue diltiazem 300 mg p.o. daily (6) Type 2 diabetes mellitus with chronic kidney disease: Plan: Diet controlled diabetes Monitor blood glucose Consistent carb diet (7) Hypercholesteremia: Plan: Chronic. Stable. Continue atorvastatin 10 mg p.o. nightly (8) Hypertension: Plan: Blood pressure well controlled Continue metoprolol 100 mg p.o. twice daily Continue losartan 25 mg p.o. daily Continue diltiazem 300 mg p.o. daily Continue to monitor Admission and Anticipated Discharge Date Admission Date: July 07, 2022 Subjective Still having a productive cough today. Denies any ankle pain, but does note that she has been having pain in her heel. Eating and drinking well. Review of Systems Review of Systems: As per above Physical Exam Physical Exam: Constitutional: well-appearing, no acute distress HEENT: NCAT, no conjunctival injection CV: regular rhythm, no murmur appreciated, extremities well-perfused, trace LE edema Resp: Rales with expiratory wheezes, no increased work of breathing GI: soft, nondistended, nontender, BS normoactive MSK: no gross deformities appreciated Skin: warm, dry, no rash appreciated Neuro: alert, oriented, no focal neurologic deficit appreciated Results & Data Results & Data ([facility]) Vital Signs (Past 12 Hours) Vital Signs Temp Pulse Resp BP Pulse Ox O2 Del Method O2 Flow Rate 07/11/22 07:35 36.6 C 94 H 18 140/93 95 Nasal Cannula 07/11/22 07:14 90 20 96 Nasal Cannula 4 Resident Activity Tracking Resident Involvement: Resident Care Provided Care Provided: Adult Hospital Medicine (5) Atrial fibrillation Atrial fibrillation type: unspecified Qualified Code(s): I48.91 - Unspecified atrial fibrillation
--- NOTE | 2022-07-11 10:20 | Orthopedic Consultation ---
History of Present Illness Attending Physician: Abdirahman Waters DO Allergies Allergy/AdvReac Type Severity Reaction Status Date / Time latex Allergy Intermediate REDNESS, Verified 07/07/22 16:30 RASH Sulfa (Sulfonamide AdvReac Intermediate MAKES HER Verified 07/07/22 16:30 Antibiotics) SICKER Home Medications Medication Instructions Recorded Confirmed Type lancets (OneTouch UltraSoft #100 ea 01/03/19 06/27/22 Rx Lancets) blood sugar diagnostic (OneTouch #100 ea 08/29/19 06/27/22 Rx Ultra Blue Test Strip) Abbie Walker #1 ea 01/21/20 06/27/22 Rx potassium chloride 10 mEq 10 meq PO DAILY #90 tabs 08/10/21 07/07/22 Rx tablet,extended release rabeprazole 20 mg tablet,delayed 20 mg PO QAM #90 tabs 08/30/21 07/07/22 Rx release atorvastatin 10 mg tablet 10 mg PO HS #90 tabs 12/14/21 07/07/22 Rx losartan 25 mg tablet 25 mg PO DAILY #90 tabs 12/26/21 07/07/22 Rx albuterol sulfate 90 mcg/actuation 1 inh inhalation QID #18 grams 01/09/22 07/07/22 Rx aerosol inhaler (Ventolin HFA) diltiazem HCl 300 mg 300 mg PO DAILY #90 caps 01/23/22 07/07/22 Rx capsule,extended release 24 hr apixaban 5 mg tablet (Eliquis) 5 mg PO BID #60 tabs 04/10/22 07/07/22 Rx metoprolol tartrate 100 mg tablet 100 mg PO BID #180 tabs 05/01/22 07/07/22 Rx gabapentin 300 mg capsule 300 mg PO TID #270 caps 05/29/22 07/07/22 Rx furosemide 40 mg tablet 40 mg PO DAILY 06/08/22 07/07/22 History furosemide 20 mg tablet (Lasix) 20 mg PO Q OTHER DAY 07/07/22 07/07/22 History Patient History Medical History Anemia Anticoagulant long-term use Arthritis Atrial fibrillation FOLLOWED BY [facility] CARDS Borderline diabetes Congestive heart failure Deep vein thrombosis (02/2019) Feb 2019 after long car ride (provoked) DVT prophylaxis GERD (gastroesophageal reflux disease) Hx of diverticulitis of colon Hypercholesteremia Hypertension Hypokalemia Leukocytosis Lumbar spondylosis Morbid obesity with BMI of 40.0-44.9, adult Osteoporosis Pulmonary embolism (02/2019) 2019 after dvt>reason for eliquis SOB (shortness of breath) Urinary leakage Surgical History H/O repair of rotator cuff LEFT History of appendectomy History of cardiac cath MORE THAN 7 YEARS AGO--WAS NEGATIVE ([facility]) History of cataract surgery LEFT/RT History of cholecystectomy History of colonoscopy History of esophagogastroduodenoscopy (EGD) History of permanent cardiac pacemaker placement done 01/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 Denton/metdronic device History of tooth extraction Status post placement of cardiac pacemaker Family History Mother , age 42 from breast ca Breast cancer Son Deep vein thrombosis Father , age 52 [address] Myocardial infarction Asthma Other Coronary heart disease No family history of adverse response to anesthesia Denies family history of Ovarian cancer Prostate cancer Colorectal cancer Social History Smoking Status: Former smoker Tobacco Type: Cigarettes Age Started Using Tobacco: 23; Age Quit Using Tobacco: 50; packs per day: 1; Second Hand Exposure: No; Do You Dip or Chew Tobacco: No; Tobacco Cessation Education Requested by Patient: No Hx Alcohol Use: No Hx Substance Use: No Preferred Language: Bolivian Communication Ability: Effective Visual Impairment: No Limitations Hearing Ability: Hard of Hearing 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 current occupational status: retired current occupation: worked at [employer] as a nurse How many Children do You have: 7 How many Children do You have Comment: 6 sons, 1 daughter Other Information That Helps Us Care for You: No Feels Safe at Home: Yes Safety Concerns: Feels Safe At This Time Childhood Exposure to Second-Hand Smoke: No Dental Care, Regularly: No Physical Activity Frequency: Does not Exercise Seatbelt Use: always Sunscreen Use: Yes Assistive Devices: Oxygen - at Night and Walker Assistive Devices Comment: Uses walker for long distance. Results & Data ([facility]) Vital Signs (Past 12 Hours) Vital Signs Temp Pulse Resp BP Pulse Ox O2 Del Method O2 Flow Rate 07/11/22 07:35 36.6 C 94 H 18 140/93 95 Nasal Cannula 07/11/22 07:14 90 20 96 Nasal Cannula 4
--- NOTE | 2022-07-11 14:21 | XCELERA ---
[id number]
[2022-07-11] MEDS: cefTRIAXone SODIUM 2,000 MG in DEXTROSE 5% 50 ML IV SCH (18:04)
--- NOTE | 2022-07-11 19:16 | Billing Data ---
Date of Service July 11, 2022 Coding Level of Care Code 10856 SUB INP/OBS CARE
[2022-07-11] MEDS: ATORVASTATIN 10 MG TAB PO SCH (19:39)
[2022-07-11] MEDS: ACETAMINOPHEN 325 MG TAB PO PRN (19:41)
[2022-07-11] MEDS: oxyCODONE HCL IR 5 MG TAB (IMMEDIATE RELEASE) PO PRN (22:32)
[2022-07-12] MEDS: ALBUTEROL HFA 8 GM INHALER INH SCH ×4 (07:16→19:28)
--- NOTE | 2022-07-12 07:41 | Hospitalist Progress Note ---
Date of Service July 12, 2022 Assessment & Plan (1) SOB (shortness of breath): Plan: 87-year-old female with history of hypertension, hyperlipidemia, atrial fibrillation/prior VTE on chronic anticoagulation with apixaban presenting with persistent shortness of breath, cough and congestion. Most likely multifactorialInitially suspect some degree of volume overload was diuresed and now appears dry. - Treating for pneumonia; CT without signs of pulmonary edema, did show consolidation. Day 4 of antibiotics. - Plan to transition from ceftriaxone to Augmentin. - Completed 3 day coarse of 500mg azithromycin on 07/12 Continue supplemental oxygen as needed for goal saturation greater than 92% Mucinex 600 mg p.o. every 12 Albuterol HFA as needed (2) Ankle fracture: Plan: Patient sustained a fall out of her vehicle earlier today resulting in fracture of the right ankle. Patient with acute oblique mildly displaced distal diaphyseal right fibular fracture, medial ankle mortise widening. No proximal right tibial or fibular fracture. Ankle was splinted in the ER. Repeat imagingankle mortise widening appears resolved. Maintain ankle splint Continue fall precautions Consult orthopedic surgery and recommend conservative management PT/OT evaluationright ankle nonweightbearing until further instruction from orthopedics Pain control with Tylenol, Oxy IR as needed MiraLAX and Colace as needed for bowel regimen -Patient lives in a single-story home with her . She reports that she ambulates with a walker at baseline. She has a ramp entering the home. (3) Pneumonia: Plan: - Antibiotics as per above (4) Chronic diastolic (congestive) heart failure: Plan: - Initially appeared hypervolemic; now dry on exam - Plan to transition to home Lasix dosing tomorrow; 40mg daily with additional 20mg every other day - repeat echo without any significant changes from prior - Daily weights, continue to monitor I/Os (5) Atrial fibrillation: Plan: Rate controlled atrial fibrillation. Patient anticoagulated with apixaban 5 mg p.o. twice daily. 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 twice daily Continue apixaban 5 mg p.o. twice daily Continue diltiazem 300 mg p.o. daily (6) Type 2 diabetes mellitus with chronic kidney disease: Plan: Diet controlled diabetes Monitor blood glucose Consistent carb diet (7) Hypercholesteremia: Plan: Chronic. Stable. Continue atorvastatin 10 mg p.o. nightly (8) Hypertension: Plan: Blood pressure well controlled Continue metoprolol 100 mg p.o. twice daily Continue losartan 25 mg p.o. daily Continue diltiazem 300 mg p.o. daily Continue to monitor Admission and Anticipated Discharge Date Admission Date: July 07, 2022 Supervising Physician Co-Signing Physician Notes I personally examined the patient and verified all gonzalez points of history and exam, discussed case, and agree with decision making with Dr Milton cough/sob/etc all getting better. awaiting rehab. Vitals noted, in general she is awake and alert pleasant no distress, but does appear fatigued and has a few coughing fits during our conversation. Breathing unlabored no accessory muscle use. Neuro without focal deficits. CT scan ordered and reviewed, CBC, basic metabolic panel reviewed. Community-acquired pneumoniaon Zithromax/Rocephincontinue. Acute on chronic HFpEFappears to have resolved. Previously outlined expected course of slow recovery with pneumonia, outlined high probability of needing rehab due to ankle fracture. Otherwise as above Subjective Having some significant pain in her ankle today. Otherwise doing well. Cough is starting to imrpove. Review of Systems Review of Systems: As per above Physical Exam Physical Exam: Constitutional: well-appearing, no acute distress HEENT: NCAT, no conjunctival injection CV: regular rhythm, no murmur appreciated, extremities well-perfused, trace LE edema Resp: Rales, no increased work of breathing GI: soft, nondistended, nontender, BS normoactive MSK: no gross deformities appreciated Skin: warm, dry, no rash appreciated Neuro: alert, oriented, no focal neurologic deficit appreciated Results & Data Results & Data ([facility]) Vital Signs (Past 12 Hours) Vital Signs Pulse Resp Pulse Ox O2 Del Method O2 Flow Rate 07/12/22 07:25 94 H 20 94 Room Air 07/11/22 19:40 Nasal Cannula 4 07/11/22 19:56 101 H 18 93 Nasal Cannula 4 Resident Activity Tracking Resident Involvement: Resident Care Provided Care Provided: Adult Hospital Medicine (5) Atrial fibrillation Atrial fibrillation type: unspecified Qualified Code(s): I48.91 - Unspecified atrial fibrillation
[2022-07-12 08:03] LABS: Hemoglobin 11.7 g/dl (12.0-16.0); Mean Corpuscular Hemoglobin 26.4 pg (25.0-34.0); Mean Corpuscular Hgb Conc 30.8 g/dL (32.0-36.0); Mean Corpuscular Volume 85.6 fL (80.0-100.0); Mean Platelet Volume 9.6 fL (9.4-12.4); Platelet Count 281 K/uL (130-400); RDW Coefficient of Variation 17.1 % (11.5-14.5); RDW Standard Deviation 53.2 fL (36.4-46.3); Red Blood Count 4.44 M/uL (4.20-5.40); White Blood Count 9.81 K/ul (4.8-10.8)
[2022-07-12] MEDS: AZITHROMYCIN 500 MG in DEXTROSE 5% 250 ML IV SCH (08:16)
[2022-07-12] MEDS: APIXABAN 5 MG TABLET PO SCH ×2 (08:16→20:57)
[2022-07-12 08:17] LABS: BUN Creatinine Ratio 28.6 (10-20); Calcium 9.2 mg/dl (8.5-10.1); Creatinine Clr Calc Pharmacy 41.8 ml/min; Est GFR (African American) 51.9 ml/min; Est GFR (Non-African American) 44.8 ml/min; Potassium 3.6 mmol/L (3.5-5.1)
[2022-07-12] MEDS: FUROSEMIDE 40 MG TAB PO SCH (08:17)
[2022-07-12] MEDS: dilTIAZem HCL 300 MG CAPCR PO SCH (08:17)
[2022-07-12] MEDS: guaiFENesin 600 MG TABCR PO SCH ×2 (08:18→20:57)
[2022-07-12] MEDS: GABAPENTIN 300 MG CAP PO SCH ×3 (08:18→20:57)
[2022-07-12] MEDS: METOPROLOL TARTRATE 100 MG TAB PO SCH ×2 (08:19→20:58)
[2022-07-12] MEDS: oxyCODONE HCL IR 5 MG TAB (IMMEDIATE RELEASE) PO PRN (08:19)
[2022-07-12] MEDS: PANTOprazole 40 MG TAB PO SCH (08:19)
--- NOTE | 2022-07-12 13:52 | Communication Note ---
Date of Service: July 12, 2022 Messaged by nursing about patient w/ mild lightheadedness/woozy sensation (not room spinning and not near-syncopal). + mild blurry vision today. No headache, chest pain, or N/V. SOB at baseline. Vitals stable/unchanged. 91% on 4L. BSG >100. Conversing normally. Exam w/ faint insp crackles. Incomplete intake/output data. plan: Encouraged oral hydration. Hold extra dose (patient is on daily Lasix 40mg PO + extra 20mg every other day) of Lasix tomorrow morning. Patient on Eliquis but w/o head injury. No imaging indicated at this time.
[2022-07-12] MEDS: AMOXICILLIN/CLAVULANATE 875 MG TAB PO SCH (17:26)
[2022-07-12] MEDS: ACETAMINOPHEN 325 MG TAB PO PRN (17:27)
[2022-07-12] MEDS: BENZONATATE 100 MG CAPSULE PO PRN (18:02)
--- NOTE | 2022-07-12 20:02 | Billing Data ---
Date of Service July 12, 2022 Coding Level of Care Code 12550 SUB INP/OBS CARE
[2022-07-12] MEDS: ATORVASTATIN 10 MG TAB PO SCH (20:56)
[2022-07-13] MEDS: BENZONATATE 100 MG CAPSULE PO PRN (02:49)
[2022-07-13] MEDS: ACETAMINOPHEN 325 MG TAB PO PRN ×2 (02:56→08:29)
[2022-07-13] MEDS: ALBUTEROL HFA 8 GM INHALER INH SCH ×2 (07:17→10:48)
--- NOTE | 2022-07-13 08:12 | Hospitalist Progress Note ---
Date of Service July 13, 2022 Assessment & Plan (1) SOB (shortness of breath): Plan: 87-year-old female with history of hypertension, hyperlipidemia, atrial fibrillation/prior VTE on chronic anticoagulation with apixaban presenting with persistent shortness of breath, cough and congestion. Most likely multifactorialInitially suspect some degree of volume overload was diuresed and now appears dry. - Treating for pneumonia; CT without signs of pulmonary edema, did show consolidation. Day 4 of antibiotics. - Plan to transition from ceftriaxone to Augmentin. - Completed 3 day coarse of 500mg azithromycin on 07/12 Continue supplemental oxygen as needed for goal saturation greater than 92% Mucinex 600 mg p.o. every 12 Albuterol HFA as needed (2) Ankle fracture: Plan: Patient sustained a fall out of her vehicle earlier today resulting in fracture of the right ankle. Patient with acute oblique mildly displaced distal diaphyseal right fibular fracture, medial ankle mortise widening. No proximal right tibial or fibular fracture. Ankle was splinted in the ER. Repeat imagingankle mortise widening appears resolved. Maintain ankle splint Continue fall precautions Consult orthopedic surgery and recommend conservative management PT/OT evaluationright ankle nonweightbearing until further instruction from orthopedics Pain control with Tylenol, Oxy IR as needed MiraLAX and Colace as needed for bowel regimen -Patient lives in a single-story home with her . She reports that she ambulates with a walker at baseline. She has a ramp entering the home. (3) Pneumonia: Plan: - Antibiotics as per above (4) Chronic diastolic (congestive) heart failure: Plan: - Initially appeared hypervolemic; now dry on exam - Plan to transition to home Lasix dosing tomorrow; 40mg daily with additional 20mg every other day - repeat echo without any significant changes from prior - Daily weights, continue to monitor I/Os (5) Atrial fibrillation: Plan: Rate controlled atrial fibrillation. Patient anticoagulated with apixaban 5 mg p.o. twice daily. 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 twice daily Continue apixaban 5 mg p.o. twice daily Continue diltiazem 300 mg p.o. daily (6) Type 2 diabetes mellitus with chronic kidney disease: Plan: Diet controlled diabetes Monitor blood glucose Consistent carb diet (7) Hypercholesteremia: Plan: Chronic. Stable. Continue atorvastatin 10 mg p.o. nightly (8) Hypertension: Plan: Blood pressure well controlled Continue metoprolol 100 mg p.o. twice daily Continue losartan 25 mg p.o. daily Continue diltiazem 300 mg p.o. daily Continue to monitor Admission and Anticipated Discharge Date Admission Date: July 07, 2022 Review of Systems Review of Systems: As per above Physical Exam Physical Exam: Constitutional: well-appearing, no acute distress HEENT: NCAT, no conjunctival injection CV: regular rhythm, no murmur appreciated, extremities well-perfused, trace LE edema Resp: Rales, no increased work of breathing GI: soft, nondistended, nontender, BS normoactive MSK: no gross deformities appreciated Skin: warm, dry, no rash appreciated Neuro: alert, oriented, no focal neurologic deficit appreciated Results & Data Results & Data ([facility]) Vital Signs (Past 12 Hours) Vital Signs Temp Pulse Resp BP BP Pulse Ox O2 Del Method 07/13/22 07:52 36.6 C 94 H 16 135/80 96 Nasal Cannula 07/13/22 07:17 85 18 95 Nasal Cannula 07/12/22 22:40 80 96 Nasal Cannula 07/12/22 21:00 Nasal Cannula 07/12/22 20:50 36.4 C L 85 15 116/78 95 Nasal Cannula O2 Flow Rate 07/13/22 07:52 3 07/13/22 07:17 4 07/12/22 22:40 4 07/12/22 21:00 4 07/12/22 20:50 4 (5) Atrial fibrillation Atrial fibrillation type: unspecified Qualified Code(s): I48.91 - Unspecified atrial fibrillation
[2022-07-13] MEDS: GABAPENTIN 300 MG CAP PO SCH (08:27)
[2022-07-13] MEDS: METOPROLOL TARTRATE 100 MG TAB PO SCH (08:27)
[2022-07-13] MEDS: PANTOprazole 40 MG TAB PO SCH (08:27)
[2022-07-13] MEDS: guaiFENesin 600 MG TABCR PO SCH (08:27)
[2022-07-13] MEDS: dilTIAZem HCL 300 MG CAPCR PO SCH (08:28)
[2022-07-13] MEDS: APIXABAN 5 MG TABLET PO SCH (08:28)
[2022-07-13] MEDS: FUROSEMIDE 40 MG TAB PO SCH (08:28)
[2022-07-13] MEDS: AMOXICILLIN/CLAVULANATE 875 MG TAB PO SCH (08:28)
[2022-07-13] MEDS ORDERED: FUROSEMIDE 20 MG TAB PO SCH (09:00)
[2022-07-13] MEDS ORDERED: AZITHROMYCIN 250 MG TAB PO SCH (09:00)
[2022-07-13 09:23] LABS: BUN Creatinine Ratio 27.6 (10-20); Calcium 9.3 mg/dl (8.5-10.1); Creatinine Clr Calc Pharmacy 44.6 ml/min; Est GFR (African American) 56.1 ml/min; Est GFR (Non-African American) 48.4 ml/min; Potassium 3.8 mmol/L (3.5-5.1)
--- NOTE | 2022-07-13 10:15 | Orthopedic Progress Note ---
Date of Service July 13, 2022 Assessment & Plan (1) Closed fracture of distal end of right fibula: Plan: Continue nonweightbearing status on the right leg. Keep the splint dry and intact. Ice and elevate the leg frequently to reduce pain and swelling. Follow-up in the office with Dr. Pedro on July 17 as scheduled. Continue her Eliquis twice daily. She was reassured that the ecchymosis on the lower leg is normal after fracture, and is likely the source of her increased peck discomfort. Admission and Anticipated Discharge Date Admission Date: July 07, 2022 Subjective Patient is seen in her room this morning. She is anticipating transfer [facility] this morning. She states that the right peck is more painful today than it had been. No other complaints. Physical Exam Physical Exam: General: Well-developed, well-nourished, elderly female, in no acute distress. Sitting in a bedside chair. Her right leg is elevated on the stool. Splint is in place. Alert and oriented. Skin: Warm and dry with good turgor. No rashes. Examination of her anterior right peck reveals increasing ecchymosis, likely from her known fracture. Musculoskeletal: Patient has intact motor function of her knee and toes. Range of motion of the ankle was not attempted. She is able to perform a straight leg raise. Neurologic: Gross sensation is intact across the right leg by soft touch. Results & Data ([facility]) Vital Signs (Past 12 Hours) Vital Signs Temp Pulse Resp BP Pulse Ox O2 Del Method O2 Flow Rate 07/13/22 08:11 Nasal Cannula 4 07/13/22 07:52 36.6 C 94 H 16 135/80 96 Nasal Cannula 3 07/13/22 07:17 85 18 95 Nasal Cannula 4 07/12/22 22:40 80 96 Nasal Cannula 4 Laboratory Results PRP obtained today shows a sodium 139, potassium 3.8, chloride 102, BUN of 29, creatinine 1.05. Glucose 107.
--- NOTE | 2022-07-13 14:18 | Discharge Summary ---
Date of Service July 13, 2022 Admission HPI Per Admitting Provider Tamie Hunt is an 87-year-old female presenting with ongoing cough, congestion and shortness of breath as well as a new right ankle fracture sustained today. 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 Patient was first seen by her PCP on 06/08/2022 with complaint of dyspnea. At that time dyspnea thought to be secondary to patient's underlying atrial fibrillation and chronic diastolic heart failure. Her Lasix was increased to 60 mg every other day alternating with 40 mg every other day. She was ordered an outpatient echocardiogram and told to follow-up in 2 weeks. Patient was seen again by her PCP on 06/27/2022. During that visit she reported feeling improved in regards to her dyspnea. She did complain of flulike symptoms during that visit to include sinus drainage, body aches and nausea. She had a rapid flu and COVID performed which were both negative. Supportive care was recommended. Patient presents to the ER this evening with complaint of persistent and progressive shortness of breath, cough productive for green sputum and ongoing nasal congestion. She was seen at urgent care for these complaints and was instructed to come to the ER. She was getting into her vehicle when she slid out of the seat and her right leg got caught underneath her resulting in a right ankle fracture. Patient presently with ongoing cough and shortness of breath. She is currently on 4 L nasal cannula saturating 94%. Of note, she does not typically wear oxygen during the day she does however use 2 L at night. She denies fever, chills, chest pain, palpitations. Denies abdominal pain, nausea, vomiting, diarrhea, constipation. Her weight has been stable. She has chronic orthopnea and edema which she reports is largely unchanged. During the fall, she denies loss of consciousness or head trauma. No incontinence or seizure activity. In the ER, she is afebrile, mildly tachycardic otherwise hemodynamically stable. No acute distress ER course: Dexamethasone 10 mg IV Guaifenesin 60 mg p.o. Albuterol 3 mL neb Lasix 60 mg IV Morphine 2 mg IV Acetaminophen 1 g p.o. Principal Diagnosis Ankle fracture, pneumonia Discharge Exam Constitutional: well-appearing, no acute distress HEENT: NCAT, no conjunctival injection CV: regular rhythm, no murmur appreciated, extremities well-perfused Resp: Rales, no increased work of breathing MSK: no gross deformities appreciated Skin: warm, dry, no rash appreciated Neuro: alert, oriented, no focal neurologic deficit appreciated Discharge Data Allergies Allergy/AdvReac Type Severity Reaction Status Date / Time latex Allergy Intermediate REDNESS, Verified 07/07/22 16:30 RASH Sulfa (Sulfonamide AdvReac Intermediate MAKES HER Verified 07/07/22 16:30 Antibiotics) SICKER Consultations 07/07/22 21:46 Consult Orthopedic Surgery Routine Ordered Studies 07/10/22 14:45 CT chest without contrast [CT chest diagnostic wo con] Routine Laboratory Results WBC 9.81 K/ul (4.8-10.8) 07/12/22 07:03 RBC 4.44 M/uL (4.20-5.40) 07/12/22 07:03 Hgb 11.7 g/dl (12.0-16.0) L 07/12/22 07:03 Hct 38.0 % (37.0-47.0) 07/12/22 07:03 MCV 85.6 fL (80.0-100.0) 07/12/22 07:03 MCH 26.4 pg (25.0-34.0) 07/12/22 07:03 MCHC 30.8 g/dL (32.0-36.0) L 07/12/22 07:03 RDW Std Deviation 53.2 fL (36.4-46.3) H 07/12/22 07:03 RDW Coeff of Thomas 17.1 % (11.5-14.5) H 07/12/22 07:03 Plt Count 281 K/uL (130-400) 07/12/22 07:03 MPV 9.6 fL (9.4-12.4) 07/12/22 07:03 Immature Gran % (Auto) 0.3 % 07/11/22 07:25 Neut % (Auto) 59.1 % 07/11/22 07:25 Lymph % (Auto) 29.0 % 07/11/22 07:25 [place] % (Auto) 10.7 % 07/11/22 07:25 Eos % (Auto) 0.7 % 07/11/22 07:25 Baso % (Auto) 0.2 % 07/11/22 07:25 Neut # (Auto) 5.67 K/uL (1.40-6.50) 07/11/22 07:25 Lymph # (Auto) 2.78 K/uL (1.2-3.4) 07/11/22 07:25 [place] # (Auto) 1.03 K/uL (0.11-0.59) H 07/11/22 07:25 Eos # (Auto) 0.07 K/uL (0-0.50) 07/11/22 07:25 Baso # (Auto) 0.02 K/uL (0-0.2) 07/11/22 07:25 Immature Gran # (Auto) 0.03 K/uL (0.01-0.20) 07/11/22 07:25 PT 12.1 Seconds (9.0-12.0) H 07/07/22 16:21 INR 1.1 (0.9-1.1) 07/07/22 16:21 Sodium 139 mmol/L (136-145) 07/13/22 08:32 Potassium 3.8 mmol/L (3.5-5.1) 07/13/22 08:32 Chloride 102 mmol/L (98-107) 07/13/22 08:32 Carbon Dioxide 33 mmol/L (21-32) H 07/13/22 08:32 Anion Gap 4 (3-11) 07/13/22 08:32 BUN 29 mg/dl (6-23) H 07/13/22 08:32 Creatinine 1.05 mg/dl (0.6-1.2) 07/13/22 08:32 Est Cr Clr Drug Dosing 44.6 ml/min 07/13/22 08:32 Est GFR ( Amer) 56.1 ml/min 07/13/22 08:32 Est GFR (Non-Af Amer) 48.4 ml/min 07/13/22 08:32 BUN/Creatinine Ratio 27.6 (10-20) H 07/13/22 08:32 Glucose 107 mg/dl (70-99(Fasting)) H 07/13/22 08:32 POC Glucose 114 mg/dl (70-99) H 07/13/22 12:00 Calcium 9.3 mg/dl (8.5-10.1) 07/13/22 08:32 Phosphorus 4.5 mg/dl (2.5-4.9) 07/07/22 15:49 Magnesium 1.7 mg/dl (1.7-2.4) 07/07/22 15:49 Total Bilirubin 0.7 mg/dl (0.2-1.0) 07/11/22 07:25 AST 26 U/L (13-39) 07/11/22 07:25 ALT 47 U/L (7-52) 07/11/22 07:25 Alkaline Phosphatase 75 U/L (34-104) 07/11/22 07:25 Troponin I High Sens 8.0 pg/ml (0-14) 07/07/22 15:49 B-Natriuretic Peptide 487 pg/ml (0-100) H 07/07/22 15:49 Total Protein 6.9 gm/dl (6.0-8.3) 07/11/22 07:25 Albumin 3.8 gm/dl (3.4-5.0) 07/11/22 07:25 Globulin 3.1 gm/dl (2.5-4.0) 07/11/22 07:25 Albumin/Globulin Ratio 1.2 (0.9-2) 07/11/22 07:25 Lipase 23 U/L (11-82) 07/07/22 15:49 Procalcitonin 0.05 ng/ml (0-0.5) 07/07/22 15:49 SARS-CoV-2 (PCR) NEGATIVE (Negative) 07/07/22 Unknown Influenza Type A (PCR) Negative (Neg) 07/07/22 Unknown Influenza Type B (PCR) Negative (Neg) 07/07/22 Unknown RSV (RT-PCR) Negative (Neg) 07/07/22 Unknown Impressions Chest X-Ray 07/07/22 16:00 XR chest 1V portable CLINICAL HISTORY: Shortness of breath. COMPARISON STUDY: Chest CT December 24, 2019 and chest radiograph April 05, 2022. FINDINGS: Left subclavian pacer is in place. Cardiomegaly is unchanged. There is no pneumothorax. No definite pleural effusion. Apparent hazy left basilar opacity is likely artifactual. Right hilar prominence remains unchanged. Interstitial thickening is unchanged or slightly increased since prior exam. IMPRESSION: Cardiomegaly. Mild interstitial thickening. This is likely chronic. However, mild pulmonary edema or an infectious process could appear similar. ACT 112: Negative or not required by law. Electronically signed by: Travis Strauss M.D. 07/07/2022 4:36 PM Tibia/Fibula X-Ray 07/07/22 16:00 XR tibia fibula RT 2V CLINICAL HISTORY: pain fall COMPARISON: None FINDINGS: No proximal right tibial or fibular fracture is noted. There is mild medial ankle mortise widening. Note is made of an acute oblique mildly displaced fracture through the distal shaft of the right fibula. Fracture is displaced approximately 4 mm. No definite acute distal right tibial fracture is present. IMPRESSION: 1. Acute oblique mildly displaced distal diaphyseal right fibular fracture. 2. Medial ankle mortise widening. 3. No proximal right tibial or fibular fracture. ACT 112: Negative or not required by law. Electronically signed by: Travis Strauss M.D. 07/07/2022 4:39 PM Ankle X-Ray 07/07/22 21:10 XR ankle RT min 3V routine CLINICAL HISTORY: eval fx, s/p splint COMPARISON STUDY: Right lower leg 07/07/2022. FINDINGS: Overlying splint material obscures fine bony detail. There is improved anatomic alignment in the mildly displaced oblique distal fibular fracture. There is also mildly displaced posterior malleolus fracture. The ankle mortise appears intact. IMPRESSION: Slight improved anatomic alignment within the right distal fibular and posterior malleoli fractures. ACT 112: Negative or not required by law. Electronically signed by: Ross Luz M.D. 07/08/2022 7:[address] 07/10/22 14:45 CT chest diagnostic wo con CT DOSE: 608.85 mGycm CLINICAL HISTORY: 87 years-old Female with F/u pneumonia. Acute cough with shortness of breath TECHNIQUE: Multiaxial CT images of the chest were performed without contrast. A dose lowering technique was utilized adhering to the principles of ALARA. COMPARISON: CTA chest 12/24/2019 FINDINGS: Cardiomegaly with left subclavian pacer. No pericardial effusion. Moderate to extensive coronary artery calcifications. Atherosclerosis of the aorta without aneurysm. Dilated pulmonary artery, 3.1 cm. Multinodular thyroid with nodules measuring up to 1.5 cm on the left. Borderline enlarged mediastinal lymph nodes measure up to 1.1 cm, favored to be reactive. No pneumothorax or pleural effusion. Mild to moderate pulmonary emphysema. 2.4 cm irregular opacity within the right upper lobe on image 56 is stable from the prior study. There are additional tree-in-bud and nodular consolidative opacities of the right upper lobe as seen on image 72 series 4. Bronchial wall thickening with mild mucous plugging. Subsegmental consolidation within the lateral segment right middle lobe. Scattered bilateral solid pulmonary nodules measure up to 4 mm, most of which are stable from the prior study. There is near complete consolidation with collapse of the left lower lobe. No obstructing endobronchial mass identified. Cholecystectomy. No acute process of the imaged upper abdomen. Unremarkable soft tissues. No acute fracture. Degenerative changes of the shoulders and spine. IMPRESSION: 1. Near complete collapse of the left lower lobe. No obstructing endobronchial lesion identified. Findings could be correlated with follow-up bronchoscopy. 2. Emphysema with bronchitis and mild mucous plugging. 3. Irregular 2.4 cm nodular area of consolidation within the subpleural right upper lobe is similar to the 2020 exam favoring scarring. 4. Additional scattered low suspicion solid pulmonary nodules measuring up to 4 mm, likely infectious or inflammatory. Most of these nodules are also stable from the 2020 exam. 5. Mild mediastinal lymphadenopathy, likely reactive. 6. Cardiomegaly. ACT 112: Negative or not required by law. Electronically signed by: Edgar Muñiz M.D. 07/10/2022 3:57 PM Hospital Course (1) SOB (shortness of breath): SOB (shortness of breath): 87-year-old female with history of hypertension, hyperlipidemia, atrial fibrillation/prior VTE on chronic anticoagulation with apixaban presenting with persistent shortness of breath, cough and congestion. Most likely multifactorialInitially suspect some degree of volume overload was diuresed and now appears dry. - Treating for pneumonia; Got repeat imaging and CT without signs of pulmonary edema, did show consolidation. Day 5 of antibiotics as per below. Continue supplemental oxygen as needed for goal saturation greater than 92% Mucinex 600 mg p.o. every 12 Albuterol HFA as needed Pneumonia: - Completed 3 day coarse of 500mg azithromycin on 07/12 - Augmentin Day 4; plan for a total of 7- needs 6 more doses Ankle fracture: Patient sustained a fall out of her vehicle earlier today resulting in fracture of the right ankle. Patient with acute oblique mildly displaced distal diaphyseal right fibular fracture, medial ankle mortise widening. No proximal right tibial or fibular fracture. Ankle was splinted in the ER. Repeat imagingankle mortise widening appears resolved. Maintain ankle splint Continue fall precautions Pain control with Tylenol, Oxy IR as needed MiraLAX and Colace as needed for bowel regimen Chronic diastolic (congestive) heart failure: - Initially appeared hypervolemic; now dry on exam after diuresis - repeat echo without any significant changes from prior - Plan to continue home lasix dosing 40mg daily with additional 20mg every other day Atrial fibrillation: Rate controlled atrial fibrillation. Patient anticoagulated with apixaban 5 mg p.o. twice daily. 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 twice daily Continue apixaban 5 mg p.o. twice daily Continue diltiazem 300 mg p.o. daily Type 2 diabetes mellitus with chronic kidney disease: Diet controlled diabetes Hypercholesteremia: Continue atorvastatin 10 mg p.o. nightly Hypertension: Blood pressure well controlled Continue metoprolol 100 mg p.o. twice daily Continue losartan 25 mg p.o. daily Continue diltiazem 300 mg p.o. daily (2) Ankle fracture: (3) Pneumonia: (4) Chronic diastolic (congestive) heart failure: (5) Atrial fibrillation: (6) Type 2 diabetes mellitus with chronic kidney disease: (7) Hypercholesteremia: (8) Hypertension: Total Time Total Time Spent Total Time Spent (In Minutes): <30 Discharge Plan Discharge Items Patient Disposition: Transfer Inpatient Rehab Fac Reason For Visit: SOB, RIGHT ANKLE FRACTURE Discharge Diagnosis: Pneumonia, Ankle Fracture Activity: Per Instructions section Non-emergency contact: Primary Care Provider Call non-emergency contact if: you have any medication questions, your symptoms worsen and your pain is not controlled Follow-up/Referrals: Rosio Deutsch CRNP [Primary Care Provider] - Cezar Pedro MD [Physician] - 07/17/22 2:30 pm Diet: Regular Addtl Attending Provider Instructions: SOB (shortness of breath): 87-year-old female with history of hypertension, hyperlipidemia, atrial fibrillation/prior VTE on chronic anticoagulation with apixaban presenting with persistent shortness of breath, cough and congestion. Most likely multifactorialInitially suspect some degree of volume overload was diuresed and now appears dry. - Treating for pneumonia; Got repeat imaging and CT without signs of pulmonary edema, did show consolidation. Day 5 of antibiotics as per below. Continue supplemental oxygen as needed for goal saturation greater than 92% Mucinex 600 mg p.o. every 12 Albuterol HFA as needed Pneumonia: - Completed 3 day coarse of 500mg azithromycin on 07/12 - Augmentin Day 4; plan for a total of 7- needs 6 more doses Ankle fracture: Patient sustained a fall out of her vehicle earlier today resulting in fracture of the right ankle. Patient with acute oblique mildly displaced distal diaphyseal right fibular fracture, medial ankle mortise widening. No proximal right tibial or fibular fracture. Ankle was splinted in the ER. Repeat imagingankle mortise widening appears resolved. Maintain ankle splint Continue fall precautions Pain control with Tylenol, Oxy IR as needed MiraLAX and Colace as needed for bowel regimen Chronic diastolic (congestive) heart failure: - Initially appeared hypervolemic; now dry on exam after diuresis - repeat echo without any significant changes from prior - Plan to continue home lasix dosing 40mg daily with additional 20mg every other day Atrial fibrillation: Rate controlled atrial fibrillation. Patient anticoagulated with apixaban 5 mg p.o. twice daily. 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 twice daily Continue apixaban 5 mg p.o. twice daily Continue diltiazem 300 mg p.o. daily Type 2 diabetes mellitus with chronic kidney disease: Diet controlled diabetes Hypercholesteremia: Continue atorvastatin 10 mg p.o. nightly Hypertension: Blood pressure well controlled Continue metoprolol 100 mg p.o. twice daily Continue losartan 25 mg p.o. daily Continue diltiazem 300 mg p.o. daily Addtl Business Machine Operator Provider Instructions: Continue with nonweightbearing on the right leg using the walker Elevate the right leg and wiggle toes daily Okay to use ice over the splint 20-30 minutes at a time Keep splint in place and do not remove Keep splint clean and dry. Continue with pain analgesics as directed Keep follow up appointment on 07/17/22 Pending Studies at Discharge: No Stand-Alone Forms: My [facility] Skilled Items Patient informed of condition?: Yes DNR: Yes Discharge Level of Care: Acute rehab Communicable Disease: No Discharge Prognosis: Stable Lines: None Urinary Catheter: No Medications and DC Order Prescriptions: New amoxicillin-pot clavulanate 875-125 mg Tablet 1 tab PO BIDM Qty: 6 0RF acetaminophen 325 mg Tablet 650 mg PO Q4H PRN (Reason: pain) Qty: 30 0RF oxycodone 5 mg Tablet 5 mg PO Q4H PRN (Reason: pain) Qty: 10 0RF benzonatate 100 mg Capsule 100 mg PO TID PRN (Reason: cough) Qty: 30 0RF guaifenesin [Mucinex] 600 mg Tablet Extended Release 12hr 600 mg PO Q12 Qty: 30 0RF Continued (DME) OneTouch Ultra Blue Test Strip Strip See Dose Instructions .ROUTE .MEDSUPPLY Qty: 100 3RF Rx Instructions: check glucose once daily as directed (DME) Wheeled Walker Misc See Rx Instructions .ROUTE .MEDSUPPLY Qty: 1 0RF Rx Instructions: As directed Rollator 4 wheels with brakes and seat rabeprazole 20 mg tablet,delayed release (DR/EC) 20 mg PO QAM Qty: 90 3RF atorvastatin 10 mg tablet 10 mg PO HS Qty: 90 3RF Patient Comments: qam losartan 25 mg tablet 25 mg PO DAILY Qty: 90 3RF Patient Comments: qpm albuterol sulfate [Ventolin HFA] 90 mcg/actuation HFA aerosol inhaler 1 inh inhalation QID Qty: 18 2RF diltiazem HCl 300 mg capsule,extended release 24hr 300 mg PO DAILY Qty: 90 3RF metoprolol tartrate 100 mg tablet 100 mg PO BID Qty: 180 3RF gabapentin 300 mg capsule 300 mg PO TID Qty: 270 3RF Rx Instructions: TAKES QAM, 1430, QHS (DME) lancets [OneTouch UltraSoft Lancets] misc See Dose Instructions .ROUTE .MEDSUPPLY Qty: 100 5RF Dose Instruction: As directed Rx Instructions: use to check blood glucose once daily as directed potassium chloride 10 mEq tablet extended release 10 meq PO DAILY Qty: 90 3RF Patient Comments: qam Eliquis 5 mg tablet 5 mg PO BID Qty: 60 11RF furosemide 40 mg tablet 40 mg PO DAILY Patient Comments: qam Rx Instructions: Take 1 tablet daily and take with 20mg every other day to = 60mg every other day furosemide [Lasix] 20 mg tablet 20 mg PO Q OTHER DAY Rx Instructions: 20 mg orally every other day with 40mg tablet to = 60mg QOD; Discharge Orders: Discharge Order (Routine); Ordered 07/13/22 Ordered By: Thalia Milton Admission Data Admit Date/Time: 07/07/22 20:13 Attending Provider: Abdirahman Waters Admit Provider: Birgit Person Primary Care Provider: Rosio Deutsch Other Providers: Cezar Pedro ; [facility] ; [facility] Other Interventions: Discharge Summary Assessment (RN) Last Done: 07/13/22 12:57 Supervising Physician Co-Signing Physician Notes I personally examined the patient and verified all gonzalez points of history and ex am, discussed case, and agree with decision making with Dr Milton generally feels well enough for rehab. discussed covid exposure. discussed anticipated resolution of pneumonia. Vitals noted, in general she is awake and alert pleasant no distress, breathing unlabored no accessory muscle use. Neuro without focal deficits. Community-acquired pneumoniaon Zithromax/Rocephincontinue. Acute on chronic HFpEFappears to have resolved. chronic afib rate controlled and anticoagulated. asked to clarify about creatinine -doubt true stage 3 CKD probably "age adjusted normal" given impact of age on cockroft gault and BMI of 43.8 on baseline creatinine secretion from body mass likely leading to skewed eGFR- does not appear to have clinical relevance at this time but if needed to truly know GFR would likely need 24hr urine CrCl. Ankle fracture - rehab, ortho f/u Otherwise as above Resident Activity Tracking Resident Involvement: Resident Care Provided Care Provided: Adult Hospital Medicine
--- NOTE | 2022-07-13 19:09 | Billing Data ---
Date of Service July 13, 2022 Coding Level of Care Code 72192 IN/OBS DISCH 30 MIN/LESS
== END 2022-07-13 14:08 | DRG 291 ==
LOC: ED 15:12 → 3N 20:13 → SUATTDRO 20:13 → 3N 21:25

== ENCOUNTER 2025-02-28 09:04 | Inpatient (IN) ==
--- NOTE | 2025-02-28 09:27 | Emergency Department Note ---
Impression & Plan Pulmonary edema, Hypoxia, Closed head injury, Anticoagulated ED Provider Note Name: HAYDE DOVE Age: 89 Sex: Female Arrives Via: Walk-In Informant: Patient, family ED Provider: Asif Leavitt MD Chief Complaint: Weakness and shortness of breath Impression: As per impressions above Medical Decision Makin-year-old female with a complex past medical history including A-fib on anticoagulant, CHF, type 2 diabetes amongst others. Arrives for evaluation of several days of worsening weakness fatigue and exhaustion. Waxing and waning. Yesterday did have a fall and possibly struck her head. On arrival she has no neurologic deficits but she is relatively hypoxic. Diffuse crackles all lung liu but otherwise no significant edema on examination. Given the head injury a CT of the head and neck was obtained which is fortunately unremarkable. No other evidence of traumatic injuries. Chest x-ray does show some pulmonary edema developing. Laboratory workup remarkable for relatively elevated BNP. Lactic acid is slightly elevated but my suspicion is this is due to persistent hypoxia. I do not see a clear evidence of infectious etiology at this time. I do not feel this is consistent with severe sepsis at this time. Chest x-ray does not show clear lobar infiltrate and her white count is normal without fevers she is doing quite well oxygenation wood on nasal cannula O2. She was given some IV Lasix and hospitalist was consulted for further management. I do not feel this is consistent with PE given she is anticoagulated. Triage/Nursing Notes reviewed by Me External Chart Review by me: I reviewed a PCP note from 09/19/2024 discussed patient's past medical history. Differential:Infection, dehydration, metabolic abnormality, hypo/hyperglycemia, electrolyte disturbance, anemia, hypoxia, cardiac sources, intracerebral event, toxicologic, neurologic, as well as other pathologies. Vital Signs: reviewed and remarkable for hypoxia Interventions: lasix 40mg iv, nc o2 Labs:ED labs Reviewed by me and remarkable for elevated bnp Imaging:CT of the head as per my informal interpretation no intracranial hemorrhage or mass effect appreciated. CT of the cervical spine as per my informal interpretation no fracture or dislocation appreciated. These are confirmed by radiologist. 1 view chest x-ray as per my interpretation bilateral infiltrate consistent with pulmonary edema no lobar infiltrate EKG:As per my interpretation. Indication weakness. A-fib at 78 bpm with QTc of 494. There is no ischemia appreciated. PVC is noted. When compared to EKG of March 19, 2024 she is no longer in a paced rhythm Cardiac/Tele Monitoring: Cardiac Monitoring: An Order was placed for continuous cardiac monitoring. The monitor shows a rate of 70 with a afib rhythm. Consults:Discussed with hospitalist service who will further evaluation and manage Plan: Disposition:Hospitalization. Condition: Fair History of Present Illness: 89-year-old female arrives for evaluation of shortness of breath. Patient has been sick for the last several days if not a week or 2. Cough congestion and some shortness of breath. This seems to have worsened over the last few days. Family notes she has even had episodes of confusion with waxing and waning mental status issues. She had slurred speech yesterday some. She has been very weak and having trouble getting around. Yesterday while utilizing her walker she got so exhausted she had to sit on the ground and as she sat down she fell on she believes her right side but it may have been her left. She has been having some mild left upper chest discomfort since the fall. Denies any sharp or stabbing pain. Denies any crushing substernal chest pain. She notes a mild posterior left headache as well. Patient thinks she hit her head but is unsure. She is on Eliquis for A-fib. Denies any other falls or injuries. She does not have any urinary symptoms. She denies any current chest pain, abdominal pain, urinary symptoms, leg swelling or other symptoms. No medication prior to arrival. Patient notes she was recently started on a new medication for her A-fib. She has not been on any recent antibiotics. No known sick contacts. Past Medical History:See Below Home Medications:See Below Allergies:latix, sulfa Vitals:Blood Pressure: 148/91, Pulse 93, RR 18, T 36.5C, O2 82% on RA Physical Exam: Primary and then secondary survey completed by me on arrival. Cervical Neck cleared on initial evaluation, thus removed cervical collar. GENERAL: Patient is uncomfortable appearing and in moderate distress. HEAD: AT/NC RESPIRATORY: Crackles all lung liu, moderate dyspnea/tachypnea. CARDIOVASCULAR: Regular rate and rhythm.No murmur appreciated. GASTROINTESTINAL: Abdomen soft, non-tender, no peritonitis. BACK: No midline tenderness, no CVA tenderness EXTREMITIES: Normal motion all extremities, no cyanosis, no edema. NEUROLOGIC: Alert and oriented. No focal neurologic deficits appreciated SKIN: No rash, no jaundice, no diaphoresis. PSYCH: Appropriate GCS: 15 ED Course: Times/Reassessments: Patient does appear much improved with nasal cannula O2. They are agreeable to hospitalization. Throughout her neurologic exam remains intact with NIH of 0. 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) Diverticulitis of colon Greater trochanteric bursitis of right hip Atrial fibrillation (~12/24/19) H/O cataract extraction left - Dr Collazo, 2019 Acute renal insufficiency (Acute) Tachy-mynor syndrome Anticoagulant long-term use Chronic diastolic (congestive) heart failure Type 2 diabetes mellitus with chronic kidney disease Left ear pain Neck pain on left side QUIGLEY (dyspnea on exertion) Cardiac pacemaker Trochanteric bursitis, left hip Hypercholesteremia (Chronic) Hypertension (Chronic) Osteoporosis Lumbar spondylosis History of cardiac cath MORE THAN 7 YEARS AGO--WAS NEGATIVE ([facility]) Medical History Hypervolemia COVID-19 Arthritis Borderline diabetes Anemia Hx of diverticulitis of colon Atrial fibrillation Congestive heart failure Urinary leakage Hypokalemia Anticoagulant long-term use Leukocytosis SOB (shortness of breath) Morbid obesity with BMI of 40.0-44.9, adult DVT prophylaxis GERD (gastroesophageal reflux disease) Pulmonary embolism (02/2019) Surgical History History of tooth extraction History of permanent cardiac pacemaker placement Status post placement of cardiac pacemaker History of cataract surgery History of esophagogastroduodenoscopy (EGD) History of colonoscopy History of appendectomy History of cholecystectomy H/O repair of rotator cuff Family History Mother Breast cancer Son Deep vein thrombosis Father Myocardial infarction Asthma Sister Lung cancer Bone cancer Other Coronary heart disease No family history of adverse response to anesthesia Denies family history of Ovarian cancer Prostate cancer Colorectal cancer Social History Smoking Status: Never smoker Tobacco Type: Cigarettes Age Started Using Tobacco: 23; Age Quit Using Tobacco: 50; packs per day: 1; Second Hand Exposure: No; Do You Dip or Chew Tobacco: No; Tobacco Cessation Education Requested by Patient: No Hx Alcohol Use: No Hx Substance Use: No Preferred Language: Wolof Communication Ability: Effective Visual Impairment: No Limitations Hearing Ability: Hard of Hearing Tallow Maker Required: No Beliefs That Will Affect Care: None marital status: marital status details: lives in [place] Current Living Situation: Spouse Current Living Situation Comment: Lives at home with . current occupational status: retired current occupation: worked at [employer] as a nurse How many Children do You have: 7 How many Children do You have Comment: 6 sons, 1 daughter Other Information That Helps Us Care for You: No Feels Safe at Home: Yes Safety Concerns: Feels Safe At This Time Childhood Exposure to Second-Hand Smoke: No Diet: regular caffeine: No Dental Care, Regularly: Yes Physical Activity Frequency: Does not Exercise Seatbelt Use: always Sunscreen Use: Yes Assistive Devices: Walker Allergies Allergies Allergy/AdvReac Type Severity Reaction Status Date / Time latex Allergy Intermediate REDNESS, Verified 02/16/25 11:09 RASH Sulfa (Sulfonamide AdvReac Intermediate MAKES HER Verified 02/16/25 11:09 Antibiotics) SICKER Home Meds Previous Rx's Medication Instructions Recorded Wheeled Walker #1 ea 01/21/20 acetaminophen 325 mg tablet 650 mg (2 x 325 mg) PO Q4H PRN 07/13/22 pain #30 tabs blood sugar diagnostic #100 ea 12/21/22 metoprolol tartrate 100 mg tablet 100 mg PO BID #180 tabs 01/23/24 ondansetron 4 mg disintegrating 4 mg PO Q8H PRN nausea and 04/14/24 tablet vomiting #30 tabs blood-glucose meter (OneTouch #1 unit 05/02/24 Ultra2 Meter) blood sugar diagnostic (OneTouch #100 ea 05/26/24 Ultra Test strips) clotrimazole 1 % topical solution See Rx Instructions topical BID 05/28/24 #30 mL lancets 33 gauge (OneTouch Delica #100 ea 05/29/24 Plus Lancet) diltiazem HCl 240 mg 240 mg PO DAILY #90 caps 06/09/24 capsule,extended release 24 hr clotrimazole-betamethasone 1 1 applic topical BID #15 grams 07/11/24 %-0.05 % topical cream apixaban 5 mg tablet (Eliquis) 5 mg PO BID #180 tabs 09/19/24 atorvastatin 10 mg tablet 10 mg PO HS #90 tabs 09/19/24 ferrous sulfate 325 mg (65 mg 325 mg PO DAILY #90 tabs 09/19/24 iron) tablet furosemide 20 mg tablet (Lasix) 20 mg PO Q OTHER DAY #45 tabs 09/19/24 furosemide 40 mg tablet 40 mg PO DAILY #90 tabs 09/19/24 gabapentin 300 mg capsule 300 mg PO TID #270 caps 09/19/24 losartan 25 mg tablet 25 mg PO DAILY #90 tabs 09/19/24 rabeprazole 20 mg tablet,delayed 20 mg PO DAILY #90 tabs 10/14/24 release potassium chloride 10 mEq 10 meq PO DAILY #90 tabs 11/18/24 tablet,extended release magnesium oxide 400 mg PO BID 90 days #180 caps 01/27/25 flecainide 100 mg tablet 100 mg PO Q12H #60 tabs 02/16/25 Results & Data (ED) Vital Signs Vital Signs - 24 hr 02/28/25 09:09 02/28/25 09:15 02/28/25 09:23 Temperature 36.5 C 36.7 C Temperature Source Temporal Artery Scan Oral Pulse Rate 93 H Pulse Rate [Right Finger] 106 H Respiratory Rate 18 16 Respiratory Effort / Characteristics Respiratory Depth Respiratory Pattern Blood Pressure 148/91 H Blood Pressure [Right Arm] 172/91 H Blood Pressure Mean 110 Blood Pressure Mean [Right Arm] 118 Pulse Oximetry 89 L 95 80 L Oxygen Delivery Method Room Air Nasal Cannula Room Air Oxygen Flow Rate 4 Sepsis Recent Fever Within 48 Hours No Sepsis New/Unexplained Change in Mental Status N/A Sepsis Action Taken by Nursing No Action Required 02/28/25 09:23 02/28/25 09:39 02/28/25 09:41 Temperature Temperature Source Pulse Rate 98 H Pulse Rate [Right Finger] 94 H Respiratory Rate 16 Respiratory Effort / Characteristics Non-Labored Spontaneous Respiratory Depth Normal Respiratory Pattern Blood Pressure Blood Pressure [Right Arm] 156/93 H Blood Pressure Mean Blood Pressure Mean [Right Arm] 114 Pulse Oximetry 95 95 Oxygen Delivery Method Nasal Cannula Nasal Cannula Oxygen Flow Rate 4 4 Sepsis Recent Fever Within 48 Hours Sepsis New/Unexplained Change in Mental Status Sepsis Action Taken by Nursing 02/28/25 09:59 02/28/25 10:15 02/28/25 11:00 Temperature Temperature Source Pulse Rate Pulse Rate [Right Finger] 87 88 78 Respiratory Rate 19 16 20 Respiratory Effort / Characteristics Non-Labored Spontaneous Non-Labored Spontaneous Respiratory Depth Normal Normal Respiratory Pattern Regular Blood Pressure Blood Pressure [Right Arm] 141/97 H 148/101 H 134/100 Blood Pressure Mean Blood Pressure Mean [Right Arm] 111 116 111 Pulse Oximetry 95 95 94 Oxygen Delivery Method Nasal Cannula Nasal Cannula Room Air Oxygen Flow Rate 4 4 Sepsis Recent Fever Within 48 Hours Sepsis New/Unexplained Change in Mental Status Sepsis Action Taken by Nursing Laboratory Data 02/28/25 09:36 02/28/25 09:36 Lab Results 02/28/25 02/28/25 02/28/25 Range/Units 09:36 09:43 10:00 WBC 8.86 (4.8-10.8) K/ul RBC 4.86 (4.20-5.40) M/uL Hgb 13.5 (12.0-16.0) g/dl Hct 43.4 (37.0-47.0) % MCV 89.3 (80.0-100.0) fL MCH 27.8 (25.0-34.0) pg MCHC 31.1 L (32.0-36.0) g/dL RDW Std Deviation 49.2 H (36.4-46.3) fL RDW Coeff of Thomas 15.2 H (11.5-14.5) % Plt Count 278 (130-400) K/uL MPV 9.4 (9.4-12.4) fL Immature Gran % (Auto) 0.2 % Neut % (Auto) 69.0 % Lymph % (Auto) 21.6 % Sublette % (Auto) 7.3 % Eos % (Auto) 1.6 % Baso % (Auto) 0.3 % Neut # (Auto) 6.11 (1.40-6.50) K/uL Lymph # (Auto) 1.91 (1.20-3.40) K/uL Sublette # (Auto) 0.65 H (0.11-0.59) K/uL Eos # (Auto) 0.14 (0.00-0.50) K/uL Baso # (Auto) 0.03 (0.00-0.20) K/uL Immature Gran # (Auto) 0.02 (0.01-0.20) K/uL Sodium 141 (136-145) mmol/L Potassium 4.3 (3.5-5.1) mmol/L Chloride 101 (98-107) mmol/L Carbon Dioxide 30 (21-32) mmol/L Anion Gap 10 (3-11) BUN 26 H (6-23) mg/dl Creatinine 1.06 (0.6-1.2) mg/dl Est Cr Clr Drug Dosing 42.5 ml/min eGFR 50.84 BUN/Creatinine Ratio 24.5 H (10-20) Glucose 155 H (70-99(Fasting)) mg/dl Lactate 2.2 H* (0.4-2.0) mmol/L Calcium 9.5 (8.6-10.3) mg/dl Magnesium 2.2 (1.7-2.4) mg/dl Total Bilirubin 1.4 H (0.2-1.0) mg/dl Direct Bilirubin 0.2 (0-0.2) mg/dl AST 17 (13-39) U/L ALT 19 (7-52) U/L Alkaline Phosphatase 102 (34-104) U/L Total Creatine Kinase 29 (26-192) U/L Troponin I High Sens 7.4 (0-14) pg/ml B-Natriuretic Peptide 1011 H (0-100) pg/ml Total Protein 7.7 (6.0-8.3) gm/dl Albumin 3.9 (3.4-5.0) gm/dl Procalcitonin 0.03 0.04 (0-0.5) ng/ml TSH 2.488 (0.300-4.500) uIu/ml Urine Color Straw Urine Appearance Cloudy A (Clear) Urine pH 7.0 (4.5-7.5) Ur Specific Epps 1.020 (1.000-1.030) Urine Protein Negative (Negative) Urine Glucose (UA) Negative (Negative) Urine Ketones Negative (Negative) Urine Blood Trace-intact H (Negative) Urine Nitrite Negative (Negative) Urine Bilirubin Negative (Negative) Urine Urobilinogen Negative (Negative) Ur Leukocyte Esterase Trace H (Negative) Urine WBC (Auto) 0-5 (0-5) /hpf Urine RBC (Auto) 3-5 H (0-2) /hpf U Hyaline Cast (Auto) 3-5 H (0-2) /lpf U Epithel Cells (Auto) 3-5 H (0-2) /hpf Urine Bacteria (Auto) 2+ H (None Seen) Urine Yeast Present A (None Prsent) Urine Comment SARS-CoV-2 (PCR) NEGATIVE (Negative) Influenza Type A (PCR) Negative (Neg) Influenza Type B (PCR) Negative (Neg) RSV (RT-PCR) Negative (Neg) Administered Medications Apixaban (Apixaban 5 Mg Tablet) 5 mg PO BID [facility] Stop: 03/30/25 13:29 Last Admin: 02/28/25 14:43 Dose: Not Given Documented By: LISBET Diltiazem HCl (Diltiazem Hcl 240 Mg Capcr) 240 mg PO DAILY [facility] Stop: 03/30/25 11:29 Last Admin: 02/28/25 14:43 Dose: Not Given Documented By: LISBET Flecainide Acetate (Flecainide Acetate 100 Mg Tablet) 100 mg PO BID@0000,1200 [facility] Stop: 03/30/25 13:29 Last Admin: 02/28/25 14:45 Dose: 100 mg Documented By: LISBET Losartan Potassium (Losartan Potassium 25 Mg Tab) 25 mg PO DAILY [facility] Stop: 03/30/25 13:29 Last Admin: 02/28/25 14:44 Dose: Not Given Documented By: LISBET Metoprolol Tartrate (Metoprolol Tartrate 100 Mg Tab) 100 mg PO BID [facility] Stop: 03/30/25 13:29 Last Admin: 02/28/25 14:44 Dose: Not Given Documented By: LISBET Discontinued Medications Furosemide (Furosemide 40 Mg/4 Ml Vial) 40 mg IV ONE ONE Stop: 02/28/25 10:44 Last Admin: 02/28/25 10:53 Dose: 40 mg Documented By: ARS Imaging Data Radiologist's Impression: Cervical Spine CT 02/28/25 09:21 CT SCAN OF THE CERVICAL SPINE CLINICAL HISTORY: Trauma. COMPARISON STUDY: Cervical spine CT dated 03/19/2024 TECHNIQUE: CT scan of the cervical spine is performed from the skull base to the upper thoracic spine. Images are reviewed in the axial, sagittal, and coronal planes. IV contrast was not administered for this examination. A dose lowering technique was utilized adhering to the principles of ALARA. CT DOSE: 1102.51 mGy.cm FINDINGS: Skeletal structures: The skeletal structures are osteopenic. There is no evidence of fracture or subluxation involving the cervical spine. Vertebral body height and alignment are maintained. There is straightening of the cervical lordosis. Anterior osteophytes are seen throughout. The odontoid process and lateral masses are intact. The atlantoaxial articulation is preserved noting productive degenerative change. The spinous processes appear intact. There is mild multilevel facet arthropathy. Intervertebral discs: There is moderate to severe disc space narrowing at C5-C6 and C6-C7 with endplate sclerosis. Mild narrowing is seen at the remaining cervical levels. Central canal: Posterior disc osteophyte complexes at C5-C6, C6-C7, and T1-T2 likely contribute to acquired compromise of the central canal. Soft tissues: The prevertebral and paraspinous soft tissues are within normal limits. The thyroid gland is mildly enlarged and heterogeneous, typical for goiter. Pacemaker leads are noted at the left thoracic inlet. There is atherosclerotic calcification of the carotid bulbs. Calvarium: The visualized calvarium at the skull base appears intact. Brain parenchyma: Partially visualized brain parenchyma at the skull base is within normal limits. Sinuses and mastoids: The visualized paranasal sinuses are clear. There is trace right mastoid effusion. The left mastoid air cells are well pneumatized. Lung apices: Emphysematous change is noted. Pleural effusions are seen at the apices. IMPRESSION: 1. There is no evidence of fracture or subluxation involving the cervical spine. 2. Osteopenia and spondylotic change as above. ACT 112: Negative or not required by law. Electronically signed by: Jeffrey Celis M.D. 02/28/2025 10:[address] 02/28/25 09:21 CT SCAN OF THE BRAIN WITHOUT IV CONTRAST CLINICAL HISTORY: Head injury. COMPARISON STUDY: CT of the brain dated 03/19/2024 TECHNIQUE: Unenhanced CT scan of the brain is performed from the vertex to the skull base. Images are reviewed in the axial, sagittal, coronal planes. A dose lowering technique was utilized adhering to the principles of ALARA. FINDINGS: Brain parenchyma: There is age-related involutional change noting mild subcortical and periventricular microangiopathic disease. There is no hemorrhage, mass effect, or evidence of acute territorial ischemia by CT criteria. Antonio-white matter differentiation is preserved. No extra-axial fluid collection is seen. Ventricles, sulci, cisterns: Prominent secondary to involutional change. Intracranial vasculature: There is atherosclerotic calcification of the cavernous carotid and vertebral arteries. Calvarium: Unremarkable. Sinuses and mastoids: The paranasal sinuses are clear. The mastoid air cells are well pneumatized. Orbits: The bony orbits are grossly intact. There are bilateral ocular lens implants. IMPRESSION: There is no hemorrhage, mass effect, or evidence of acute territorial ischemia by CT criteria. ACT 112: Negative or not required by law. Electronically signed by: Jeffrey Celis M.D. 02/28/2025 10:05 AM Chest X-Ray 02/28/25 09:22 SINGLE VIEW CHEST CLINICAL HISTORY: Hypoxia FINDINGS: An AP, portable, upright chest radiograph is compared to study dated 03/19/2024 and correlated with chest CT dated 10/02/2022. A 2-lead cardiac pacemaker is unchanged in position. The heart is enlarged noting atherosclerotic calcification of the thoracic area. There is pulmonary vascular congestion with mild interstitial edema. Emphysema and chronic interstitial thickening is similar to previous. Small pleural effusions are suspected. No pneumothorax is seen. The skeletal structures are osteopenic. The bony thorax is grossly intact. IMPRESSION: 1. Cardiomegaly and cardiac pacemaker and evidence of congestive failure and mild pulmonary edema. Radiographic follow-up to resolution is recommended. 2. Emphysema. 3. Suspect small pleural effusions. ACT 112: Negative or not required by law. Electronically signed by: Jeffrey Celis M.D. 02/28/2025 9:56 AM Discharge Plan Visit Data Chief Complaint: Fall Stated Complaint: FALL YESTERDAY, NOT FEELING RIGHT, ON [facility] ED Provider: Asif Leavitt Discharge Problem: Pulmonary edema, Hypoxia, Closed head injury, Anticoagulated Patient Disposition: Admitted As Inpatient Condition: Fair Discharge Instructions Interventions: ED Discharge Assessment Last Done: 02/28/25 12:50 Discharge Problem: Pulmonary edema Qualifiers: Chronicity: acute Qualified Code(s): J81.0 - Acute pulmonary edema Closed head injury Qualifiers: Encounter type: initial encounter Qualified Code(s): S09.90XA - Unspecified injury of head, initial encounter
[2025-02-28 09:48] LABS: Hematocrit (blood only) 43.4 % (37.0-47.0); Hemoglobin 13.5 g/dl (12.0-16.0); Immature Granulocytes # (auto) 0.02 K/uL (0.01-0.20); Immature Granulocytes % (auto) 0.2 %; Mean Corpuscular Hemoglobin 27.8 pg (25.0-34.0); Mean Corpuscular Volume 89.3 fL (80.0-100.0); Platelet Count 278 K/uL (130-400); RDW Standard Deviation 49.2 fL (36.4-46.3); Red Blood Count 4.86 M/uL (4.20-5.40); White Blood Count 8.86 K/ul (4.8-10.8)
--- NOTE | 2025-02-28 09:58 | XRay Report ---
SINGLE VIEW CHEST CLINICAL HISTORY: Hypoxia FINDINGS: An AP, portable, upright chest radiograph is compared to study dated 03/19/2024 and correlat ed with chest CT dated 10/02/2022. A 2-lead cardiac pacemaker is unchanged in position. The heart is e nlarged noting atherosclerotic calcification of the thoracic area. There is pulmonary vascular conges tion with mild interstitial edema. Emphysema and chronic interstitial thickening is similar to previo us. Small pleural effusions are suspected. No pneumothorax is seen. The skeletal structures are osteo penic. The bony thorax is grossly intact. IMPRESSION: 1. Cardiomegaly and cardiac pacemaker and evidence of congestive failure and mild pulmonary edema. Ra diographic follow-up to resolution is recommended. 2. Emphysema. 3. Suspect small pleural effusions. ACT 112: Negative or not required by law. Electronically signed by: Jeffrey Celis M.D. 02/28/2025 9:56 AM
--- NOTE | 2025-02-28 10:06 | CT Scan Report ---
CT SCAN OF THE BRAIN WITHOUT IV CONTRAST CLINICAL HISTORY: Head injury. COMPARISON STUDY: CT of the brain dated 03/19/2024 TECHNIQUE: Unenhanced CT scan of the brain is performed from the vertex to the skull base. Images are reviewed in the axial, sagittal, coronal planes. A dose lowering technique was utilized adhering to the principles of ALARA. FINDINGS: Brain parenchyma: There is age-related involutional change noting mild subcortical and periventricula r microangiopathic disease. There is no hemorrhage, mass effect, or evidence of acute territorial isc hemia by CT criteria. Antonio-white matter differentiation is preserved. No extra-axial fluid collection is seen. Ventricles, sulci, cisterns: Prominent secondary to involutional change. Intracranial vasculature: There is atherosclerotic calcification of the cavernous carotid and vertebr al arteries. Calvarium: Unremarkable. Sinuses and mastoids: The paranasal sinuses are clear. The mastoid air cells are well pneumatized. Orbits: The bony orbits are grossly intact. There are bilateral ocular lens implants. IMPRESSION: There is no hemorrhage, mass effect, or evidence of acute territorial ischemia by CT michelle gold. ACT 112: Negative or not required by law. Electronically signed by: Jeffrey Celis M.D. 02/28/2025 10:05 AM
[2025-02-28 10:16] LABS: Alanine Aminotransferase 19.0 U/L (7-52); Albumin Level 3.9 gm/dl (3.4-5.0); Alkaline Phosphatase 102.0 U/L (34-104); Anion Gap 10.0 (3-11); Bilirubin,Total 1.4 mg/dl (0.2-1.0); Blood Urea Nitrogen 26.0 mg/dl (6-23); Calcium 9.5 mg/dl (8.6-10.3); Carbon Dioxide 30.0 mmol/L (21-32); Chloride 101.0 mmol/L (98-107); Creatine Kinase 29.0 U/L (26-192); Creatinine Clr Calc Pharmacy 42.5 ml/min; Glucose 155.0 mg/dl (70-99(Fasting)); Magnesium 2.2 mg/dl (1.7-2.4); Potassium 4.3 mmol/L (3.5-5.1); Sodium 141.0 mmol/L (136-145); Total Protein 7.7 gm/dl (6.0-8.3)
--- NOTE | 2025-02-28 10:18 | CT Scan Report ---
CT SCAN OF THE CERVICAL SPINE CLINICAL HISTORY: Trauma. COMPARISON STUDY: Cervical spine CT dated 03/19/2024 TECHNIQUE: CT scan of the cervical spine is performed from the skull base to the upper thoracic spine . Images are reviewed in the axial, sagittal, and coronal planes. IV contrast was not administered fo r this examination. A dose lowering technique was utilized adhering to the principles of ALARA. CT DOSE: 1102.51 mGy.cm FINDINGS: Skeletal structures: The skeletal structures are osteopenic. There is no evidence of fracture or subl uxation involving the cervical spine. Vertebral body height and alignment are maintained. There is s traightening of the cervical lordosis. Anterior osteophytes are seen throughout. The odontoid process and lateral masses are intact. The atlantoaxial articulation is preserved noting productive degenera tive change. The spinous processes appear intact. There is mild multilevel facet arthropathy. Intervertebral discs: There is moderate to severe disc space narrowing at C5-C6 and C6-C7 with endpla te sclerosis. Mild narrowing is seen at the remaining cervical levels. Central canal: Posterior disc osteophyte complexes at C5-C6, C6-C7, and T1-T2 likely contribute to ac quired compromise of the central canal. Soft tissues: The prevertebral and paraspinous soft tissues are within normal limits. The thyroid gla nd is mildly enlarged and heterogeneous, typical for goiter. Pacemaker leads are noted at the left th oracic inlet. There is atherosclerotic calcification of the carotid bulbs. Calvarium: The visualized calvarium at the skull base appears intact. Brain parenchyma: Partially visualized brain parenchyma at the skull base is within normal limits. Sinuses and mastoids: The visualized paranasal sinuses are clear. There is trace right mastoid effusi on. The left mastoid air cells are well pneumatized. Lung apices: Emphysematous change is noted. Pleural effusions are seen at the apices. IMPRESSION: 1. There is no evidence of fracture or subluxation involving the cervical spine. 2. Osteopenia and spondylotic change as above. ACT 112: Negative or not required by law. Electronically signed by: Jeffrey Celis M.D. 02/28/2025 10:15 AM
[2025-02-28 10:28] LABS: Thyroid Stimulating Hormone 2.488 uIu/ml (0.300-4.500)
[2025-02-28 10:41] LABS: Appearance Urine Cloudy (Clear); Glucose Urine UA Negative (Negative)
[2025-02-28 10:45] LABS: Influenza A virus by PCR Negative (Neg); Influenza B virus by PCR Negative (Neg); SARS CoV2 RNA(COVID-19) Ceph NEGATIVE (Negative)
[2025-02-28] MEDS: FUROSEMIDE 40 MG/4 ML VIAL IV ONE (10:53)
[2025-02-28 11:23] LABS: Bacteria Urine Automated 2+ (None Seen); WBC Urine Automated 0-5 /hpf (0-5)
[2025-02-28] MEDS: APIXABAN 5 MG TABLET PO SCH (14:43)
[2025-02-28] MEDS: METOPROLOL TARTRATE 100 MG TAB PO SCH (14:44)
[2025-02-28] MEDS: LOSARTAN POTASSIUM 25 MG TAB PO SCH (14:44)
[2025-02-28] MEDS: FLECAINIDE ACETATE 100 MG TABLET PO SCH (14:45)
--- NOTE | 2025-02-28 16:57 | History & Physical Report ---
Date of Service February 28, 2025 Assessment & Plan (1) Acute hypoxic respiratory failure: Plan: As above in the History of Present Illness. (2) Acute on chronic diastolic (congestive) heart failure: Plan: As above in the History of Present Illness. (3) Paroxysmal atrial fibrillation: Plan: As above in the History of Present Illness. (4) Lactic acid blood increased: Plan: As above in the History of Present Illness. Admission and Anticipated Discharge Date Admission Date: February 28, 2025 History of Present Illness Chief Complaint: "I have been short of breath for the past 2 days. I weighed myself and see that I have gained 4 pounds in the past 2 days. That's a lot of weight. I must admit, I like salt. I know it's not good for me. I know I have heart failure. That's why I came to the hospital this morning (02/28/2025, 9:00am) to get a lasix shot. The ER doc gave me a lasix shot this morning and I am breathing better already. No coughing or wheezing. No chest pain. I'll be alright in a few days." Primary Care Provider: Charli De Dios, 89 years old female with PMH of FULL CODE @ home, obesity with BMI 39.2 (height 157.5 cm; weight 97.27 kg), ambulatory dysfunction utilizing walker at home, former tobacco abuse with subsequent diagnosis of COPD on 2 liters/minute O2 via nasal cannula at bedtime only, GERD on rabeprazole 20mg PO daily, insulin-dependent DM2 x 15 years on lantus 25 units SQ daily, hyperlipidemia on atorvastatin 10mg PO qhs, tachy-mynor syndrome and paroxysmal AFIB, s/p [place] XT MRI W1D R01 Medtronic PPM model #5506, on rate-controlling metoprolol tartrate 100mg PO bid, rate-controlling diltiazem 240mg PO daily, rhythm-controlling flecainide 100mg PO q12, and apixaban 5mg PO bid, HTN on metoprolol tartrate 100mg PO bid, diltiazem 240mg PO daily, lasix 40mg PO daily, and lasix 20mg PO every other day, and chronic diastolic CHF with preserved LVEF 65% and normal RV systolic function (as noted on 03/20/2024, 12:11pm TTE, CARDS Dr. Brayden Andrews) with dry baseline weight of 210 pounds with 1 pillow orthopnea on a regular bed (even though patient also has a hospital-adjustable bed at home), and no paroxysmal nocturnal dyspnea, orthopnea, or platypnea, with baseline BNP range, 487 pg/mL (03/24/2022, 10:56pm) to 335 pg/mL (03/19/2024, 4:52pm), on metoprolol tartrate 100mg PO bid, diltiazem 240mg PO daily, lasix 40mg PO daily, and lasix 20mg PO every other day, who reports: "I have been short of breath for the past 2 days. I weighed myself and see that I have gained 4 pounds in the past 2 days. That's a lot of weight. I must admit, I like salt. I know it's not good for me. I know I have heart failure. That's why I came to the hospital this morning (02/28/2025, 9:00am) to get a lasix shot. The ER doc gave me a lasix shot this morning and I am breathing better already. No coughing or wheezing. No chest pain. I'll be alright in a few days." Patient denies antecedent/coincident fevers, chills, diaphoresis, cough, wheeze, sore throat, hemoptysis, SOB/QUIGLEY, paroxysmal nocturnal dyspnea, orthopnea, platypnea, weight loss, chest pains, palpitations, pleurisy, nausea, vomiting, diarrhea, abdominal pain, pelvic pain, hematemesis, hematochezia, melena, hematuria, dysuria, frequency, urgency, headaches, dizziness, lightheadedness, visual changes, hearing changes, weakness, falls, syncope, trauma, travel history, sick contacts, or food/drug ingestions novel or new. All other review of systems are reported as negative by the patient on admission date 02/28/2025. In [facility] ER bed #B2, patient was afebrile @ 36.5 degrees Celsius, HR 93 (irregularly irregular), RR 18, O2 sat 89% on room air, and BP 148/91 (02/28/2025, 9:09am). cf., repeat O2 sat 80% on room air (02/28/2025, 9:23am). cf., repeat O2 sat 95% on 4 liters/minute O2 via nasal cannula (02/28/2025, 9:23am). Exam was noted for bibasilar crackles without audible expiratory wheeze, egophony, pectoriloquy, increase in tactile fremitus, or flatness/dullness to percussion at the bases. Jugular venous pressure could not be estimated from inspection of patient's tavarez neck and amorphous chest with BMI 39.2 (height 157.5 cm; weight 97.27 kg), which obscured delineation of jugular vein(s) and identification of the sternal angle of Damir, which by convention, is 5 cm above the level of the right atrium. Chest was non-tender to palpation. Labs in [facility] ER bed #B1 included: BNP 1,011 pg/mL (02/28/2025, 9:36am). Troponin-I #1 7.4 pg/mL (02/28/2025, 9:36am). Troponin-I #2 8.3 pg/mL (02/28/2025, 2:07pm). Troponin-I #3 (02/28/2025, 6:07pm). CK #1 29 U/L (02/28/2025, 9:36am). CK #2 21 U/L (02/28/2025, 12:09pm). WBC 8.86, N69 L22 M7 E2, Hb 13.5, MCV 89.3, MCHC 31.1, platelet 278 (02/28/2025, 9:36am). Na 141, K 4.3, BUN 26, creatinine 1.06, GFR 50.84, glucose 155, Ca 9.5, AST 17, ALT 19, ALK PHOS 102, total bili 1.4 (02/28/2025, 9:36am). Lactic acid #1 2.2 mmol/L (02/28/2025, 9:36am). Lactic acid #2 1.0 mmol/L (02/28/2025, 12:12pm). Lactic acid #3 1.1 mmol/L (02/28/2025, 2:07pm). Procalcitonin #1 0.04 ng/mL (02/28/2025, 9:43am). TSH 2.488 uIU/mL (02/28/2025, 9:36am). U/A (02/28/2025, 10:00am): cloudy yellow, nitrite-, LE trace, WBC 0-5, trace blood with 3-5 RBC, epithelial cells 3-5, bacteria 2+, yeast present. Influenza A- B-, RSV-, COVID- (02/28/2025, 9:36am). Additional testing in [facility] ER bed #B1 included: CT brain without IV contrast (02/28/2025, 9:21am): No acute bleed, mass, or midline shift. CT cervical spine without IV contrast (02/28/2025, 9:21am): No acute cervical fracture. Portable CXR (02/28/2025, 9:22am): Cardiomegaly, pulmonary vascular congestion, small effusions. No infiltrate. No pneumothorax (by my review). EKG (02/28/2025, 10:07am): AFIB @ 78, QTC 494, RBBB, TWI in III, V2, V3, no acute ST depressions/elevations (by my review). Historical testing in [facility] includes: EKG (03/19/2024, 4:46pm): Atrial pacing @ 62, GA 188, QTC 479, RBBB, TWI in III, V2, V3, no acute ST depressions/elevations (by my review). TTE (03/20/2024, 12:11pm): 1. LVEF 65% with no regional wall motion abnormalities and no LVH. 2. Normal RV size and systolic function. 3. Moderately dilated LA with MV E/e' (septal) 21.9; MV E/e' (average) 16.92, suggestive of LV diastolic dysfunction. 4. Normal RA size. 5. Interatrial septum not well visualized. 6. No . No AR. 7. Unremarkable PV. 8. Structurally unremarkable MV with no significant flow abnormalities. 9. Mild TR with moderately elevated PASP 63 mm Hg. 10.No significant pericardial effusion. 11.Dilated IVC with normal inspiratory collapse with mildly elevated RAP 8 mm Hg. 12.Normal aortic root. (as per CARDS Dr. Brayden Andrews). Patient was subsequently admitted to the inpatient hospitalist service @ [facility] on 02/28/2025 with the following diagnoses: 1. Acute hypoxic respiratory failure with admitting O2 sat 89% on room air, and BP 148/91 (02/28/2025, 9:09am). cf., repeat O2 sat 80% on room air (02/28/2025, 9:23am). cf., repeat O2 sat 95% on 4 liters/minute O2 via nasal cannula (1 , 9:23am), due to: 2. Acute exacerbation of chronic diastolic CHF with preserved LVEF 65% and normal RV systolic function with moderately dilated LA with MV E/e' (septal) 21.9; MV E/e' (average) 16.92, suggestive of LV diastolic dysfunction (as noted on 03/20/2024 TTE) with dry baseline weight of 210 pounds with 1 pillow orthopnea on a regular bed (even though patient also has a hospital-adjustable bed at home), and no paroxysmal nocturnal dyspnea, orthopnea, or platypnea, with baseline BNP range, 487 pg/mL (03/24/2022, 10:56pm) to 335 pg/mL (03/19/2024, 4:52pm). 3. Paroxysmal AFIB, but rate-controlled AFIB, s/p [place] XT DR RADHA Cervantes R01 Medtronic PPM model #5006, on rate-controlling metoprolol tartrate 100mg PO bid, rate-controlling diltiazem 240mg PO daily, rhythm-controlling flecainide 100mg PO q12, and apixaban 5mg PO bid. 4. Acute lactic acid elevation with lactic acid #1 2.2 mmol/L (02/28/2025, 9:36am). To address #1, patient was continued on 4 liters/minute O2 via nasal cannula to maintain O2 saturation > 90% in [facility] ER bed #B1 and in [facility] Tele bed #N283-2. cf., patient's former tobacco abuse with subsequent diagnosis of COPD on 2 liters/minute O2 via nasal cannula at bedtime only. To address #2, patient was started on lasix 40mg IV x 1 dose (02/28/2025, 10:53am) in [facility] ER bed #B1. Patient will continue with hospital-started lasix 40mg IV daily x 2 doses (starting on 03/01/2025, 9:00am), home-scheduled metoprolol tartrate 100mg PO bid, and home-scheduled diltiazem 240mg PO daily,in [facility] Tele bed #[id number]. Of final note, given that less than 12 months separates patient's last TTE (03/19/2024, 4:46pm) and the current admission date (02/28/2025, 5:38pm), I have opted to hold off ordering repeat TTE as it would be unlikely to reveal any significant interval change(s) today (02/28/2025) in this patient with an apparently mild case of acute exacerbation of chronic diastolic CHF with preserved LVEF 65% and normal RV systolic function with moderately dilated LA with MV E/e' (septal) 21.9; MV E/e' (average) 16.92, suggestive of LV diastolic dysfunction (as noted on 03/20/2024 TTE) with dry baseline weight of 210 pounds with 1 pillow orthopnea on a regular bed (even though patient also has a hospital-adjustable bed at home), and no paroxysmal nocturnal dyspnea, orthopnea, or platypnea, with baseline BNP range, 487 pg/mL (03/24/2022, 10:56pm) to 335 pg/mL (03/19/2024, 4:52pm). To address #3, patient was continued on telemetry and her home-scheduled rate- controlling metoprolol tartrate 100mg PO bid, rate-controlling diltiazem 240mg PO daily, rhythm-controlling flecainide 100mg PO q12, and apixaban 5mg PO bid. To address #4, patient underwent repeat lactic acid testing and repeat lactic acid #2 was normal at 1.0 mmol/L (02/28/2025, 12:12pm). Etiology of nominal lactic acid level elevation remains unclear. Observe. Allergies Allergy/AdvReac Type Severity Reaction Status Date / Time latex Allergy Intermediate REDNESS, Verified 02/16/25 11:09 RASH Sulfa (Sulfonamide AdvReac Intermediate MAKES HER Verified 02/16/25 11:09 Antibiotics) SICKER Home Medications Medication Instructions Recorded Confirmed Type Wheeled Walker #1 ea 01/21/20 02/16/25 Rx acetaminophen 325 mg tablet 650 mg (2 x 325 mg) PO Q4H PRN 07/13/22 02/16/25 Rx pain #30 tabs blood sugar diagnostic #100 ea 12/21/22 02/16/25 Rx metoprolol tartrate 100 mg tablet 100 mg PO BID #180 tabs 01/23/24 02/16/25 Rx ondansetron 4 mg disintegrating 4 mg PO Q8H PRN nausea and 04/14/24 02/16/25 Rx tablet vomiting #30 tabs blood-glucose meter (OneTouch #1 unit 05/02/24 02/16/25 Rx Ultra2 Meter) blood sugar diagnostic (OneTouch #100 ea 05/26/24 02/16/25 Rx Ultra Test strips) clotrimazole 1 % topical solution See Rx Instructions topical BID 05/28/24 02/16/25 Rx #30 mL lancets 33 gauge (OneTouch Delica #100 ea 05/29/24 02/16/25 Rx Plus Lancet) diltiazem HCl 240 mg 240 mg PO DAILY #90 caps 06/09/24 02/16/25 Rx capsule,extended release 24 hr clotrimazole-betamethasone 1 1 applic topical BID #15 grams 07/11/24 02/16/25 Rx %-0.05 % topical cream apixaban 5 mg tablet (Eliquis) 5 mg PO BID #180 tabs 09/19/24 02/16/25 Rx atorvastatin 10 mg tablet 10 mg PO HS #90 tabs 09/19/24 02/16/25 Rx ferrous sulfate 325 mg (65 mg 325 mg PO DAILY #90 tabs 09/19/24 02/16/25 Rx iron) tablet furosemide 20 mg tablet (Lasix) 20 mg PO Q OTHER DAY #45 tabs 09/19/24 02/16/25 Rx furosemide 40 mg tablet 40 mg PO DAILY #90 tabs 09/19/24 02/16/25 Rx gabapentin 300 mg capsule 300 mg PO TID #270 caps 09/19/24 02/16/25 Rx losartan 25 mg tablet 25 mg PO DAILY #90 tabs 09/19/24 02/16/25 Rx rabeprazole 20 mg tablet,delayed 20 mg PO DAILY #90 tabs 10/14/24 02/16/25 Rx release potassium chloride 10 mEq 10 meq PO DAILY #90 tabs 11/18/24 02/16/25 Rx tablet,extended release magnesium oxide 400 mg PO BID 90 days #180 caps 01/27/25 02/16/25 Rx flecainide 100 mg tablet 100 mg PO Q12H #60 tabs 02/16/25 02/16/25 Rx Past Med/Surg History Problem List Lactic acid blood increased Paroxysmal atrial fibrillation Acute on chronic diastolic (congestive) heart failure Acute hypoxic respiratory failure Anticoagulated (Acute) Closed head injury (Acute) Hypoxia (Acute) Pulmonary edema (Acute) Otomycosis Nausea and vomiting Abnormal CT of the abdomen Abnormal LFTs Constipation Sinusitis Lumbar pain Hip pain Class 3 severe obesity due to excess calories with body mass index (BMI) of 40.0 to 44.9 in adult Iron deficiency anemia Diarrhea Abdominal pain Diverticulitis Dyspnea on minimal exertion (Acute) Closed fracture of distal end of right fibula (Acute 07/07/22) Hypomagnesemia (Acute) Anemia 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) Diverticulitis of colon Greater trochanteric bursitis of right hip Atrial fibrillation (~12/24/19) H/O cataract extraction left - Dr Collazo2019 Acute renal insufficiency (Acute) Tachy-mynor syndrome Anticoagulant long-term use Chronic diastolic (congestive) heart failure Type 2 diabetes mellitus with chronic kidney disease Left ear pain Neck pain on left side QUIGLEY (dyspnea on exertion) Cardiac pacemaker Trochanteric bursitis, left hip Hypercholesteremia (Chronic) Hypertension (Chronic) Osteoporosis Lumbar spondylosis History of cardiac cath MORE THAN 7 YEARS AGO--WAS NEGATIVE ([facility]) Medical History Hypervolemia COVID-19 Arthritis Borderline diabetes Anemia Hx of diverticulitis of colon Atrial fibrillation FOLLOWED BY [facility] CARDS Congestive heart failure Urinary leakage Hypokalemia Anticoagulant long-term use Leukocytosis SOB (shortness of breath) Morbid obesity with BMI of 40.0-44.9, adult DVT prophylaxis GERD (gastroesophageal reflux disease) Pulmonary embolism (02/2019) 2019 after dvt>reason for eliquis Surgical History History of tooth extraction History of permanent cardiac pacemaker placement done 01/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 Denton/metdronic device Status post placement of cardiac pacemaker History of cataract surgery LEFT/RT History of esophagogastroduodenoscopy (EGD) History of colonoscopy History of appendectomy History of cholecystectomy H/O repair of rotator cuff LEFT Family History (Updated 02/28/25 @ 17:26 by Asif Guy MD, PhD) Mother , @ 42 years of age from left BRCA in the absence of ETOH abuse, hormone replacement therapy, early menses, late menopause, radiation exposure to the chest. Breast cancer Son Deep vein thrombosis Father , @ 52 years of age from CHF, s/p acute TX, in the absence of HTN, DM, tobacco abuse, and/or ETOH abuse. Myocardial infarction Asthma Sister Lung cancer Bone cancer Other Coronary heart disease No family history of adverse response to anesthesia Denies family history of Ovarian cancer Prostate cancer Colorectal cancer Social History (Updated 02/28/25 @ 17:27 by Asif Guy MD, PhD) Smoking Status: Never smoker Tobacco Type: Cigarettes Age Started Using Tobacco: 23; Age Quit Using Tobacco: 50; packs per day: 1; Second Hand Exposure: No; Do You Dip or Chew Tobacco: No; Hx Alcohol Use: No Hx Substance Use: No Preferred Language: Gibraltarian Communication Ability: Effective Visual Impairment: No Limitations Hearing Ability: Hard of Hearing Vp Clinical Research Required: No Beliefs That Will Affect Care: None marital status: marital status details: for 70 years; lives in [place] Current Living Situation: Spouse Current Living Situation Comment: Lives at home with . current occupational status: retired current occupation: worked at [employer] as a nurse How many Children do You have: 7 How many Children do You have Comment: 6 sons, 1 daughter, all alive and well. Feels Safe at Home: Yes Childhood Exposure to Second-Hand Smoke: No Diet: regular caffeine: No Dental Care, Regularly: Yes Physical Activity Frequency: Does not Exercise Seatbelt Use: always Sunscreen Use: Yes Assistive Devices: Walker Review of Systems Constitutional: As above in the History of Present Illness. Physical Exam Constitutional: General: Comfortable, cooperative, coherent. Wide awake and alert. Not confused, lethargic, or obtunded. Patient speaks in complete, fluent, and articulate sentences without pause, interruption, cough, or wheeze. HEENT: NC/AT. EOMI. PERRL. No nystagmus, gaze paresis, anisocoria, miosis, mydriasis, chemosis, hyphema, scleral injection, conjunctivitis, or pterygium. No otorrhea. No rhinorrhea. Neck: Supple, no stridor, bruit, or goiter. Jugular venous pressure cannot be estimated from visual inspection of patient's tavarez neck and amorphous chest with BMI 39.2 (height 157.5 cm; weight 97.27 kg), which obscures accurate delineation of jugular vein(s) and accurate identification of the sternal angle of Damir, which by convention, is a bony landmark located 5 cm above the level of the right atrium. Lymph: No anterior/posterior cervical lymphadenopathy, supraclavicular/infraclavicular lymphadenopathy, axilla/epitrochlear/inguinal lymphadenopathy. Chest: Symmetric rise and fall with respirations. Non-tender to palpation. Heart: Regular rate. Irregularly irregular rhythm, S1 and S2. No S3 or S4 summation gallop. No tripartite friction rub. No murmur. Lungs: Bibasilar crackles. No audible expiratory wheeze, egophony, pectoriloquy, increase in tactile fremitus, or flatness/dullness to percussion at the bases. Abd: Soft, non-tender, non-distended. Bowel sounds auscultated in all 4 quadrants. No rebound, guarding, Sam's sign, or organomegaly. Ext: No clubbing, cyanosis. 1+ non-pitting left lower leg edema, most pronounc ed at the left posterior leg, just above the ankle, overlying the left Achilles tendon. 2+ pedal pulses bilaterally. Skin: No decubitus ulcer or enanthem or exanthem. Neuro: No tremors, tics, or myoclonus. DTR+. 5/5 motor strength in all 4 extremities, both proximally and distally. Urology: No urias catheter. No urethral discharge. Results & Data Results & Data Vital Signs (Past 12 Hours) Vital Signs Temp Pulse Pulse Resp BP BP Pulse Ox 02/28/25 16:27 36.3 C L 65 16 149/75 H 95 02/28/25 14:27 86 02/28/25 13:42 02/28/25 13:42 36.6 C 65 20 129/83 95 02/28/25 12:50 78 20 147/74 H 99 02/28/25 12:00 81 20 144/88 H 94 02/28/25 11:00 78 20 134/100 94 02/28/25 10:15 88 16 148/101 H 95 02/28/25 09:59 87 19 141/97 H 95 02/28/25 09:41 94 H 16 156/93 H 95 02/28/25 09:39 98 H 02/28/25 09:23 95 02/28/25 09:23 80 L 02/28/25 09:15 36.7 C 106 H 16 172/91 H 95 02/28/25 09:09 36.5 C 93 H 18 148/91 H 89 L O2 Del Method O2 Flow Rate 02/28/25 16:27 Nasal Cannula 4 02/28/25 14:27 02/28/25 13:42 Nasal Cannula 4 02/28/25 13:42 Nasal Cannula 4 02/28/25 12:50 Nasal Cannula 4 02/28/25 12:00 Nasal Cannula 4 02/28/25 11:00 Room Air 02/28/25 10:15 Nasal Cannula 4 02/28/25 09:59 Nasal Cannula 4 02/28/25 09:41 Nasal Cannula 4 02/28/25 09:39 02/28/25 09:23 Nasal Cannula 4 02/28/25 09:23 Room Air 02/28/25 09:15 Nasal Cannula 4 02/28/25 09:09 Room Air Laboratory Results As above in the History of Present Illness. Diagnostic Findings As above in the History of Present Illness. Medications Administered As above in the History of Present Illness. Code Status & VTE Plan VTE Prophylaxis Plan VTE Prophylaxis will be ordered: Yes PG Care Time/CCT Total # of Minutes Spent Total Time Spent with Patient: Total time spent is greater than 50% in coordination of care (as documented) at patient's floor/unit and/or counseling patient: Coding Level of Care Code 60669 INT INP/OBS CARE MIN Diagnoses Acute hypoxic respiratory failure J96.01 Acute on chronic diastolic (congestive) heart failure I50.33 Paroxysmal atrial fibrillation I48.0 Lactic acid blood increased R79.89
[2025-02-28] MEDS: ACETAMINOPHEN 325 MG TAB PO PRN (20:55)
[2025-02-28] MEDS: GABAPENTIN 300 MG CAP PO SCH (20:55)
[2025-03-01] MEDS: FUROSEMIDE 40 MG/4 ML VIAL IV SCH (07:44)
--- NOTE | 2025-03-01 16:26 | Hospitalist Progress Note ---
Date of Service March 01, 2025 Assessment & Plan (1) Acute hypoxic respiratory failure: Plan: To address #1, patient was continued on 4 liters/minute O2 via nasal cannula to maintain O2 saturation > 90% in [facility] ER bed #B1 and in [facility] Tele bed #N283-2. cf., patient's former tobacco abuse with subsequent diagnosis of COPD on 2 liters/minute O2 via nasal cannula at bedtime only. (2) Acute on chronic diastolic (congestive) heart failure: Plan: To address #2, patient was started on lasix 40mg IV x 1 dose (02/28/2025, 10:53am) in [facility] ER bed #B1. Patient will continue with hospital-started lasix 40mg IV daily x 2 doses (starting on 03/01/2025, 9:00am), home-scheduled metoprolol tartrate 100mg PO bid, and home-scheduled diltiazem 240mg PO daily,in [facility] Tele bed #N283-2. Of final note, given that less than 12 months separates patient's last TTE (03/19/2024, 4:46pm) and the current admission date (02/28/2025, 5:38pm), I have opted to hold off ordering repeat TTE as it would be unlikely to reveal any significant interval change(s) today (02/28/2025) in this patient with an apparently mild case of acute exacerbation of chronic diastolic CHF with preserved LVEF 65% and normal RV systolic function with moderately dilated LA with MV E/e' (septal) 21.9; MV E/e' (average) 16.92, suggestive of LV diastolic dysfunction (as noted on 03/20/2024 TTE) with dry baseline weight of 210 pounds with 1 pillow orthopnea on a regular bed (even though patient also has a hospital-adjustable bed at home), and no paroxysmal nocturnal dyspnea, orthopnea, or platypnea, with baseline BNP range, 487 pg/mL (03/24/2022, 10:56pm) to 335 pg/mL (03/19/2024, 4:52pm). (3) Paroxysmal atrial fibrillation: Plan: To address #3, patient was continued on telemetry and her home-scheduled rate- controlling metoprolol tartrate 100mg PO bid, rate-controlling diltiazem 240mg PO daily, rhythm-controlling flecainide 100mg PO q12, and apixaban 5mg PO bid. (4) Lactic acid blood increased: Plan: To address #4, patient underwent repeat lactic acid testing and repeat lactic acid #2 was normal at 1.0 mmol/L (02/28/2025, 12:12pm). Etiology of nominal lactic acid level elevation remains unclear. Observe. Admission and Anticipated Discharge Date Admission Date: February 28, 2025 Subjective "I feel 50% better today (03/01/2025) than yesterday (02/28/2025); breathing is much easier today. The lasix is helping me. Can I go home today or tomorrow?" Review of Systems Ear, Nose, Mouth, Throat: Positive for mild shortness of breath / dyspnea on exertion. Negative for antecedent/coincident fevers, chills, diaphoresis, cough, wheeze, sore throat, hemoptysis, chest pains, palpitations, pleurisy, nausea, vomiting, diarrhea, abdominal pain, pelvic pain, hematemesis, hematochezia, melena, hematuria, dysuria, frequency, urgency, headaches, dizziness, lightheadedness, visual changes, hearing changes, weakness, falls, syncope, trauma, travel history, sick contacts, or food/drug ingestions novel or new. All other review of systems are reported as negative by the patient on 03/01/2025. Physical Exam Constitutional: General: Comfortable, cooperative, coherent. Wide awake and alert. Not confused, lethargic, or obtunded. Patient speaks in complete, fluent, and artic ulate sentences without pause, interruption, cough, or wheeze. HEENT: NC/AT. EOMI. PERRL. No nystagmus, gaze paresis, anisocoria, miosis, mydriasis, chemosis, hyphema, scleral injection, conjunctivitis, or pterygium. No otorrhea. No rhinorrhea. Neck: Supple, no stridor, bruit, or goiter. Jugular venous pressure cannot be estimated from visual inspection of patient's tavarez neck and amorphous chest with BMI 39.2 (height 157.5 cm; weight 97.27 kg), which obscures accurate delineation of jugular vein(s) and accurate identification of the sternal angle of Damir, which by convention, is a bony landmark located 5 cm above the level of the right atrium. Lymph: No anterior/posterior cervical lymphadenopathy, supraclavicular/infraclavicular lymphadenopathy, axilla/epitrochlear/inguinal lymphadenopathy. Chest: Symmetric rise and fall with respirations. Non-tender to palpation. Heart: Regular rate. Irregularly irregular rhythm, S1 and S2. No S3 or S4 summation gallop. No tripartite friction rub. No murmur. Lungs: Bibasilar crackles. No audible expiratory wheeze, egophony, pectoriloquy, increase in tactile fremitus, or flatness/dullness to percussion at the bases. Abd: Soft, non-tender, non-distended. Bowel sounds auscultated in all 4 quadrants. No rebound, guarding, Sam's sign, or organomegaly. Ext: No clubbing, cyanosis. 1+ non-pitting left lower leg edema, most pronounced at the left posterior leg, just above the ankle, overlying the left Achilles tendon. 2+ pedal pulses bilaterally. Skin: No decubitus ulcer or enanthem or exanthem. Neuro: No tremors, tics, or myoclonus. DTR+. 5/5 motor strength in all 4 extremities, both proximally and distally. Urology: No urias catheter. No urethral discharge. Results & Data Results & Data Vital Signs (Past 12 Hours) Vital Signs Temp Pulse Pulse Resp BP BP Pulse Ox 03/01/25 15:11 36.6 C 66 18 92/61 L 90 03/01/25 14:40 76 03/01/25 11:16 36.5 C 72 18 93/62 L 03/01/25 11:09 03/01/25 07:33 68 03/01/25 07:19 36.6 C 59 L 18 141/90 H 96 O2 Del Method O2 Flow Rate 03/01/25 15:11 Nasal Cannula 2 03/01/25 14:40 03/01/25 11:16 03/01/25 11:09 Nasal Cannula 2 03/01/25 07:33 03/01/25 07:19 Nasal Cannula 2 Laboratory Results BNP 1,011 pg/mL (02/28/2025, 9:36am). Troponin-I #1 7.4 pg/mL (02/28/2025, 9:36am). Troponin-I #2 8.3 pg/mL (02/28/2025, 2:07pm). Troponin-I #3 (02/28/2025, 6:07pm). CK #1 29 U/L (02/28/2025, 9:36am). CK #2 21 U/L (02/28/2025, 12:09pm). WBC 8.86, N69 L22 M7 E2, Hb 13.5, MCV 89.3, MCHC 31.1, platelet 278 (02/28/2025, 9:36am). Na 141, K 4.3, BUN 26, creatinine 1.06, GFR 50.84, glucose 155, Ca 9.5, AST 17, ALT 19, ALK PHOS 102, total bili 1.4 (02/28/2025, 9:36am). Lactic acid #1 2.2 mmol/L (02/28/2025, 9:36am). Lactic acid #2 1.0 mmol/L (02/28/2025, 12:12pm). Lactic acid #3 1.1 mmol/L (02/28/2025, 2:07pm). Procalcitonin #1 0.04 ng/mL (02/28/2025, 9:43am). TSH 2.488 uIU/mL (02/28/2025, 9:36am). U/A (02/28/2025, 10:00am): cloudy yellow, nitrite-, LE trace, WBC 0-5, trace blood with 3-5 RBC, epithelial cells 3-5, bacteria 2+, yeast present. Influenza A- B-, RSV-, COVID- (02/28/2025, 9:36am). Diagnostic Findings CT brain without IV contrast (02/28/2025, 9:21am): No acute bleed, mass, or midline shift. CT cervical spine without IV contrast (02/28/2025, 9:21am): No acute cervical fracture. Portable CXR (02/28/2025, 9:22am): Cardiomegaly, pulmonary vascular congestion, small effusions. No infiltrate. No pneumothorax (by my review). EKG (02/28/2025, 10:07am): AFIB @ 78, QTC 494, RBBB, TWI in III, V2, V3, no acute ST depressions/elevations (by my review). Historical testing in [facility] includes: EKG (03/19/2024, 4:46pm): Atrial pacing @ 62, GA 188, QTC 479, RBBB, TWI in III, V2, V3, no acute ST depressions/elevations (by my review). TTE (03/20/2024, 12:11pm): 1. LVEF 65% with no regional wall motion abnormalities and no LVH. 2. Normal RV size and systolic function. 3. Moderately dilated LA with MV E/e' (septal) 21.9; MV E/e' (average) 16.92, suggestive of LV diastolic dysfunction. 4. Normal RA size. 5. Interatrial septum not well visualized. 6. No . No AR. 7. Unremarkable PV. 8. Structurally unremarkable MV with no significant flow abnormalities. 9. Mild TR with moderately elevated PASP 63 mm Hg. 10.No significant pericardial effusion. 11.Dilated IVC with normal inspiratory collapse with mildly elevated RAP 8 mm Hg. 12.Normal aortic root. (as per CARDS Dr. Brayden Andrews). PG Care Time/CCT Total # of Minutes Spent Total Time Spent with Patient: Total time spent is greater than 50% in coordination of care (as documented) at patient's floor/unit and/or counseling patient: Coding Level of Care Code 78503 SUB INP/OBS CARE 2/35MIN Diagnoses Acute hypoxic respiratory failure J96.01 Acute on chronic diastolic (congestive) heart failure I50.33 Paroxysmal atrial fibrillation I48.0 Lactic acid blood increased R79.89
--- NOTE | 2025-03-01 22:33 | Electrocardiogram Report ---
Test Reason : Blood Pressure : */* mmHG Vent. Rate : 78 BPM Atrial Rate : * BPM P-R Int : * ms QRS Dur : 164 ms QT Int : 434 ms P-R-T Axes : * 13 -5 degrees QTcB Int : 494 ms Atrial fibrillation with paced complexes Right bundle branch block Abnormal ECG When compared with ECG of 19-Mar-2024 16:46, Atrial fibrillation has replaced Electronic atrial pacemaker Confirmed by Gonsalo Casper ([id number]) on 03/01/2025 10:32:59 PM Referred By: REFERRED SELF Confirmed By: Gonsalo Casper
--- NOTE | 2025-03-02 14:55 | Cardiology Consultation ---
Date of Consultation March 02, 2025 Assessment & Plan (1) Acute on chronic diastolic (congestive) heart failure: 2. Paroxysmal AF 3. Tachybradycardia syndrome post dual-chamber pacemaker 4. Pulmonary hypertension 5. Confusion Admitted with dyspnea, weakness, intermittent confusion found to be in acute heart failure. No clear precipitants. Has responded appropriately to IV diuretics. -1 L thus far, improved O2 requirements. Exam difficult but suspect residual congestion persists. Agree with current management and ongoing diuresis. Recommendations: Dr. Casper recently saw patient and ordered repeat echo. Will obtain while admitted Continue IV Lasix Continue to monitor I's/O's and renal function Continue home metoprolol, diltiazem. Continue current flecainide -- Will defer long-term ongoing need to EP as an outpatient Continue anticoagulation with Eliquis On discharge likely home on Lasix 60 mg daily. Follow-up with CHF clinic We talked about potentially starting SGLT2. States was on Jardiance and concerned about cost. Generic dapagliflozin could be an option. Could also consider adding MRA Please contact if additional cardiac questions History of Present Illness Attending Physician: Asif Guy MD, PhD History of Present Illness Mrs. Hunt is a very pleasant 89 year-old woman with a history of HFpEF, paroxysmal AF and tachybradycardia syndrome post dual-chamber pacemaker admitted with acute CHF. Her primary assistant produce manager is Dr. Casper. Last seen 2 weeks ago and repeat echo ordered. Admitted 2 days ago when presented to the ED with increased weakness, shortness of breath and questionable fall. There was also some question of intermittent confusion. Chest x-ray with pulmonary congestion, BNP elevated at 1011. ECG showed AF with old right bundle branch block. HS TropI normal x 3. Hax responded to IV Lasix 40 mg x 3, -1 L since admission. Today very difficult to wake up and some confusion initially with waking. She denies significant dyspnea today, no chest pain, no palpitations. Denied any preceding change in diet, medications or illness. Other medical issues include remote provoked DVT, GERD, borderline diabetes, class III obesity. Most recent cardiovascular studies/procedures: Echo (03/2024 [facility]): EF 65%, PASP 63/RA 8, moderately dilated left atrium, no valve pathology Social history: Lives with her in [place]. Previously worked at [employer] as a nurse. 7 kids (6 sons, 1 daughter) Allergies Allergy/AdvReac Type Severity Reaction Status Date / Time latex Allergy Intermediate REDNESS, Verified 02/16/25 11:09 RASH Sulfa (Sulfonamide AdvReac Intermediate MAKES HER Verified 02/16/25 11:09 Antibiotics) SICKER Home Medications Medication Instructions Recorded Confirmed Type Wheeled Walker #1 ea 01/21/20 02/16/25 Rx acetaminophen 325 mg tablet 650 mg (2 x 325 mg) PO Q4H PRN 07/13/22 02/16/25 Rx pain #30 tabs blood sugar diagnostic #100 ea 12/21/22 02/16/25 Rx metoprolol tartrate 100 mg tablet 100 mg PO BID #180 tabs 01/23/24 02/16/25 Rx ondansetron 4 mg disintegrating 4 mg PO Q8H PRN nausea and 04/14/24 02/16/25 Rx tablet vomiting #30 tabs blood-glucose meter (OneTouch #1 unit 05/02/24 02/16/25 Rx Ultra2 Meter) blood sugar diagnostic (OneTouch #100 ea 05/26/24 02/16/25 Rx Ultra Test strips) clotrimazole 1 % topical solution See Rx Instructions topical BID 05/28/24 02/16/25 Rx #30 mL lancets 33 gauge (OneTouch Delica #100 ea 05/29/24 02/16/25 Rx Plus Lancet) diltiazem HCl 240 mg 240 mg PO DAILY #90 caps 06/09/24 02/16/25 Rx capsule,extended release 24 hr clotrimazole-betamethasone 1 1 applic topical BID #15 grams 07/11/24 02/16/25 Rx %-0.05 % topical cream apixaban 5 mg tablet (Eliquis) 5 mg PO BID #180 tabs 09/19/24 02/16/25 Rx atorvastatin 10 mg tablet 10 mg PO HS #90 tabs 09/19/24 02/16/25 Rx ferrous sulfate 325 mg (65 mg 325 mg PO DAILY #90 tabs 09/19/24 02/16/25 Rx iron) tablet furosemide 20 mg tablet (Lasix) 20 mg PO Q OTHER DAY #45 tabs 09/19/24 02/16/25 Rx furosemide 40 mg tablet 40 mg PO DAILY #90 tabs 09/19/24 02/16/25 Rx gabapentin 300 mg capsule 300 mg PO TID #270 caps 09/19/24 02/16/25 Rx losartan 25 mg tablet 25 mg PO DAILY #90 tabs 09/19/24 02/16/25 Rx rabeprazole 20 mg tablet,delayed 20 mg PO DAILY #90 tabs 10/14/24 02/16/25 Rx release potassium chloride 10 mEq 10 meq PO DAILY #90 tabs 11/18/24 02/16/25 Rx tablet,extended release magnesium oxide 400 mg PO BID 90 days #180 caps 01/27/25 02/16/25 Rx flecainide 100 mg tablet 100 mg PO Q12H #60 tabs 02/16/25 02/16/25 Rx Patient History Medical History Hypervolemia COVID-19 Arthritis Borderline diabetes Anemia Hx of diverticulitis of colon Atrial fibrillation FOLLOWED BY MNP CARDS Congestive heart failure Urinary leakage Hypokalemia Anticoagulant long-term use Leukocytosis SOB (shortness of breath) Morbid obesity with BMI of 40.0-44.9, adult DVT prophylaxis GERD (gastroesophageal reflux disease) Pulmonary embolism (02/2019) 2019 after dvt>reason for eliquis Surgical History History of tooth extraction History of permanent cardiac pacemaker placement done 01/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 [place]/[facility] device Status post placement of cardiac pacemaker History of cataract surgery LEFT/RT History of esophagogastroduodenoscopy (EGD) History of colonoscopy History of appendectomy History of cholecystectomy H/O repair of rotator cuff LEFT Family History (Updated 02/28/25 @ 17:26 by Asif Guy MD, PhD) Mother , @ 42 years of age from left BRCA in the absence of ETOH abuse, hormone replacement therapy, early menses, late menopause, radiation exposure to the chest. Breast cancer Son Deep vein thrombosis Father , @ 52 years of age from CHF, s/p acute SC, in the absence of HTN, DM, tobacco abuse, and/or ETOH abuse. Myocardial infarction Asthma Sister Lung cancer Bone cancer Other Coronary heart disease No family history of adverse response to anesthesia Denies family history of Ovarian cancer Prostate cancer Colorectal cancer Social History (Updated 02/28/25 @ 17:27 by Asif Guy MD, PhD) Smoking Status: Never smoker Tobacco Type: Cigarettes Age Started Using Tobacco: 23; Age Quit Using Tobacco: 50; packs per day: 1; Second Hand Exposure: No; Do You Dip or Chew Tobacco: No; Hx Alcohol Use: No Hx Substance Use: No Preferred Language: Yakut Communication Ability: Effective Visual Impairment: No Limitations Hearing Ability: Hard of Hearing Design Inserter Required: No Beliefs That Will Affect Care: None marital status: marital status details: for 70 years; lives in [place] Current Living Situation: Spouse Current Living Situation Comment: Lives at home with . current occupational status: retired current occupation: worked at [employer] as a nurse How many Children do You have: 7 How many Children do You have Comment: 6 sons, 1 daughter, all alive and well. Feels Safe at Home: Yes Childhood Exposure to Second-Hand Smoke: No Diet: regular caffeine: No Dental Care, Regularly: Yes Physical Activity Frequency: Does not Exercise Seatbelt Use: always Sunscreen Use: Yes Assistive Devices: Walker Review of Systems Review of Systems: All systems reviewed & are unremarkable except as noted in HPI & below Physical Exam Physical Exam: General: Very difficult to wake up and then confused initially, clearer with ongoing conversation HEENT: Sclerae anicteric Lungs: Distant breath sounds but clear, diminished at bases bilaterally Cardiac: Distant heart sounds, irregular irregular, no murmur. Difficult to appreciate JVD Vascular: 2+ radial Abdomen: Soft, mildly tender Extremities: Well perfused, no peripheral edema Neuro: Nonfocal Psych: Alert oriented with continued conversation Results & Data Vital Signs (Past 12 Hours) Vital Signs Temp Pulse Pulse Resp BP BP Pulse Ox 03/02/25 12:03 112/73 03/02/25 11:30 97.7 F 79 20 100/68 94 03/02/25 10:52 03/02/25 09:08 118/74 03/02/25 07:43 97.7 F 78 20 102/65 93 03/02/25 07:00 75 03/02/25 03:44 97.3 F L 64 18 111/75 93 O2 Del Method O2 Flow Rate 03/02/25 12:03 03/02/25 11:30 Room Air 03/02/25 10:52 Nasal Cannula 3 03/02/25 09:08 03/02/25 07:43 Nasal Cannula 2 03/02/25 07:00 03/02/25 03:44 Nasal Cannula 3 PG Care Time/CCT Total # of Minutes Spent Total Time Spent with Patient: Total time spent is greater than 50% in coordination of care (as documented) at patient's floor/unit and/or counseling patient: Coding Level of Care Code 18373 INT INP/OBS CARE 2/55MIN Diagnoses Acute on chronic diastolic (congestive) heart failure I50.33
--- NOTE | 2025-03-02 20:39 | Hospitalist Progress Note ---
Date of Service March 02, 2025 Assessment & Plan (1) Acute hypoxic respiratory failure: Plan: To address #1, patient was continued on 4 liters/minute O2 via nasal cannula to maintain O2 saturation > 90% in [facility] ER bed #B1 and in [facility] Tele bed #N283-2. cf., patient's former tobacco abuse with subsequent diagnosis of COPD on 2 liters/minute O2 via nasal cannula at bedtime only. (2) Acute on chronic diastolic (congestive) heart failure: Plan: To address #2, patient was started on lasix 40mg IV x 1 dose (02/28/2025, 10:53am) in [facility] ER bed #B1. Patient will continue with hospital-started lasix 40mg IV daily x 2 doses (starting on 03/01/2025, 9:00am), home-scheduled metoprolol tartrate 100mg PO bid, and home-scheduled diltiazem 240mg PO daily,in [facility] Tele bed #N283-2. Of final note, given that less than 12 months separates patient's last TTE (03/19/2024, 4:46pm) and the current admission date (02/28/2025, 5:38pm), I have opted to hold off ordering repeat TTE as it would be unlikely to reveal any significant interval change(s) today (02/28/2025) in this patient with an apparently mild case of acute exacerbation of chronic diastolic CHF with preserved LVEF 65% and normal RV systolic function with moderately dilated LA with MV E/e' (septal) 21.9; MV E/e' (average) 16.92, suggestive of LV diastolic dysfunction (as noted on 03/20/2024 TTE) with dry baseline weight of 210 pounds with 1 pillow orthopnea on a regular bed (even though patient also has a hospital-adjustable bed at home), and no paroxysmal nocturnal dyspnea, orthopnea, or platypnea, with baseline BNP range, 487 pg/mL (03/24/2022, 10:56pm) to 335 pg/mL (03/19/2024, 4:52pm). (3) Paroxysmal atrial fibrillation: Plan: To address #3, patient was continued on telemetry and her home-scheduled rate- controlling metoprolol tartrate 100mg PO bid, rate-controlling diltiazem 240mg PO daily, rhythm-controlling flecainide 100mg PO q12, and apixaban 5mg PO bid. (4) Lactic acid blood increased: Plan: To address #4, patient underwent repeat lactic acid testing and repeat lactic acid #2 was normal at 1.0 mmol/L (02/28/2025, 12:12pm). Etiology of nominal lactic acid level elevation remains unclear. Observe. Admission and Anticipated Discharge Date Admission Date: February 28, 2025 Subjective "I feel 50% better today (03/01/2025) than yesterday (02/28/2025); breathing is much easier today. The lasix is helping me. Can I go home today or tomorrow?" Review of Systems Ear, Nose, Mouth, Throat: Positive for IMPROVED mild shortness of breath / LESS dyspnea on exertion on 03/02/2025 compared to 03/01/2025 exam. Negative for antecedent/coincident fevers, chills, diaphoresis, cough, wheeze, sore throat, hemoptysis, chest pains, palpitations, pleurisy, nausea, vomiting, diarrhea, abdominal pain, pelvic pain, hematemesis, hematochezia, melena, hematuria, dysuria, frequency, urgency, headaches, dizziness, lightheadedness, visual changes, hearing changes, weakness, falls, syncope, trauma, travel history, sick contacts, or food/drug ingestions novel or new. All other review of systems are reported as negative by the patient on 03/02/2025. Physical Exam Constitutional: General: Comfortable, cooperative, coherent. Wide awake and alert. Not confused, lethargic, or obtunded. Patient speaks in complete, fluent, and articulate sentences without pause, interruption, cough, or wheeze. HEENT: NC/AT. EOMI. PERRL. No nystagmus, gaze paresis, anisocoria, miosis, mydriasis, chemosis, hyphema, scleral injection, conjunctivitis, or pterygium. No otorrhea. No rhinorrhea. Neck: Supple, no stridor, bruit, or goiter. Jugular venous pressure cannot be estimated from visual inspection of patient's tavarez neck and amorphous chest with BMI 39.2 (height 157.5 cm; weight 97.27 kg), which obscures accurate delineation of jugular vein(s) and accurate identification of the sternal angle of Damir, which by convention, is a bony landmark located 5 cm above the level of the right atrium. Lymph: No anterior/posterior cervical lymphadenopathy, supraclavicular/infraclavicular lymphadenopathy, axilla/epitrochlear/inguinal lymphadenopathy. Chest: Symmetric rise and fall with respirations. Non-tender to palpation. Heart: Regular rate. Irregularly irregular rhythm, S1 and S2. No S3 or S4 summation gallop. No tripartite friction rub. No murmur. Lungs: Bibasilar crackles. No audible expiratory wheeze, egophony, pectoriloquy, increase in tactile fremitus, or flatness/dullness to percussion at the bases. Abd: Soft, non-tender, non-distended. Bowel sounds auscultated in all 4 quadrants. No rebound, guarding, Sam's sign, or organomegaly. Ext: No clubbing, cyanosis. 1+ non-pitting left lower leg edema, most pronounced at the left posterior leg, just above the ankle, overlying the left Achilles tendon. 2+ pedal pulses bilaterally. Skin: No decubitus ulcer or enanthem or exanthem. Neuro: No tremors, tics, or myoclonus. DTR+. 5/5 motor strength in all 4 extremities, both proximally and distally. Urology: No urias catheter. No urethral discharge. Results & Data Results & Data Vital Signs (Past 12 Hours) Vital Signs Temp Pulse Pulse Resp BP BP Pulse Ox 03/02/25 19:47 36.3 C L 70 18 135/85 90 03/02/25 16:11 36.6 C 62 16 111/69 91 03/02/25 13:06 70 03/02/25 12:03 112/73 03/02/25 11:30 36.5 C 79 20 100/68 94 03/02/25 10:52 03/02/25 09:08 118/74 O2 Del Method O2 Flow Rate 03/02/25 19:47 Nasal Cannula 3 03/02/25 16:11 Nasal Cannula 2.5 03/02/25 13:06 03/02/25 12:03 03/02/25 11:30 Room Air 03/02/25 10:52 Nasal Cannula 3 03/02/25 09:08 Laboratory Results BNP 1,011 pg/mL (02/28/2025, 9:36am). Troponin-I #1 7.4 pg/mL (02/28/2025, 9:36am). Troponin-I #2 8.3 pg/mL (02/28/2025, 2:07pm). Troponin-I #3 8.4 pg/mL (02/28/2025, 6:13pm). CK #1 29 U/L (02/28/2025, 9:36am). CK #2 21 U/L (02/28/2025, 12:09pm). WBC 8.86, N69 L22 M7 E2, Hb 13.5, MCV 89.3, MCHC 31.1, platelet 278 (02/28/2025, 9:36am). Na 141, K 4.3, BUN 26, creatinine 1.06, GFR 50.84, glucose 155, Ca 9.5, AST 17, ALT 19, ALK PHOS 102, total bili 1.4 (02/28/2025, 9:36am). Lactic acid #1 2.2 mmol/L (02/28/2025, 9:36am). Lactic acid #2 1.0 mmol/L (02/28/2025, 12:12pm). Lactic acid #3 1.1 mmol/L (02/28/2025, 2:07pm). Procalcitonin #1 0.04 ng/mL (02/28/2025, 9:43am). TSH 2.488 uIU/mL (02/28/2025, 9:36am). U/A (02/28/2025, 10:00am): cloudy yellow, nitrite-, LE trace, WBC 0-5, trace blood with 3-5 RBC, epithelial cells 3-5, bacteria 2+, yeast present. Influenza A- B-, RSV-, COVID- (02/28/2025, 9:36am). Diagnostic Findings CT brain without IV contrast (02/28/2025, 9:21am): No acute bleed, mass, or midline shift. CT cervical spine without IV contrast (02/28/2025, 9:21am): No acute cervical fracture. Portable CXR (02/28/2025, 9:22am): Cardiomegaly, pulmonary vascular congestion, small effusions. No infiltrate. No pneumothorax (by my review). EKG (02/28/2025, 10:07am): AFIB @ 78, QTC 494, RBBB, TWI in III, V2, V3, no acute ST depressions/elevations (by my review). Historical testing in [facility] includes: EKG (03/19/2024, 4:46pm): Atrial pacing @ 62, [place] 188, QTC 479, RBBB, TWI in III, V2, V3, no acute ST depressions/elevations (by my review). TTE (03/20/2024, 12:11pm): 1. LVEF 65% with no regional wall motion abnormalities and no LVH. 2. Normal RV size and systolic function. 3. Moderately dilated LA with MV E/e' (septal) 21.9; MV E/e' (average) 16.92, suggestive of LV diastolic dysfunction. 4. Normal RA size. 5. Interatrial septum not well visualized. 6. No . No AR. 7. Unremarkable PV. 8. Structurally unremarkable MV with no significant flow abnormalities. 9. Mild TR with moderately elevated PASP 63 mm Hg. 10.No significant pericardial effusion. 11.Dilated IVC with normal inspiratory collapse with mildly elevated RAP 8 mm Hg. 12.Normal aortic root. (as per CARDS Dr. Brayden Andrews). PG Care Time/CCT Total # of Minutes Spent Total Time Spent with Patient: Total time spent is greater than 50% in coordination of care (as documented) at patient's floor/unit and/or counseling patient: Coding Level of Care Code 32353 SUB INP/OBS CARE 2/35MIN Diagnoses Acute hypoxic respiratory failure J96.01 Acute on chronic diastolic (congestive) heart failure I50.33 Paroxysmal atrial fibrillation I48.0 Lactic acid blood increased R79.89
--- NOTE | 2025-03-02 22:10 | XCELERA ---
[id number]
[2025-03-03] MEDS: INFLUENZA VACC TS2025-26(65y+)/PF (IIV3) 0.5mL Syr IM ONE (15:19)
[2025-03-03 15:20] VITALS: RESP 16; TEMP 97.3; O2SAT 93
[2025-03-03 17:15] VITALS: BP 135/85; PULSE 70
--- NOTE | 2025-03-03 21:55 | Discharge Summary ---
Discharge Summary Date of Service March 03, 2025 Principal Dx & Hospital Course #1 = Principal Diagnosis (1) Acute hypoxic respiratory failure: To address #1, patient was continued on 3-4 liters/minute O2 via nasal cannula to maintain O2 saturation > 90% in [facility] ER bed #B1 and in [facility] Tele bed #N283-2. cf., patient's former tobacco abuse with subsequent diagnosis of COPD on 2 liters/minute O2 via nasal cannula at bedtime only. Patient was subsequently discharged back to her home on 03/03/2025, with her 2 liters/minute O2 via nasal cannula at bedtime only. (2) Acute on chronic diastolic (congestive) heart failure: To address #2, patient was started on lasix 40mg IV x 1 dose (02/28/2025, 10:53am) in [facility] ER bed #B1. Patient continued with hospital-started lasix 40mg IV daily x 2 doses (starting on 03/01/2025, 7:44am; 03/02/2025, 9:03am), home-scheduled metoprolol tartrate 100mg PO bid, and home- scheduled diltiazem 240mg PO daily,in [facility] Tele bed #[id number]. Patient subsequently underwent TTE (03/02/2025, 3:31pm) which revealed: 1. LVEF 25-30%. No thrombus. Severe global hypokinesis of LV. Septal motion is consistent with conduction abnormality. 2. RV mildly dilated. PPM lead in RV. RVSP mildly reduced. 3. LA mildly dilated. RA mildly dilated. No ASD. PFO not assessed. 4. No . No AR. 5. No PS. Trace PA. 6. No MS. Mild-moderate MR. Prolapse of anterior mitral leaflet. 7. No TS. Mild-moderate TR. 8. Aortic root and proximal ascending aorta normal size. Normal IVC size and collapsibility with snifff indicates normal RAP of 3mm Hg. (as per CARDS Dr. Cali Reyes). cf., TTE (03/20/2024, 12:11pm): 1. LVEF 65% with no regional wall motion abnormalities and no LVH. 2. Normal RV size and systolic function. 3. Moderately dilated LA with MV E/e' (septal) 21.9; MV E/e' (average) 16.92, suggestive of LV diastolic dysfunction. 4. Normal RA size. 5. Interatrial septum not well visualized. 6. No . No AR. 7. Unremarkable PV. 8. Structurally unremarkable MV with no significant flow abnormalities. 9. Mild TR with moderately elevated PASP 63 mm Hg. 10.No significant pericardial effusion. 11.Dilated IVC with normal inspiratory collapse with mildly elevated RAP 8 mm Hg. 12.Normal aortic root. (as per CARDS Dr. Brayden Andrews). Given the interval decline in both LVEF and RV systolic function (when comparing 03/02/2025, 3:31pm TTE with 03/20/2024, 12:11pm TTE, patient subsequently was discharged back to her home on 03/03/2025 with an electronic prescription for lasix 60mg PO daily, #90 tablets, each tablet 20mg, no refills, transmitted to [id number], [address] [place] [address], on 03/03/2025. . (3) Paroxysmal atrial fibrillation: To address #3, patient was continued on telemetry and her home-scheduled rate- controlling metoprolol tartrate 100mg PO bid, rate-controlling diltiazem 240mg PO daily, rhythm-controlling flecainide 100mg PO q12, and apixaban 5mg PO bid. (4) Lactic acid blood increased: To address #4, patient underwent repeat lactic acid testing and repeat lactic acid #2 was normal at 1.0 mmol/L (02/28/2025, 12:12pm). Etiology of nominal lactic acid level elevation remains unclear. Observe. Admission HPI Per Admitting Provider 89 years old female with PMH of FULL CODE @ home, obesity with BMI 39.2 (height 157.5 cm; weight 97.27 kg), ambulatory dysfunction utilizing walker at home, former tobacco abuse with subsequent diagnosis of COPD on 2 liters/minute O2 via nasal cannula at bedtime only, GERD on rabeprazole 20mg PO daily, insulin-dependent DM2 x 15 years on lantus 25 units SQ daily, hyperlipidemia on atorvastatin 10mg PO qhs, tachy-mynor syndrome and paroxysmal AFIB, s/p Radha XT DR GARCIA W1D R01 [employer] PPM model #2106, on rate-controlling metoprolol tartrate 100mg PO bid, rate-controlling diltiazem 240mg PO daily, rhy thm-controlling flecainide 100mg PO q12, and apixaban 5mg PO bid, HTN on metoprolol tartrate 100mg PO bid, diltiazem 240mg PO daily, lasix 40mg PO daily, and lasix 20mg PO every other day, and chronic diastolic CHF with preserved LVEF 65% and normal RV systolic function (as noted on 03/20/2024, 12:11pm TTE, CARDS Dr. Brayden Andrews) with dry baseline weight of 210 pounds with 1 pillow orthopnea on a regular bed (even though patient also has a hospital-adjustable bed at home), and no paroxysmal nocturnal dyspnea, orthopnea, or platypnea, with baseline BNP range, 487 pg/mL (03/24/2022, 10:56pm) to 335 pg/mL (03/19/2024, 4:52pm), on metoprolol tartrate 100mg PO bid, diltiazem 240mg PO daily, lasix 40mg PO daily, and lasix 20mg PO every other day, who reports: "I have been short of breath for the past 2 days. I weighed myself and see that I have gained 4 pounds in the past 2 days. That's a lot of weight. I must admit, I like salt. I know it's not good for me. I know I have heart failure. That's why I came to the hospital this morning (02/28/2025, 9:00am) to get a lasix shot. The ER doc gave me a lasix shot this morning and I am breathing better already. No coughing or wheezing. No chest pain. I'll be alright in a few days." Patient denies antecedent/coincident fevers, chills, diaphoresis, cough, wheeze, sore throat, hemoptysis, SOB/QUIGLEY, paroxysmal nocturnal dyspnea, orthopnea, platypnea, weight loss, chest pains, palpitations, pleurisy, nausea, vomiting, diarrhea, abdominal pain, pelvic pain, hematemesis, hematochezia, melena, hematuria, dysuria, frequency, urgency, headaches, dizziness, lightheadedness, visual changes, hearing changes, weakness, falls, syncope, trauma, travel history, sick contacts, or food/drug ingestions novel or new. All other review of systems are reported as negative by the patient on admission date 02/28/2025. In [facility] ER bed #B2, patient was afebrile @ 36.5 degrees Celsius, HR 93 (irregularly irregular), RR 18, O2 sat 89% on room air, and BP 148/91 (02/28/2025, 9:09am). cf., repeat O2 sat 80% on room air (02/28/2025, 9:23am). cf., repeat O2 sat 95% on 4 liters/minute O2 via nasal cannula (02/28/2025, 9:23am). Exam was noted for bibasilar crackles without audible expiratory wheeze, egophony, pectoriloquy, increase in tactile fremitus, or flatness/dullness to percussion at the bases. Jugular venous pressure could not be estimated from inspection of patient's tavarez neck and amorphous chest with BMI 39.2 (height 157.5 cm; weight 97.27 kg), which obscured delineation of jugular vein(s) and identification of the sternal angle of Damir, which by convention, is 5 cm above the level of the right atrium. Chest was non-tender to palpation. Labs in [facility] ER bed #B1 included: BNP 1,011 pg/mL (02/28/2025, 9:36am). Troponin-I #1 7.4 pg/mL (02/28/2025, 9:36am). Troponin-I #2 8.3 pg/mL (02/28/2025, 2:07pm). Troponin-I #3 (02/28/2025, 6:07pm). CK #1 29 U/L (02/28/2025, 9:36am). CK #2 21 U/L (02/28/2025, 12:09pm). WBC 8.86, N69 L22 M7 E2, Hb 13.5, MCV 89.3, MCHC 31.1, platelet 278 (02/28/2025, 9:36am). Na 141, K 4.3, BUN 26, creatinine 1.06, GFR 50.84, glucose 155, Ca 9.5, AST 17, ALT 19, ALK PHOS 102, total bili 1.4 (02/28/2025, 9:36am). Lactic acid #1 2.2 mmol/L (02/28/2025, 9:36am). Lactic acid #2 1.0 mmol/L (02/28/2025, 12:12pm). Lactic acid #3 1.1 mmol/L (02/28/2025, 2:07pm). Procalcitonin #1 0.04 ng/mL (02/28/2025, 9:43am). TSH 2.488 uIU/mL (02/28/2025, 9:36am). U/A (02/28/2025, 10:00am): cloudy yellow, nitrite-, LE trace, WBC 0-5, trace blood with 3-5 RBC, epithelial cells 3-5, bacteria 2+, yeast present. Influenza A- B-, RSV-, COVID- (02/28/2025, 9:36am). Additional testing in [facility] ER bed #B1 included: CT brain without IV contrast (02/28/2025, 9:21am): No acute bleed, mass, or midline shift. CT cervical spine without IV contrast (02/28/2025, 9:21am): No acute cervical fracture. Portable CXR (02/28/2025, 9:22am): Cardiomegaly, pulmonary vascular congestion, small effusions. No infiltrate. No pneumothorax (by my review). EKG (02/28/2025, 10:07am): AFIB @ 78, QTC 494, RBBB, TWI in III, V2, V3, no acute ST depressions/elevations (by my review). Historical testing in [facility] includes: EKG (03/19/2024, 4:46pm): Atrial pacing @ 62, PA 188, QTC 479, RBBB, TWI in III, V2, V3, no acute ST depressions/elevations (by my review). TTE (03/20/2024, 12:11pm): 1. LVEF 65% with no regional wall motion abnormalities and no LVH. 2. Normal RV size and systolic function. 3. Moderately dilated LA with MV E/e' (septal) 21.9; MV E/e' (average) 16.92, suggestive of LV diastolic dysfunction. 4. Normal RA size. 5. Interatrial septum not well visualized. 6. No . No AR. 7. Unremarkable PV. 8. Structurally unremarkable MV with no significant flow abnormalities. 9. Mild TR with moderately elevated PASP 63 mm Hg. 10.No significant pericardial effusion. 11.Dilated IVC with normal inspiratory collapse with mildly elevated RAP 8 mm Hg. 12.Normal aortic root. (as per CARDS Dr. Brayden Andrews). Patient was subsequently admitted to the inpatient hospitalist service @ [facility] on 02/28/2025 with the following diagnoses: 1. Acute hypoxic respiratory failure with admitting O2 sat 89% on room air, and BP 148/91 (02/28/2025, 9:09am). cf., repeat O2 sat 80% on room air (02/28/2025, 9:23am). cf., repeat O2 sat 95% on 4 liters/minute O2 via nasal cannula (02/28/2025, 9:23am), due to: 2. Acute exacerbation of chronic diastolic CHF with preserved LVEF 65% and normal RV systolic function with moderately dilated LA with MV E/e' (septal) 21.9; MV E/e' (average) 16.92, suggestive of LV diastolic dysfunction (as noted on 03/20/2024 TTE) with dry baseline weight of 210 pounds with 1 pillow orthopnea on a regular bed (even though patient also has a hospital-adjustable bed at home), and no paroxysmal nocturnal dyspnea, orthopnea, or platypnea, with baseline BNP range, 487 pg/mL (03/24/2022, 10:56pm) to 335 pg/mL (03/19/2024, 4:52pm). 3. Paroxysmal AFIB, but rate-controlled AFIB, s/p [place] XT DR RADHA Cervatnes R01 [employer] PPM model #5017, on rate-controlling metoprolol tartrate 100mg PO bid, rate-controlling diltiazem 240mg PO daily, rhythm-controlling flecainide 100mg PO q12, and apixaban 5mg PO bid. 4. Acute lactic acid elevation with lactic acid #1 2.2 mmol/L (02/28/2025, 9:36am). To address #1, patient was continued on 4 liters/minute O2 via nasal cannula to maintain O2 saturation > 90% in [facility] ER bed #B1 and in [facility] Tele bed #[id number]. cf., patient's former tobacco abuse with subsequent diagnosis of COPD on 2 liters/minute O2 via nasal cannula at bedtime only. To address #2, patient was started on lasix 40mg IV x 1 dose (02/28/2025, 10:53am) in [facility] ER bed #B1. Patient will continue with hospital-started lasix 40mg IV daily x 2 doses (starting on 03/01/2025, 9:00am), home-scheduled metoprolol tartrate 100mg PO bid, and home-scheduled diltiazem 240mg PO daily,in [facility] Tele bed #[id number]. Of final note, given that less than 12 months separates patient's last TTE (03/19/2024, 4:46pm) and the current admission date (02/28/2025, 5:38pm), I have opted to hold off ordering repeat TTE as it would be unlikely to reveal any significant interval change(s) today (02/28/2025) in this patient with an apparently mild case of acute exacerbation of chronic diastolic CHF with preserved LVEF 65% and normal RV systolic function with moderately dilated LA with MV E/e' (septal) 21.9; MV E/e' (average) 16.92, suggestive of LV diastolic dysfunction (as noted on 03/20/2024 TTE) with dry baseline weight of 210 pounds with 1 pillow orthopnea on a regular bed (even though patient also has a hospital-adjustable bed at home), and no paroxysmal nocturnal dyspnea, orthopnea, or platypnea, with baseline BNP range, 487 pg/mL (03/24/2022, 10:56pm) to 335 pg/mL (03/19/2024, 4:52pm). To address #3, patient was continued on telemetry and her home-scheduled rate- controlling metoprolol tartrate 100mg PO bid, rate-controlling diltiazem 240mg PO daily, rhythm-controlling flecainide 100mg PO q12, and apixaban 5mg PO bid. To address #4, patient underwent repeat lactic acid testing and repeat lactic acid #2 was normal at 1.0 mmol/L (02/28/2025, 12:12pm). Etiology of nominal lactic acid level elevation remains unclear. Observe. Discharge Exam Constitutional General: Comfortable, cooperative, coherent. Wide awake and alert. Not confused, lethargic, or obtunded. Patient speaks in complete, fluent, and articulate sentences without pause, interruption, cough, or wheeze. HEENT: NC/AT. EOMI. PERRL. No nystagmus, gaze paresis, anisocoria, miosis, mydriasis, chemosis, hyphema, scleral injection, conjunctivitis, or pterygium. No otorrhea. No rhinorrhea. Neck: Supple, no stridor, bruit, or goiter. Jugular venous pressure cannot be estimated from visual inspection of patient's tavarez neck and amorphous chest with BMI 39.2 (height 157.5 cm; weight 97.27 kg), which obscures accurate delineation of jugular vein(s) and accurate identification of the sternal angle of Damir, which by convention, is a bony landmark located 5 cm above the level of the right atrium. Lymph: No anterior/posterior cervical lymphadenopathy, supraclavicula r/infraclavicular lymphadenopathy, axilla/epitrochlear/inguinal lymphadenopathy. Chest: Symmetric rise and fall with respirations. Non-tender to palpation. Heart: Regular rate. Irregularly irregular rhythm, S1 and S2. No S3 or S4 summation gallop. No tripartite friction rub. No murmur. Lungs: Bibasilar crackles. No audible expiratory wheeze, egophony, pectoriloquy, increase in tactile fremitus, or flatness/dullness to percussion at the bases. Abd: Soft, non-tender, non-distended. Bowel sounds auscultated in all 4 quadrants. No rebound, guarding, Sam's sign, or organomegaly. Ext: No clubbing, cyanosis. 1+ non-pitting left lower leg edema, most pronounced at the left posterior leg, just above the ankle, overlying the left Achilles tendon. 2+ pedal pulses bilaterally. Skin: No decubitus ulcer or enanthem or exanthem. Neuro: No tremors, tics, or myoclonus. DTR+. 5/5 motor strength in all 4 extremities, both proximally and distally. Urology: No urias catheter. No urethral discharge. Discharge Plan Discharge Items Patient Disposition: Home - Self-Care Reason For Visit: ACUTE HYPOXIC RESPIRATORY FAILURE Discharge Diagnosis: 1. Acute hypoxic respiratory failure, RESOLVED on 03/03/2025. 2. [id number] diastolic CHF exacerbation, RESOLVING we;; pm 03/03/2025, now with acute biventricular systolic CHF, also RESOLVING well on 03/03/2025. 3. Chronic, paroxysmal AFIB, s/p Radha XT DR RADHA OlivaresD R01 [employer] PPM model #5076, on rate-controlling metoprolol tartrate 100mg PO bid, rate-controlling diltiazem 240mg PO daily, rhythm-controlling flecainide 100mg PO q12, and apixaban 5mg PO bid. 4. Acute lactic acid elevation with lactic acid #1 2.2 mmol/L (02/28/2025, 9:36am), RESOLVED with lactic acid # 1.0 mmol/L (02/28/2025, 12:12pm). Condition on Discharge: Fair Activity: Resume your previous activity Lifting: Gradually increase as tolerated Bathing: No limitations Exercise/Sports: Gradually increase as tolerated Weightbearing: Full weightbearing Non-emergency contact: Primary Care Provider Call non-emergency contact if: you have any medication questions Follow-up/Referrals: Charli De Dios, [Primary Care Provider] - 03/12/25 1:00 pm Diet: Heart Healthy Addtl Attending Provider Instructions: See your PCP Dr. Charli De Dios within 5-7 days of hospital discharge. Pending Studies at Discharge: No Stand-Alone Forms: My [employer], Smoking Cessation Medications and DC Order Prescriptions: New furosemide [Lasix] 20 mg tablet 60 mg PO DAILY Qty: 90 0RF Continued (DME) Wheeled Walker Misc See Rx Instructions .ROUTE .MEDSUPPLY Qty: 1 0RF Rx Instructions: As directed Rollator 4 wheels with brakes and seat (DME) blood sugar diagnostic Strip See Dose Instructions .ROUTE .MEDSUPPLY Qty: 100 3RF Rx Instructions: check glucose once daily as directed metoprolol tartrate 100 mg tablet 100 mg PO BID Qty: 180 3RF (DME) blood-glucose meter [OneTouch Ultra2 Meter] [facility] See Rx Instructions .Route Qty: 1 0RF Rx Instructions: As directed, once daily (DME) lancets [OneTouch Delica Plus Lancet] 33 gauge misc See Rx Instructions .Route Qty: 100 5RF Rx Instructions: Use to check blood sugar once daily as directed diltiazem HCl 240 mg capsule,extended release 24hr 240 mg PO DAILY Qty: 90 3RF rabeprazole 20 mg tablet,delayed release (DR/EC) 20 mg PO DAILY Qty: 90 3RF potassium chloride 10 mEq tablet extended release 10 meq PO DAILY Qty: 90 3RF Patient Comments: qam magnesium oxide 400 mg magnesium capsule 400 mg PO BID 90 Days Qty: 180 2RF ondansetron 4 mg tablet,disintegrating 4 mg PO Q8H PRN (Reason: nausea and vomiting) Qty: 30 1RF (DME) OneTouch Ultra Test Strip See Rx Instructions .Route Qty: 100 5RF Rx Instructions: once daily As directed clotrimazole 1 % solution See Rx Instructions topical BID Qty: 30 1RF Rx Instructions: 6 gtt to right ear BID x 14 days furosemide [Lasix] 20 mg tablet 20 mg PO Q OTHER DAY Qty: 45 3RF Rx Instructions: 20 mg orally every other day with 40mg tablet to = 60mg QOD; Eliquis 5 mg tablet 5 mg PO BID Qty: 180 3RF atorvastatin 10 mg tablet 10 mg PO HS Qty: 90 3RF Patient Comments: qam ferrous sulfate 325 mg (65 mg iron) tablet 325 mg PO DAILY Qty: 90 3RF gabapentin 300 mg capsule 300 mg PO TID Qty: 270 3RF Hold Instructions: Hasn't taken since 03/20/24 Rx Instructions: TAKES QAM, 1430, QHS losartan 25 mg tablet 25 mg PO DAILY Qty: 90 3RF Hold Instructions: BP low, was not d/c'd home with losartan from [facility] Patient Comments: qpm flecainide 100 mg tablet 100 mg PO Q12H Qty: 60 2RF clotrimazole-betamethasone 1-0.05 % cream 1 applic topical BID Qty: 15 3RF Rx Instructions: apply 1-2 x daily to each ear PRN itching acetaminophen 325 mg Tablet 650 mg PO Q4H PRN (Reason: pain) Qty: 30 0RF Discontinued furosemide 40 mg tablet 40 mg PO DAILY Qty: 90 3RF Rx Instructions: Take 1 tablet daily and take with 20mg every other day to = 60mg every other day Discharge Orders: Discharge Order (Routine); Ordered 03/03/25 Ordered By: Asif Guy Discharge Order- CHF (Routine); Ordered 03/03/25 Ordered By: Asif Guy Admission Data Admit Date/Time: 02/28/25 11:16 Attending Provider: Asif Guy Admit Provider: Asif Guy Primary Care Provider: Charli De Dios Other Providers: Dhiraj Light; Gonsalo Casper Other Interventions: Discharge Summary Assessment (RN) Last Done: 03/03/25 17:12 Hospital Stay Data Consultations 02/28/25 10:48 ED Decision to Admit Stat 03/02/25 10:50 Consult Cardiology Routine Diagnostic Imagining Performed 02/28/25 09:21 CT cervical spine wo con Stat CT head/brain wo con Stat Pending Results Patient Have Any Pending Studies at Discharge: No Discharge Instructions Given to Patient (Per Discharging Provider) See your PCP Dr. Charli De Dios within 5-7 days of hospital discharge. Total Time Total Time Spent Total Time Spent (In Minutes): 35 minutes. Of this time period, 19 minutes were spent in coordinating patient's discharge. Coding Level of Care Code 12628 INP/OBS DISCH >30 MIN Diagnoses Acute hypoxic respiratory failure J96.01 Acute on chronic diastolic (congestive) heart failure I50.33 Paroxysmal atrial fibrillation I48.0 Lactic acid blood increased R79.89
== END 2025-03-03 18:03 | disposition home or self-care (01) | DRG 291 ==
LOC: ED 09:04 → 2N 11:16

== ENCOUNTER 2025-04-10 10:21 | Observation (INO) ==
[2025-04-10 11:53] LABS: Hematocrit (blood only) 41.3 % (37.0-47.0); Hemoglobin 13.0 g/dL (12.0-16.0); Immature Granulocytes # (auto) 0.02 K/uL (0.01-0.20); Immature Granulocytes % (auto) 0.2 %; Mean Corpuscular Hemoglobin 27.9 pg (25.0-34.0); Mean Corpuscular Volume 88.6 fL (80.0-100.0); Platelet Count 224 K/uL (130-400); RDW Standard Deviation 46.7 fL (36.4-46.3); Red Blood Count 4.66 M/uL (4.20-5.40); White Blood Count 8.07 K/ul (4.8-10.8)
[2025-04-10 12:10] LABS: Alanine Aminotransferase 17 U/L (7-52); Albumin Globulin Ratio 1.3 (0.9-2); Albumin Level 4.0 gm/dl (3.4-5.0); Alkaline Phosphatase 86 U/L (34-104); Anion Gap 8 (3-11); Bilirubin,Total 0.8 mg/dl (0.2-1.0); Blood Urea Nitrogen 33 mg/dl (6-23); Calcium 8.9 mg/dl (8.6-10.3); Carbon Dioxide 34 mmol/L (21-32); Chloride 98 mmol/L (98-107); Globulin 3.2 gm/dl (2.5-4.0); Glucose 82 mg/dl (70-99(Fasting)); Potassium 4.2 mmol/L (3.5-5.1); Sodium 140 mmol/L (136-145); Total Protein 7.2 gm/dl (6.0-8.3)
[2025-04-10 12:24] LABS: Thyroid Stimulating Hormone 3.447 uIu/ml (0.300-4.500)
--- NOTE | 2025-04-10 12:24 | Emergency Department Note ---
Impression & Plan Encounter for rehabilitation, Risk for falls, Ambulatory dysfunction, Failure to thrive in adult ED Provider Note NAME: HAYDE DOVE AGE: 89 SEX: F : 1935 ARRIVES VIA: Walk-In INFORMANT: Patient, ED PROVIDER(S): Osvaldo Ferrara MD CHIEF COMPLAINT: Fall, ambulatory dysfunction HPI: This is a 89-year-old female presenting ambulatory dysfunction. Patient states that over the past few weeks she has had increasing amatory dysfunction. She has left leg weakness which is chronic. Patient had a fall multiple weeks ago has not had any improvement in that she has worsened. She lives at home with her who is 92 and unable to take care of her. Her children are with her and are attempting to care for her but they also need to work and cannot take care of her 04/12. She has had no recent falls. She reports no current pain. ROS: See above HPI for pertinent positives & negatives. A total of 10 systems reviewed and were otherwise negative. PAST MEDICAL HISTORY: See Below PAST SURGICAL HISTORY: See Below FAMILY HISTORY: See Below SOCIAL HISTORY: See Below HOME MEDICATIONS: See Below ALLERGIES: See Below VITALS: See Below PHYSICAL EXAMINATION: General: resting comfortably in no acute distress Head: Normocephalic and atraumatic Eyes: Normal inspection, extraocular muscles intact Ear, nose, throat: Normal external exam Neck: Normal range of motion Respiratory: lungs clear to auscultation bilaterally Cardiovascular: Regular rate/rhythm, no murmur GI: soft, nontender, no guarding or rebound Extremities: nontender, moves all extremities Neuro: The patient awake and alert, appropriately conversive, no focal deficits, symmetric faces, strength 4/5 to left lower extremity Skin: Warm, dry, and intact MEDICAL DECISION MAKING: This is an 89-year-old female sent for ambulatory dysfunction. No upper extremity symptoms. -Bloodwork is reviewed showing no significant leukocytosis, anemia, electrolyte or creatinine abnormality - Patient overall does appear weak and unable to ambulate at this time. Will admit for further evaluation and placement. Patient already working with outpatient outsole caser for this. Differential diagnosis: Stroke, weakness, amatory dysfunction, failure to thrive Independent History obtained from: Son and daughter Diagnostics interpreted by me: Cardiac Monitoring: An order was placed for continuous cardiac monitoring. The monitor shows a rate of 70 with sinus rhythm. Past Med/Surg History Problem List Generalized weakness (Chronic) Failure to thrive in adult (Acute) Ambulatory dysfunction (Acute) Risk for falls (Acute) Encounter for rehabilitation (Acute) Weakness (Acute) Balance problem Wheelchair dependence Chronic respiratory failure Otomycosis Nausea and vomiting Abnormal CT of the abdomen Abnormal LFTs Constipation Sinusitis Lumbar pain Hip pain Class 3 severe obesity due to excess calories with body mass index (BMI) of 40.0 to 44.9 in adult Iron deficiency anemia Diarrhea Abdominal pain Diverticulitis Dyspnea on minimal exertion (Acute) Closed fracture of distal end of right fibula (Acute 07/07/22) Hypomagnesemia (Acute) Anemia 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) Diverticulitis of colon Greater trochanteric bursitis of right hip Atrial fibrillation (~12/24/19) H/O cataract extraction left - Dr Collazo, 2019 Acute renal insufficiency (Acute) Tachy-mynor syndrome Anticoagulant long-term use Chronic diastolic (congestive) heart failure Type 2 diabetes mellitus with chronic kidney disease Left ear pain Neck pain on left side QUIGLEY (dyspnea on exertion) Cardiac pacemaker Trochanteric bursitis, left hip Hypercholesteremia (Chronic) Hypertension (Chronic) Osteoporosis Lumbar spondylosis History of cardiac cath MORE THAN 7 YEARS AGO--WAS NEGATIVE () Medical History Lactic acid blood increased Paroxysmal atrial fibrillation Acute on chronic diastolic (congestive) heart failure Acute hypoxic respiratory failure Anticoagulated Closed head injury Hypoxia Pulmonary edema Hypervolemia COVID-19 Arthritis Borderline diabetes Anemia Hx of diverticulitis of colon Atrial fibrillation Congestive heart failure Urinary leakage Hypokalemia Anticoagulant long-term use Leukocytosis SOB (shortness of breath) Morbid obesity with BMI of 40.0-44.9, adult DVT prophylaxis GERD (gastroesophageal reflux disease) Pulmonary embolism (02/2019) Surgical History History of tooth extraction History of permanent cardiac pacemaker placement Status post placement of cardiac pacemaker History of cataract surgery History of esophagogastroduodenoscopy (EGD) History of colonoscopy History of appendectomy History of cholecystectomy H/O repair of rotator cuff Family History Mother Breast cancer Son Deep vein thrombosis Father Myocardial infarction Asthma Sister Lung cancer Bone cancer Other Coronary heart disease No family history of adverse response to anesthesia Denies family history of Ovarian cancer Prostate cancer Colorectal cancer Social History Smoking Status: Former smoker Tobacco Type: Cigarettes Age Started Using Tobacco: 23; Age Quit Using Tobacco: 50; packs per day: 1; Second Hand Exposure: No; Do You Dip or Chew Tobacco: No; Hx Alcohol Use: No Hx Substance Use: No Preferred Language: Slovak Communication Ability: Effective Visual Impairment: No Limitations Hearing Ability: Hard of Hearing Demand Inspector Required: No Beliefs That Will Affect Care: None marital status: marital status details: for 70 years; lives in [place] Current Living Situation: Spouse Current Living Situation Comment: Lives at home with . current occupational status: retired current occupation: worked at [employer] as a nurse How many Children do You have: 7 How many Children do You have Comment: 6 sons, 1 daughter, all alive and well. Feels Safe at Home: Yes and No Is there a partner from a previous relationship who is making you feel unsafe now?: No Childhood Exposure to Second-Hand Smoke: No Diet: regular caffeine: No Dental Care, Regularly: Yes Physical Activity Frequency: Does not Exercise Seatbelt Use: always Sunscreen Use: Yes Assistive Devices: Oxygen - at Night, Walker and Wheelchair Allergies Allergies Allergy/AdvReac Type Severity Reaction Status Date / Time latex Allergy Intermediate REDNESS, Verified 03/24/25 11:21 RASH Sulfa (Sulfonamide AdvReac Intermediate MAKES HER Verified 03/24/25 11:21 Antibiotics) SICKER Home Meds Home Medications Medication Instructions Recorded Confirmed ferrous sulfate 325 mg (65 mg 0 mg PO DAILY 04/10/25 04/10/25 iron) tablet Previous Rx's Medication Instructions Recorded Wheeled Walker #1 ea 01/21/20 acetaminophen 325 mg tablet 650 mg (2 x 325 mg) PO Q4H PRN 07/13/22 pain #30 tabs blood sugar diagnostic #100 ea 12/21/22 blood-glucose meter (OneTouch #1 unit 05/02/24 Ultra2 Meter) blood sugar diagnostic (OneTouch #100 ea 05/26/24 Ultra Test strips) lancets 33 gauge (OneTouch Delica #100 ea 05/29/24 Plus Lancet) clotrimazole-betamethasone 1 1 applic topical BID #15 grams 07/11/24 %-0.05 % topical cream apixaban 5 mg tablet (Eliquis) 5 mg PO BID #180 tabs 09/19/24 atorvastatin 10 mg tablet 10 mg PO HS #90 tabs 09/19/24 gabapentin 300 mg capsule 300 mg PO TID #270 caps 09/19/24 losartan 25 mg tablet 25 mg PO DAILY #90 tabs 09/19/24 rabeprazole 20 mg tablet,delayed 20 mg PO DAILY #90 tabs 10/14/24 release magnesium oxide 400 mg PO BID 90 days #180 caps 01/27/25 furosemide 20 mg tablet (Lasix) 40 mg (2 x 20 mg) PO DAILY #90 tabs 03/10/25 metoprolol succinate 200 mg 200 mg PO DAILY #30 tabs 03/10/25 tablet,extended release 24 hr Portable Oxygen #1 ea 03/12/25 amiodarone 200 mg tablet 200 mg PO BID #60 tabs 03/19/25 portable oxygen concentrator #1 ea 03/27/25 Results & Data (ED) Vital Signs Vital Signs - 24 hr 04/10/25 10:41 04/10/25 12:08 04/10/25 12:37 Temperature 36.3 C L Temperature Source Oral Pulse Rate 69 60 Pulse Rate [Apical] 61 Pulse Rhythm [Apical] Regular Pulse Strength [Apical] Normal Respiratory Rate 18 20 Respiratory Effort / Characteristics Non-Labored Spontaneous Non-Labored Spontaneous Respiratory Depth Normal Normal Blood Pressure 182/96 H Blood Pressure [Left Arm] 137/71 Blood Pressure Mean 124 Blood Pressure Mean [Left Arm] 93 Pulse Oximetry 93 98 Oxygen Delivery Method Nasal Cannula Room Air Oxygen Flow Rate 2 Sepsis Recent Fever Within 48 Hours No Sepsis New/Unexplained Change in Mental Status No Sepsis Action Taken by Nursing No Action Required Laboratory Data 04/10/25 11:35 04/10/25 11:35 Lab Results 04/10/25 04/10/25 Range/Units 11:25 11:35 WBC 8.07 (4.8-10.8) K/ul RBC 4.66 (4.20-5.40) M/uL Hgb 13.0 (12.0-16.0) g/dL Hct 41.3 (37.0-47.0) % MCV 88.6 (80.0-100.0) fL MCH 27.9 (25.0-34.0) pg MCHC 31.5 L (32.0-36.0) g/dL RDW Std Deviation 46.7 H (36.4-46.3) fL RDW Coeff of Thomas 14.4 (11.5-14.5) % Plt Count 224 (130-400) K/uL MPV 9.9 (9.4-12.4) fL Immature Gran % (Auto) 0.2 % Neut % (Auto) 55.7 % Lymph % (Auto) 30.4 % Apache % (Auto) 8.8 % Eos % (Auto) 4.3 % Baso % (Auto) 0.6 % Neut # (Auto) 4.49 (1.40-6.50) K/uL Lymph # (Auto) 2.45 (1.20-3.40) K/uL Apache # (Auto) 0.71 H (0.11-0.59) K/uL Eos # (Auto) 0.35 (0.00-0.50) K/uL Baso # (Auto) 0.05 (0.00-0.20) K/uL Immature Gran # (Auto) 0.02 (0.01-0.20) K/uL Sodium 140 (136-145) mmol/L Potassium 4.2 (3.5-5.1) mmol/L Chloride 98 (98-107) mmol/L Carbon Dioxide 34 H (21-32) mmol/L Anion Gap 8 (3-11) BUN 33 H (6-23) mg/dl Creatinine 1.19 (0.6-1.2) mg/dl Est Cr Clr Drug Dosing Not Reportable eGFR 43.98 BUN/Creatinine Ratio 27.7 H (10-20) Glucose 82 (70-99(Fasting)) mg/dl Calcium 8.9 (8.6-10.3) mg/dl Total Bilirubin 0.8 (0.2-1.0) mg/dl AST 19 (13-39) U/L ALT 17 (7-52) U/L Alkaline Phosphatase 86 (34-104) U/L Total Protein 7.2 (6.0-8.3) gm/dl Albumin 4.0 (3.4-5.0) gm/dl Globulin 3.2 (2.5-4.0) gm/dl Albumin/Globulin Ratio 1.3 (0.9-2) TSH 3.447 (0.300-4.500) uIu/ml Urine Color Yellow Urine Appearance Clear (Clear) Urine pH 7.5 (4.5-7.5) Ur Specific Leslie 1.009 (1.000-1.030) Urine Protein Negative (Negative) Urine Glucose (UA) Negative (Negative) Urine Ketones Negative (Negative) Urine Blood Negative (Negative) Urine Nitrite Negative (Negative) Urine Bilirubin Negative (Negative) Urine Urobilinogen Negative (Negative) Ur Leukocyte Esterase Negative (Negative) Urine Comment Discharge Plan Visit Data Chief Complaint: Weakness Stated Complaint: AMBULATORY DISFUNCTION ED Provider: Osvaldo Ferrara Discharge Problem: Encounter for rehabilitation, Risk for falls, Ambulatory dysfunction, Failure to thrive in adult Patient Disposition: Admitted As Inpatient Condition: Fair Discharge Instructions Interventions: ED Discharge Assessment Last Done: 04/10/25 14:08
[2025-04-10 12:29] LABS: Appearance Urine Clear (Clear); Glucose Urine UA Negative (Negative)
--- NOTE | 2025-04-10 13:13 | History & Physical Report ---
Date of Service April 10, 2025 Assessment & Plan (1) Ambulatory dysfunction: (2) Generalized weakness: (3) Failure to thrive in adult: Tammi Willett is a pleasant 89-year-old woman with past medical history of COPD, insulin- dependent type 2 diabetes, hypertension, paroxysmal atrial fibrillation, iron deficiency anemia, and HFrEF. She presented from home with ongoing generalized weakness and ambulatory dysfunction. She was admitted for PT/OT evals and likely placement. #Ambulatory dysfunction | Generalized weakness - ongoing since her hospitalization in February 2025; she had declined rehab on discharge from the hospitalization. She previously used a walker with ambulation, but has not been using this since her last hospital discharge due to being too weak to ambulate. - PT/OT consulted - Case management consulted for routine discharge planning as patient will likely need placement #HFrEF | A fib | Tachybrady syndrome - echo in February 2025 noted global severe LV dysfunction with EF 25-30%, abnormal septal motion consistent with conduction abnormality/pacemaker, mitral valve prolapse with mild/moderate MR. S/p pacemaker placement in 2020. Follows with Dr. Casper outpatient - Continue metoprolol succinate 200 mg daily, Lasix 40 mg daily, Eliquis 5 mg BID, amiodarone 200 mg BID - Continue 2 L O2 via NC continuously #T2DM | Class III obesity - not on a diabetic regimen. Patient checks her blood sugar daily and reports it is never elevated above 120. Last A1c 6.4% in September 2024. Will repeat A1c with AM labs, if >7.0% recommend starting metformin. Also recommend weight loss #Chronic back paincontinue gabapentin 300 mg TID #Hypertensioncontinue losartan 25 mg daily #Hyperlipidemiacontinue atorvastatin 10 mg HS #COPDpatient denies a history of this. Her and her children report her supplemental O2 is for "her heart" #Iron deficiency anemiacontinue ferrous sulfate 325 mg daily #GERDcontinue PPI #Hypomagnesemiacontinue magnesium oxide 400 mg BID VTE PPx: Eliquis Dispo: Admit to med/surg Reviewed prior medical records. Updated daughter and son at bedside on admission. History of Present Illness Chief Complaint: Ambulatory dysfunction Primary Care Provider: Charli De Dios DO Tamie is a pleasant 89-year-old woman with past medical history of COPD, insulin- dependent type 2 diabetes, hypertension, paroxysmal atrial fibrillation, iron deficiency anemia, and HFrEF. She presented from home with ongoing generalized weakness and ambulatory dysfunction. At the time of my exam, the patient was lying in bed in no acute distress with her daughter and son present at bedside. She states she was hospitalized in February and was recommended to go to short- term rehab from the hospital stay but she declined this and returned home. Since returning home, she is had progressive generalized weakness and ambulatory dysfunction. She is no longer able to use her walker. She denies any pain that is restricting her activity level, just noting that her legs are too weak and "give out." She denies any recent infectious symptoms, repeat falls, or injuries. Denies chest pain, heart palpitations, shortness of breath, headache, congestion, abdominal pain, nausea, vomiting, diarrhea, or urinary symptoms. Patient reports that she took all of her regular morning medications today. Earlier this month, her diltiazem, flecainide, and potassium supplement were discontinued, her metoprolol was switched to 200 mg once daily, and her Lasix was reduced to 40 mg daily. She wears 2 L of O2 continuously. Her children at bedside report her supplemental O2 is "for her heart." Tamie reports that she checks her blood sugar daily because she has been told that she has diabetes, but is not on any diabetic medications. She also has a documented history of COPD but reports she has never been told about this and does not use any inhalers. Vitals on admission are stable and unremarkable. Labs on admission are overall unremarkable. CBC without leukocytosis, H&H, and platelets WNL. CMP with mildly elevated BUN at 33, creatinine WNL and at baseline. Electrolytes WNL. Liver enzymes WNL. TSH WNL. UA negative. We discussed code status, patient wishes to be a DNR/DNI. Allergies Allergy/AdvReac Type Severity Reaction Status Date / Time latex Allergy Intermediate REDNESS, Verified 03/24/25 11:21 RASH Sulfa (Sulfonamide AdvReac Intermediate MAKES HER Verified 03/24/25 11:21 Antibiotics) SICKER Home Medications Medication Instructions Recorded Confirmed Type Wheeled Walker #1 ea 01/21/20 03/24/25 Rx acetaminophen 325 mg tablet 650 mg (2 x 325 mg) PO Q4H PRN 07/13/22 04/10/25 Rx pain #30 tabs blood sugar diagnostic #100 ea 12/21/22 03/24/25 Rx blood-glucose meter (OneTouch #1 unit 05/02/24 03/24/25 Rx Ultra2 Meter) blood sugar diagnostic (OneTouch #100 ea 05/26/24 03/24/25 Rx Ultra Test strips) lancets 33 gauge (OneTouch Delica #100 ea 05/29/24 03/24/25 Rx Plus Lancet) clotrimazole-betamethasone 1 1 applic topical BID #15 grams 07/11/24 04/10/25 Rx %-0.05 % topical cream apixaban 5 mg tablet (Eliquis) 5 mg PO BID #180 tabs 09/19/24 04/10/25 Rx atorvastatin 10 mg tablet 10 mg PO HS #90 tabs 09/19/24 04/10/25 Rx gabapentin 300 mg capsule 300 mg PO TID #270 caps 09/19/24 04/10/25 Rx losartan 25 mg tablet 25 mg PO DAILY #90 tabs 09/19/24 04/10/25 Rx rabeprazole 20 mg tablet,delayed 20 mg PO DAILY #90 tabs 10/14/24 04/10/25 Rx release magnesium oxide 400 mg PO BID 90 days #180 caps 01/27/25 04/10/25 Rx furosemide 20 mg tablet (Lasix) 40 mg (2 x 20 mg) PO DAILY #90 tabs 03/10/25 04/10/25 Rx metoprolol succinate 200 mg 200 mg PO DAILY #30 tabs 03/10/25 04/10/25 Rx tablet,extended release 24 hr Portable Oxygen #1 ea 03/12/25 03/24/25 Rx amiodarone 200 mg tablet 200 mg PO BID #60 tabs 03/19/25 04/10/25 Rx portable oxygen concentrator #1 ea 03/27/25 Rx ferrous sulfate 325 mg (65 mg 0 mg PO DAILY 04/10/25 04/10/25 History iron) tablet Past Med/Surg History Problem List Generalized weakness (Chronic) Failure to thrive in adult Ambulatory dysfunction Risk for falls Encounter for rehabilitation Weakness (Acute) Balance problem Wheelchair dependence Chronic respiratory failure Otomycosis Nausea and vomiting Abnormal CT of the abdomen Abnormal LFTs Constipation Sinusitis Lumbar pain Hip pain Class 3 severe obesity due to excess calories with body mass index (BMI) of 40.0 to 44.9 in adult Iron deficiency anemia Diarrhea Abdominal pain Diverticulitis Dyspnea on minimal exertion (Acute) Closed fracture of distal end of right fibula (Acute 07/07/22) Hypomagnesemia (Acute) Anemia 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) Diverticulitis of colon Greater trochanteric bursitis of right hip Atrial fibrillation (~12/24/19) H/O cataract extraction left - Dr Collazo, 2019 Acute renal insufficiency (Acute) Tachy-mynor syndrome Anticoagulant long-term use Chronic diastolic (congestive) heart failure Type 2 diabetes mellitus with chronic kidney disease Left ear pain Neck pain on left side QUIGLEY (dyspnea on exertion) Cardiac pacemaker Trochanteric bursitis, left hip Hypercholesteremia (Chronic) Hypertension (Chronic) Osteoporosis Lumbar spondylosis History of cardiac cath MORE THAN 7 YEARS AGO--WAS NEGATIVE ([facility]) Medical History Lactic acid blood increased Paroxysmal atrial fibrillation Acute on chronic diastolic (congestive) heart failure Acute hypoxic respiratory failure Anticoagulated Closed head injury Hypoxia Pulmonary edema Hypervolemia COVID-19 Arthritis Borderline diabetes Anemia Hx of diverticulitis of colon Atrial fibrillation Congestive heart failure Urinary leakage Hypokalemia Anticoagulant long-term use Leukocytosis SOB (shortness of breath) Morbid obesity with BMI of 40.0-44.9, adult DVT prophylaxis GERD (gastroesophageal reflux disease) Pulmonary embolism (02/2019) Surgical History History of tooth extraction History of permanent cardiac pacemaker placement Status post placement of cardiac pacemaker History of cataract surgery History of esophagogastroduodenoscopy (EGD) History of colonoscopy History of appendectomy History of cholecystectomy H/O repair of rotator cuff Family History Mother Breast cancer Son Deep vein thrombosis Father Myocardial infarction Asthma Sister Lung cancer Bone cancer Other Coronary heart disease No family history of adverse response to anesthesia Denies family history of Ovarian cancer Prostate cancer Colorectal cancer Social History Smoking Status: Former smoker Tobacco Type: Cigarettes Age Started Using Tobacco: 23; Age Quit Using Tobacco: 50; packs per day: 1; Second Hand Exposure: No; Do You Dip or Chew Tobacco: No; Hx Alcohol Use: No Hx Substance Use: No Preferred Language: Portuguese Communication Ability: Effective Visual Impairment: No Limitations Hearing Ability: Hard of Hearing Financial Legal Assistant Required: No Beliefs That Will Affect Care: None marital status: marital status details: for 70 years; lives in [place] Current Living Situation: Spouse Current Living Situation Comment: Lives at home with . 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 Feels Safe at Home: Yes and No Is there a partner from a previous relationship who is making you feel unsafe now?: No Childhood Exposure to Second-Hand Smoke: No Diet: regular caffeine: No Dental Care, Regularly: Yes Physical Activity Frequency: Does not Exercise Seatbelt Use: always Sunscreen Use: Yes Assistive Devices: Oxygen - at Night, Walker and Wheelchair Review of Systems Review of Systems: All systems reviewed & are unremarkable except as noted in HPI & below Physical Exam Physical Exam: General: No acute distress, nondiaphoretic, well-developed, well-nourished. Class III obesity. Skin: Warm, dry. No rashes or peripheral edema noted. Cardiac: Regular rate and rhythm without murmurs gallops or rubs. Pulm: Diminished at bases but otherwise clear to auscultation bilaterally without wheezes, rales or rhonchi. Normal respiratory effort. 97% on 2 L NC. Abdominal: Soft, nontender, nondistended. Bowel sounds present. Neuro: A&O x3. No focal neurological deficits. Results & Data Results & Data Vital Signs (Past 12 Hours) Vital Signs Temp Pulse Pulse Resp BP BP Pulse Ox 04/10/25 12:37 61 20 137/71 98 04/10/25 12:08 60 04/10/25 10:41 97.3 F L 69 18 182/96 H 93 O2 Del Method O2 Flow Rate 04/10/25 12:37 Room Air 04/10/25 12:08 04/10/25 10:41 Nasal Cannula 2 Laboratory Results Reviewed CBC with differential, CMP/chemistries Code Status & VTE Plan VTE Prophylaxis Plan VTE Prophylaxis will be ordered: Yes PG Care Time/CCT Total # of Minutes Spent Total Time Spent with Patient: Total time spent is greater than 50% in coordination of care (as documented) at patient's floor/unit and/or counseling patient: Coding Level of Care Code 37622 INT INP/OBS CARE 3/75MIN Diagnoses Ambulatory dysfunction R26.2 Generalized weakness R53.1 Failure to thrive in adult R62.7
[2025-04-10] MEDS ORDERED: ONDANSETRON INJ 2 MG/ML 2 ML VIAL IV PRN (14:51)
[2025-04-10] MEDS ORDERED: ALUMINUM/MAGNESIUM SUSP 30 ML UDC PO PRN (14:51)
--- NOTE | 2025-04-10 16:42 | Electrocardiogram Report ---
Test Reason : Blood Pressure : */* mmHG Vent. Rate : 69 BPM Atrial Rate : * BPM P-R Int : * ms QRS Dur : 154 ms QT Int : 472 ms P-R-T Axes : * -16 23 degrees QTcB Int : 505 ms Sinus rhythm Right bundle branch block Abnormal ECG Confirmed by Cali Celis ([id number]) on 04/10/2025 4:42:11 PM Referred By: REFERRED SELF Confirmed By: Cali Celis
[2025-04-10] MEDS: Patient's HEIGHT &/or WEIGHT Needed SCH (17:56)
[2025-04-10] MEDS: ACETAMINOPHEN 325 MG TAB PO PRN (20:16)
[2025-04-10] MEDS: APIXABAN 5 MG TABLET PO SCH (20:21)
[2025-04-10] MEDS: AMIODARONE 200 MG TAB PO SCH (20:21)
[2025-04-10] MEDS: GABAPENTIN 300 MG CAP PO SCH (20:21)
[2025-04-10] MEDS: MAGNESIUM OXIDE 400 MG TAB PO SCH (20:22)
[2025-04-10] MEDS: ATORVASTATIN 10 MG TAB PO SCH (20:22)
[2025-04-10] MEDS: LOSARTAN POTASSIUM 25 MG TAB PO SCH (20:22)
[2025-04-11 06:49] LABS: Hematocrit (blood only) 37.8 % (37.0-47.0); Hemoglobin 12.1 g/dL (12.0-16.0); Mean Corpuscular Hemoglobin 28.1 pg (25.0-34.0); Mean Corpuscular Volume 87.7 fL (80.0-100.0); Platelet Count 196 K/uL (130-400); RDW Standard Deviation 45.6 fL (36.4-46.3); Red Blood Count 4.31 M/uL (4.20-5.40); White Blood Count 6.00 K/ul (4.8-10.8)
[2025-04-11 07:13] LABS: Hemoglobin A1C 6.3 % (4.5-5.6)
[2025-04-11 07:24] LABS: Anion Gap 6.0 (3-11); Blood Urea Nitrogen 30.0 mg/dl (6-23); Calcium 8.7 mg/dl (8.6-10.3); Carbon Dioxide 34.0 mmol/L (21-32); Chloride 102.0 mmol/L (98-107); Creatinine Clr Calc Pharmacy 33.9 ml/min; Glucose 89.0 mg/dl (70-99(Fasting)); Potassium 4.0 mmol/L (3.5-5.1); Sodium 142.0 mmol/L (136-145)
[2025-04-11] MEDS: FERROUS SULFATE 325 MG TAB PO SCH (07:55)
[2025-04-11] MEDS: FUROSEMIDE 40 MG TAB PO SCH (07:55)
[2025-04-11] MEDS: METOPROLOL SUCC 50MG EXT REL TAB PO SCH (07:56)
[2025-04-11] MEDS: POLYETHYLENE (MIRALAX) 17 GM PACK PO PRN (07:57)
--- NOTE | 2025-04-11 09:33 | Hospitalist Progress Note ---
Date of Service April 11, 2025 Assessment & Plan (1) Ambulatory dysfunction: (2) Generalized weakness: (3) Failure to thrive in adult: Plan Tamie is a pleasant 89-year-old woman with past medical history of COPD, insulin- dependent type 2 diabetes, hypertension, paroxysmal atrial fibrillation, iron deficiency anemia, and HFrEF. She presented from home with ongoing generalized weakness and ambulatory dysfunction. She was admitted for PT/OT evals and likely placement. #Ambulatory dysfunction | Generalized weakness - ongoing since her hospitalization in February 2025; she had declined rehab on discharge from the hospitalization. She previously used a walker with ambulation, but has not been using this since her last hospital discharge due to being too weak to ambulate. - PT/OT consulted - Case management consulted for routine discharge planning as patient will likely need placement #HFrEF | A fib | Tachybrady syndrome - echo in February 2025 noted global severe LV dysfunction with EF 25-30%, abnormal septal motion consistent with conduction abnormality/pacemaker, mitral valve prolapse with mild/moderate MR. S/p pacemaker placement in 2020. Follows with Dr. Casper outpatient - Continue metoprolol succinate 200 mg daily, Lasix 40 mg daily, Eliquis 5 mg BID, amiodarone 200 mg BID - Continue 2 L O2 via NC continuously - Rate controlled, no changes. #T2DM | Class III obesity - not on a diabetic regimen. Patient checks her blood sugar daily and reports it is never elevated above 120. Last A1c 6.4% in September 2024. Will repeat A1c with AM labs, if >7.0% recommend starting metformin. Also recommend weight loss - FSG withing goal range, a1c = 6.3% #Chronic back paincontinue gabapentin 300 mg TID - Table, monitor with PT and OT #Hypertensioncontinue losartan 25 mg daily - At goal #Hyperlipidemiacontinue atorvastatin 10 mg HS - no changes #COPDpatient denies a history of this. Her and her children report her supplemental O2 is for "her heart" - no iar trapping on exam #Iron deficiency anemiacontinue ferrous sulfate 325 mg daily #GERDcontinue PPI #Hypomagnesemiacontinue magnesium oxide 400 mg BID VTE PPx: Eliquis Dispo: Admit to med/surg Reviewed prior medical records. Updated daughter and son at bedside on admission. Admission and Anticipated Discharge Date Admission Date: April 10, 2025 Subjective Doing well this morning. Has not been up with therapy or walking much as of yet. Limited mobility since her fall last month. Overall no polyphasia polyuria or polydipsia, reports her oxygen has been on the day and evening since she has been here but otherwise no respiratory symptoms at all. We discussed her A1c reading and her current blood sugar readings. No significant changes overall. Physical Exam Physical Exam: General: No acute distress, nondiaphoretic, well-developed, well-nourished. Class III obesity. Skin: Warm, dry. No rashes or peripheral edema noted. Cardiac: Regular rate and rhythm without murmurs gallops or rubs. Pulm: Diminished at bases but otherwise clear to auscultation bilaterally without wheezes, rales or rhonchi. Normal respiratory effort. 95% on 2 L NC. Abdominal: Soft, nontender, nondistended. Bowel sounds present. Neuro: A&O x3. No focal neurological deficits. Results & Data Results & Data Vital Signs (Past 12 Hours) Vital Signs Temp Pulse Resp BP Pulse Ox O2 Del Method O2 Flow Rate 04/11/25 07:45 Nasal Cannula 2 04/11/25 07:00 36.8 C 61 18 160/73 H 92 Nasal Cannula 2 04/10/25 21:31 36.7 C 63 20 179/68 H 98 Room Air Laboratory Results 04/11/25 04/10/25 04/10/25 06:16 11:35 11:25 WBC 6.00 8.07 RBC 4.31 4.66 Hgb 12.1 13.0 Hct 37.8 41.3 MCV 87.7 88.6 MCH 28.1 27.9 MCHC 32.0 31.5 L RDW Std Deviation 45.6 46.7 H RDW Coeff of Thomas 14.1 14.4 Plt Count 196 224 MPV 9.9 9.9 Immature Gran % (Auto) 0.2 Neut % (Auto) 55.7 Lymph % (Auto) 30.4 [place] % (Auto) 8.8 Eos % (Auto) 4.3 Baso % (Auto) 0.6 Neut # (Auto) 4.49 Lymph # (Auto) 2.45 [place] # (Auto) 0.71 H Eos # (Auto) 0.35 Baso # (Auto) 0.05 Immature Gran # (Auto) 0.02 Sodium 142 140 Potassium 4.0 4.2 Chloride 102 98 Carbon Dioxide 34 H 34 H Anion Gap 6 8 BUN 30 H 33 H Creatinine 1.27 H 1.19 Est Cr Clr Drug Dosing 33.9 Not Reportable eGFR 40.68 43.98 BUN/Creatinine Ratio 23.6 H 27.7 H Glucose 89 82 Estimat Average Glucose 134 Hemoglobin A1c 6.3 H Calcium 8.7 8.9 Total Bilirubin 0.8 AST 19 ALT 17 Alkaline Phosphatase 86 Total Protein 7.2 Albumin 4.0 Globulin 3.2 Albumin/Globulin Ratio 1.3 TSH 3.447 Urine Color Yellow Urine Appearance Clear Urine pH 7.5 Ur Specific [place] 1.009 Urine Protein Negative Urine Glucose (UA) Negative Urine Ketones Negative Urine Blood Negative Urine Nitrite Negative Urine Bilirubin Negative Urine Urobilinogen Negative Ur Leukocyte Esterase Negative Urine Comment PG Care Time/CCT Total # of Minutes Spent Total Time Spent with Patient: Total time spent is greater than 50% in coordination of care (as documented) at patient's floor/unit and/or counseling patient: Coding Level of Care Code 11624 SUB INP/OBS CARE 2/35MIN Diagnoses Ambulatory dysfunction R26.2 Generalized weakness R53.1 Failure to thrive in adult R62.7
--- NOTE | 2025-04-12 11:23 | Hospitalist Progress Note ---
Date of Service April 12, 2025 Assessment & Plan (1) Ambulatory dysfunction: (2) Generalized weakness: (3) Failure to thrive in adult: Plan Tamie is a pleasant 89-year-old woman with past medical history of COPD, insulin- dependent type 2 diabetes, hypertension, paroxysmal atrial fibrillation, iron deficiency anemia, and HFrEF. She presented from home with ongoing generalized weakness and ambulatory dysfunction. She was admitted for PT/OT evals and likely placement. #Ambulatory dysfunction | Generalized weakness - ongoing since her hospitalization in February 2025; she had declined rehab on discharge from the hospitalization. She previously used a walker with ambulation, but has not been using this since her last hospital discharge due to being too weak to ambulate. - PT/OT consulted - Case management consulted for routine discharge planning as patient will likely need placement - No setbacks after brief evaluation with PT and nursing. Continue to advance as able #HFrEF | A fib | Tachybrady syndrome - echo in February 2025 noted global severe LV dysfunction with EF 25-30%, abnormal septal motion consistent with conduction abnormality/pacemaker, mitral valve prolapse with mild/moderate MR. S/p pacemaker placement in 2020. Follows with Dr. Casper outpatient - Continue metoprolol succinate 200 mg daily, Lasix 40 mg daily, Eliquis 5 mg BID, amiodarone 200 mg BID - Continue 2 L O2 via NC, wean as able, I suspect the more she is up and moving and sitting upright at the manage her oxygen - Rate controlled, no concerning telemetry changes #T2DM | Class III obesity - not on a diabetic regimen. Patient checks her blood sugar daily and reports it is never elevated above 120. Last A1c 6.4% in September 2024. Will repeat A1c with AM labs, if >7.0% recommend starting metformin. Als o recommend weight loss - FSG withing goal range, a1c = 6.3% #Chronic back paincontinue gabapentin 300 mg TID - Stable, monitor with PT and OT #Hypertensioncontinue losartan 25 mg daily - At goal, no changes #Hyperlipidemiacontinue atorvastatin 10 mg HS - no changes #COPDpatient denies a history of this. Her and her children report her supplemental O2 is for "her heart" - no iar trapping on exam #Iron deficiency anemiacontinue ferrous sulfate 325 mg daily #GERDcontinue PPI #Hypomagnesemiacontinue magnesium oxide 400 mg BID VTE PPx: [place] Dispo: Admit to med/surg Reviewed prior medical records. Admission and Anticipated Discharge Date Admission Date: April 10, 2025 Subjective Doing okay this morning. Was able to get up briefly with PT yesterday. Walked around the bed with nursing. States that is as much walking as she has done in several weeks. No difficulties pain or concerns after doing so. Feeling good this morning. Eating okay. No problem with bowel or bladder function. No palpitations chest pain shortness of breath dizziness or orthostasis. No events or concerns per nursing staff Physical Exam Physical Exam: General: No acute distress, nondiaphoretic, well-developed, well-nourished. Class III obesity. Skin: Warm, dry. No rashes or peripheral edema noted. Cardiac: Regular rate and rhythm without murmurs gallops or rubs. Pulm: Diminished at bases but otherwise clear to auscultation bilaterally without wheezes, rales or rhonchi. Normal respiratory effort. 95% on 2 L NC. Abdominal: Soft, nontender, nondistended. Bowel sounds present. Neuro: A&O x3. No focal neurological deficits. Results & Data Results & Data Vital Signs (Past 12 Hours) Vital Signs Temp Pulse Resp BP Pulse Ox O2 Del Method O2 Flow Rate 04/12/25 07:16 36.6 C 62 20 138/75 94 Nasal Cannula 2 PG Care Time/CCT Total # of Minutes Spent Total Time Spent with Patient: Total time spent is greater than 50% in coordination of care (as documented) at patient's floor/unit and/or counseling patient: Coding Level of Care Code 36999 SUB INP/OBS CARE 2/35MIN Diagnoses Ambulatory dysfunction R26.2 Generalized weakness R53.1 Failure to thrive in adult R62.7
[2025-04-13 07:35] LABS: Hematocrit (blood only) 37.2 % (37.0-47.0); Hemoglobin 12.1 g/dL (12.0-16.0); Immature Granulocytes # (auto) 0.02 K/uL (0.01-0.20); Immature Granulocytes % (auto) 0.3 %; Mean Corpuscular Hemoglobin 28.5 pg (25.0-34.0); Mean Corpuscular Volume 87.7 fL (80.0-100.0); Platelet Count 211 K/uL (130-400); RDW Standard Deviation 45.6 fL (36.4-46.3); Red Blood Count 4.24 M/uL (4.20-5.40); White Blood Count 6.72 K/ul (4.8-10.8)
[2025-04-13 07:47] LABS: Anion Gap 5.0 (3-11); Blood Urea Nitrogen 28.0 mg/dl (6-23); Calcium 8.7 mg/dl (8.6-10.3); Carbon Dioxide 33.0 mmol/L (21-32); Chloride 102.0 mmol/L (98-107); Creatinine Clr Calc Pharmacy 36.5 ml/min; Glucose 92.0 mg/dl (70-99(Fasting)); Magnesium 2.1 mg/dl (1.7-2.4); Potassium 4.1 mmol/L (3.5-5.1); Sodium 140.0 mmol/L (136-145)
--- NOTE | 2025-04-13 19:21 | Hospitalist Progress Note ---
Date of Service April 13, 2025 Assessment & Plan (1) Ambulatory dysfunction: (2) Generalized weakness: (3) Failure to thrive in adult: Plan Tamie is a pleasant 89-year-old woman with past medical history of COPD, insulin- dependent type 2 diabetes, hypertension, paroxysmal atrial fibrillation, iron deficiency anemia, and HFrEF. She presented from home with ongoing generalized weakness and ambulatory dysfunction. She was admitted for PT/OT evals and likely placement. #Ambulatory dysfunction | Generalized weakness - ongoing since her hospitalization in February 2025; she had declined rehab on discharge from the hospitalization. She previously used a walker with ambulation, but has not been using this since her last hospital discharge due to being too weak to ambulate. - PT/OT consulted - Case management consulted for routine discharge planning as patient will likely need placement #HFrEF | A fib | Tachybrady syndrome - echo in February 2025 noted global severe LV dysfunction with EF 25-30%, abnormal septal motion consistent with conduction abnormality/pacemaker, mitral valve prolapse with mild/moderate MR. S/p pacemaker placement in 2020. Follows with Dr. Casper outpatient - Continue metoprolol succinate 200 mg daily, Lasix 40 mg daily, Eliquis 5 mg BID, amiodarone 200 mg BID - Continue 2 L O2 via NC, wean as able, I suspect the more she is up and moving and sitting upright at the manage her oxygen - Rate controlled, no concerning telemetry changes #T2DM | Class III obesity - not on a diabetic regimen. Patient checks her blood sugar daily and reports it is never elevated above 120. Last A1c 6.4% in September 2024. - FSG within goal range, a1c = 6.3% #Chronic back paincontinue gabapentin 300 mg TID - Stable, monitor with PT and OT #Hypertensioncontinue losartan 25 mg daily - At goal, no changes #Hyperlipidemiacontinue atorvastatin 10 mg HS - no changes #COPDpatient denies a history of this. Her and her children report her supplemental O2 is for "her heart" - no wheezing on exam #Iron deficiency anemiacontinue ferrous sulfate 325 mg daily #GERDcontinue PPI #Hypomagnesemiaresolved, continue magnesium oxide 400 mg BID VTE PPx: Eliquis Dispo: continue on med/surg, medically stable for discharge Admission and Anticipated Discharge Date Admission Date: April 10, 2025 Subjective No change. Awaiting to see PT/OT and case management today. Physical Exam Respiratory: normal respiratory effort, lungs clear to auscultation Cardiovascular: RRR, no murmur, no edema Neurologic: moves all extremities and awake; not confused Results & Data Results & Data Vital Signs (Past 12 Hours) Vital Signs Temp Pulse Resp BP Pulse Ox O2 Del Method O2 Flow Rate 04/13/25 14:35 36.7 C 62 18 106/61 94 Nasal Cannula 3 04/13/25 07:25 Nasal Cannula 2 PG Care Time/CCT Total # of Minutes Spent Total Time Spent with Patient: Total time spent is greater than 50% in coordination of care (as documented) at patient's floor/unit and/or counseling patient: Coding Level of Care Code 84456 SUB INP/OBS CARE 06/07MIN Diagnoses Ambulatory dysfunction R26.2 Generalized weakness R53.1 Failure to thrive in adult R62.7
--- NOTE | 2025-04-14 17:14 | Hospitalist Progress Note ---
Date of Service April 14, 2025 Assessment & Plan (1) Ambulatory dysfunction: (2) Generalized weakness: (3) Failure to thrive in adult: Plan Tamie is a pleasant 89-year-old woman with past medical history of COPD, insulin- dependent type 2 diabetes, hypertension, paroxysmal atrial fibrillation, iron deficiency anemia, and HFrEF. She presented from home with ongoing generalized weakness and ambulatory dysfunction. She was admitted for PT/OT evals and likely placement. #Ambulatory dysfunction | Generalized weakness - ongoing since her hospitalization in February 2025; she had declined rehab on discharge from the hospitalization. She previously used a walker with ambulation, but has not been using this since her last hospital discharge due to being too weak to ambulate. - PT/OT consulted - Case management consulted for routine discharge planning as patient will likely need placement - awaiting insurance authorization #HFrEF | A fib | Tachybrady syndrome - echo in February 2025 noted global severe LV dysfunction with EF 25-30%, abnormal septal motion consistent with conduction abnormality/pacemaker, mitral valve prolapse with mild/moderate MR. S/p pacemaker placement in 2020. Follows with Dr. Casper outpatient - Continue metoprolol succinate 200 mg daily, Lasix 40 mg daily, Eliquis 5 mg BID, amiodarone 200 mg BID - Continue 2 L O2 via NC, wean as able, I suspect the more she is up and moving and sitting upright at the manage her oxygen - Rate controlled, no concerning telemetry changes #T2DM | Class III obesity - not on a diabetic regimen. Patient checks her blood sugar daily and reports it is never elevated above 120. Last A1c 6.4% in September 2024. - FSG within goal range, a1c = 6.3% #Chronic back paincontinue gabapentin 300 mg TID - Stable, monitor with PT and OT #Hypertensioncontinue losartan 25 mg daily - At goal, no changes #Hyperlipidemiacontinue atorvastatin 10 mg HS - no changes #COPDpatient denies a history of this. Her and her children report her supplemental O2 is for "her heart" - no wheezing on exam #Iron deficiency anemiacontinue ferrous sulfate 325 mg daily #GERDcontinue PPI #Hypomagnesemiaresolved, continue magnesium oxide 400 mg BID VTE PPx: Eliquis Dispo: continue on med/surg, medically stable for discharge Admission and Anticipated Discharge Date Admission Date: April 10, 2025 Subjective No acute changes or concerns. Awaiting insurance authorization for placement at this time Physical Exam Respiratory: normal respiratory effort, lungs clear to auscultation Cardiovascular: RRR, no murmur, no edema Neurologic: moves all extremities and awake; not confused Results & Data Results & Data Vital Signs (Past 12 Hours) Vital Signs Temp Pulse Resp BP BP Pulse Ox O2 Del Method 04/14/25 15:40 36.5 C 65 18 144/80 H 96 Room Air 04/14/25 07:11 36.7 C 60 18 125/72 91 Nasal Cannula O2 Flow Rate 04/14/25 15:40 04/14/25 07:11 2 PG Care Time/CCT Total # of Minutes Spent Total Time Spent with Patient: Total time spent is greater than 50% in coordination of care (as documented) at patient's floor/unit and/or counseling patient: Coding Level of Care Code 54743 SUB INP/OBS CARE 06/07MIN Diagnoses Ambulatory dysfunction R26.2 Generalized weakness R53.1 Failure to thrive in adult R62.7
[2025-04-15 11:11] LABS: Iron 60.0 mcg/dl (35-150); Total Iron Binding Cap Calc 349.0 mcg/dl (250-450); Transferrin 249.0 mg/dl (200-360); Transferrin (FE) Percent Satur 17.0 % (15-50)
[2025-04-15 11:36] LABS: Ferritin 75.1 ng/ml (8-388)
[2025-04-15 11:49] LABS: Folate (Folic Acid),Ser orPlas > 22.30 ng/ml (>5.38)
[2025-04-15 11:50] LABS: Vitamin B12 198 pg/ml (180-914)
--- NOTE | 2025-04-15 17:24 | XRay Report ---
History: Pain Comparison: None Findings: There is no acute fracture or dislocation. Alignment is anatomic. Joint spaces are well maintained. There is no joint effusion or significant soft tissue swelling. Impression: No acute bony abnormality Electronically signed by Cali Mccray 04-15-2025 5:24 PM
--- NOTE | 2025-04-15 17:25 | XRay Report ---
Chest x-ray, 2 views History: chest pain Comparison: None Technique: 2 views of the chest, PA and lateral Findings: The lungs are clear. Enlarged cardiac silhouette. Left chest wall dual-lead AICD. The pulmonary vascularity appears prominent. No pleural effusion or pneumothorax. The heart size appears normal. No bony or soft tissue abnormality. Degenerative changes of the thoracic spine. Impression: Cardiomegaly and findings of pulmonary venous hypertension. No other acute process. Electronically signed by Cali Mccray 04-15-2025 5:24 PM
--- NOTE | 2025-04-15 17:25 | XRay Report ---
History: Pain Comparison: None Findings: There is no acute fracture or dislocation. Alignment is anatomic. Mild medial compartment degenerative joint space narrowing. There is no joint effusion or significant soft tissue swelling. Impression: No acute bony abnormality Electronically signed by Cali Mccray 04-15-2025 5:24 PM
--- NOTE | 2025-04-15 18:03 | Hospitalist Progress Note ---
"Date of Service April 15, 2025 Assessment & Plan (1) Weakness of left leg: (2) Ambulatory dysfunction: (3) Generalized weakness: (4) Failure to thrive in adult: (5) B12 deficiency: Plan 89yo woman with COPD, insulin-dependent type 2 diabetes, hypertension, paroxysmal atrial fibrillation, iron deficiency anemia, and HFrEF. She presented from home with ongoing generalized weakness and ambulatory dysfunction. Since her fall in mid-February she has had LLE weakness. #LLE weakness - -2nd to previous CVA? -2nd to lumbar spine stenosis or other lumbar pathology? -hip and knee arthritis seem mild clinically and radiographically - doubt these are causing the weakness -B12 level is low but typically causes b/l symptoms - either way will replace -will obtain MRI of lumbar spine and MRI of brain; pacer is MRI compatible -nothing on x-rays of LLE today that would account for weakness and no fractures #HFrEF | A fib | Tachybrady syndrome - -echo in February 2025 noted global severe LV dysfunction with EF 25-30%, abn ormal septal motion consistent with conduction abnormality/pacemaker, mitral valve prolapse with mild/moderate MR. S/p pacemaker placement in 2020. Follows with Dr. Casper outpatient -LV function has worsened -reason?? -continue metoprolol succinate 200 mg daily, Lasix 40 mg daily, Eliquis 5 mg BID, amiodarone 200 mg BID -looks compensated on exam today, and cxr also w/o over pulm edema #T2DM | Class III obesity - -a1c = 6.3% -cont dietary control #Chronic back pain -obtain MRI l-spine due to LLE weakness -continue gabapentin 300 mg TID -PT and OT #Hypertension -continue losartan 25 mg daily -cont meto succ #Hyperlipidemiacontinue atorvastatin 10 mg HS #COPD #Iron deficiency anemiacontinue ferrous sulfate 325 mg daily -recent Fe studies with adequate storage -replace B12 -folate wnl #GERDcontinue PPI #Hypomagnesemia -continue magnesium oxide 400 mg BID VTE PPx: Eliquis accepted at [facility] for rehab, but discharge canceled today to perform additional w/u for the LLE weakness daughter & son updated at bedside today; they agree with plan of care Admission and Anticipated Discharge Date Admission Date: April 10, 2025 Subjective patient reports since falling in mid-February (she was hospitalized starting 02/25) her left leg has been weak she has mild discomfort in the left leg as well initially points to the left knee, but then points to the left tib-fib region as the site of discomfort her left wrist is also uncomfortable - near the thumb/wrist joint - since that fall she thinks she had imaging done of all these areas prior to the fall she was ambulating normal denies left arm weakness denies RUE/RLE weakness PT told her today she looked short of breath with activity, but she herself did not feel short-winded vaguely remembers having an lumbar spine MRI about 10 years ago and was told she had a herniated disc denies any numbness of LLE denies any back or neck pain today Review of Systems Review of Systems: cv - no chest pain pulm - has required NC O2 since her 02/2025 hospital stay GI - no N/V Physical Exam Physical Exam: gen - obese, sitting in chair, NAD neck - no JVD mouth - MMM heart - RRR, s1 s2, no murmur lungs - CTA b/l abd - soft NT ND BS+ ext - no edema, pulses 2+ b/l feet neuro - brisk reflexes on left (arm & leg) vs the right; mild weakness with hip flexion, knee extension, and movements of her left ankle/foot; normal strength RUE/RLE; no facial droop musculo - mild crepitus thumb-wrist joint left; no signs of trauma; right knee with mod OA changes; minimal OA changes left knee; no gross abnormalities of LLE; b/l hips with mildly restricted passive ROM Results & Data Results & Data Vital Signs (Past 12 Hours) Vital Signs Temp Pulse Resp BP Pulse Ox O2 Del Method O2 Flow Rate 04/15/25 15:14 36.7 C 60 20 143/79 H 95 Room Air 04/15/25 13:50 94 04/15/25 08:44 66 161/79 H 04/15/25 07:42 36.4 C 62 20 184/83 H 95 Nasal Cannula 2 04/15/25 07:25 Nasal Cannula 2 Laboratory Results Laboratory Results - last 24 hr 04/13/25 04/15/25 07:16 07:16 ESR 53 H Sodium Potassium Chloride Carbon Dioxide Anion Gap BUN Creatinine Est Cr Clr Drug Dosing eGFR BUN/Creatinine Ratio Glucose Calcium Iron 60 TIBC 349 Transferrin 249 Transferrin % Sat 17 Ferritin 75.1 C-Reactive Protein Vitamin B12 198 Folate > 22.30 Diagnostic Findings Knee X-Ray 04/15/25 16:01 History: Pain Comparison: None Findings: There is no acute fracture or dislocation. Alignment is anatomic. Mild medial compartment degenerative joint space narrowing. There is no joint effusion or significant soft tissue swelling. Impression: No acute bony abnormality Electronically signed by Cali Mccray 04-15-2025 5:24 PM Tibia/Fibula X-Ray 04/15/25 16:01 History: Pain Comparison: None Findings: There is no acute fracture or dislocation. Alignment is anatomic. Joint spaces are well maintained. There is no joint effusion or significant soft tissue swelling. Impression: No acute bony abnormality Electronically signed by Cali Mccray 04-15-2025 5:24 PM Wrist X-Ray 04/15/25 16:01 History: Pain Comparison: None Findings: There is no acute fracture or dislocation. Alignment is anatomic. Joint spaces are well maintained. There is no joint effusion or significant soft tissue swelling. Impression: No acute bony abnormality Electronically signed by Cali Mccray 04-15-2025 5:24 PM Chest X-Ray 04/15/25 16:06 Chest x-ray, 2 views History: chest pain Comparison: None Technique: 2 views of the chest, PA and lateral Findings: The lungs are clear. Enlarged cardiac silhouette. Left chest wall dual-lead AICD. The pulmonary vascularity appears prominent. No pleural effusion or pneumothorax. The heart size appears normal. No bony or soft tissue abnormality. Degenerative changes of the thoracic spine. Impression: Cardiomegaly and findings of pulmonary venous hypertension. No other acute process. Electronically signed by Cali Mccray 04-15-2025 5:24 PM PG Care Time/CCT Total # of Minutes Spent Total Time Spent with Patient: Total time spent is greater than 50% in coordination of care (as documented) at patient's floor/unit and/or counseling patient: Coding Level of Care Code 56057 SUB INP/OBS CARE 3/50MIN Diagnoses Weakness of left leg R29.898 Ambulatory dysfunction R26.2 Generalized weakness R53.1 Failure to thrive in adult R62.7 B12 deficiency E53.8"
[2025-04-16 07:49] LABS: Anion Gap 6 (3-11); Blood Urea Nitrogen 30 mg/dl (6-23); Calcium 8.6 mg/dl (8.6-10.3); Carbon Dioxide 32 mmol/L (21-32); Chloride 101 mmol/L (98-107); Creatinine Clr Calc Pharmacy 36.8 ml/min; Glucose 84 mg/dl (70-99(Fasting)); Potassium 4.0 mmol/L (3.5-5.1); Sodium 139 mmol/L (136-145)
[2025-04-16] MEDS: CYANOCOBALAMIN (B-12) 500 MCG TABLET PO SCH (09:48)
[2025-04-16] MEDS ORDERED: LORazepam Inj 0.25 MG in SYRINGE 0.125 ML IV PRN (10:17)
[2025-04-16] MEDS: LORazepam 0.5 MG TAB PO ONE (11:19)
--- NOTE | 2025-04-16 13:02 | Magnetic Resonance Report ---
MRI OF THE BRAIN WITHOUT IV CONTRAST CLINICAL HISTORY: Fall one month ago. Difficulty ambulating. Slurred speech. Evaluate for stroke. COMPARISON STUDY: Head CT February 28, 2025. TECHNIQUE: MRI of the brain was performed utilizing various T1 and T2-weighted sequences in the axial , sagittal, and coronal planes. IV contrast was not administered for this examination. FINDINGS: Brain parenchyma: There are no foci of restricted diffusion to suggest acute infarct. No acute intrac ranial hemorrhage, midline shift or mass effect is present. No intracranial masses are identified on unenhanced exam. There is mild atrophy. Scattered white matter T2 hyperintense foci represent mild sm all vessel disease. Ventricles, sulci, and cisterns: There is no hydrocephalus. The basal cisterns are patent. There are no extra-axial collections. Pituitary and sella: Unremarkable. Intracranial vasculature: Flow-voids for the major intracranial vessels are present. Orbits: Orbital contents are unremarkable. Sinuses and mastoids: Clear. Calvarium: No calvarial lesions are identified. Cervical cord: Partially visualized cervical spinal cord is normal in morphology and signal intensity . IMPRESSION: 1. No acute intracranial findings. 2. Mild atrophy and small vessel disease. ACT 112: Negative or not required by law. Electronically signed by: Travis Strauss M.D. 04/16/2025 1:01 PM
--- NOTE | 2025-04-16 13:44 | Magnetic Resonance Report ---
MR lumbar spine wo con CLINICAL HISTORY: 89 years-old Female with LLE weakness. Acute low back pain with left lower extremi ty weakness COMPARISON: CT abdomen and pelvis 03/19/2024 TECHNIQUE: Multiplanar, multi sequence MRI of the lumbar spine was performed without intravenous cont rast. FINDINGS: The lumbar alignment is normal. The vertebral body heights are normal. There is no T1 fracture line or marrow replacement process. The conus terminates at L1-L2. The visualized spinal cord and cauda equina are normal. There is no paraspinal edema, mass, or prevertebral fluid collection. Cortical thinning of the kidneys with numerous small bilateral renal cysts. There is mild to moderate multilev el intervertebral disc space narrowing with moderate spondylitic spurring and facet arthrosis. T12-L1: No central canal or neural foraminal stenosis. L1-L2: No central canal or neural foraminal stenosis. L2-L3: No central canal or neural foraminal stenosis. L3-L4: Circumferential annular disc bulge with spondylitic spurring. Ligamentum flavum thickening wi th moderate to severe facet arthrosis. Moderate central canal stenosis with AP dimension of the theca l sac measuring 6 mm. Mild bilateral neural foraminal stenosis. L4-L5: Circumferential annular disc bulge with spondylitic spurring. Ligamentum flavum thickening wi th moderate to severe facet arthrosis. Moderate to severe central canal stenosis with AP dimension of the thecal sac measuring 5 mm. Mild narrowing of the lateral recesses. [id number] right with m ild left neural foraminal narrowing. L5-S1: Circumferential annular disc bulge with spondylitic spurring. Ligamentum flavum thickening wi th moderate facet arthrosis. Mild central canal stenosis with AP dimension of the thecal sac measurin g 9 mm. Severe narrowing of the lateral recesses. Mild to moderate left with moderate right neural fo raminal narrowing. IMPRESSION: 1. No acute fracture, subluxation or significant marrow edema. 2. Multilevel discogenic degeneration with spondylotic spurring and facet arthrosis as above resultin g in associated central canal and neural foraminal stenosis at several levels. ACT 112: Negative or not required by law. The above report was generated using voice recognition software. It may contain grammatical, syntax o r spelling errors. Electronically signed by: Edgar Muñiz M.D. 04/16/2025 1:42 PM
[2025-04-16 14:27] VITALS: PULSE 60; RESP 16; TEMP 97.3; O2SAT 95
--- NOTE | 2025-04-16 15:42 | Discharge Summary ---
Discharge Summary Date of Service date of admission - April 10, 2025 date of discharge - April 16, 2025 Principal Dx & Hospital Course #1 = Principal Diagnosis (1) Weakness of left leg: (2) Ambulatory dysfunction: (3) Generalized weakness: (4) Failure to thrive in adult: (5) B12 deficiency: Plan 89yo female with COPD, insulin-dependent type 2 diabetes, hypertension, paroxysmal atrial fibrillation, iron deficiency anemia, and HFrEF. She presented from home with ongoing generalized weakness and ambulatory dysfunction. She had a fall in mid-February 2025 and since then has had LLE weakness. #LLE weakness - -MRI brain without old or new stroke or other pathology -LLE weakness 2nd to lumbar spine stenosis? -MRI lumbar spine with moderate-severe spinal stenosis at L3/L4, L4/L5, and L5/S1 -hip and knee arthritis seem mild clinically and radiographically but doubt these are causing the LLE weakness -B12 level was low but typically causes b/l symptoms - either way will replace -there was nothing on x-rays of LLE that would account for weakness; no fractures were seen either -suspect the lumbar spine DJD/DDD is responsible for the LLE weakness -she should continue PT/OT upon discharge to rehab -if after plenty of rehab she continues with LLE weakness she should see ortho- spine for evaluation #HFrEF | A fib | Tachybrady syndrome - -echo in February 2025 noted global severe LV dysfunction with EF 25-30%, abnormal septal motion consistent with conduction abnormality/pacemaker, mitral valve prolapse with mild/moderate MR. -S/p pacemaker placement in 2020 -LV function has worsened over time -cause/reason?? -continue metoprolol succinate 200 mg daily, Lasix 40 mg daily, Eliquis 5 mg BID, amiodarone 200 mg BID -looked compensated on exam, and cxr also w/o overt pulm edema while here -she did not have any a.fib runs while hospitalized #T2DM | Class III obesity - -Hba1c = 6.3% -cont dietary control as previous #Chronic back pain -obtained MRI lumbar spine due to LLE weakness -moderate-severe spinal stenosis seen at multiple levels -continue gabapentin 300 mg TID -continue PT and OT at rehab #Hypertension -continue losartan 25 mg daily -cont meto succ 200mg daily #Hyperlipidemia -continue atorvastatin 10 mg HS #COPD - -no exacerbation while here #Iron deficiency anemia -continue ferrous sulfate 325 mg daily -recent Fe studies with adequate storage (ferritin level 75, transferrin saturation 17%) -replace low B12 -folate level was wnl #GERD -continue PPI #Hypomagnesemia -history of such -magnesium level was normal while here -continue magnesium oxide 400 mg BID #B12 deficiency - -B12 level was 198 -recommend B12 supplementation 1000mcg daily x 6 months #DVT prophylaxis - -Eliquis #chronic hypoxic respiratory failure - -patient uses 2 liters of NC O2 continuously at home Notes For Next Care Provider If after receiving PT/OT services at rehab she continues with LLE weakness recommend referral to ortho-spine for evaluation Medication Changes From Visit B12 1000mcg daily (OTC) x 6 months Admission HPI Per Admitting Provider Tamie is a pleasant 89-year-old woman with past medical history of COPD, insulin- dependent type 2 diabetes, hypertension, paroxysmal atrial fibrillation, iron deficiency anemia, and HFrEF. She presented from home with ongoing generalized weakness and ambulatory dysfunction. At the time of my exam, the patient was lying in bed in no acute distress with her daughter and son present at bedside. She states she was hospitalized in February and was recommended to go to short- term rehab from the hospital stay but she declined this and returned home. Since returning home, she is had progressive generalized weakness and ambulatory dysfunction. She is no longer able to use her walker. She denies any pain that is restricting her activity level, just noting that her legs are too weak and "give out." She denies any recent infectious symptoms, repeat falls, or injuries. Denies chest pain, heart palpitations, shortness of breath, headache, congestion, abdominal pain, nausea, vomiting, diarrhea, or urinary symptoms. Patient reports that she took all of her regular morning medications today. Earlier this month, her diltiazem, flecainide, and potassium supplement were discontinued, her metoprolol was switched to 200 mg once daily, and her Lasix was reduced to 40 mg daily. She wears 2 L of O2 continuously. Her children at bedside report her supplemental O2 is "for her heart." Tamie reports that she checks her blood sugar daily because she has been told that she has diabetes, but is not on any diabetic medications. She also has a documented history of COPD but reports she has never been told about this and does not use any inhalers. Vitals on admission are stable and unremarkable. Labs on admission are overall unremarkable. CBC without leukocytosis, H&H, and platelets WNL. CMP with mildly elevated BUN at 33, creatinine WNL and at baseline. Electrolytes WNL. Liver enzymes WNL. TSH WNL. UA negative. We discussed code status, patient wishes to be a DNR/DNI. Discharge Exam gen - obese, sitting in chair, NAD, looks well today neck - no JVD mouth - MMM heart - RRR, s1 s2, no murmur lungs - CTA b/l abd - soft NT ND BS+ ext - no edema, pulses 2+ b/l feet neuro - brisk reflexes on left (arm & leg) vs the right; mild weakness with hip flexion, knee extension, and movements of her left ankle/foot; normal strength RUE/RLE; no facial droop musculo - mild crepitus thumb-wrist joint left; no signs of trauma; right knee with mod OA changes; minimal OA changes left knee; no gross abnormalities of LLE; b/l hips with mildly restricted passive ROM Discharge Plan Discharge Items Patient Disposition: Transfer Inpatient Rehab Fac Reason For Visit: AMBULATORY DYSFUNCTION, WEAKNESS Discharge Diagnosis: 1. weakness, difficulty walking 2. left leg weakness - due to lumbar spine stenosis? 3. chronic systolic congestive heart failure 4. history of DVT 5. pacemaker 6. type 2 diabetes 7. history of atrial fibrillation 8. vitamin B12 deficiency 9. recent need for continuous nasal cannula O2, 2 liters 10. emphysema/COPD Activity: Resume your previous activity Non-emergency contact: Primary Care Provider Call non-emergency contact if: you have any medication questions and your symptoms worsen Follow-up/Referrals: Charli De Dios, [Primary Care Provider] - Diet: Carb Consistent or DM2 and Heart Healthy Fluids: 1800ml (7 cups) Addtl Attending Provider Instructions: Ms Hunt was hospitalized due to generalized weakness and ambulatory dysfunction. She had a fall in mid-February and since then has had the weakness. In addition she has had focal weakness of the left leg. Due to the left leg weakness MRI brain was obtained. This did NOT show an old or new stroke. Lumbar spine MRI was also completed showing at least moderate amounts of spinal stenosis at L4, L5, and S1 (lower portion of spine). It is possible that the lumbar spinal stenosis is contributing to the left leg symptoms. Cervical spine CT in February showed arthritis/degeneration but no fractures. We also detected low vitamin B12 and she should take at least 6 months of oral B12 supplementation. Recommendations - 1. PT/OT - eval & Rx 2. Daily weights due to chronic systolic CHF 3. If left leg weakness does not improve with physical therapy please refer to Orthopedics-spine for evaluation 4. Check BSGs in the morning and at bedtime 5. See Dr Casper for systolic CHF - ideally within 2-3 weeks 6. Oxygen 2 liters via NC continuously It was our pleasure to care for Ms Hunt! -Power Gonzalez, [facility] medicine Pending Studies at Discharge: No Stand-Alone Forms: [facility] Skilled Items Patient informed of condition?: Yes DNR: Yes Discharge Level of Care: Acute rehab Communicable Disease: No Discharge Prognosis: Stable Lines: None Urinary Catheter: No Medications and DC Order Prescriptions: New cyanocobalamin (vitamin B-12) 1,000 mcg tablet 1,000 mcg PO DAILY Qty: 30 5RF Continued (DME[place] [facility] [place] Instructions .ROUTE .MEDSUPPLY Qty: 1 0RF Rx Instructions: As directed Rollator 4 wheels with brakes and seat (DME) blood sugar diagnostic Strip See Dose Instructions .ROUTE .MEDSUPPLY Qty: 100 3RF Rx Instructions: check glucose once daily as directed (DME) blood-glucose meter [OneTouch Ultra2 Meter[place] [facility] [place] Rx Instructions .Route Qty: 1 0RF Rx Instructions: As directed, once daily (DME) lancets [OneTouch Delica Plus Lancet] 33 gauge [facility] [place] Rx Instructions .Route Qty: 100 5RF Rx Instructions: Use to check blood sugar once daily as directed rabeprazole 20 mg tablet,delayed release (DR/EC) 20 mg PO DAILY Qty: 90 3RF magnesium oxide 400 mg magnesium capsule 400 mg PO BID 90 Days Qty: 180 2RF (DME) portable oxygen concentrator See Rx Instructions .Route .MEDSUPPLY Qty: 1 0RF Rx Instructions: continuous use with 4L furosemide [Lasix] 20 mg tablet 40 mg PO DAILY Qty: 90 0RF metoprolol succinate 200 mg tablet extended release 24 hr 200 mg PO DAILY Qty: 30 2RF (DME) OneTouch Ultra Test Strip See Rx Instructions .Route Qty: 100 5RF Rx Instructions: once daily As directed Eliquis 5 mg tablet 5 mg PO BID Qty: 180 3RF atorvastatin 10 mg tablet 10 mg PO HS Qty: 90 3RF Patient Comments: qam gabapentin 300 mg capsule 300 mg PO TID Qty: 270 3RF Hold Instructions: Hasn't taken since 03/20/24 Rx Instructions: TAKES QAM, 1430, QHS losartan 25 mg tablet 25 mg PO DAILY Qty: 90 3RF Hold Instructions: BP low, was not d/c'd home with losartan from [facility] Patient Comments: qpm amiodarone 200 mg tablet 200 mg PO BID Qty: 60 5RF (DME) Portable Oxygen Misc See Rx Instructions .Route Qty: 1 0RF Rx Instructions: continuous use 4L acetaminophen 325 mg Tablet 650 mg PO Q4H PRN (Reason: pain) Qty: 30 0RF ferrous sulfate 325 mg (65 mg iron) tablet 325 mg PO DAILY Qty: 0 0RF Rx Instructions: PT TAKES NEEDED Changed clotrimazole-betamethasone 1-0.05 % cream 1 applic topical BID PRN (Reason: itching) Qty: 15 3RF Rx Instructions: apply 1-2 x daily to each ear PRN itching Discharge Orders: Discharge Order (Routine); Ordered 04/16/25 Ordered By: Power Gonzalez Admission Data Admit Date/Time: 04/10/25 13:09 Attending Provider: Power Gonzalez Admit Provider: Rashad Chavez Primary Care Provider: Charli De Dios Other Providers: [facility]; [facility] Other Interventions: Discharge Summary Assessment (RN) Last Done: 04/16/25 16:01 Hospital Stay Data Consultations 04/10/25 13:02 ED Decision to Admit Stat Diagnostic Imagining Performed Knee X-Ray 04/15/25 16:01 History: Pain Comparison: None Findings: There is no acute fracture or dislocation. Alignment is anatomic. Mild medial compartment degenerative joint space narrowing. There is no joint effusion or significant soft tissue swelling. Impression: No acute bony abnormality Electronically signed by Cali Mccray 04-15-2025 5:24 PM Tibia/Fibula X-Ray 04/15/25 16:01 History: Pain Comparison: None Findings: There is no acute fracture or dislocation. Alignment is anatomic. Joint spaces are well maintained. There is no joint effusion or significant soft tissue swelling. Impression: No acute bony abnormality Electronically signed by Cali Mccray 04-15-2025 5:24 PM Wrist X-Ray 04/15/25 16:01 History: Pain Comparison: None Findings: There is no acute fracture or dislocation. Alignment is anatomic. Joint spaces are well maintained. There is no joint effusion or significant soft tissue swelling. Impression: No acute bony abnormality Electronically signed by Cali Mccray 04-15-2025 5:24 PM Chest X-Ray 04/15/25 16:06 Chest x-ray, 2 views History: chest pain Comparison: None Technique: 2 views of the chest, PA and lateral Findings: The lungs are clear. Enlarged cardiac silhouette. Left chest wall dual-lead AICD. The pulmonary vascularity appears prominent. No pleural effusion or pneumothorax. The heart size appears normal. No bony or soft tissue abnormality. Degenerative changes of the thoracic spine. Impression: Cardiomegaly and findings of pulmonary venous hypertension. No other acute process. Electronically signed by Cali Mccray 04-15-2025 5:24 PM Brain MRI 04/16/25 19:17 MRI OF THE BRAIN WITHOUT IV CONTRAST CLINICAL HISTORY: Fall one month ago. Difficulty ambulating. Slurred speech. Evaluate for stroke. COMPARISON STUDY: Head CT February 28, 2025. TECHNIQUE: MRI of the brain was performed utilizing various T1 and T2-weighted sequences in the axial, sagittal, and coronal planes. IV contrast was not administered for this examination. FINDINGS: Brain parenchyma: There are no foci of restricted diffusion to suggest acute infarct. No acute intracranial hemorrhage, midline shift or mass effect is present. No intracranial masses are identified on unenhanced exam. There is mild atrophy. Scattered white matter T2 hyperintense foci represent mild small vessel disease. Ventricles, sulci, and cisterns: There is no hydrocephalus. The basal cisterns are patent. There are no extra-axial collections. Pituitary and sella: Unremarkable. Intracranial vasculature: Flow-voids for the major intracranial vessels are present. Orbits: Orbital contents are unremarkable. Sinuses and mastoids: Clear. Calvarium: No calvarial lesions are identified. Cervical cord: Partially visualized cervical spinal cord is normal in morphology and signal intensity. IMPRESSION: 1. No acute intracranial findings. 2. Mild atrophy and small vessel disease. ACT 112: Negative or not required by law. Electronically signed by: Travis Strauss M.D. 04/16/2025 1:01 PM Lumbar Spine MRI 04/16/25 19:17 MR lumbar spine wo con CLINICAL HISTORY: 89 years-old Female with LLE weakness. Acute low back pain with left lower extremity weakness COMPARISON: CT abdomen and pelvis 03/19/2024 TECHNIQUE: Multiplanar, multi sequence MRI of the lumbar spine was performed without intravenous contrast. FINDINGS: The lumbar alignment is normal. The vertebral body heights are normal. There is no T1 fracture line or marrow replacement process. The conus terminates at L1-L2. The visualized spinal cord and cauda equina are normal. There is no paraspinal edema, mass, or prevertebral fluid collection. Cortical thinning of the kidneys with numerous small bilateral renal cysts. There is mild to moderate multilevel intervertebral disc space narrowing with moderate spondylitic spurring and facet arthrosis. T12-L1: No central canal or neural foraminal stenosis. L1-L2: No central canal or neural foraminal stenosis. L2-L3: No central canal or neural foraminal stenosis. L3-L4: Circumferential annular disc bulge with spondylitic spurring. Ligamentum flavum thickening with moderate to severe facet arthrosis. Moderate central canal stenosis with AP dimension of the thecal sac measuring 6 mm. Mild bilateral neural foraminal stenosis. L4-L5: Circumferential annular disc bulge with spondylitic spurring. Ligamentum flavum thickening with moderate to severe facet arthrosis. Moderate to severe central canal stenosis with AP dimension of the thecal sac measuring 5 mm. Mild narrowing of the lateral recesses. [id number] right with mild left neural foraminal narrowing. L5-S1: Circumferential annular disc bulge with spondylitic spurring. Ligamentum flavum thickening with moderate facet arthrosis. Mild central canal stenosis with AP dimension of the thecal sac measuring 9 mm. Severe narrowing of the lateral recesses. Mild to moderate left with moderate right neural foraminal narrowing. IMPRESSION: 1. No acute fracture, subluxation or significant marrow edema. 2. Multilevel discogenic degeneration with spondylotic spurring and facet arthrosis as above resulting in associated central canal and neural foraminal stenosis at several levels. ACT 112: Negative or not required by law. The above report was generated using voice recognition software. It may contain grammatical, syntax or spelling errors. Electronically signed by: Edgar Muñiz M.D. 04/16/2025 1:42 PM Pending Results Patient Have Any Pending Studies at Discharge: No Discharge Instructions Given to Patient (Per Discharging Provider) Ms Hunt was hospitalized due to generalized weakness and ambulatory dysfunction. She had a fall in mid-February and since then has had the weakness. In addition she has had focal weakness of the left leg. Due to the left leg weakness MRI brain was obtained. This did NOT show an old or new stroke. Lumbar spine MRI was also completed showing at least moderate amounts of spinal stenosis at L4, L5, and S1 (lower portion of spine). It is possible that the lumbar spinal stenosis is contributing to the left leg symptoms. Cervical spine CT in February showed arthritis/degeneration but no fractures. We also detected low vitamin B12 and she should take at least 6 months of oral B12 supplementation. Recommendations - 1. PT/OT - eval & Rx 2. Daily weights due to chronic systolic CHF 3. If left leg weakness does not improve with physical therapy please refer to Orthopedics-spine for evaluation 4. Check BSGs in the morning and at bedtime 5. See Dr Casper for systolic CHF - ideally within 2-3 weeks 6. Oxygen 2 liters via NC continuously It was our pleasure to care for Ms Hunt! -Power Gonzalez, [facility] Total Time Total Time Spent Total Time Spent (In Minutes): 45 Total Time Includes: Examination of the Patient, Discharge Planning, Medication Reconciliation and Communication With Other Providers Coding Level of Care Code 91901 INP/OBS DISCH >30 MIN Diagnoses Weakness of left leg R29.898 Ambulatory dysfunction R26.2 Generalized weakness R53.1 Failure to thrive in adult R62.7 B12 deficiency E53.8
[2025-04-16 16:01] VITALS: BP 115/73
== END 2025-04-16 16:28 | DRG 92 ==
LOC: ED 10:21 → SUATTDRO 13:09 → 3W 13:09 → INTOOBSV 13:09 → 3W 14:08